=== PATIENT | female | born 1965 | race Caucasian/White ===

== ENCOUNTER 2016-10-20 11:38 | Emergency (ER) | payer BC ==
[2016-10-20] MEDS ORDERED: Ondansetron INJ* 2 MG/ML VIAL IV ONE ×2 (14:56→18:58)
[2016-10-20] MEDS ORDERED: Morphine INJ* 4 MG/ML 1 ML SYRINGE IV ONE ×2 (14:56→19:25)
[2016-10-20] MEDS ORDERED: NS 0.9% 1000 ML* 1,000 ML IV ONE ×2 (14:56→17:57)
--- NOTE | 2016-10-20 15:44 | RAD ---
HISTORY: Right shoulder abscess COMPARISONS: None TECHNIQUE: Multiple transverse and longitudinal ultrasound images were obtained of the right shoulder using grayscale and color Doppler imaging FINDINGS: There is a hypoechoic area in the region of palpable abnormality measuring 3.3 x 1 x 4.4 cm in size. There is no internal vascularity. IMPRESSION: HYPOECHOIC AREA IN THE REGION OF PALPABLE ABNORMALITY SUGGESTIVE OF PHLEGMON VERSUS EARLY ABSCESS GIVEN THE CLINICAL HISTORY
--- NOTE | 2016-10-20 16:34 | RAD ---
INDICATION: Malaise. COMPARISON: Comparison is made with a prior CT of the abdomen and pelvis from October 04, 2015 and a chest x-ray study also of the date. TECHNIQUE: A portable view of the chest was obtained. FINDINGS: The heart is within normal limits in size. There is a retrocardiac density which correlates with a moderate size hiatal hernia on the prior CT study. This is unchanged from the prior chest x-ray exam. The lungs are clear. No pleural effusion is seen. IMPRESSION: 1. NO EVIDENCE FOR ACUTE FINDING. 2. HIATAL HERNIA.
[2016-10-20 16:44] LABS: Hematocrit 41 % (35-47); Hemoglobin 13.6 g/dl (12.0-16.0); Mean Corpuscular HGB Conc 33 g/dl (31-36); Mean Corpuscular Hemoglobin 28 pg (27-31); Mean Corpuscular Volume 82 fL (80-97); Mean Platelet Volume 8 um3 (7.4-10.4); Red Blood Count 4.97 10^6/ul (4.0-5.4); Red Cell Distribution Width 15 % (10.5-15); White Blood Count 7.7 10^3/ul (3.5-10.8)
[2016-10-20 16:45] LABS: Troponin I 0.01 ng/mL (<0.04)
[2016-10-20 17:00] LABS: Albumin 3.6 g/dL (3.2-5.2); BUN/Creatinine Ratio 26.5 (8-20); C Reactive Protein 15.74 mg/L (< 5.00); Calcium 8.9 mg/dL (8.6-10.3); EGFR African American 92.5 (>60); EGFR Non-African American 71.9 (>60); Globulin 3.9 g/dL (2-4); Potassium 3.5 mmol/L (3.5-5.0); Total Bilirubin 0.2 mg/dL (0.2-1.0); Total Protein 7.5 g/dL (6.4-8.9)
[2016-10-20] MEDS ORDERED: Potassium Chlor TAB* 20 MEQ TAB.ER PO ONE (17:57)
[2016-10-20] MEDS ORDERED: Sulfamethox/Trimethoprim DS 800/160* TAB PO ONE (17:58)
[2016-10-20 18:21] LABS: Magnesium 1.6 mg/dL (1.9-2.7)
[2016-10-20] MEDS ORDERED: Magnesium Sulfate 2 GM IV* 2 GM/50 ML BAG IVPB ONE (18:30)
[2016-10-20] MEDS ORDERED: Ondansetron INJ* 2 MG/ML VIAL ONE (18:59)
[2016-10-20 20:40] LABS: Urine Bacteria 1+ (Absent); Urine Bilirubin Negative (Negative); Urine Glucose 1+(50 mg/dL) (Negative); Urine Nitrite Negative (Negative)
--- NOTE | 2016-10-20 20:56 | ED ---
I, DoctorLeidy, scribed for Shalonda Desir MD on 10/20/16 at 1501 . Complex/Multi-Sys Presentation - HPI Summary HPI Summary: 51 year [place] [facility] [place] the past few days. She reports decreased appetite and poor fluid intake, and generally "not feeling well." She also reports feeling lightheaded. She denies any dysuria. Pt also indicates that she has an acute cyst on the right shoulder. She has a PMHx of DM , HTN, CAD, and HLD; FHx of DM. She is an occasional smoker and infrequent drinker; lives with her . - History Of Current Complaint Chief Complaint: EDGeneral Hx Obtained From: Patient Onset/Duration: Gradual Onset Timing: Constant Severity Currently: Moderate Severity Initially: Moderate Associated Signs And Symptoms: Positive: Nausea, Vomiting, Diarrhea, Decreased Oral Intake - decreased appetite and poor fluid intake, Other - Lightheadedness , decreased appetite. Negative: Dysuria - Allergies/Home Medications Allergies/Adverse Reactions: Allergies Allergy/AdvReac Type Severity Reaction Status Date / Time No Known Allergies Allergy Verified 08/30/15 08:30 PMH/Surg Hx/FS Hx/Imm Hx Endocrine/Hematology History: Reports: Hx Diabetes Denies: Hx Systemic Lupus Erythematosus Cardiovascular History: Reports: Hx Coronary Artery Disease, Hx Myocardial Infarction, Other Cardiovascular Problems/Disorders - Cardiac Stents x 2 Denies: Hx Congestive Heart Failure, Hx Hypertension, Hx Pacemaker/ICD Respiratory History: Reports: Hx Asthma Denies: Other Respiratory Problems/Disorders GI History: Reports: Hx Gastroesophageal Reflux Disease Comment Only: Other GI Disorders - GERD History: Denies: Hx Dialysis, Hx Renal Disease Musculoskeletal History: Denies: Hx Rheumatoid Arthritis Sensory History: Reports: Hx Contacts or Glasses Denies: Hx Hearing Aid, Other Sensory Impairments Opthamlomology History: Reports: Hx Contacts or Glasses Denies: Other Sensory Impairments Neurological History: Reports: Hx Headaches, Hx Migraine Denies: Hx Transient Ischemic Attacks (TIA) Psychiatric History: Denies: Hx Panic Disorder, Hx Substance Abuse - Cancer History Cancer Type, Location and Year: CERVICAL CA 12/2012 Hx Chemotherapy: Yes Hx Radiation Therapy: Yes Hx Palliative Cancer Treatment: No - Surgical History Surgery Procedure, Year, and Place: 2 HEART STENTS 2006 AT [facility] /2009 AT [facility] [place]/, ESOPHOGUS SURGERY, 02/04/13 [facility] LYMPH NODE SURGERY - PER NO METAL USED IN THIS PROCEDURE (SW) Hx Anesthesia Reactions: No Infectious Disease History: No Infectious Disease History: Denies: Traveled Outside the [place] in Last 30 Days - Family History Known Family History: Positive: Diabetes Family History: R & n/C - Social History Alcohol Use: Rare Hx Substance Use: No Substance Use Type: Reports: None Hx Tobacco Use: Yes Smoking Status (MU): Current Some Day Smoker Type: Cigarettes Amount Used/How Often: just occassionally Have You Smoked in the Last Year: Yes Review of Systems Negative: Fever Positive: Vomiting, Diarrhea, Nausea, Other - decreased po intake Negative: dysuria Neurological: Other - Lightheadedness All Other Systems Reviewed And Are Negative: Yes Physical Exam Triage Information Reviewed: Yes Vital Signs On Initial Exam: Initial Vitals Temp Pulse Resp BP Pulse Ox 97.1 F 105 16 127/68 100 10/20/16 11:48 10/20/16 11:48 10/20/16 11:48 10/20/16 11:48 10/20/16 11:48 Vital Signs Reviewed: Yes Appearance: Positive: Well-Appearing, No Pain Distress Skin: Positive: Other - Abscess - 3 cm in circumference at superior edge of right scapula, some erythema on abscess with mild fluctuance and induration, but no surrounding erythema. Eyes: Positive: EOMI, DIPESH ENT: Positive: Pharynx normal, TMs normal Neck: Positive: Supple, Nontender Respiratory/Lung Sounds: Positive: Clear to Auscultation, Breath Sounds Present. Negative: Rales, Rhonchi, Wheezes Cardiovascular: Positive: RRR. Negative: Murmur, Rub Abdomen Description: Positive: Nontender, Soft Bowel Sounds: Positive: Present Musculoskeletal: Positive: Strength/ROM Intact. Negative: Edema Left, Edema Right Neurological: Positive: Sensory/Motor Intact, Alert, Oriented to Person Place, Time, CN Intact II-III Psychiatric: Positive: Affect/Mood Appropriate - Alicia Coma Scale Coma Scale Total: 15 Diagnostics - Vital Signs Vital Signs Temp Pulse Resp BP Pulse Ox 10/20/16 14:28 97.7 F 108 16 139/79 97 10/20/16 12:51 97.7 F 108 16 139/79 99 10/20/16 11:48 97.1 F 105 16 127/68 100 - Laboratory Lab Results: Lab Results 10/20/16 10/20/16 10/20/16 Range/Units 14:07 14:07 14:07 WBC 7.7 (3.5-10.8) 10^3/ul RBC 4.97 (4.0-5.4) 10^6/ul Hgb 13.6 (12.0-16.0) g/dl Hct 41 (35-47) % MCV 82 (80-97) fL MCH 28 (27-31) pg MCHC 33 (31-36) g/dl RDW 15 (10.5-15) % Plt Count 307 (150-450) 10^3/ul MPV 8 (7.4-10.4) um3 Neut % (Auto) 71.4 (38-83) % Lymph % (Auto) 20.4 L (25-47) % Ness % (Auto) 6.5 (1-9) % Eos % (Auto) 1.0 (0-6) % Baso % (Auto) 0.7 (0-2) % Absolute Neuts (auto) 5.5 (1.5-7.7) 10^3/ul Absolute Lymphs (auto) 1.6 (1.0-4.8) 10^3/ul Absolute Monos (auto) 0.5 (0-0.8) 10^3/ul Absolute Eos (auto) 0.1 (0-0.6) 10^3/ul Absolute Basos (auto) 0.1 (0-0.2) 10^3/ul Absolute Nucleated RBC 0.01 10^3/ul Nucleated RBC % 0.1 INR (Anticoag Therapy) 1.22 H (0.89-1.11) Sodium 130 L (133-145) mmol/L Potassium 3.5 (3.5-5.0) mmol/L Chloride 94 L (101-111) mmol/L Carbon Dioxide 26 (22-32) mmol/L Anion Gap 10 (2-11) mmol/L BUN 22 (6-24) mg/dL Creatinine 0.83 (0.51-0.95) mg/dL Est GFR ( Amer) 92.5 (>60) Est GFR (Non-Af Amer) 71.9 (>60) BUN/Creatinine Ratio 26.5 H (8-20) Glucose 232 H (70-100) mg/dL Lactic Acid (0.5-2.0) mmol/L Calcium 8.9 (8.6-10.3) mg/dL Magnesium 1.6 L (1.9-2.7) mg/dL Total Bilirubin 0.20 (0.2-1.0) mg/dL AST 95 H (13-39) U/L ALT 69 H (7-52) U/L Alkaline Phosphatase 55 (34-104) U/L Troponin I 0.01 (<0.04) ng/mL C-Reactive Protein 15.74 H (< 5.00) mg/L Total Protein 7.5 (6.4-8.9) g/dL Albumin 3.6 (3.2-5.2) g/dL Globulin 3.9 (2-4) g/dL Albumin/Globulin Ratio 0.9 L (1-3) Urine Color Urine Appearance Urine pH (5-9) Ur Specific [place] (1.010-1.030) Urine Protein (Negative) Urine Ketones (Negative) Urine Blood (Negative) Urine Nitrate (Negative) Urine Bilirubin (Negative) Urine Urobilinogen (Negative) Ur Leukocyte Esterase (Negative) Urine WBC (Auto) (Absent) Urine RBC (Auto) (Absent) Ur Squamous Epith Cells (Absent) Amorphous Crystals (Absent) Urine Bacteria (Absent) Hyaline Casts (Absent) Urine Glucose (Negative) Urine Ascorbic Acid (Negative) 10/20/16 10/20/16 Range/Units 14:07 20:20 WBC (3.5-10.8) 10^3/ul RBC (4.0-5.4) 10^6/ul Hgb (12.0-16.0) g/dl Hct (35-47) % MCV (80-97) fL MCH (27-31) pg MCHC (31-36) g/dl RDW (10.5-15) % Plt Count (150-450) 10^3/ul MPV (7.4-10.4) um3 Neut % (Auto) (38-83) % Lymph % (Auto) (25-47) % Ness % (Auto) (1-9) % Eos % (Auto) (0-6) % Baso % (Auto) (0-2) % Absolute Neuts (auto) (1.5-7.7) 10^3/ul Absolute Lymphs (auto) (1.0-4.8) 10^3/ul Absolute Monos (auto) (0-0.8) 10^3/ul Absolute Eos (auto) (0-0.6) 10^3/ul Absolute Basos (auto) (0-0.2) 10^3/ul Absolute Nucleated RBC 10^3/ul Nucleated RBC % INR (Anticoag Therapy) (0.89-1.11) Sodium (133-145) mmol/L Potassium (3.5-5.0) mmol/L Chloride (101-111) mmol/L Carbon Dioxide (22-32) mmol/L Anion Gap (2-11) mmol/L BUN (6-24) mg/dL Creatinine (0.51-0.95) mg/dL Est GFR ( Amer) (>60) Est GFR (Non-Af Amer) (>60) BUN/Creatinine Ratio (8-20) Glucose (70-100) mg/dL Lactic Acid 1.0 (0.5-2.0) mmol/L Calcium (8.6-10.3) mg/dL Magnesium (1.9-2.7) mg/dL Total Bilirubin (0.2-1.0) mg/dL AST (13-39) U/L ALT (7-52) U/L Alkaline Phosphatase (34-104) U/L Troponin I (<0.04) ng/mL C-Reactive Protein (< 5.00) mg/L Total Protein (6.4-8.9) g/dL Albumin (3.2-5.2) g/dL Globulin (2-4) g/dL Albumin/Globulin Ratio (1-3) Urine Color Yellow Urine Appearance Cloudy Urine pH 5.0 (5-9) Ur Specific [place] 1.024 (1.010-1.030) Urine Protein 1+(30 mg/dl) H (Negative) Urine Ketones Trace H (Negative) Urine Blood Negative (Negative) Urine Nitrate Negative (Negative) Urine Bilirubin Negative (Negative) Urine Urobilinogen Negative (Negative) Ur Leukocyte Esterase Trace H (Negative) Urine WBC (Auto) 1+(6-10/hpf) H (Absent) Urine RBC (Auto) Trace(0-2/hpf) (Absent) Ur Squamous Epith Cells Present H (Absent) Amorphous Crystals Present H (Absent) Urine Bacteria 1+ H (Absent) Hyaline Casts Present H (Absent) Urine Glucose 1+(50 mg/dl) H (Negative) Urine Ascorbic Acid * H (Negative) Result Diagrams: 10/20/16 14:07 10/20/16 14:07 Lab Statement: Any lab studies that have been ordered have been reviewed, and results considered in the medical decision making process. - Radiology CXR Radiology Interpretation Completed By: Radiologist - IMPRESSION: 1. NO EVIDENCE FOR ACUTE FINDING. 2. HIATAL HERNIA. - Ultrasound No standard instances Ultrasound Interpretation Completed By: Radiologist - Soft Tissue US IMPRESSION : HYPOECHOIC AREA IN THE REGION OF PALPABLE ABNORMALITY SUGGESTIVE OF PHLEGMON VERSUS EARLY ABSCESS GIVEN THE CLINICAL HISTORY - EKG 11:55 Cardiac Rate: Tachycardia - 103 bpm EKG Rhythm: Sinus Rhythm - normal Ectopy: None EKG Interpretation: NSR, Non-specific t-wave changes EKG Comparison: No Significant Change - from EKG taken on 10/04/2015 Re-Evaluation - Re-Evaluation First Eval Re-Evaluation Time: 17:49 Change: Unchanged - Discussed treatment plan and lab results with pt Second Eval Re-Evaluation Time: 18:00 Change: Unchanged Complex Multi-Symp Course/Dx Course Of Treatment: 51 yo female with nausea and a developing abscess over her right upper back. She is being treated with bactrim, her urine is equivacol and we will wait for culture. She did come in tachycardic but without a wbc and with a normal lactic acid. Her tachycardia resolved with 2 liters of fluid, she will followup at [place] for i and D of the abscess in 2 days, [facility] but wanted to go to [place] - Diagnoses Provider Diagnoses: Abscess Discharge - Discharge Plan Condition: Stable Disposition: HOME Prescriptions: Ondansetron TAB* [Zofran 4 MG Tab*] 4 mg PO Q6H PRN #20 tab PRN Reason: Nausea Sulfamethox/Trimethoprim DS* [Bactrim DS 800/160 TAB*] 1 tab PO BID #14 tab The documentation as recorded by the Doctor granados Tahera accurately reflects the service I personally performed and the decisions made by , Shalonda Desir MD.
[2016-10-20] MEDS ORDERED: Ondansetron ODT TAB* 4 MG ONE (21:16)
[2016-10-20 21:26] VITALS: BP 151/72
== END 2016-10-20 21:23 | disposition home or self-care (01) ==
LOC: ED 11:38
DX: L02.413 Cutaneous abscess of right upper limb (principal); R11.2 Nausea with vomiting, unspecified; R19.7 Diarrhea, unspecified; Z72.0 Tobacco use; R42 Dizziness and giddiness
CPT/HCPCS: 36415; 71010; 76536; 80053; 81003; 81015; 83605; 83735; 84484; 85025; 85610; 86140; 87086; 93005; 96374; 96375; 99282; A9270-GY; J2270; J2405

== ENCOUNTER 2019-07-22 11:00 | Inpatient (IN) | payer BC ==
--- OUTSIDE RECORDS SUMMARY | 2019-07-22 13:28 | XMS REPORT | Continuity of Care Document ---
:1965 External Reference #:[id number] Author Name Marissa Jimenez NP (transmitted by agent of provider Halle Harper) Address [address] [place] [address] Care Team Providers Name Role Phone Prudence Whatley NP - Nurse Care Team Information Musculoskeletal Physiotherapist [phone] Practitioner Problems Active Problems Provider Date Coronary arteriosclerosis Evan Holland M.D. Onset: 02/01/2016 Essential hypertension Evan Holland M.D. Onset: 02/01/2016 Social History Type Date Description Comments Sex Unknown ETOH Use Occasionally consumes alcohol Tobacco Use Start: Unknown End: Patient is a former Quit 2006 Unknown smoker Recreational Drug Use Denies Drug Use Tobacco Use Start: Unknown Light tobacco smoker only on sundays (10 or fewer cigarettes/day) Smoking Status Reviewed: 07/19/19 Light tobacco smoker only on sundays (10 or fewer cigarettes/day) Exercise Type/Frequency Does not exercise limited d/tnerve damage Allergies, Adverse Reactions, Alerts Active Allergies Reaction Severity Comments Date Bee Sting 01/18/2014 Medications Active Medications SIG Qnty Indications Ordering Provider Date Blood Pressure use daily to 1units Marissa Jimenez NP 07/19/2019 Monitor Auto monitor bp daily Inflate as needed.( [facility] [place] cuff) Lasix take 1 tablet by 30tabs I87.2 Marissa Jimenez NP 07/19/2019 40mg Tablets mouth daily Humalog Kwikpen silding scale Evan Holland, 01/08/2018 Huber 100Unit/ML Solution Pen-Inject Rosuvastatin Calcium one a day 90tabs I25.10 Evan Holland 01/08/2018 M.D. 5mg Tablets Tricor 1 by mouth every 90tabs Evan Holland, 08/05/2013 145mg Tablets day M.D. Plavix 1 by mouth every 90tabs Evan Holland, 08/03/2013 75mg Tablets day M.D. Metoprolol Succinate 1 tablet by 90tabs Evan Holland, 12/23/2012 ER mouth every day M.D. 50mg Tablets ER 24HR Losartan Potassium 1 by mouth every 90tabs Evan Holland, 25mg day M.D. Tablets Fluoxetine HCL 1 by mouth every Unknown 20mg day Capsules Gabapentin 1 by mouth three Unknown 300mg times a day Capsules Albuterol Sulfate prn Unknown Fluticasone 2 sprays each Unknown Propionate nostril daily as 50mcg/Act needed Suspension Levemir take 50 units sq 5units Unknown 100Unit/ML daily Solution Magnesium 1 tablet po Unknown 400mg daily Claritin prn Unknown Nexium 1 by mouth every 90caps Unknown 40mg Capsules DR day Glyburide 1 tablet in am 180tabs Unknown 4mg Tablets and 1 tablet qhs Aspirin Ec 1 by mouth every Unknown 81mg Tablets day DR History Medications Furosemide 1 by mouth 90tabs I25.10 Evan Holland, 03/02/2019 - 20mg every day M.D. 07/19/2019 Tablets Immunizations Description No Information Available Vital Signs Date Vital Result Comment 07/19/2019 12:43pm Height 64 inches 5'4" Weight 198.00 lb with shoes Heart Rate 76 /min BP Systolic Sitting 150 mmHg LA BP Diastolic Sitting 76 mmHg LA BP Systolic Standing 164 mmHg LA BP Diastolic Standing 80 mmHg LA BMI (Body Mass Index) 34.0 kg/m2 Ejection Fraction 50-55% Echo 03/09/19 03/02/2019 3:26pm Height 64 inches 5'4" Weight 170.00 lb with out shoes Heart Rate 80 /min BP Systolic Sitting 170 mmHg Rue lg cuff BP Diastolic Sitting 80 mmHg Rue lg cuff BP Systolic Standing 166 mmHg Rue lg cuff BP Diastolic Standing 80 mmHg Rue lg cuff Respiratory Rate 16 /min BMI (Body Mass Index) 29.2 kg/m2 Ejection Fraction 60% date 09/27/06 ECHO Results Test Acquired Date Facility Test Result H/L Range Note Basic Metabolic 03/16/2019 [facility] Sodium 139 mmol/L Normal 135-[address] [place] [address] [phone] Potassium 4.0 mmol/L Normal 3.5-5.0 Chloride 103 mmol/L Normal 101-111 Co2 Carbon Dioxide 29 mmol/L Normal 22-32 Anion Gap 7 mmol/L Normal 2-11 Glucose 96 mg/dL Normal 70-100 Blood Urea Nitrogen 21 mg/dL Normal 6-24 Creatinine 0.84 mg/dL Normal 0.51-0.95 BUN/Creatinine Ratio 25.0 High 8-20 Calcium 9.1 mg/dL Normal 8.6-10.3 Egfr Non- 70.1 >60 Egfr 84.9 >60 1 1 Because ethnic data is not always readily available, this report includes an eGFR for both -Americans and non- Americans. The National Kidney Disease Education Program (NKDEP) does not endorse the use of the MDRD equation for patients that are not between the ages of 18 and 70, are , have extremes of body size, muscle mass, or nutritional status, or are non- or non-. According to the National Kidney Foundation, irrespective of diagnosis, the stage of the disease is based on the level of kidney function: Stage Description GFR(mL/min/1.73 m(2)) 1 Kidney damage with normal or decreased GFR 90 2 Kidney damage with mild decrease in GFR 60-89 3 Moderate decrease in GFR 30-59 4 Severe decrease in GFR 15-29 5 Kidney failure <15 (or dialysis) Procedures Date Code Description Status 07/19/2019 31107 EKG Tracing & Interpretation Completed 03/09/2019 60026 ECHO Transthoracic, Real-Time 2D With Doppler And Color Completed Flow 03/09/2019 94998 ECHO Transthoracic, Real-Time 2D With Doppler And Color Completed Flow 03/02/2019 70910 EKG Tracing & Interpretation Completed Medical Devices Description No Information Available Encounters Type Date Location Provider Dx Diagnosis Office Visit 03/02/2019 [facility] Evan D. I25.10 Athscl heart 3:30p Of Rian Holland M.D. disease of [place] coronary artery w/o ang pctrs I10 Essential (primary) hypertension R60.0 Localized edema R94.31 Abnormal electrocardiogram [ECG] [EKG] Z98.61 Coronary angioplasty status Assessments Date Code Description Provider 07/19/2019 I10 Essential (primary) hypertension Marissa Jimenez NP 07/19/2019 I25.10 Atherosclerotic heart disease of [place] Marissa Jimenez NP coronary artery without angina pectoris 07/19/2019 I87.2 Venous insufficiency (chronic) (peripheral) Marissa Jimenez NP 07/19/2019 E78.5 Hyperlipidemia, unspecified Marissa Jimenez NP 03/09/2019 I25.10 Atherosclerotic heart disease of [place] Evan Holland M.D. coronary artery without angina pectoris 03/09/2019 I25.10 Atherosclerotic heart disease of [place] Traveling ECHO 1 coronary artery without angina pectoris 03/02/2019 I25.10 Atherosclerotic heart disease of [place] Evan Holland M.D. coronary artery without angina pectoris 03/02/2019 I10 Essential (primary) hypertension Evan Holland M.D. 03/02/2019 R60.0 Edema Evan Holland M.D. 03/02/2019 R94.31 Electrocardiogram abnormal Evan Holland M.D. 03/02/2019 Z98.61 Coronary angioplasty status Evan Holland M.D. Plan of Treatment Future Appointment(s):07/22/2019 8:45 am - [facility] ECHO Schedule at [facility]08/02/2019 1:20 pm - Marissa Jimenez NP at [facility]08/03/2019 1:00 pm - Loc Crowe MD at [facility]07/19/2019 - Marissa Jimenez [id number] Essential (primary) hypertensionRecommendations:please start taking your blood pressure daily. If it is consistently greater than 150/90 please contact myself or your PCP Please fruit picker ambulatory BP [id number] Atherosclerotic heart disease of [place] coronary artery without angina [id number] Venous insufficiency ( chronic) (peripheral)New Medication:Lasix 40 mg - take 1 tablet by mouth dailyNew Orders:Echocardiogram, Scheduled: 07/22/19Referral:Saqib Melgar MD, Surgery,GeneralFollow up:follow up with Marissa Jimenez NP 2 weeks.Recommendations:purchase roni wraps and apply them to both legs during day time hours and take them off at night. Please make sure to no constrict your circulation. Start to elevate your legs above level of your heart increase Lasix to 40mg/day Get non fasting labs in 7 days increase your potassium intake.E78.5 Hyperlipidemia, unspecified Functional Status Description No Information Available Mental Status Description No Information Available Referrals Refer to Dr Reason for Referral Status Appt Date Saqib Melgar MD Sent [address] [place] [address] [place] [address] [phone]
--- OUTSIDE RECORDS SUMMARY | 2019-07-22 13:28 | XMS REPORT | Summary of Care ---
:1965 Author Organization [facility] Address [address] [facility] [address] MICHAEL Coyne [address] Care Team Providers Name Role Phone Shaq Fulton Carlton Primary Care Provider Reason for Referral Diagnostic Testing (Emergency) Status Reason Specialty Diagnoses / Referred By Referred To Procedures Contact Contact Authorized Diagnoses Asthma with COPD (HCC) Prudence Whatley, Procedures PFT ROUTINE STUDIES [facility] [address] [place] [address] Reason for Visit Reason Comments Breathing Problem wheezing expecialy at night,winded easily per patient X2 months, dosnt feel 100 percent since seen in [facility] Encounter Details Date Type Department Care Team Description 06/07/2019 Office Visit [facility] Prudence Whatley, Asthma with COPD ( HCC) (Primary Dx); Practice ASSOCIATE FACULTY Onychomycosis; [address] [facility] [place] [address] [phone] Allergies Active Allergy Reactions Severity Noted Date Comments Bee Sting Hives 11/19/2017 documented as of this encounter (statuses as of 06/07/2019) Medications Medication Sig Dispensed Refills Start Date End Date Status Aspirin 81 MG Oral Take 81 mg by 0 Active Tab mouth DAILY. clopidogrel (PLAVIX) Take 1 Tab by 30 Tab 5 03/24/2012 Active 75 MG Oral Tab mouth DAILY. LOSARTAN POTASSIUM Take 25 mg by 0 Active PO mouth DAILY. Magnesium 400 MG Take 400 mg by 0 Active Oral Cap mouth TWICE DAILY. Lancets Does not by Does not apply route. 1. Brand: per meter 400 Each 3 Active apply 2. Dx:250.02 MiscIndications: 3. non-Insulin dependent Diabetes mellitus 4. Test Blood Glucose 2 time(s) A DAY without complication (HCC) fenofibrate (TRICOR) TAKE ONE TABLET 30 Tab 0 07/31/2017 Active 145 MG Oral Tab BY MOUTH ONCE DAILY Insulin Pen Needle 1 Each by Does 100 Each 3 09/28/2017 Active (RELION SHORT PEN not apply route NEEDLES) 31G X 8 MM DAILY. Does not apply Misc Insulin Lispro Inject 5-15 15 mL 5 09/30/2017 Active (HUMALOG KWIKPEN) Units beneath 100 UNIT/ML the skin THREE Subcutaneous TIMES DAILY Solution BEFORE MEALS. Pen-injector DX E 11.9 5 unit plus sliding scale MDD 45 units Rosuvastatin Calcium Take by mouth 0 Active (CRESTOR) 5 MG Oral EVERY BEDTIME. Tab Insulin Disposable 1 Each by Does 1 Kit 6 10/07/2018 Active Pump (V-GO 30) Does not apply route not apply Kit DAILY. LISPRO insulin, Inject 66 Units 20 mL 3 10/14/2018 Active RAPID - Acting, beneath the (HUMALOG) 100 skin UNIT/ML Subcutaneous Continuous. For Solution use with VGO30 MDD 66 units metoprolol succinate Take 50 mg by 0 Active (TOPROL XL) 50 MG mouth DAILY. Oral TABLET SR 24 HR fluticasone Callery 1 Callery 1 Bottle 2 03/31/2019 Active (FLONASE) 50 MCG/ACT in nose TWICE Nasal Suspension DAILY. fluoxetine (PROZAC) Take 1 Cap by 90 Cap 3 03/31/2019 Active 20 MG Oral Cap mouth DAILY. esomeprazole Take 40 mg by 30 Cap 5 03/31/2019 Active magnesium (NEXIUM) mouth DAILY. 40 MG Oral CAPSULE DELAYED RELEASE Beclomethasone Take 2 Puffs by 1 Inhaler 03/31/2019 Active Dipropionate inhalation INHALATION MDI 80 TWICE DAILY. mcg/act, QVAR, 80 MCG/ACT Inhalation Aero SolnIndications: Exacerbation of intermittent asthma, unspecified asthma severity PROAIR RESPICLICK Take 2 Puffs by 1 Each 5 03/31/2019 Active 108 (90 Base) inhalation MCG/ACT Inhalation EVERY FOUR AEROSOL POWDER, HOURS NEEDED BREATH ACTIVATED (wheezing). Benzonatate Take 1 Cap by 30 Cap 1 04/07/2019 Active (TESSALON) 200 MG mouth THREE Oral Cap TIMES DAILY NEEDED (cough). fluconazole Take 1 Tab by 2 Tab 0 04/07/2019 Active (DIFLUCAN) 150 MG mouth ONE TIME. Oral Tab May repeat in a week if needed. Insulin Detemir Inject 50 Units 45 Each 3 04/21/2019 Active (LEVEMIR FLEXTOUCH) beneath the 100 UNIT/ML skin DAILY. Subcutaneous E11.65 Solution Pen-injectorIndicati ons: Diabetes mellitus without complication (HCC) glimepiride (AMARYL) Take 1 Tab by 180 Tab 3 04/21/2019 Active 4 MG Oral mouth TWICE TabIndications: DAILY. Diabetes mellitus without complication (HCC) gabapentin Take 1 Cap by 380 Cap 3 04/21/2019 Active (NEURONTIN) 300 MG mouth FOUR Oral CapIndications: TIMES DAILY. Diabetes mellitus without complication (HCC) budesonide-formotero Take 2 INHL by 1 Inhaler 5 06/07/2019 Active l fumarate inhalation (SYMBICORT) 160-4.5 TWICE DAILY. MCG/ACT Inhalation AerosolIndications: Asthma with COPD (HCC) terbinafine Take 250 mg by 30 Tab 2 06/07/2019 Active (LAMISIL) 250 MG mouth DAILY. Oral TabIndications: Onychomycosis predniSONE Take 1 Tab by 14 Tab 0 03/31/2019 Discontinued (DELTASONE) 20 MG mouth 9 Oral TabIndications: DIRECTED. 2 Exacerbation of tabs a day for intermittent asthma, 4 days, 1 tab unspecified asthma for 4 days, 1/2 severity tab for 4 days. doxycycline Take 100 mg by 20 Tab 0 03/31/2019 Discontinued (VIBRAMYCIN) 100 MG mouth TWICE 9 Oral TabIndications: DAILY. Exacerbation of intermittent asthma, unspecified asthma severity documented as of this encounter (statuses as of 06/07/2019) Active Problems Problem Noted Date Current smoker 06/07/2019 Hiatal hernia 12/17/2017 Irritable bowel syndrome with diarrhea 12/17/2017 Gastroesophageal reflux disease without esophagitis 12/17/2017 Anxiety 11/14/2015 Cervical cancer 01/14/2013 Overview: Stage 1b 02/2013 Hypertriglyceridemia 01/09/2010 HTN (hypertension) 01/09/2010 Type 2 diabetes mellitus without complication 02/10/2008 Coronary Artery Disease 10/07/2007 Overview: S/p inferior wall [place], s/p PTCA/stent RCA-drug eluting stent Classification Counselor Dr Holland [facility] Dr Holland did cardiac exercise nuclear stress test. No evidence of ischemia. No evidence of infarction. Normal left ventricular function. Compared to study of 02/16 , there is little change . Stricture and stenosis of esophagus 10/07/2007 Obesity, unspecified 10/07/2007 Overview: BMI 34.03 12/21 Asthma 10/07/2007 documented as of this encounter (statuses as of 06/07/2019) Resolved Problems Problem Noted Date Resolved Date PID (acute pelvic inflammatory disease) 12/29/2012 12/29/2012 PID (pelvic inflammatory disease) 12/29/2012 09/29/2014 Myalgia 02/10/2008 02/23/2014 Overview: Due to lipitor Iron Deficiency Anemia 10/07/2007 09/29/2014 Personal history of tobacco use, presenting hazards to health 10/07/2007 documented as of this encounter (statuses as of 06/07/2019) Immunizations Name Administration Dates Next Due Adacel TdaP 06/14/2017 DTP/HIB Combined Vaccine 05/20/2018 Influenza (IM) Preservative Free 03/20/2017, 04/05/2015 Influenza (IM) W/Pres 02/16/2015 Influenza Vaccine Whole 05/20/2007 Pneumococcal Conjugate(13 Valent) 05/20/2018, 05/17/2015 Rocephin (250 mg) 12/29/2012 documented as of this encounter Social History Tobacco Use Types Packs/Day Years Used Date Current Some Day Smoker Cigarettes Quit: 09/16/2014 Smokeless Tobacco: Never Used Comments: Smoking on and off Alcohol Use Drinks/Week oz/Week Comments Yes 0 Standard drinks or equivalent 0.0 6x/year Sex Assigned at Date Recorded Not on file Job Start Date Occupation Industry Not on file Not on file Not on file Travel History Travel Start Travel End No recent travel history available. documented as of this encounter Last Filed Vital Signs Vital Sign Reading Time Taken Comments Blood Pressure 170/78 06/07/2019 8:08 AM EST Pulse 88 06/07/2019 7:55 AM EST Temperature 37.2 06/07/2019 7:55 AM EST C (98.9 F) Respiratory Rate - - Oxygen Saturation 96% 06/07/2019 7:55 AM EST Inhaled Oxygen Concentration - - Weight 83.1 kg (183 lb 1.6 oz) 06/07/2019 7:55 AM EST Height 163.8 cm (5' 4.5") 06/07/2019 7:55 AM EST Body Mass Index 30.94 06/07/2019 7:55 AM EST documented in this encounter Patient Instructions Patient InstructionsPrudence Whatley FNP - 06/07/2019 8:00 AM ESTTry symbicort, 2 puffs twice a day Schedule pulmonary function testing. Office visit 1-2 weeks after. Letter done. May need to see Coal Inspector, Dr. Shabazz Start lamisil daily. Take for 3 months. documented in this encounter Progress Notes Prudence Whatley FNP - 06/07/2019 8:00 AM EST PATIENT: Blanche Godinez : 1965 DATE OF SERVICE: 06/07/2019 Chief Complaint Patient presents with Breathing Problem wheezing expecialy at night,winded easily per patient X2 months, dosnt feel 100 percent since seenin jose SUBJECTIVE: Blanche Godinez is a 54-y.o. female who is here with ongoing wheezing and she gets easily shortness of breath with exertion. She is taking qvar bid and albuterol prn. She had ECHO at her [facility] and was told all was okay. Chest x-ray done here showing no acute cardiopulmonary disease. She denies sinus congestion, sore throat , fever. No chest pain . She is smoking but has cut down. Patient Active Problem List Diagnosis Date Noted Current smoker 06/07/2019 Hiatal hernia 12/17/2017 Irritable bowel syndrome with diarrhea 12/17/2017 Gastroesophageal reflux disease without esophagitis 12/17/2017 Anxiety 11/14/2015 Cervical cancer (HCC) 01/14/2013 Stage 1b 02/2013 Hypertriglyceridemia 01/09/2010 HTN (hypertension) 01/09/2010 Type 2 diabetes mellitus without complication (HCC) 02/10/2008 Coronary Artery Disease 10/07/2007 S/p inferior wall [place], s/p PTCA/stent RCA-drug eluting stent Classification Counselor Dr Holland [facility] Dr Holland did cardiac exercise nuclear stress test. No evidence of ischemia. No evidence of infarction. Normal left ventricular function. Compared to study of 02/16 , there is little change . Stricture and stenosis of esophagus 10/07/2007 Obesity, unspecified 10/07/2007 BMI 34.03 12/21 Asthma 10/07/2007 Current Outpatient Medications Medication Sig Aspirin 81 MG Oral Tab Take 81 mg by mouth DAILY. Beclomethasone Dipropionate INHALATION MDI 80 mcg/act, QVAR, 80 MCG/ACT Inhalation Aero Soln Take 2 Puffs by inhalation TWICE DAILY. Benzonatate (TESSALON) 200 MG Oral Cap Take 1 Cap by mouth THREE TIMES DAILY NEEDED (cough). budesonide-formoterol fumarate (SYMBICORT) 160-4.5 MCG/ACT Inhalation Aerosol Take 2 INHL by inhalation TWICE DAILY. clopidogrel (PLAVIX) 75 MG Oral Tab Take 1 Tab by mouth DAILY. esomeprazole magnesium (NEXIUM) 40 MG Oral CAPSULE DELAYED RELEASE Take 40 mg by mouth DAILY. fenofibrate (TRICOR) 145 MG Oral Tab TAKE ONE TABLET BY MOUTH ONCE DAILY fluconazole (DIFLUCAN) 150 MG Oral Tab Take 1 Tab by mouth ONE TIME. May repeat in a week if needed. fluoxetine (PROZAC) 20 MG Oral Cap Take 1 Cap by mouth DAILY. fluticasone (FLONASE) 50 MCG/ACT Nasal Suspension Callery 1 Callery in nose TWICE DAILY. gabapentin (NEURONTIN) 300 MG Oral Cap Take 1 Cap by mouth FOUR TIMES DAILY. glimepiride (AMARYL) 4 MG Oral Tab Take 1 Tab by mouth TWICE DAILY. Insulin Detemir (LEVEMIR FLEXTOUCH) 100 UNIT/ML Subcutaneous Solution Pen -injector Inject 50 Units beneath the skin DAILY. E11.65 Insulin Disposable Pump (V-GO 30) Does not apply Kit 1 Each by Does not apply route DAILY. Insulin Lispro (HUMALOG KWIKPEN) 100 UNIT/ML Subcutaneous Solution Pen- injector Inject 5-15 Units beneath the skin THREE TIMES DAILY BEFORE MEALS. DX E 11.9 5 unit plus sliding scale MDD 45 units Insulin Pen Needle (RELION SHORT PEN NEEDLES) 31G X 8 MM Does not apply Misc 1 Each by Does not apply route DAILY. Lancets Does not apply Misc by Does not apply route. 1. Brand: per meter 2. Dx:250.02 3. non-Insulin dependent 4. Test Blood Glucose 2 time(s) A DAY LISPRO insulin, RAPID - Acting, (HUMALOG) 100 UNIT/ML Subcutaneous Solution Inject 66 Units beneath the skin Continuous. For use with VGO30 MDD 66 units LOSARTAN POTASSIUM PO Take 25 mg by mouth DAILY. Magnesium 400 MG Oral Cap Take 400 mg by mouth TWICE DAILY. metoprolol succinate (TOPROL XL) 50 MG Oral TABLET SR 24 HR Take 50 mg by mouth DAILY. PROAIR RESPICLICK 108 (90 Base) MCG/ACT Inhalation AEROSOL POWDER, BREATH ACTIVATED Take 2 Puffs by inhalation EVERY FOUR HOURS NEEDED ( wheezing). Rosuvastatin Calcium (CRESTOR) 5 MG Oral Tab Take by mouth EVERY BEDTIME. terbinafine (LAMISIL) 250 MG Oral Tab Take 250 mg by mouth DAILY. No current facility-administered medications for this visit. OBJECTIVE: BP 170/78 (BP Location: Left arm, Patient Position: Sitting) | Pulse 88 | Temp 98.9 F (37.2 C) (Tympanic) | Ht 5' 4.5" (1.638 m) | Wt 183 lb 1.6 oz (83.1 kg) | LMP 01/09/2013 |SpO2 96% | BMI 30.94 kg/m She is alert and in no distress. Ears normal. Throat and pharynx normal. Neck supple. No adenopathy or masses in the neck or supraclavicular regions. Sinuses non tender.Lungs with few diffuse wheezes. Some reduced breath sounds bases. No rales. ASSESSMENT: ICD-9-CM ICD-10-CM 1. Asthma with COPD ([facility]) 493.20 J44.9 budesonide-formoterol fumarate (SYMBICORT ) 160-4.5 MCG/ACT Inhalation Aerosol PFT ROUTINE STUDIES 2. Onychomycosis 110.1 B35.1 terbinafine (LAMISIL) 250 MG Oral Tab 3. Current smoker 305.1 F17.200 Patient Instructions Try symbicort, 2 puffs twice a day Schedule pulmonary function testing. Office visit 1-2 weeks after. Letter done. May need to see Coal Inspector, Dr. Shabazz Start lamisil daily. Take for 3 months. Author: MICHEL Jay 06/07/2019 09:53 documented in this encounter Plan of Treatment Date Type Specialty Care Team Description 07/08/2019 Nurse/Clinical Support Internal Medicine 07/26/2019 Office Visit Family Practice Prudence Whatley FNP [address] [place] [address] [phone] Name Type Priority Associated Diagnoses Order Schedule PFT ROUTINE STUDIES Pulmonary STAT Asthma with COPD (HCC) Expected: 2018, Expires: 12/04/2019 Health Maintenance Due Date Last Done Comments Diabetic Eye Exam 1965 ZOSTER IMMUNIZATION SERIES 2013 (1 of 2) PNEUMOCOCCAL 0-64 YRS (1 of 07/15/2018 05/20/2018, 05/17/2015 1 - PPSV23) PAP SMEAR 08/28/2018 08/28/2015, 12/29/2012, 06/01/1998 MAMMOGRAM (SCREENING) 02/09/2019 02/09/2018, 02/06/2017, 02/04/2016, Additional history exists INFLUENZA VACCINE (#1) 2019 03/20/2017, 04/05/2015, 02/16/2015, Additional history exists HEMOGLOBIN A1C 07/22/2019 04/21/2019, 09/23/2018, 01/21/2018, Additional history exists DEPRESSION SCREENING 03/31/2020 03/31/2019 FOOT EXAM 04/21/2020 04/21/2019, 04/21/2019, 04/21/2019, Additional history exists LIPID DISORDER SCREENING 04/21/2020 04/21/2019, 09/23/2018, 10/19/2017, Additional history exists Colonoscopy 12/10/2027 12/09/2017, 01/09/2014 (Postponed) HPV IMMUNIZATION SERIES Aged Out No longer eligible based on patient's age to complete this topic MENINGOCOCCAL VACCINE IMM Aged Out No longer eligible based on patient's age to complete this topic documented as of this encounter Goals Goal Patient Goal Associated Recent Patient-Stated? Author Type Problems Progress Blood Pressure Blood Pressure 170/78 No Phylicia, < 140/90 (06/07/2019 MICHEL Foss 8:08 AM EST) Note: This is an individualized treatment (blood pressure) goal for Blanche Godinez: Displayed above (on the left) is your goal for blood pressure control. Your most recent blood pressure is also shown above, on the right. You should try to achieve blood pressures that are lower than your goal listed above (on the left). Glycohemoglobin A1c < 7.0 Diabetes 9.3 (04/21/2019 9:48 No Prudence Whatley FNP AM EDT) Note: This is an individualized treatment (diabetes control, HgbA1C) goal for Blanche Godinez: Displayed above is your progress towards your HgbA1C goal. Your goal is shown above (on the left); your most recent HgbA1C is shown on the right. Note that lower numbers are better. Keep immunizations current Lifestyle Prudence Staples FNP Note: This is an individualized lifestyle goal for Blanche Godinez: Please be sure to keep up-to-date on recommended immunizations. For example, this would include a yearly influenza vaccine. Immunization status can be seen by looking at the Health Maintenance sections of your [facility], Plan of Care, and any After Visit Summaries. Weight loss vs. 18 mo Lifestyle 0 (06/07/2019 7:55 AM No Prudence Whatley FNP max (lbs) >= 10 EST) Note: This is an individualized lifestyle goal for Blanche Godinez: Your body mass index (BMI) is more than 30. You should lose weight. A reasonable starting goal is to lose 10 pounds. Displayed above is how many pounds you have lost thus far towards your 10 pound weight loss goal. Take all prescribed medications as Self-management No Prudence Whatley FNP directed Note: This is an individualized self-management goal for Blanche Godinez: Please take all prescribed medications as directed. 1. Do not skip doses. If you cannot afford your medications, talk with your doctor. 2. Use a pill reminder system such as a pill box if needed. Your pharmacist can help you with this. 3. Contact your Pharmacy 5 days before your medication runs out. If you cannot take your medications for any reasons, talk with your doctor. 4. Please bring all of your medication bottles and inhalers (or a list of all your medications/inhalers) with you to every visit. Potential barriers to meeting all of your care plan goals will continue to be addressed on an ongoing basis. documented as of this encounter Results Not on filedocumented in this encounter Visit Diagnoses Diagnosis Asthma with COPD (HCC) - Primary Chronic obstructive asthma, unspecified Onychomycosis Dermatophytosis of nail Current smoker Tobacco use disorder documented in this encounter Insurance Payer Benefit Plan / Subscriber ID Effective Dates Phone Address Type Group [facility] xxxxxxxxxxxx 2016-Present [place] [employer] [facility] Guarantor Name Account Type Relation to Date of Phone Billing Address Patient Blanche Godinez Personal/Family 1965 [id number] (Home) [address] [phone] [place] (Work) [id number] documented as of this encounter
--- OUTSIDE RECORDS SUMMARY | 2019-07-22 13:28 | XMS REPORT | Summary of Care ---
:1965 Author Organization [facility] Address [address] [place] [address] Care Team Providers Name Role Phone ShannonShaq Carlton Primary Care Provider Reason for Referral MRI/CAT/PET Scan (Routine) Status Reason Specialty Diagnoses / Referred By Referred To Procedures Contact Contact Pending Review Diagnoses Localized swelling of both lower legs Duke Whatley VL LOWER EXTREMITY DUPLEX VEINS BILATERAL MICHEL Foss [address] [place] [address] Refer to Department Only (Routine) Status Reason Specialty Diagnoses / Referred By Referred To Procedures Contact Contact Pending Review PULMONARY Diagnoses Asthma with COPD (HCC) Prudence Whatley FNP [address] [place] [address] Reason for Visit Reason Comments Foot Swelling Pt states both feet, ankles and legs have been swelling for 2 months. " by the end of the day they feel like they will burst," pt says. Encounter Details Date Type Department Care Team Description 07/12/2019 Office Visit Lizbeth Whatley Localized swelling of both lower legs (Primary Dx); Practice MICHEL Foss Essential hypertension; [address] [facility] Asthma with COPD (HCC); [place], [place] [id number] [place] [address] Current smoker; [phone] Atherosclerosis of lumbee coronary artery of lumbee heart without angina pectoris; [phone] Ulcer of lower extremity, limited to breakdown of skin, unspecified laterality ([facility]) (Fax) Allergies Active Allergy Reactions Severity Noted Date Comments Bee Sting Hives 11/19/2017 documented as of this encounter (statuses as of 07/12/2019) Medications Medication Sig Dispensed Refills Start Date End Date Status Aspirin 81 MG Oral Tab Take 81 mg by 0 Active mouth DAILY. clopidogrel (PLAVIX) Take 1 Tab by 30 Tab 5 03/24/2012 Active 75 MG Oral Tab mouth DAILY. LOSARTAN POTASSIUM PO Take 25 mg by 0 Active mouth DAILY. Magnesium 400 MG Oral Take 400 mg by 0 Active Cap mouth TWICE DAILY. Lancets Does not apply by Does not apply route. 1. Brand: per meter 400 Each 3 11/12/2016 Active MiscIndications: 2. Dx:250.02 Diabetes mellitus 3. non-Insulin dependent without complication 4. Test Blood Glucose 2 time(s) A DAY ([facility]) fenofibrate (TRICOR) TAKE ONE TABLET BY 30 Tab 0 07/31/2017 Active 145 MG Oral Tab MOUTH ONCE DAILY Insulin Pen Needle 1 Each by Does not 100 Each 3 09/28/2017 Active (RELION SHORT PEN apply route DAILY. NEEDLES) 31G X 8 MM Does not apply Misc Insulin Lispro Inject 5-15 Units 15 mL 5 09/30/2017 Active (HUMALOG KWIKPEN) 100 beneath the skin UNIT/ML Subcutaneous THREE TIMES DAILY Solution Pen-injector BEFORE MEALS. DX E 11.9 5 unit plus sliding scale MDD 45 units Rosuvastatin Calcium Take by mouth 0 Active (CRESTOR) 5 MG Oral EVERY BEDTIME. Tab Insulin Disposable 1 Each by Does not 1 Kit 6 10/07/2018 Active Pump (V-GO 30) Does apply route DAILY. not apply Kit LISPRO insulin, RAPID Inject 66 Units 20 mL 3 10/14/2018 Active - Acting, (HUMALOG) beneath the skin 100 UNIT/ML Continuous. For Subcutaneous Solution use with VGO30 MDD 66 units metoprolol succinate Take 50 mg by 0 Active (TOPROL XL) 50 MG Oral mouth DAILY. TABLET SR 24 HR fluticasone (FLONASE) [place] 1 [place] in 1 Bottle 2 03/31/2019 Active 50 MCG/ACT Nasal nose TWICE DAILY. Suspension fluoxetine (PROZAC) 20 Take 1 Cap by 90 Cap 3 03/31/2019 Active MG Oral Cap mouth DAILY. esomeprazole magnesium Take 40 mg by 30 Cap 5 03/31/2019 Active (NEXIUM) 40 MG Oral mouth DAILY. CAPSULE DELAYED RELEASE Beclomethasone Take 2 Puffs by 1 Inhaler 5 03/31/2019 Active Dipropionate inhalation TWICE INHALATION MDI 80 DAILY. mcg/act, QVAR, 80 MCG/ACT Inhalation Aero SolnIndications: Exacerbation of intermittent asthma, unspecified asthma severity PROAIR RESPICLICK 108 Take 2 Puffs by 1 Each 5 03/31/2019 Active (90 Base) MCG/ACT inhalation EVERY Inhalation AEROSOL FOUR HOURS POWDER, BREATH NEEDED (wheezing). ACTIVATED Benzonatate (TESSALON) Take 1 Cap by 30 Cap 1 04/07/2019 Active 200 MG Oral Cap mouth THREE TIMES DAILY NEEDED (cough). fluconazole (DIFLUCAN) Take 1 Tab by 2 Tab 0 04/07/2019 Active 150 MG Oral Tab mouth ONE TIME. May repeat in a week if needed. Insulin Detemir Inject 50 Units 45 Each 3 04/21/2019 Active (LEVEMIR FLEXTOUCH) beneath the skin 100 UNIT/ML DAILY. E11.65 Subcutaneous Solution Pen-injectorIndication s: Diabetes mellitus without complication (HCC) glimepiride (AMARYL) 4 Take 1 Tab by 180 Tab 3 04/21/2019 Active MG Oral mouth TWICE DAILY. TabIndications: Diabetes mellitus without complication (HCC) gabapentin (NEURONTIN) Take 1 Cap by 380 Cap 3 04/21/2019 Active 300 MG Oral mouth FOUR TIMES CapIndications: DAILY. Diabetes mellitus without complication (HCC) budesonide-formoterol Take 2 INHL by 1 Inhaler 5 06/07/2019 Active fumarate (SYMBICORT) inhalation TWICE 160-4.5 MCG/ACT DAILY. Inhalation AerosolIndications: Asthma with COPD (HCC) terbinafine (LAMISIL) Take 250 mg by 30 Tab 2 06/07/2019 Active 250 MG Oral mouth DAILY. TabIndications: Onychomycosis cephalexin (KEFLEX) Take 1 Cap by 28 Cap 0 07/12/2019 Active 500 MG Oral mouth FOUR TIMES CapIndications: Ulcer DAILY. of lower extremity, limited to breakdown of skin, unspecified laterality (HCC) furosemide (LASIX) 20 Take 1 Tab by 30 Tab 0 07/12/2019 Active MG Oral mouth DIRECTED. TabIndications: Take 1 twice a day Localized swelling of for 3 days, then both lower legs, one daily. Essential hypertension documented as of this encounter (statuses as of 07/12/2019) Active Problems Problem Noted Date Current smoker 06/07/2019 Hiatal hernia 12/17/2017 Irritable bowel syndrome with diarrhea 12/17/2017 Gastroesophageal reflux disease without esophagitis 12/17/2017 Anxiety 11/14/2015 Cervical cancer 01/14/2013 Overview: Stage 1b 02/2013 Hypertriglyceridemia 01/09/2010 HTN (hypertension) 01/09/2010 Type 2 diabetes mellitus without complication 02/10/2008 Coronary atherosclerosis 10/07/2007 Overview: S/p inferior wall MO, s/p PTCA/stent RCA-drug eluting stent Health Safety Coordinator Dr Holland [facility] Dr Holland did cardiac exercise nuclear stress test. No evidence of ischemia. No evidence of infarction. Normal left ventricular function. Compared to study of 02/16 , there is little change . Stricture and stenosis of esophagus 10/07/2007 Obesity, unspecified 10/07/2007 Overview: BMI 34.03 12/21 Asthma 10/07/2007 documented as of this encounter (statuses as of 07/12/2019) Resolved Problems Problem Noted Date Resolved Date PID (acute pelvic inflammatory disease) 12/29/2012 12/29/2012 PID (pelvic inflammatory disease) 12/29/2012 09/29/2014 Myalgia 02/10/2008 02/23/2014 Overview: Due to lipitor Iron Deficiency Anemia 10/07/2007 09/29/2014 Personal history of tobacco use, presenting hazards to health 10/07/2007 documented as of this encounter (statuses as of 07/12/2019) Immunizations Name Administration Dates Next Due Adacel TdaP 06/14/2017 DTP/HIB Combined Vaccine 05/20/2018 Influenza (IM) Preservative Free 03/20/2017, 04/05/2015 Influenza (IM) W/Pres 02/16/2015 Influenza Vaccine Whole 05/20/2007 Pneumococcal Conjugate(13 Valent) 05/20/2018, 05/17/2015 documented as of this encounter Social History [...] Sign Reading Time Taken Comments Blood Pressure 180/86 07/12/2019 9:48 AM EST Pulse 84 07/12/2019 9:48 AM EST Temperature 37.8 07/12/2019 9:48 AM EST C (100 F) Respiratory Rate - - Oxygen Saturation 98% 07/12/2019 9:48 AM EST Inhaled Oxygen Concentration - - Weight 88 kg (194 lb) 07/12/2019 9:48 AM EST Height 163.8 cm (5' 4.5") 07/12/2019 9:48 AM EST Body Mass Index 32.79 07/12/2019 9:48 AM EST documented in this encounter Patient Instructions Patient InstructionsPrudence Whatley FNP - 07/12/2019 9:40 AM ESTReferral to Mele Begin fluid pill. Take 2 a day for 3 days, then one a day. Eat banana daily. Schedule blood test for next week. Call logistics officer with update Keep follow up in July Schedule venous US on legs Take antibiotic for possible cellulitis leg. documented in this encounter Progress Notes Prudence Whatley FNP - 07/12/2019 9:40 AM EST PATIENT: Blanche Godinez : 1965 DATE OF SERVICE: 07/12/2019 Chief Complaint Patient presents with Foot Swelling Pt states both feet, ankles and legs have been swelling for 2 months. " by the end of the day theyfeel like they will burst," pt says. SUBJECTIVE: Blanche Godinez is a 54-y.o. female who is here with bilateral lower extremity swelling and weight gain. Weight up 11# since a month ago. No fever or chills. She has a red skin lesion right lower leg where tight sock rubbed off skin. She is a smoker and had increased shortness of breath over the last few months. She is using symbicort and albuterol which helps some. She had ECHO in februarywith her logistics officer and was stable. She has CAD with stents. She states fingersticks much better with the new glucose monitoring Rusty. She is taking insulin as prescribed. Patient Active Problem List Diagnosis Date Noted Current smoker 06/07/2019 Hiatal hernia 12/17/2017 Irritable bowel syndrome with diarrhea 12/17/2017 Gastroesophageal reflux disease without esophagitis 12/17/2017 Anxiety 11/14/2015 Cervical cancer (HCC) 01/14/2013 Stage 1b 02/2013 Hypertriglyceridemia 01/09/2010 HTN (hypertension) 01/09/2010 Type 2 diabetes mellitus without complication (HCC) 02/10/2008 Coronary atherosclerosis 10/07/2007 S/p inferior wall MO, s/p PTCA/stent RCA-drug eluting stent Health Safety Coordinator Dr Holland [facility] Dr Holland did cardiac exercise nuclear stress [...] Take 2 INHL by inhalation TWICE DAILY. cephalexin (KEFLEX) 500 MG Oral Cap Take 1 Cap by mouth FOUR TIMES DAILY. clopidogrel (PLAVIX) 75 MG Oral Tab [...] DAILY. fluticasone (FLONASE) 50 MCG/ACT Nasal Suspension [place] 1 [place] in nose TWICE DAILY. furosemide (LASIX) 20 MG Oral Tab Take 1 Tab by mouth DIRECTED. Take 1 twice a day for 3 days, then one daily. gabapentin (NEURONTIN) 300 MG Oral Cap Take [...] facility-administered medications for this visit. OBJECTIVE: BP (!) 180/86 (BP Location: Right arm, Patient Position: Sitting) | Pulse 84 | Temp 100F (37.8 C) | Ht 5' 4.5" (1.638 m) | Wt 194 lb (88 kg) | LMP 01/09/2013 | SpO2 98% | BMI32.79 kg/m She is alert and in no distress. Chest is clear, no wheezing or rales. Normal symmetric air entry throughout both lung darling. Heart RRR. No murmur. Legs with large edema lower legs and feet. Right lateral lower leg with quarter sized ulcer type lesion. No drainage. Unable to feel pulses due to edema. Some erythema about lower legs but no increased warmth. BP Readings from Last 3 Encounters: 07/12/19 (!) 180/86 06/07/19 170/78 04/21/19 120/76 Wt Readings from Last 3 Encounters: 07/12/19 194 lb (88 kg) 06/07/19 183 lb 1.6 oz (83.1 kg) 04/21/19 175 lb (79.4 kg) Recent PFT's showing severe restrictive disease and mild obstructive disease. ASSESSMENT: ICD-9-CM ICD-10-CM 1. Localized swelling of both lower legs 729.81 R22.43 VL LOWER EXTREMITY DUPLEX VEINS BILATERAL furosemide (LASIX) 20 MG Oral Tab COMPREHENSIVE METABOLIC PANEL 2. Essential hypertension 401.9 I10 furosemide (LASIX) 20 MG Oral Tab 3. Asthma with COPD ([facility]) 493.20 J44.9 REFER TO PULMONARY 4. Current smoker 305.1 F17.200 5. Atherosclerosis of lumbee coronary artery of lumbee heart without angina pectoris 414.01 I25.10 6. Ulcer of lower extremity, limited to breakdown of skin, unspecified laterality ([facility]) 707.10 L97.901 cephalexin (KEFLEX) 500 MG Oral Cap Patient Instructions Referral to Mele Begin fluid pill. Take 2 a day for 3 days, then one a day. Eat banana daily. Schedule blood test for next week. Call logistics officer with update Keep follow up in July Schedule venous US on legs Take antibiotic for possible cellulitis leg. Author: MICHEL Jay 07/12/2019 12:53 documented in this encounter Plan of Treatment Date Type Specialty Care Team Description 07/18/2019 Lab Internal Medicine 07/26/2019 Office Visit Family Practice Prudence Whatley FNP [address] [place] [address] [phone] Name Type Priority Associated Diagnoses Date/Time VL LOWER EXTREMITY Imaging Routine Localized swelling of 07/12/2019 12:11 PM DUPLEX VEINS BILATERAL both lower legs EST Name Type Priority Associated Diagnoses Order Schedule COMPREHENSIVE METABOLIC Lab Routine Localized swelling of Expected: 2018 PANEL both lower legs (Approximate), Expires: 01/08/2020 Name Type Priority Associated Diagnoses Order Schedule REFER TO PULMONARY Referral Routine Asthma with COPD (HCC) Expected: 2018, Expires: 07/12/2020 Health Maintenance Due Date Last Done Comments Diabetic Eye Exam 1965 DTaP/Tdap/Td Vaccines (1 - 1974 Tdap) ZOSTER IMMUNIZATION SERIES 2013 (1 of 2) [...] history exists Colonoscopy 12/10/2027 12/09/2017, 01/09/2014 (Postponed) HEPATITIS A IMMUNIZATION Aged Out No longer eligible SERIES based on patient's age to complete this topic HPV IMMUNIZATION SERIES Aged Out No longer eligible based on patient's age to complete this topic MENINGOCOCCAL VACCINE IMM Aged Out No longer eligible based on patient's age to complete this topic documented as of this encounter Goals Goal Patient Goal Associated Recent Patient-Stated? Author Type Problems Progress Blood Pressure Blood Pressure 180/86 No Phylicia, < 140/90 (07/12/2019 MICHEL Foss 9:48 AM EST) Note: This is an individualized [...] A1c < 7.0 Diabetes 9.3 (04/21/2019 9:48 Prudence Staples FNP AM EDT) Note: This is an individualized treatment (diabetes control, HgbA1C) goal for Blanche Godinez: Displayed above is your progress towards your HgbA1C goal. Your goal is shown above (on the left); your most recent HgbA1C is shown on the right. Note that lower numbers are better. Keep immunizations current Lifestyle No Prudence Whatley FNP Note: This is an individualized lifestyle goal for Blanche Godinez: Please be sure to keep up-to-date on recommended immunizations. For example, this would include a yearly influenza vaccine. Immunization status can be seen by looking at the Health Maintenance sections of your e[facility], Plan of Care, and any After Visit Summaries. Weight loss vs. 18 mo Lifestyle 0 (07/12/2019 9:48 AM No Prudence Whatley FNP max (lbs) [...] filedocumented in this encounter Visit Diagnoses Diagnosis Localized swelling of both lower legs Essential hypertension Unspecified essential hypertension Asthma with COPD (HCC) Chronic obstructive asthma, unspecified Current smoker Tobacco use disorder Atherosclerosis of lumbee coronary artery of lumbee heart without angina pectoris Ulcer of lower extremity, limited to breakdown of skin, unspecified laterality (HCC) documented in this encounter Insurance Payer Benefit Plan / Subscriber ID Effective Dates Phone Address Type Group [facility] xxxxxxxxxxxx 2016-Present Blue Cross/Blue Shield Guarantor Name Account Type Relation to Date of Phone Billing Address Patient Blanche Godinez Personal/Family 1965 [address] (Home) [address] [phone] [place], [place] (Work) [id number] documented as of this encounter
--- OUTSIDE RECORDS SUMMARY | 2019-07-22 13:28 | XMS REPORT | Continuity of Care Document ---
:1965 External Reference #:[id number] Author Name MelgarBill voraSaqib (transmitted by agent of provider Abril Toledo) Address [address], [place] [address] Care Team Providers Name Role Phone Prudence Whatley Care Team Information Pals Nurse [phone] Marissa Jimenez NP - Family Care Team Information Pals Nurse [phone] Problems Active Problems Provider Date Coronary arteriosclerosis Onset: 02/01/2016 Essential hypertension Onset: 02/01/2016 Social History Type Date Description Comments Sex Unknown Tobacco Use Start: Unknown End: Unknown Patient is a former smoker Allergies, Adverse Reactions, Alerts Active Allergies Reaction Severity Comments Date NKDA 07/20/2019 Bee Sting Hives 07/20/2019 Medications Active Medications SIG Qnty Indications Ordering Provider Date Lasix take 1 tablet by 30tabs I87.2 Marissa Jimenez, 07/19/2019 40mg Tablets mouth daily 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 100Unit/ML Solution Pen-Inject Rosuvastatin Calcium one a day 90tabs I25.10 [employer], 01/08/2018 5mg M.D. Tablets Tricor 1 by mouth every 90tabs [employer], 08/05/2013 145mg Tablets day M.D. Plavix 1 by mouth every 90tabs Brand[employer], 08/03/2013 75mg Tablets day M.D. Metoprolol Succinate 1 tablet by 90tabs Skyler [employer], 12/23/2012 ER mouth every day M.D. 50mg Tablets ER 24HR Losartan Potassium 1 by mouth every 90tabs SkylerAmberAds, 25mg day M.D. Tablets Fluoxetine HCL 1 by mouth every Unknown 20mg day Capsules Gabapentin 1 by mouth three Unknown 300mg Capsules times a day Fluticasone Propionate 2 sprays each Unknown nostril daily as 50mcg/Act Suspension needed Levemir take 50 units sq 5units Unknown 100Unit/ML daily Solution Nexium 1 by mouth every 90caps Unknown 40mg Capsules DR day Aspirin Ec 1 by mouth every Unknown 81mg Tablets day DR Glimepiride Take 1 Tablet By Unknown 4mg Tablets Mouth Twice Daily Symbicort Prudence Whatley 160-4.5mcg/Act EYELET OPERATOR Aerosol Terbinafine HCL Take 1 Tablet By Unknown 250mg Mouth Once Daily Tablets Immunizations CPT Code Status Date Vaccine Lot # [id number] Given 03/13/2019 Pneumococcal Vaccine 26413 Given 03/13/2019 Influenza Vaccine [id number] Vital Signs Date Vital Result Comment 07/20/2019 2:34pm Height 64 inches 5'4" 98 Weight 198.00 lb BP Systolic 179 mmHg BP Diastolic 92 mmHg BMI (Body Mass Index) 34.0 kg/m2 Heart Rate 77 /min Respiratory Rate 18 /min Pain Level 7 out of 10 07/20/2019 2:15pm Height 64 inches 98 Weight 198.00 lb BMI (Body Mass Index) 34.0 kg/m2 Results Description No Information Available Procedures Description No Information Available Medical Devices Description No Information Available Encounters Description No Information Available Assessments Date Code Description Provider 07/20/2019 Z68.34 Body mass index (BMI) 34.0-34.9, adult Saqib Melgar Plan of Treatment No Information Available Functional Status Description No Information Available Mental Status Description No Information Available Referrals Refer to Reason for Referral Status Appt Date Saqib Melgar M.D. Created [address] [place] [address] [address] [facility] [place] [address] [phone]
[2019-07-22] MEDS ORDERED: Furosemide IV* 10 MG/ML 10 ML VIAL (100 MG) IV ONE (13:39)
[2019-07-22 14:49] LABS: ABS Eosinophils 0.2 10^3/ul (0-0.6); ABS Lymphocytes 1.4 10^3/ul (1.0-4.8); ABS Monocytes 0.5 10^3/ul (0-0.8); ABS Neutrophils 7.5 10^3/ul (1.5-7.7); Eosinophil % 1.8 %; Hematocrit 32 % (35-47); Hemoglobin 10.2 g/dL (12.0-16.0); Lymphocyte % 14.8 %; Mean Corpuscular HGB Conc 32 g/dL (31-36); Mean Corpuscular Hemoglobin 25 pg (27-31); Mean Corpuscular Volume 78 fL (80-97); Mean Platelet Volume 8.9 fL (7.4-10.4); Platelet Count 302 10^3/uL (150-450); Red Blood Count 4.12 10^6 /uL (3.70-4.87); Red Cell Distribution Width 17 % (10-15); White Blood Count 9.6 10^3/uL (3.5-10.8)
[2019-07-22 14:58] LABS: Activated Partial Thrombo Time 36.1 seconds (26.0-38.0); INR 1.16 (0.82-1.09)
[2019-07-22] MEDS ORDERED: Dextrose 50% VIAL 50 ml IV PUSH PRN (15:25)
[2019-07-22 15:30] LABS: BUN/Creatinine Ratio 24.4 (8-20); Calcium 8.3 mg/dL (8.6-10.3); EGFR African American 87.3 (>60); EGFR Non-African American 72.1 (>60); Potassium 3.7 mmol/L (3.5-5.0)
[2019-07-22 15:42] LABS: Magnesium 1.7 mg/dL (1.9-2.7)
[2019-07-22 15:44] LABS: Troponin I 0.01 ng/mL (<0.03)
--- NOTE | 2019-07-22 16:15 | CONSULT ---
Subjective Date of Service: 07/22/19 Interval History: Date of admission and consult: 07/22/2019 PCP: Prudence Whatley NP Grinder Chipper: Dr. Holland CC: Shortness of breath, edema, abnormal echocardiogram Reason for consult: New onset systolic HF HPI: Blanche Godinez is a 54 year old woman with history as below. She has been progressively dyspneic and edematous since a pneumonia several months along with weight gain. She had an echocardiogram today showing severely reduced LVEF and Dr. Holland recommended admission. She has received 60 mg IV lasix with good unquantified UOP so far. She has no chest pain, palpitations, bleeding, melena or syncope. She tells me she had an upper and lower endoscopy last year and only had 1 polyp. 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 Working. intermittent tobacco use no drugs no excessive alcohol use FH: mother brast cancer father HI Medications Active Medications: Albuterol (Ventolin Hfa Inhaler*) 2 puff INH Q4H PRN PRN Reason: SOB/WHEEZING Aspirin (Aspirin Ec Tab*) 81 mg PO DAILY [facility] Atorvastatin Calcium (Lipitor*) 5 mg PO 1700 [facility]; Protocol Clopidogrel Bisulfate (Plavix Tab*) 75 mg PO DAILY [facility] Dextrose (Dextrose 50% Vial 50 Ml*) 25 ml IV PUSH .FOR FS < 60 - SS PRN PRN Reason: FS < 60 Fenofibrate (Tricor 160 Mg) 160 mg PO DAILY [facility]; Protocol Furosemide (Lasix Tab*) 40 mg PO DAILY [facility] Gabapentin (Neurontin Cap(*)) 300 mg PO TID [facility] Glimepiride (Glimepiride (Nf)) 4 mg PO BID WITH MEALS [facility]; Protocol Heparin Sodium (Porcine) (Heparin Vial(*)) 5,000 units SUBCUT Q12HR [facility] Insulin Glargine (Lantus(*)) 40 units SUBCUT DAILY [facility] Insulin Human Lispro (Humalog*) 0 units SUBCUT ACHS [facility]; Protocol Losartan Potassium (Cozaar Tab*) 25 mg PO DAILY [facility] Magnesium Oxide (Magox 400 Tab*) 400 mg PO DAILY [facility] Metoprolol Succinate (Toprol Xl Tab*) 50 mg PO DAILY [facility] Pantoprazole Sodium (Protonix Tab*) 40 mg PO DAILY [facility]; Protocol Home Medications: Losartan TAB* [Cozaar TAB*] 25 mg PO DAILY 02/09/13 [History Confirmed 07/22/19] Metoprolol Succinate XL TAB* [Toprol XL TAB*] 50 mg PO DAILY 02/09/13 [History Confirmed 07/22/19] Clopidogrel TAB* [Plavix TAB*] 75 mg PO DAILY 03/18/13 [History Confirmed ] Albuterol HFA INHALER* [Ventolin HFA Inhaler*] 2 puff INH Q4H PRN 10/04/15 [ History Confirmed 07/22/19] Aspirin EC TAB* [Ecotrin EC Low Dose 81 MG*] 81 mg PO DAILY 10/04/15 [History Confirmed 07/22/19] Esomeprazole(NF) [Nexium(NF)] 40 mg PO DAILY 10/04/15 [History Confirmed ] Fenofibrate(NF) [Tricor(NF)] 145 mg PO DAILY 10/04/15 [History Confirmed ] Fluticasone NASAL SPRAY 50MCG* [Flonase NASAL SPRAY 50MCG*] 1 spray BOTH NARES BID 10/04/15 [History Confirmed 07/22/19] Gabapentin CAP(*) [Neurontin 300 CAP(*)] 300 mg PO TID 10/04/15 [History Confirmed 07/22/19] Glimepiride (NF) 4 mg PO BID 10/04/15 [History Confirmed 07/22/19] Insulin Detemir [Levemir Flextouch] 50 unit SUBCUT DAILY 10/04/15 [History Confirmed 07/22/19] Magnesium Oxide 400 mg PO DAILY 10/04/15 [History Confirmed 07/22/19] Furosemide [Lasix] 40 mg PO DAILY 07/22/19 [History Confirmed 07/22/19] Rosuvastatin (NF) [Crestor (NF)] 5 mg PO 1700 07/22/19 [History Confirmed ] Review of Systems - Measurements Intake and Output: Intake and Output Last 24 Hours 07/20/19 07/21/19 07/22/19 07/23/19 06:59 06:59 06:59 06:59 Weight 190 lb 6.4 oz - Review of Systems Constitutional Symptoms: Positive: Weight Gain Negative: Weight Loss, Fever, Night Sweats, Unexplained Falls Dermatology: Negative: Rash, Skin Lesions HEENT: Negative: Change in Hearing, Vertigo Eyes: Negative: Change in Vision, Double Vision Thyroid: Positive: Weight Gain Negative: Palpitations, Change in Menstration Pulmonary: Positive: Shortness of Breath, Exercise Intolerance Negative: Sputum, Hemoptysis, Respiratory Distress, COPD, Asthma, Home Oxygen Cardiology: Positive: Shortness of Breath, Swelling of Ankles, Edema Negative: Chest Pain, Palpitations, Peripheral Vascular Dis, Syncope, Claudication, Paroxysmal Nocturnal Dyspnea Gastroenterology: Negative: Blood in Stools, Haematemesis, Melena Genital - Urinary: Negative: Dysuria, Hematuria, Nocturia Musculoskeletal: Negative: Joint Pain, Joint Stiffness Endocrinology: Positive: Obesity, Diabetes Negative: Polydipsia, Polyuria Hematologic/Lymphatic: Negative: Use of Anticoagulant, Use of Antiplatelet Drugs Neurology: Negative: Change in Speech, Change in Sphincter Function, Hx of Stroke\TIA, Hx Seizures Psychiatry: Negative: Unusual Anxiety, Suicidal Ideation Allergic/Immunologic: Negative: Hx HIV, Immunocompromise Review of Systems Statement: All other review of systems negative, unless stated above. Objective Vital Signs: Temp Pulse Resp BP Pulse Ox 97 F 76 20 160/84 97 07/22/19 15:15 07/22/19 15:15 07/22/19 15:15 07/22/19 16:02 07/22/19 15:15 Oxygen Devices in Use Now: None Appearance: very pleasant, nad Ears/Nose/Mouth/Throat: Clear Oropharnyx, Mucous Membranes Moist Neck: Trachea Midline Respiratory: Symmetrical Chest Expansion and Respiratory Effort, - - no obvous wheeze or rales Cardiovascular: RRR, - - uncertain jvp, soft sytolic murmur, legs wrapped and edematous Abdominal: NL Sounds; No Tenderness; No Distention Extremities: No Clubbing, Cyanosis Skin: No Rash or Ulcers Neurological: Alert and Oriented x 3 Laboratory Results: 07/22/19 14:35 07/22/19 14:47 INR (Anticoag Therapy) 1.16 (0.82-1.09) H 07/22/19 14:35 APTT 36.1 seconds (26.0-38.0) 07/22/19 14:35 07/22/19 14:47 Troponin I 0.01 Diagnostic Imaging: CHEST AP/PORT Accession Number: [id number] CPT: 31567 HISTORY: CHF IMPRESSION: INTERVAL DEVELOPMENT OF CARDIOMEGALY. PULMONARY INTERSTITIAL EDEMA. Cardiac Testing: Echocardiogram - (07/22/2019) Severe global hypokinesis EF 25% Mild MR Mild TR Moderate pulm HTN trivial pericardial effusion Echocardiogram - (03/09/2019) [facility] Left ventricle cavity is normal in size. Mild concentric hypertrophy of the left ventricle. Low normal decrease in global wall motion. Visual EF is 50-55%. Indeterminate diastolic filling pattern, normal LAP. Left ventricle regional wall motion findings: No wall motion abnormalities. Left atrial cavity is mildly dilated. [place] trileaflet aortic valve with no regurgitation noted. No evidence of aortic valve stenosis. [place] mitral valve with mild (Grade I) regurgitation. [place] tricuspid valve with mild regurgitation. No evidence of pulmonary hypertension. Cardiac Catheterization - (06/20/2010) LV: normal LV size. Inferior HK EF 50% LM: Normal LAD:normal LCx: normal RCA: Prox 95% stent at mid RCA patent STENT: to prox RCA 3 X 32 mm Taxus stent Cardiac Catheterization - (09/29/2006) LV: normal EF 55% LM/LAD/LCx: normal RCA: Mid 60% with thrombus at [facility] STENT: RCA 3.0 X 16 Taxus stent 07/12/2019: Edema No DVT posterior tibial veins not well seen EKG Data: ekg 07/22/2019: NSR, repolarization abnormalities precordial leads and 1/aVL Assessment/Plan New onset acute systolic HF - LVEF 25% CAD s/p HI RCA PCI DM HTN Ongoing tobacco use - counseled on cessation to reduce risk of cv events and Obesity Cervical cancer in remission Microcytic anemia - BNP tomorrow (ordered) - Daily BMP, Mg, weights, i/o as above - Give 40 meq K+ x 1 now (ordered) - 3 grams IV magneisum x 1 now (ordered) - change home lasix 40 mg po daily to 60 mg IV daily (ordered) - Start spironolactone 25 mg po daily (ordered) - Increase home losartan 25 mg to 100 mg po daily (ordered). Since developed CHF while already on this can consider changing to entresto as an outpatient - Continue toprol 50 mg po daily, can uptitrate as tolerated once further diuresed. - DM management per primary service, consider an sglt2 inhibitor as an outpatient - Discussed with Dr. 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 Otherwise anemia (suspect iron deficient) evaluation and treatment as per Primary service Thank you for allowing me to participate in the cardiovascular care of this patient. Please do not hesitate to contact me with questions or concerns.
[2019-07-22] MEDS ORDERED: Potassium Chlor TAB* 20 MEQ TAB.ER PO ONE (16:29)
[2019-07-22] MEDS: Spironolactone TAB* 25 MG PO SCH (17:05)
[2019-07-22] MEDS: Insulin LISPRO* 1 UNITS UNIT SUBCUT SCH ×2 (17:05→22:33)
[2019-07-22] MEDS: Atorvastatin* 10 MG TAB PO SCH (17:05)
[2019-07-22] MEDS ORDERED: Magnesium Sulfate IV* 3 GM in NS 0.9% 100 ML* 100 ML IVPB ONE (17:06)
[2019-07-22] MEDS: CMCS:Glimepiride (NF) 2 MG TAB PO SCH (17:06)
[2019-07-22] MEDS: Gabapentin CAP(*) 300 MG PO SCH (20:58)
--- NOTE | 2019-07-22 20:59 | HP ---
CC: Dr. Fulton; Dr. Holland ADMISSION HISTORY AND PHYSICAL: DATE OF ADMISSION: 07/22/19. CHIEF COMPLAINT: Shortness of breath with exertion. HISTORY OF PRESENT ILLNESS: Ms. Godinez is a 54-year-old woman with a history of heart disease and hyp ertension, who reports progressive dyspnea with exertion, weight gain, lower extremity edema for 2 mo nths. She denies any orthopnea or PND. The edema has been troublesome to the point where she has dev eloped venostasis ulceration in her right negron and seeing Dr. Melgar for this. She states that she h ad pneumonia back in March and has had dyspnea on exertion since then. This has been particularl y worse in the last few days. Her leg edema feels better since Dr. Melgar put Unna boot on her left leg to relive some of the pressure. This patient had an echocardiogram in February that showed a low n ormal ejection fraction. Today, she had an echocardiogram repeated at Cardiology that was ordered 2 d ays ago, which shows an ejection fraction of around 20%. Because of her progressive symptoms and her new finding of reduced ejection fraction, she was advised to come to the hospital for admission. Sushant garcia does deny chest pain despite her history of coronary artery disease. She had a stent to her RCA in 2009. PAST MEDICAL HISTORY: Includes type 2 diabetes, coronary artery disease, hypertension, GERD. PAST SURGICAL HISTORY: She had stage IIB cervical cancer, treated with chemotherapy and radiation, a nd had lymph node dissection for staging at that point. She denies history of hysterectomy, or parti al or full hysterectomy. MEDICATIONS: On admission: 1. Albuterol 2 puffs q.4 hours as needed for wheezing. 2. Aspirin 81 mg p.o. daily. 3. Plavix 75 mg p.o. daily. 4. Nexium 40 mg p.o. daily. 5. Fenofibrate 145 mg p.o. daily. 6. Fluticasone 1 spray both nostrils daily. 7. Furosemide 40 mg p.o. daily. 8. Gabapentin 300 mg p.o. t.i.d. 9. Glimepiride 4 mg p.o. b.i.d. 10. Insulin, detemir 50 units subcu q.a.m. 11. Losartan 25 mg p.o. daily. 12. Metoprolol XL 50 mg p.o. daily. 13. Magnesium oxide 40 mg p.o. daily. 14. Crestor 5 mg p.o. q.p.m. ALLERGIES: None. FAMILY HISTORY: Father with [facility] at age 66. Mother is alive, but had breast cancer. Brother and sister are doing well. She has one daughter, who is addictive to heroin. SOCIAL HISTORY: She works at [employer]. She smokes cigarettes occasionally, but not daily. Denies an y alcohol or drug use. She is . She has 3 children, 2 of whom are biological, one is adopted . REVIEW OF SYSTEMS: The patient denies any fevers, weight loss or anorexia. She does report weight g ain. The patient denies any recent sore throat, cough or hemoptysis. The patient denies any abdomin al pain, nausea, vomiting or diarrhea. Remainder of 14-point review of systems was negative as mentio waldemar in the HPI. PHYSICAL EXAMINATION GENERAL: She is alert, in no acute distress. VITAL SIGNS: Temperature is 36.1, pulse 75, respirations 18, blood pressure is 164/72, O2 sat 97% on room air. HEENT: Head is normocephalic atraumatic. Sclerae anicteric. Pupils are equal, round and reactive t o light and accommodation. Oropharynx is moist. No lesions. NECK: No JVD. No thyromegaly. No cervical adenopathy. LUNGS: Diminished at the bases bilaterally. No wheezes or rales. HEART: Regular rate and rhythm without murmur or gallop. ABDOMEN: Soft, obese, nontender. Positive bowel sounds. No hepatosplenomegaly. EXTREMITIES: 3+ pitting edema bilaterally. Henry wraps in place bilaterally. Dorsalis pedal pulse is 1+ bilaterally. NEUROLOGIC: Cranial nerves II through XII are intact. Motor strength is 5/5 throughout. Deep tendo n reflexes are absent bilaterally. DIAGNOSTIC STUDIES/LAB DATA: Sodium 140, potassium 3.7, chloride 106, bicarb 29, BUN 20, creatinine 0.82, glucose 293, troponin was 0.01. White count is 9.6, hemoglobin 10.2, hematocrit 32%, platelet s of 302. INR 1.16, PTT of 36.3, magnesium 1.7. EKG showed normal sinus rhythm. LVH, no ischemic S T or T wave changes. Chest x-ray shows cardiomegaly and some pulmonary edema. ASSESSMENT AND PLAN: A 54-year-old woman with a new onset of heart failure with reduced ejection fra ction. Differential would include an ischemic cardiomyopathy versus viral cardiomyopathy. She may h ave had amyloid or other more unusual causes of cardiomyopathy. The patient had a cardiology consult and I discussed the case with Dr. Gautam. She may need catheterization as she may have ischemic car diomyopathy, which may respond to intervention. For now, we will keep her over the weekend, give her intravenous Lasix and take an output to have a goal output of greater than 1 L per day for 3 days. We will follow electrolytes of course. For hypertension, we will continue her Cozaar and Toprol XL and increase the HENRY inhibitor if possibl e and if necessary. For DVT prophylaxis, she will have subcu heparin. She is at moderate risk. For her diabetes, we will follow her fingersticks and give her additional Humalog if needed and give her Lantus instead of Levemir at the same dose. [id number]/[facility] #: [id number]
[2019-07-22] MEDS ORDERED: Heparin VIAL(*) 5000 UNITS/ML VIAL (FIVE THOUSAND) SUBCUT SCH (21:00)
[2019-07-23] MEDS: Albuterol HFA INHALER* 8 gm MDI INH PRN ×3 (03:36→23:02)
[2019-07-23 05:56] LABS: Anion Gap 4 mmol/L (2-11); BUN/Creatinine Ratio 27.2 (8-20); Blood Urea Nitrogen 22 mg/dL (6-24); CO2 Carbon Dioxide 28 mmol/L (22-32); Calcium 8.3 mg/dL (8.6-10.3); Chloride 107 mmol/L (101-111); Cholesterol 96 mg/dL; EGFR African American 88.5 (>60); EGFR Non-African American 73.1 (>60); Glucose 119 mg/dL (70-100); HDL Cholesterol 32.1 mg/dL; LDL Cholesterol 48 mg/dL; Magnesium 2.2 mg/dL (1.9-2.7); Potassium 3.9 mmol/L (3.5-5.0); Sodium 139 mmol/L (135-145); Triglycerides 82 mg/dL
--- NOTE | 2019-07-23 08:45 | PN ---
Subjective Date of Service: 07/23/19 Interval History: Admitted yesterday for new HFrEF requiring IV diuretics. No acute events overnight. FOBT negative. Patient reports sleeping at slight incline, denies PND. Having some LUCIANO but better than before admission. Pt is mostly focused on her med timing and specific requests to change orders. Objective Active Medications: Albuterol (Ventolin Hfa Inhaler*) 2 puff INH Q4H PRN PRN Reason: SOB/WHEEZING Last Admin: 07/23/19 03:36 Dose: 2 puff Aspirin (Aspirin Ec Tab*) 81 mg PO DAILY [facility] Atorvastatin Calcium (Lipitor*) 5 mg PO 1700 [facility]; Protocol Last Admin: 07/22/19 17:05 Dose: 5 mg Clopidogrel Bisulfate (Plavix Tab*) 75 mg PO DAILY [facility] Dextrose (Dextrose 50% Vial 50 Ml*) 25 ml IV PUSH .FOR FS < 60 - SS PRN PRN Reason: FS < 60 Fenofibrate (Tricor 160 Mg) 160 mg PO DAILY [facility]; Protocol Furosemide (Lasix Iv*) 60 mg IV DAILY [facility] Gabapentin (Neurontin Cap(*)) 300 mg PO TID [facility] Last Admin: 07/22/19 20:58 Dose: 300 mg Glimepiride (Glimepiride (Nf)) 4 mg PO BID WITH MEALS [facility]; Protocol Last Admin: 07/22/19 17:06 Dose: 4 mg Heparin Sodium (Porcine) (Heparin Vial(*)) 5,000 units SUBCUT Q12HR [facility] Last Admin: 07/22/19 20:59 Dose: 5,000 units Insulin Glargine (Lantus(*)) 40 units SUBCUT DAILY [facility] Insulin Human Lispro (Humalog*) 0 units SUBCUT ACHS [facility]; Protocol Last Admin: 07/22/19 22:33 Dose: 4 units Losartan Potassium (Cozaar Tab*) 100 mg PO DAILY [facility] Magnesium Oxide (Magox 400 Tab*) 400 mg PO DAILY [facility] Metoprolol Succinate (Toprol Xl Tab*) 50 mg PO DAILY [facility] Pantoprazole Sodium (Protonix Tab*) 40 mg PO DAILY [facility]; Protocol Spironolactone (Aldactone Tab*) 25 mg PO DAILY [facility] Last Admin: 07/22/19 17:05 Dose: 25 mg Vital Signs - 8 hr 07/23/19 07/23/19 03:32 08:00 Temperature 97.6 F Pulse Rate 73 Respiratory 16 18 Rate Blood Pressure 173/72 (mmHg) O2 Sat by Pulse 100 Oximetry Oxygen Devices in Use Now: None Appearance: well appearing, NAD, speaking in full sentences Eyes: No Scleral Icterus Ears/Nose/Mouth/Throat: Clear Oropharnyx, Mucous Membranes Moist Neck: NL Appearance and Movements; NL JVP, Trachea Midline Respiratory: Symmetrical Chest Expansion and Respiratory Effort, Clear to Auscultation Cardiovascular: - - rrr, soft systolic murmur Abdominal: NL Sounds; No Tenderness; No Distention, No Hepatosplenomegaly Extremities: - - 2+ edema to knees, wrapped in ION bandages Neurological: Alert and Oriented x 3 Result Diagrams: 07/22/19 14:35 07/23/19 05:05 Microbiology and Other Data: Microbiology 07/23/19 03:25 Stool Occult Blood (SEEMA) - Final Stool Assess/Plan/Problems-Billing Assessment: 54W with CAD, HTN, DM2, cervical cancer in remission, presents as referral from physiotherapist's assistant for new HFrEF 25% with dyspnea and LE edema. - Patient Problems (1) Heart failure with reduced ejection fraction Comment: with global hypokinesis on TTE. Possibly ischemic vs viral, or related to h/o chemo. - cont furosemide 60mg IV daily - cont metoprolol, losartan, and spironolactone - follow BMP for renal function, replete k > 4 and Mg > 2 - Is & Os and daily weights - appreciate cards recs, plan for cardiac cath prior to discharge (2) Iron deficiency anemia Comment: FOBT negative. - initiate iron sucrose while admitted - age-appropriate cancer screening as outpatient (3) CAD (coronary artery disease) Comment: - continue statin, fenofibrate, ASA, clopidogrel (4) Diabetes Comment: - cont home detemir and glimepiride - cont ISS while admitted with fingersticks (5) HTN (hypertension) Comment: - continue losartan, metoprolol - started on spironolactone this admission for HF (6) DVT prophylaxis Comment: lovenox
[2019-07-23] MEDS ORDERED: Potassium Chlor TAB* 20 MEQ TAB.ER PO ONE (08:48)
[2019-07-23] MEDS: Pantoprazole TAB * 40 MG TAB PO SCH (08:57)
[2019-07-23] MEDS: Gabapentin CAP(*) 300 MG PO SCH ×3 (08:58→20:14)
[2019-07-23] MEDS: Spironolactone TAB* 25 MG PO SCH (08:59)
[2019-07-23] MEDS: Clopidogrel TAB* 75 MG PO SCH (08:59)
[2019-07-23] MEDS ORDERED: Losartan TAB* 25 MG PO SCH ×2 (09:00)
[2019-07-23] MEDS ORDERED: Magnesium Oxide TAB* 400 MG PO SCH (09:00)
[2019-07-23] MEDS ORDERED: Metoprolol Succinate XL TAB* 50 MG PO SCH (09:00)
[2019-07-23] MEDS ORDERED: Furosemide IV* 10 MG/ML 10 ML VIAL (100 MG) IV SCH (09:00)
[2019-07-23] MEDS ORDERED: Aspirin EC TAB* 81 MG TAB.EC PO SCH (09:00)
[2019-07-23] MEDS ORDERED: Furosemide TAB* 40 MG PO SCH (09:00)
[2019-07-23] MEDS: Insulin GLARGINE(*) 1 UNITS UNIT SUBCUT SCH (09:01)
[2019-07-23] MEDS: CMCS:Glimepiride (NF) 2 MG TAB PO SCH ×2 (09:01→17:16)
[2019-07-23] MEDS: Insulin LISPRO* 1 UNITS UNIT SUBCUT SCH ×4 (09:04→21:42)
[2019-07-23 09:06] LABS: % Iron Saturation 5 % (15-55); Iron 23 ug/dL (50-212); Total Iron Binding Capacity 466 mcg/dL (250-450); Transferrin 333 mg/dL (203-362)
[2019-07-23 09:27] LABS: Ferritin 15.1 ng/mL (11-307)
[2019-07-23] MEDS: Acetaminophen TAB* 325 MG PO PRN (10:09)
[2019-07-23] MEDS: Lactobacillus Acidophilus* 1 TAB PO SCH (11:17)
[2019-07-23] MEDS: Iron Sucrose* 200 MG in NS 0.9% 100 ML* 100 ML IVPB SCH (11:18)
[2019-07-23] MEDS: Atorvastatin* 10 MG TAB PO SCH (17:15)
[2019-07-23] MEDS: CMCS - Rosuvastatin (NF) 5 MG TAB PO SCH (17:59)
[2019-07-23] MEDS: Enoxaparin(*) 40 MG/0.4 ML SYR SUBCUT SCH (20:14)
[2019-07-23] MEDS: Magnesium Oxide TAB* 400 MG PO SCH (20:16)
[2019-07-23] MEDS: Losartan TAB* 25 MG PO SCH (20:18)
[2019-07-23] MEDS ORDERED: Calcium Carbonate CHEW TAB* 500 MG (TUMS) PO ONE (22:54)
[2019-07-24 05:22] LABS: BUN/Creatinine Ratio 24.2 (8-20); Calcium 8.4 mg/dL (8.6-10.3); EGFR African American 70.2 (>60); Magnesium 1.9 mg/dL (1.9-2.7); Potassium 4.1 mmol/L (3.5-5.0)
[2019-07-24] MEDS ORDERED: Famotidine TAB* 20 MG PO PRN (07:42)
--- NOTE | 2019-07-24 07:43 | PN ---
Subjective Date of Service: 07/24/19 Interval History: No acute events overnight. Creatinine now just above normal range after extra diuretics yesterday. Will decrease diuretics, but still give IV dose after Mg/ iron infusions in preparation for cath tomorrow. Pt reports that her respiratory status is at her baseline but her legs still feel swollen beyond baseline. She's been elevating them at night. Denies chest pain, fevers, or cough. Objective Active Medications: Acetaminophen (Tylenol Tab*) 975 mg PO Q8H PRN PRN Reason: Pain - Mod to Severe Last Admin: 07/23/19 10:09 Dose: 975 mg Albuterol (Ventolin Hfa Inhaler*) 2 puff INH Q4H PRN PRN Reason: SOB/WHEEZING Last Admin: 07/23/19 23:02 Dose: 2 puff Aspirin (Aspirin Ec Tab*) 81 mg PO BEDTIME [facility] Clopidogrel Bisulfate (Plavix Tab*) 75 mg PO DAILY [facility] Last Admin: 07/23/19 08:59 Dose: 75 mg Dextrose (Dextrose 50% Vial 50 Ml*) 25 ml IV PUSH .FOR FS < 60 - SS PRN PRN Reason: FS < 60 Enoxaparin Sodium (Lovenox(*)) 40 mg SUBCUT BEDTIME [facility] Last Admin: 07/23/19 20:14 Dose: 40 mg Fenofibrate (Tricor 160 Mg) 160 mg PO BEDTIME [facility]; Protocol Last Admin: 07/23/19 21:42 Dose: 160 mg Furosemide (Lasix Iv*) 60 mg IV DAILY [facility] Last Admin: 07/23/19 09:05 Dose: 60 mg Gabapentin (Neurontin Cap(*)) 300 mg PO TID [facility] Last Admin: 07/23/19 20:14 Dose: 300 mg Glimepiride (Glimepiride (Nf)) 4 mg PO BID WITH MEALS [facility]; Protocol Last Admin: 07/23/19 17:16 Dose: 4 mg Iron Sucrose 200 mg/ Sodium (Chloride) 110 mls @ 110 mls/hr IVPB DAILY [facility] Stop: 07/27/19 09:59 Last Admin: 07/23/19 11:18 Dose: 110 mls/hr Insulin Glargine (Lantus(*)) 40 units SUBCUT DAILY [facility] Last Admin: 07/23/19 09:01 Dose: 40 units Insulin Human Lispro (Humalog*) 0 units SUBCUT [facility]; Protocol Last Admin: 07/23/19 21:42 Dose: 2 units Lactobacillus Rhamnosus (Lactobacillus Acidophilus*) 1 tab PO DAILY [facility] Last Admin: 07/23/19 11:17 Dose: 1 tab Losartan Potassium (Cozaar Tab*) 100 mg PO BEDTIME [facility] Last Admin: 07/23/19 20:18 Dose: Not Given Magnesium Oxide (Magox 400 Tab*) 400 mg PO BEDTIME [facility] Last Admin: 07/23/19 20:16 Dose: Not Given Metoprolol Succinate (Toprol Xl Tab*) 100 mg PO DAILY [facility] Pantoprazole Sodium (Protonix Tab*) 40 mg PO DAILY [facility]; Protocol Last Admin: 07/23/19 08:57 Dose: 40 mg Rosuvastatin Calcium (Crestor (Nf)) 5 mg PO 1700 [facility]; Protocol Last Admin: 07/23/19 17:59 Dose: 5 mg Spironolactone (Aldactone Tab*) 25 mg PO DAILY [facility] Last Admin: 07/23/19 08:59 Dose: 25 mg Vital Signs - 8 hr 07/24/19 07/24/19 04:00 07:30 Temperature 97.7 F Pulse Rate 67 Respiratory 14 20 Rate Blood Pressure 165/67 (mmHg) O2 Sat by Pulse 94 Oximetry Oxygen Devices in Use Now: None Appearance: well appearing woman in NAD, sitting at bedside eating Neck: NL Appearance and Movements; NL JVP Respiratory: Symmetrical Chest Expansion and Respiratory Effort, Clear to Auscultation Cardiovascular: RRR Abdominal: NL Sounds; No Tenderness; No Distention, No Hepatosplenomegaly Extremities: - - 1-2+ edema to knees, wrapped Neurological: Alert and Oriented x 3 Result Diagrams: 07/22/19 14:35 07/24/19 04:26 Microbiology and Other Data: Microbiology 07/23/19 03:25 Stool Occult Blood (SEEMA) - Final Stool Assess/Plan/Problems-Billing Assessment: 54W with CAD, HTN, DM2, cervical cancer in remission, presents as referral from construction specialist for new HFrEF 25% with dyspnea and LE edema. - Patient Problems (1) Heart failure with reduced ejection fraction Comment: with global hypokinesis on TTE. Possibly ischemic vs viral, or related to h/o chemo. - cont furosemide, give another 40 IV dose today, switch to PO tomorrow - cont metoprolol, losartan, and spironolactone - follow BMP for renal function, replete k > 4 and Mg > 2 - Is & Os and daily weights - appreciate cards recs, plan for cardiac cath prior to discharge (2) Iron deficiency anemia Comment: FOBT negative. - initiate iron sucrose while admitted - age-appropriate cancer screening as outpatient (3) CAD (coronary artery disease) Comment: - continue statin, fenofibrate, ASA, clopidogrel (4) Diabetes Comment: - cont home detemir and glimepiride - cont ISS while admitted with fingersticks (5) HTN (hypertension) Comment: - continue losartan, metoprolol - started on spironolactone this admission for HF (6) DVT prophylaxis Comment: lovenox
[2019-07-24] MEDS ORDERED: Magnesium Sulfate 1 GM IV* 1 GM/100 ML BAG IV ONE (08:00)
[2019-07-24] MEDS: Albuterol HFA INHALER* 8 gm MDI INH PRN ×2 (08:00→21:37)
[2019-07-24] MEDS: Insulin LISPRO* 1 UNITS UNIT SUBCUT SCH ×4 (08:12→21:32)
[2019-07-24] MEDS: Clopidogrel TAB* 75 MG PO SCH (09:24)
[2019-07-24] MEDS: CMCS:Glimepiride (NF) 2 MG TAB PO SCH ×2 (09:25→17:26)
[2019-07-24] MEDS: Metoprolol Succinate XL TAB* 50 MG PO SCH (09:25)
[2019-07-24] MEDS: Lactobacillus Acidophilus* 1 TAB PO SCH (09:26)
[2019-07-24] MEDS: Pantoprazole TAB * 40 MG TAB PO SCH (09:26)
[2019-07-24] MEDS: Gabapentin CAP(*) 300 MG PO SCH ×3 (09:26→21:34)
[2019-07-24] MEDS: Spironolactone TAB* 25 MG PO SCH (09:27)
[2019-07-24] MEDS: Insulin GLARGINE(*) 1 UNITS UNIT SUBCUT SCH (09:28)
[2019-07-24] MEDS: Furosemide TAB* 20 MG PO SCH (09:28)
[2019-07-24] MEDS: Iron Sucrose* 200 MG in NS 0.9% 100 ML* 100 ML IVPB SCH (10:17)
[2019-07-24] MEDS ORDERED: Furosemide IV* 10 MG/ML VIAL (40 MG) IV ONE (13:00)
[2019-07-24] MEDS: CMCS - Rosuvastatin (NF) 5 MG TAB PO SCH (17:23)
[2019-07-24] MEDS: Magnesium Oxide TAB* 400 MG PO SCH (21:32)
[2019-07-24] MEDS: Enoxaparin(*) 40 MG/0.4 ML SYR SUBCUT SCH (21:32)
[2019-07-24] MEDS: Losartan TAB* 25 MG PO SCH (21:33)
[2019-07-24] MEDS: Aspirin EC TAB* 81 MG TAB.EC PO SCH (21:34)
[2019-07-24] MEDS: Calcium Carbonate CHEW TAB* 500 MG (TUMS) PO PRN (23:28)
[2019-07-25] MEDS ORDERED: LORazepam TAB(*) 0.5 MG PO ONE ×2 (04:15→22:16)
[2019-07-25] MEDS: Acetaminophen TAB* 325 MG PO PRN ×2 (04:50→13:43)
[2019-07-25] MEDS: Calcium Carbonate CHEW TAB* 500 MG (TUMS) PO PRN (04:51)
[2019-07-25 06:06] LABS: Hematocrit 33 % (35-47); Hemoglobin 10.5 g/dL (12.0-16.0); Mean Corpuscular HGB Conc 32 g/dL (31-36); Mean Corpuscular Hemoglobin 25 pg (27-31); Mean Corpuscular Volume 78 fL (80-97); Mean Platelet Volume 8.9 fL (7.4-10.4); Platelet Count 319 10^3/uL (150-450); Red Blood Count 4.28 10^6 /uL (3.70-4.87); Red Cell Distribution Width 17 % (10-15); White Blood Count 10.4 10^3/uL (3.5-10.8)
[2019-07-25 06:17] LABS: Calcium 8.8 mg/dL (8.6-10.3); Magnesium 1.8 mg/dL (1.9-2.7); Potassium 3.9 mmol/L (3.5-5.0)
[2019-07-25 06:23] LABS: BUN/Creatinine Ratio 26.7 (8-20); EGFR African American 68.6 (>60); EGFR Non-African American 56.7 (>60)
[2019-07-25] MEDS: Insulin LISPRO* 1 UNITS UNIT SUBCUT SCH ×4 (06:56→21:14)
[2019-07-25] MEDS ORDERED: Magnesium Sulfate 1 GM IV* 1 GM/100 ML BAG IV ONE (08:52)
--- NOTE | 2019-07-25 08:53 | PN ---
Subjective Date of Service: 07/25/19 Interval History: No acute events overnight. Pt was very anxious about cath and was given Ativan to sleep, noted to be hypertensive in the AM. Still nervous about cath this AM but without other bothersome symptoms. Unsure why she is nervous - states she's had caths before that went well. Objective Active Medications: Acetaminophen (Tylenol Tab*) 975 mg PO Q8H PRN PRN Reason: Pain - Mod to Severe Last Admin: 07/25/19 04:50 Dose: 975 mg Albuterol (Ventolin Hfa Inhaler*) 2 puff INH Q4H PRN PRN Reason: SOB/WHEEZING Last Admin: 07/24/19 21:37 Dose: 2 puff Aspirin (Aspirin Ec Tab*) 81 mg PO BEDTIME [facility]IG[facility] Last Admin: 07/24/19 21:34 Dose: 81 mg Calcium Carbonate (Tums*) 500 mg PO Q4H PRN PRN Reason: HEARTBURN Last Admin: 07/25/19 04:51 Dose: 500 mg Clopidogrel Bisulfate (Plavix Tab*) 75 mg PO DAILY [facility] Last Admin: 07/24/19 09:24 Dose: Not Given Dextrose (Dextrose 50% Vial 50 Ml*) 25 ml IV PUSH .FOR FS < 60 - SS PRN PRN Reason: FS < 60 Enoxaparin Sodium (Lovenox(*)) 40 mg SUBCUT BEDTIME [facility]IG[facility]ALIA Last Admin: 07/24/19 21:32 Dose: 40 mg Famotidine (Pepcid Tab*) 20 mg PO BID PRN PRN Reason: reflux Last Admin: 07/24/19 09:27 Dose: 20 mg Fenofibrate (Tricor 160 Mg) 160 mg PO BEDTIME [facility]IG[facility]ALIA; Protocol Last Admin: 07/24/19 21:33 Dose: 160 mg Furosemide (Lasix Tab*) 60 mg PO DAILY [facility] Last Admin: 07/24/19 09:28 Dose: 60 mg Gabapentin (Neurontin Cap(*)) 300 mg PO TID [facility] Last Admin: 07/24/19 21:34 Dose: 300 mg Glimepiride (Glimepiride (Nf)) 4 mg PO BID WITH MEALS [facility]AL[facility]; Protocol Last Admin: 07/24/19 17:26 Dose: 4 mg Iron Sucrose 200 mg/ Sodium (Chloride) 110 mls @ 110 mls/hr IVPB DAILY [facility] Stop: 07/27/19 09:59 Last Admin: 07/24/19 10:17 Dose: 110 mls/hr Insulin Glargine (Lantus(*)) 40 units SUBCUT DAILY [facility] Last Admin: 07/24/19 09:28 Dose: 40 units Insulin Human Lispro (Humalog*) 0 units SUBCUT ACHS [facility]; Protocol Last Admin: 07/25/19 06:56 Dose: Not Given Lactobacillus Rhamnosus (Lactobacillus Acidophilus*) 1 tab PO DAILY [facility] Last Admin: 07/24/19 09:26 Dose: 1 tab Losartan Potassium (Cozaar Tab*) 100 mg PO BEDTIME [facility] Last Admin: 07/24/19 21:33 Dose: 100 mg Magnesium Oxide (Magox 400 Tab*) 400 mg PO BEDTIME [facility] Last Admin: 07/24/19 21:32 Dose: 400 mg Metoprolol Succinate (Toprol Xl Tab*) 100 mg PO DAILY [facility] Last Admin: 07/24/19 09:25 Dose: 100 mg Pantoprazole Sodium (Protonix Tab*) 40 mg PO DAILY [facility]; Protocol Last Admin: 07/24/19 09:26 Dose: 40 mg Rosuvastatin Calcium (Crestor (Nf)) 5 mg PO 1700 [facility]; Protocol Last Admin: 07/24/19 17:23 Dose: 5 mg Spironolactone (Aldactone Tab*) 25 mg PO DAILY [facility] Last Admin: 07/24/19 09:27 Dose: 25 mg Vital Signs - 8 hr 07/25/19 07/25/19 07/25/19 04:06 04:51 06:50 Temperature 97.6 F Pulse Rate 73 Respiratory 18 20 20 Rate Blood Pressure 175/79 (mmHg) O2 Sat by Pulse 99 Oximetry 07/25/19 07/25/19 06:55 07:15 Temperature 97.6 F Pulse Rate 71 Respiratory 16 18 Rate Blood Pressure 184/78 (mmHg) O2 Sat by Pulse 98 Oximetry Oxygen Devices in Use Now: None Appearance: well appearing, sitting on side of bed talking with family Eyes: No Scleral Icterus Ears/Nose/Mouth/Throat: Clear Oropharnyx, Mucous Membranes Moist Neck: NL Appearance and Movements; NL JVP, Trachea Midline Respiratory: Symmetrical Chest Expansion and Respiratory Effort, Clear to Auscultation Cardiovascular: NL Sounds; No Murmurs; No JVD, RRR Abdominal: NL Sounds; No Tenderness; No Distention, No Hepatosplenomegaly Extremities: - - 1+ edema [facility] up shins, +wrinkling Skin: No Rash or Ulcers Neurological: Alert and Oriented x 3 Result Diagrams: 07/25/19 05:19 07/25/19 05:19 Microbiology and Other Data: Microbiology 07/23/19 03:25 Stool Occult Blood (SEEMA) - Final Stool Assess/Plan/Problems-Billing Assessment: 54W with CAD, HTN, DM2, cervical cancer in remission, 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 - Patient Problems (1) Heart failure with reduced ejection fraction Comment: with global hypokinesis on TTE. Possibly ischemic vs viral, or related to h/o chemo. - now on furosemide 40mg PO daily - cont metoprolol, losartan, and spironolactone - follow BMP for renal function, replete k > 4 and Mg > 2 - Is & Os and daily weights - pending cath (2) Iron deficiency anemia Comment: FOBT negative. - initiate iron sucrose while admitted - age-appropriate cancer screening as outpatient (3) CAD (coronary artery disease) Comment: - continue statin, fenofibrate, ASA, clopidogrel (4) Diabetes Comment: - cont home detemir and glimepiride - cont ISS while admitted with fingersticks (5) HTN (hypertension) Comment: - continue losartan, metoprolol - started on spironolactone this admission for HF (6) DVT prophylaxis Comment: lovenox
[2019-07-25] MEDS ORDERED: hydrALAZINE IV* 20 MG/ML VIAL IV SLOW PU PRN (09:25)
[2019-07-25] MEDS: Lactobacillus Acidophilus* 1 TAB PO SCH (10:02)
[2019-07-25] MEDS: Clopidogrel TAB* 75 MG PO SCH ×2 (10:02→13:44)
[2019-07-25] MEDS: Spironolactone TAB* 25 MG PO SCH (10:03)
[2019-07-25] MEDS: Pantoprazole TAB * 40 MG TAB PO SCH (10:04)
[2019-07-25] MEDS: Gabapentin CAP(*) 300 MG PO SCH ×3 (10:04→21:13)
[2019-07-25] MEDS: CMCS:Glimepiride (NF) 2 MG TAB PO SCH ×2 (10:05→17:34)
[2019-07-25] MEDS: Insulin GLARGINE(*) 1 UNITS UNIT SUBCUT SCH (10:06)
[2019-07-25] MEDS: Metoprolol Succinate XL TAB* 50 MG PO SCH (10:49)
[2019-07-25] MEDS ORDERED: Diazepam TAB(*) 5 MG ONE (11:46)
[2019-07-25] MEDS ORDERED: fentaNYL* 50 MCG/ML 2 ML VIAL (100 MCG VIAL) ONE (11:57)
[2019-07-25] MEDS ORDERED: Heparin(*) 1000 UNIT/ML 10 ML VIAL CATH LAB IV ONE (11:57)
[2019-07-25] MEDS ORDERED: Midazolam* 1 MG/ML 5 ML VIAL (5 MG) ONE (11:57)
[2019-07-25] MEDS ORDERED: Iohexol 350 (CONTRAST) 200 ML MDV IV ONE ×2 (11:58→11:59)
[2019-07-25] MEDS ORDERED: VERAPAMIL 2.5 MG/ML 2 ML VIAL ** 5 mg/2 ml ONE (11:58)
[2019-07-25] MEDS ORDERED: nitroGLYCERIN DRIP* 25,000 MCG/250 ML BTL ONE (11:58)
[2019-07-25] MEDS ORDERED: Lidocaine 1% INJ* 10 MG/ML 30 ML SDV ONE (11:58)
[2019-07-25] MEDS ORDERED: Heparin 2 UNITS/ML IVPREMIX* 2,000 ML IV ONE (11:58)
[2019-07-25] MEDS ORDERED: Iodixanol 320 (CONTRAST) 100 ML SDV ONE (12:01)
[2019-07-25] MEDS ORDERED: NS 0.9% 1000 ML** 1,000 ML IV SCH (13:00)
[2019-07-25] MEDS: Iron Sucrose* 200 MG in NS 0.9% 100 ML* 100 ML IVPB SCH (13:29)
[2019-07-25] MEDS ORDERED: Acetaminophen TAB* 325 MG ONE ×2 (13:33→13:39)
[2019-07-25] MEDS ORDERED: Clopidogrel TAB* 75 MG ONE (13:34)
[2019-07-25] MEDS: CMCS - Rosuvastatin (NF) 5 MG TAB PO SCH (15:37)
[2019-07-25] MEDS: Furosemide TAB* 20 MG PO SCH (15:38)
--- NOTE | 2019-07-25 18:22 | CATH ---
"*[facility]* [place] [address] Main: [phone] 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 - Right coronary angiography. - Left heart catheterization. Summary: 1. Diffuse samll diabetic arteries. 2. Stent to right coronary artery patent Recommendations: Patient management should include medical therapy. History: PMH: Peripheral arterial disease. Risk factors: Current tobacco use. Hypertension. Diabetes mellitus; on therapy with insulin. Dyslipidemia. Labs, prior tests, procedures, and surgery: Catheterization with coronary intervention (07/13/2009). Blood tests: Troponin I (pre-procedure) of 0.01 ng/ml. International normalized ratio (INR) of 1.16. Serum potassium (K) of 3.9 mEq/l. Serum sodium (Na) of 138 mEq/l. Serum creatinine (current admission) of 1.01 mg/dl. Blood urea nitrogen of 27 mg/dl. Glucose of 132 mg/dl. Platelet count of 319 th/ul. White blood cell count (WBC) of 0.01 th/ul. Red blood cell count (RBC) of 4280 th/ul. Hematocrit of 33 %. Hemoglobin (pre-procedure) of 10.5 g/dl. Study data: Study status: Cardiac cath: urgent. Location: Catheterization laboratory. Consent: The risks, benefits, and alternatives to the procedure were explained to the patient and/or their healthcare procurement representative and written informed consent was obtained. All available pre-procedure labs were reviewed. Height: 162.6 cm. 64 in. Weight: 87.3 kg. 192.1 lb. Body surface area: 2.02 m^2. Body mass index: 33 kg/m^2. Procedure: 1. Initial setup. The patient was brought to the laboratory. Surface ECG leads, blood pressure measurements, and pulse oximetric signals were monitored. A baseline seven lead ECG was recorded. A time out was observed per protocol. 2. Skin preparation. The planned puncture sites were prepped and draped in the usual sterile manner. 3. Local anesthesia. 1% lidocaine was administered. 4. Local anesthesia. 1% lidocaine (1 ml) was administered. 5. Right radial artery access. A 6F Gl[place]ath Slender sheath was advanced into the vessel. 6. Selective left coronary angiography. A 5F Radial Tig 4.0 catheter was advanced into the left coronary vessel ostium under fluoroscopic guidance. Contrast was injected. Images were obtained in multiple projections. 7. Selective right coronary angiography. A 6F AR 1 MOD catheter was advanced into the right coronary vessel ostium under fluoroscopic guidance. Contrast was injected. Images were obtained in multiple projections. 8. Right radial artery hemostasis. Vessel closure was achieved with a Regular Vasc Band device. 9. Left heart catheterization. A catheter was advanced across the aortic valve to the left ventricle under fluoroscopic guidance. Study completion: Minimal estimated blood loss. All catheters inserted during the procedure were removed. There were no apparent complications. Administered medications: VERSED (Midazolam), 2mg, IV. Fentanyl, 25mcg, IV. (Radial) Nitroglycerin, 300mcg, intra-arterially. (Radial) Verapamil, 3mg, intra-arterially. (Radial) Heparin, 3,000units, intra-arterially. NaCl 0.9% , infusion , at a rate of 75 ml/hr. Contrast: Isovue 50 ml (total dose). Isovue 50 ml (wasted). Radiation: Fluoroscopy dose: 118.3 cGy. Discharge: The patient tolerated the procedure well and was discharged from the lab in stable condition. Findings Coronary arteries: The coronary circulation is right dominant. Left main: Normal, 0% stenosis. LAD: Mild diffuse disease. Left circumflex: Lesion: There is a diffuse mild stenosis. Right coronary: Prior intervention: stent in the proximal RCA. The stented segment is patent. Small mild diffuse disease in the distal right coronary artery and RPDA. Hemodynamics: + + + |Stage description |Condition 1 - | + + + |LV pressure s/d, ed |132/26, 28, dP/uj=372 mm Hg/s| + + + |Arterial pressure s/d (m)|127/74 (97) | + + + Prepared and electronically signed by Evan Holland MD 07/25/2019 18:21"
[2019-07-25] MEDS: Enoxaparin(*) 40 MG/0.4 ML SYR SUBCUT SCH (21:13)
[2019-07-25] MEDS: Losartan TAB* 25 MG PO SCH (21:13)
[2019-07-25] MEDS: Aspirin EC TAB* 81 MG TAB.EC PO SCH (21:13)
[2019-07-25] MEDS: Magnesium Oxide TAB* 400 MG PO SCH (21:13)
[2019-07-26 06:16] LABS: Magnesium 1.7 mg/dL (1.9-2.7)
[2019-07-26 06:43] LABS: Calcium 8.6 mg/dL (8.6-10.3); EGFR African American 66.3 (>60); EGFR Non-African American 54.8 (>60); Potassium 4.1 mmol/L (3.5-5.0)
[2019-07-26 07:27] VITALS: BP 167/78
--- NOTE | 2019-07-26 07:53 | PN ---
Subjective Date of Service: 07/26/19 Interval History: Had cardiac cath yesterday. No acute events overnight. Pt is good spirits and looking forward to going home. Denies CP and SOB. LE edema better. Objective Active Medications: Acetaminophen (Tylenol Tab*) 975 mg PO Q8H PRN PRN Reason: Pain - Mod to Severe Last Admin: 07/25/19 13:43 Dose: 975 mg Albuterol (Ventolin Hfa Inhaler*) 2 puff INH Q4H PRN PRN Reason: SOB/WHEEZING Last Admin: 07/24/19 21:37 Dose: 2 puff Aspirin (Aspirin Ec Tab*) 81 mg PO BEDTIME [facility]IG[facility]AL[facility] Last Admin: 07/25/19 21:13 Dose: 81 mg Calcium Carbonate (Tums*) 500 mg PO Q4H PRN PRN Reason: HEARTBURN Last Admin: 07/25/19 04:51 Dose: 500 mg Clopidogrel Bisulfate (Plavix Tab*) 75 mg PO DAILY [facility] Last Admin: 07/25/19 13:44 Dose: 75 mg Dextrose (Dextrose 50% Vial 50 Ml*) 25 ml IV PUSH .FOR FS < 60 - SS PRN PRN Reason: FS < 60 Enoxaparin Sodium (Lovenox(*)) 40 mg SUBCUT BEDTIME [facility] Last Admin: 07/25/19 21:13 Dose: 40 mg Famotidine (Pepcid Tab*) 20 mg PO BID PRN PRN Reason: reflux Last Admin: 07/24/19 09:27 Dose: 20 mg Fenofibrate (Tricor 160 Mg) 160 mg PO BEDTIME [facility]; Protocol Last Admin: 07/25/19 21:13 Dose: 160 mg Furosemide (Lasix Tab*) 60 mg PO DAILY [facility] Last Admin: 07/25/19 15:38 Dose: 60 mg Gabapentin (Neurontin Cap(*)) 300 mg PO TID [facility] Last Admin: 07/25/19 21:13 Dose: 300 mg Glimepiride (Glimepiride (Nf)) 4 mg PO BID WITH MEALS [facility]; Protocol Last Admin: 07/25/19 17:34 Dose: 4 mg Hydralazine HCl (Apresoline Iv*) 10 mg IV SLOW PU Q6H PRN PRN Reason: SBP > 180 Last Admin: 07/25/19 09:49 Dose: 10 mg Iron Sucrose 200 mg/ Sodium (Chloride) 110 mls @ 110 mls/hr IVPB DAILY [facility] Stop: 07/27/19 09:59 Last Admin: 07/25/19 13:29 Dose: 110 mls/hr Insulin Glargine (Lantus(*)) 40 units SUBCUT DAILY [facility] Last Admin: 07/25/19 10:06 Dose: Not Given Insulin Human Lispro (Humalog*) 0 units SUBCUT ACHS [facility]; Protocol Last Admin: 07/25/19 21:14 Dose: 6 units Lactobacillus Rhamnosus (Lactobacillus Acidophilus*) 1 tab PO DAILY [facility] Last Admin: 07/25/19 10:02 Dose: 1 tab Losartan Potassium (Cozaar Tab*) 100 mg PO BEDTIME [facility] Last Admin: 07/25/19 21:13 Dose: 100 mg Magnesium Oxide (Magox 400 Tab*) 400 mg PO BEDTIME [facility] Last Admin: 07/25/19 21:13 Dose: 400 mg Metoprolol Succinate (Toprol Xl Tab*) 100 mg PO DAILY [facility] Last Admin: 07/25/19 10:49 Dose: 100 mg Pantoprazole Sodium (Protonix Tab*) 40 mg PO DAILY [facility]; Protocol Last Admin: 07/25/19 10:04 Dose: 40 mg Rosuvastatin Calcium (Crestor (Nf)) 5 mg PO 1700 [facility]; Protocol Last Admin: 07/25/19 15:37 Dose: 5 mg Spironolactone (Aldactone Tab*) 25 mg PO DAILY [facility] Last Admin: 07/25/19 10:03 Dose: Not Given Vital Signs - 8 hr 07/25/19 07/26/19 07/26/19 23:45 03:58 04:22 Temperature 97.3 F Pulse Rate 62 Respiratory 18 16 16 Rate Blood Pressure 157/76 (mmHg) O2 Sat by Pulse 97 Oximetry 07/26/19 07:26 Temperature 97.4 F Pulse Rate 66 Respiratory 16 Rate Blood Pressure 167/78 (mmHg) O2 Sat by Pulse 98 Oximetry Oxygen Devices in Use Now: None Appearance: well appearing, son at bedside, smell of cig smoke Eyes: No Scleral Icterus Ears/Nose/Mouth/Throat: Clear Oropharnyx, Mucous Membranes Moist Neck: NL Appearance and Movements; NL JVP, Trachea Midline Respiratory: Symmetrical Chest Expansion and Respiratory Effort, Clear to Auscultation Cardiovascular: NL Sounds; No Murmurs; No JVD, RRR Abdominal: NL Sounds; No Tenderness; No Distention, No Hepatosplenomegaly Extremities: - - 1+ edema over ankles, wrapped Neurological: Alert and Oriented x 3 Result Diagrams: 07/25/19 05:19 07/26/19 05:20 Microbiology and Other Data: Microbiology 07/23/19 03:25 Stool Occult Blood (SEEMA) - Final Stool Assess/Plan/Problems-Billing Assessment: 54W with CAD, HTN, DM2, cervical cancer in remission, 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 - Patient Problems (1) Heart failure with reduced ejection fraction Comment: with global hypokinesis on TTE. Possibly ischemic vs viral, or related to h/o chemo. - now on furosemide 60mg PO daily - cont metoprolol, losartan, and spironolactone - follow BMP for renal function, replete k > 4 and Mg > 2 (2) Iron deficiency anemia Comment: FOBT negative. - initiate iron sucrose while admitted - age-appropriate cancer screening as outpatient (3) CAD (coronary artery disease) Comment: - continue statin, fenofibrate, ASA, clopidogrel (4) Diabetes Comment: - cont home detemir and glimepiride - cont ISS while admitted with fingersticks (5) HTN (hypertension) Comment: - continue losartan, metoprolol - started on spironolactone this admission for HF (6) DVT prophylaxis Comment: lovenox
[2019-07-26] MEDS ORDERED: Magnesium Sulfate 1 GM IV* 1 GM/100 ML BAG IV ONE (08:00)
[2019-07-26 08:42] LABS: Uric Acid 4.4 mg/dL (2.3-6.6)
[2019-07-26] MEDS: CMCS:Glimepiride (NF) 2 MG TAB PO SCH (08:54)
[2019-07-26] MEDS: Spironolactone TAB* 25 MG PO SCH (08:54)
[2019-07-26] MEDS: Furosemide TAB* 20 MG PO SCH (08:54)
[2019-07-26] MEDS: Lactobacillus Acidophilus* 1 TAB PO SCH (08:54)
[2019-07-26] MEDS: Metoprolol Succinate XL TAB* 50 MG PO SCH (08:54)
[2019-07-26] MEDS: Clopidogrel TAB* 75 MG PO SCH (08:54)
[2019-07-26] MEDS: Insulin LISPRO* 1 UNITS UNIT SUBCUT SCH (08:55)
[2019-07-26] MEDS: Gabapentin CAP(*) 300 MG PO SCH (08:55)
[2019-07-26] MEDS: Insulin GLARGINE(*) 1 UNITS UNIT SUBCUT SCH (08:55)
[2019-07-26] MEDS: Pantoprazole TAB * 40 MG TAB PO SCH (08:55)
--- NOTE | 2019-07-27 02:49 | DS ---
CC: Prudence Whatley NP; Dr. Sadiq Gautam, Dr. Evan Holland, Cardiology * DISCHARGE SUMMARY: DATE OF ADMISSION: 07/22/19 DATE OF DISCHARGE: 07/26/19 PRIMARY CARE PROVIDER: Prudence Whatley NP. LINING PARTS SEWER: Dr. Evan Holland. PRIMARY DIAGNOSES: 1. Heart failure with reduced ejection fraction, ejection fraction 25% 2. Coronary artery disease. 3. Iron-deficiency anemia. SECONDARY DIAGNOSES: 1. Hypertension. 2. Diabetes 3. Cervical cancer, in remission. CONSULTS: Dr. Sadiq Gautam and Dr. Evan Holland, Cardiology. PROCEDURES: Cardiac catheterization on 07/25/19. DISCHARGE MEDICATIONS: 1. Rosuvastatin 5 mg daily. 2. Fenofibrate 145 mg daily. 3. Clopidogrel 75 mg daily. 4. Aspirin 81 mg daily. 5. Metoprolol succinate 100 mg daily. 6. Losartan 100 mg at bedtime. 7. Furosemide 60 mg daily. 8. Spironolactone 25 mg daily. 9. Esomeprazole 40 mg daily to titrate off. 10. Famotidine 20 mg twice a day as needed for reflux. 11. Ferrous sulfate 325 mg every other day. 12. Insulin detemir 50 units subcutaneously daily. 13. Glimepiride 4 mg twice a day. 14. Magnesium oxide 400 mg daily. 15. Fluticasone one spray to both nares twice a day. HISTORY OF PRESENT ILLNESS: Ms. 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 She reports a few months' history of progressive dyspnea with exertion, weight gain, lower extremity edema. She denies orthopnea or PND. The patient states that she had pneumonia back in March and since then has had dyspnea on exertion, which has gotten particularly worse in the last few days. An echocardiogram 1 month prior to pneumonia showed a normal ejection fraction. On day of presentation, her echocardiogram repeated with her [employer] ticket checker, Dr. Holland, showed an EF around 20%. Because of progressive symptoms and new reduced ejection fraction, she was advised to come to the hospital for admission for catheterization and IV diuretics. The patient denies chest pain. HOSPITAL COURSE: The patient was admitted to the medical service and seen by Dr. Gautam of Cardiology. She was initiated on a complete heart failure regimen with the addition of spironolactone and had her metoprolol and losartan doses increased which she tolerated well. She was put on a schedule for a cardiac catheterization when her volume status was optimized. The patient was also noted to have iron deficiency with anemia, so she was initiated on IV iron daily while admitted. She was counseled to quit using tobacco given her significant coronary artery disease with heart attacks, stents and new heart failure. On day before discharge, she underwent a cardiac catheterization through her right wrist which showed diffuse small arteries with a stent to the RCA still patent, so continued medical management was recommended by Dr. Holland. By the next day, she was discharged with new heart failure regimen. She was encouraged to follow up with her primary care physician for age-appropriate cancer screening. While admitted, she also required significant magnesium repletion and she was encouraged to try to titrate off her PPI and was given H2 yeyo in the interim with the hopes of improving her observation status. PERTINENT STUDIES AND LABS: CBC notable for hemoglobin 10.5 with MCV 78. BMP notable for creatinine of 1.04 which is slightly above the patient's baseline. TSH 1.9. LDL 48. BNP over 1300 on admission. Troponin negative x1. Iron 23, TIBC 466, percent saturation 5 and ferritin 15. Hemoglobin A1c 8.7%. Chest x-ray with interval development of cardiomegaly and pulmonary interstitial edema. DISCHARGE PLAN: The patient will be discharged to follow up with her primary care physician and Dr. Holland of Cardiology. Her medications are to be continued as above. For heart failure with newly reduced ejection fraction, her metoprolol and beta yeyo were increased and she was initiated on spironolactone. She was also put on a slightly higher dose of her recently started home furosemide. She should continue to follow up with Dr. Holland for ongoing management. For her iron deficiency anemia, she is status post 3 doses of iron sucrose in the hospital and she was continued on oral iron supplement to take every other day. She should follow up with her primary care physician for age-appropriate cancer screening and further management with consideration for GI referral. The patient's diabetes was uncontrolled while in the hospital and she was encouraged to ensure tighter blood glucose control and to eat a lower carb diet. She wears a continuous glucose monitor. For her hypomagnesemia, while admitted, she was encouraged to try and titrate off her PPI and switch to an as needed H2 yeyo. For her history of coronary artery disease, she was encouraged to refrain from ever smoking cigarettes again. She was encouraged to follow up with her primary care physician for further help. The patient and her family were educated on return precautions which include but are not limited to chest pain, lightheadedness, palpitations, or worsening lower extremity edema and shortness of breath. She should eat a healthy diet, low in processed foods, low in carbohydrates. ACTIVITY: As tolerated. DISPOSITION: Home. CONDITION: Good. TIME SPENT: Approximately 60 minutes was spent on discharging this patient, more than half of which was spent on care coordination at bedside for interview and exam. [id number]/[facility] #: [id number] STEPHIE
== END 2019-07-26 10:58 | disposition home or self-care (01) | DRG 192 ==
LOC: MEDTELE 11:00 → INTOOBSV 13:24 → OBSVTOIN 07-24 11:00
PROVIDERS: ADMIT Internal Medicine; ATTEND Internal Medicine
PROC: B211YZZ Fluoroscopy of Multiple Coronary Arteries using Other Contrast (ICD-10-PCS; 2019-07-25)
PROC: 4A023N7 Measurement of Cardiac Sampling and Pressure, Left Heart, Percutaneous Approach (ICD-10-PCS; principal; 2019-07-25 12:00)
DX: I11.0 Hypertensive heart disease with heart failure (principal); I50.21 Acute systolic (congestive) heart failure; E11.65 Type 2 diabetes mellitus with hyperglycemia; E83.42 Hypomagnesemia; I42.9 Cardiomyopathy, unspecified; G62.9 Polyneuropathy, unspecified; I25.10 Atherosclerotic heart disease of native coronary artery without angina pectoris; D50.9 Iron deficiency anemia, unspecified; F17.210 Nicotine dependence, cigarettes, uncomplicated; K21.9 Gastro-esophageal reflux disease without esophagitis; E66.9 Obesity, unspecified; Z95.5 Presence of coronary angioplasty implant and graft; Z85.41 Personal history of malignant neoplasm of cervix uteri; Z92.21 Personal history of antineoplastic chemotherapy; Z92.3 Personal history of irradiation; Z79.02 Long term (current) use of antithrombotics/antiplatelets; Z79.82 Long term (current) use of aspirin; Z79.4 Long term (current) use of insulin; Z79.51 Long term (current) use of inhaled steroids; Z79.899 Other long term (current) drug therapy; Z82.49 Family history of ischemic heart disease and other diseases of the circulatory system; Z80.3 Family history of malignant neoplasm of breast; Z91.030 Bee allergy status; Z68.33 Body mass index [BMI] 33.0-33.9, adult
CPT/HCPCS: 36415; 71045; 80048; 80061; 82270; 82728; 83036; 83540; 83550; 83735; 83880; 84443; 84484; 84550; 85025; 85027; 85610; 85730; 93005; 93458; 94640; 99156; A9270-GY; C1887; G0378; J0360; J1644; J1650; J1756; J1940; J2250; J3010; J3475

== ENCOUNTER 2023-02-17 15:35 | Inpatient (IN) ==
[2023-02-17 16:10] LABS: ABS Basophils 0.2 10^3/uL (0.0-0.1); ABS Eosinophils 0.1 10^3/uL (0.0-0.5); ABS Lymphocytes 1.4 10^3/uL (1.0-4.8); ABS Monocytes 0.7 10^3/uL (0.0-0.9); ABS Neutrophils 8.8 10^3/uL (1.5-7.6); ABS Nucleated RBC 0.01 10^3/ul; Eosinophil % 0.9 %; Hematocrit 21.8 % (35-45); Hemoglobin 7.1 g/dL (11.5-14.3); Lymphocyte % 12.1 %; Mean Corpuscular Hemoglobin 25.6 pg (27-33); Mean Corpuscular Hgb Conc 32.5 g/dL (31-36); Mean Corpuscular Volume 78.7 fL (80-97); Mean Platelet Volume 8.5 fL (7.5-11.2); Nucleated Red Blood Cells % 0.1 /100 WBC (0.0-0.4); Platelet Count 476 10^3/uL (150-450); Red Blood Count 2.77 10^6/uL (3.63-4.92); Red Cell Distribution Width 19.2 % (12-17); White Blood Count 11.2 10^3/uL (3.8-11.8)
[2023-02-17 16:21] LABS: Activated Partial Thrombo Time 35.9 seconds (26.0-38.0); INR 2.56 (0.88-1.18)
[2023-02-17 16:33] LABS: Albumin 2.6 g/dL (3.2-5.2); Albumin/Globulin Ratio 0.6 (1-3); Creatinine, Serum 2.04 mg/dL (0.51-0.95); Globulin 4.1 g/dL (2-4); Potassium 4.1 mmol/L (3.5-5.0); Total Bilirubin 0.2 mg/dL (0.2-1.0); Total Protein 6.7 g/dL (6.4-8.9); eGFR CKD-EPI 27.4 (>60)
[2023-02-17 16:40] LABS: Calcium 6.4 mg/dL (8.6-10.3); Magnesium 0.7 mg/dL (1.9-2.7)
[2023-02-17] MEDS ORDERED: Magnesium Sulf 4 GM/100 ML IV 4,000 MG/100 ML BAG IVPB ONE ×2 (17:27→23:00)
[2023-02-17] MEDS ORDERED: CALCIUM GLUCONATE 1GM/50ML NS 1 GM/50 ML BAG IV ONE ×2 (17:29→20:55)
[2023-02-17 17:49] LABS: High Sensitivity Troponin 1 Hr 264 pg/mL (<15)
[2023-02-17] MEDS ORDERED: Furosemide 40 mg/4 ml IV VIAL IV ONE (20:47)
[2023-02-17] MEDS: Mometasone/Formoter 200/5 MDI INH SCH (22:02)
[2023-02-17] MEDS: CMCS: Glimepiride 2 mg TAB (NF) PO SCH (23:15)
[2023-02-17 23:58] LABS: Urine Appearance Turbid; Urine Bilirubin Negative (Negative); Urine Blood Negative (Negative); Urine Color Amber; Urine Glucose Negative (Negative); Urine Ketones Negative (Negative); Urine Nitrite Negative (Negative); Urine Protein 2+(100 mg/dL) (Negative); Urine Specific Gravity 1.016 (1.002-1.030); Urine Urobilinogen Negative (Negative)
[2023-02-18 00:02] LABS: Urine Bacteria 1+ (Absent); Urine Red Blood Cell Trace(0-2/hpf) (Absent); Urine Squamous Epithelial Cell Present (Absent); Urine White Blood Cell 3+(>20/hpf) (Absent); Urine Yeast Present (Absent)
[2023-02-18 00:14] LABS: Urine Creatinine Concentration 120.42 mg/dL (20.00-320.00)
[2023-02-18 06:46] LABS: ABS Basophils 0.1 10^3/uL (0.0-0.1); ABS Eosinophils 0.1 10^3/uL (0.0-0.5); ABS Lymphocytes 1.3 10^3/uL (1.0-4.8); ABS Monocytes 0.8 10^3/uL (0.0-0.9); ABS Neutrophils 9.2 10^3/uL (1.5-7.6); ABS Nucleated RBC 0.01 10^3/ul; Eosinophil % 1.1 %; Hematocrit 23.3 % (35-45); Hemoglobin 7.5 g/dL (11.5-14.3); Lymphocyte % 11.7 %; Mean Corpuscular Hemoglobin 25.3 pg (27-33); Mean Corpuscular Hgb Conc 32.1 g/dL (31-36); Mean Corpuscular Volume 78.9 fL (80-97); Mean Platelet Volume 8.7 fL (7.5-11.2); Nucleated Red Blood Cells % 0.1 /100 WBC (0.0-0.4); Platelet Count 417 10^3/uL (150-450); Red Blood Count 2.96 10^6/uL (3.63-4.92); Red Cell Distribution Width 18.5 % (12-17); White Blood Count 11.5 10^3/uL (3.8-11.8)
[2023-02-18 07:01] LABS: Albumin 2.4 g/dL (3.2-5.2); Albumin/Globulin Ratio 0.6 (1-3); Calcium 6.6 mg/dL (8.6-10.3); Creatinine, Serum 2.11 mg/dL (0.51-0.95); Globulin 3.8 g/dL (2-4); Magnesium 2.1 mg/dL (1.9-2.7); Potassium 3.8 mmol/L (3.5-5.0); Total Bilirubin 0.2 mg/dL (0.2-1.0); Total Protein 6.2 g/dL (6.4-8.9); eGFR CKD-EPI 26.3 (>60)
[2023-02-18 07:29] LABS: Ferritin 29.9 ng/mL (11-307)
[2023-02-18] MEDS: Mometasone/Formoter 200/5 MDI INH SCH ×2 (08:01→19:17)
[2023-02-18] MEDS: PTO: Pancrelipase 36,000 units (NF) PO SCH ×3 (08:03→19:16)
[2023-02-18] MEDS: FENOFIBRATE 145 MG PO SCH (08:04)
[2023-02-18] MEDS: Aspirin EC 81 mg TAB.EC (enteric coated) PO SCH (08:04)
[2023-02-18] MEDS: BECLOMETHASONE DIPROPIONATE INTRANASAL SCH (13:46)
[2023-02-18] MEDS: CMCS: Glimepiride 2 mg TAB (NF) PO SCH ×2 (13:52→21:00)
[2023-02-18] MEDS: Albuterol HFA INHALER 8 gm MDI INH PRN ×3 (14:39→21:49)
[2023-02-18 15:45] LABS: ABS Basophils 0.1 10^3/uL (0.0-0.1); ABS Eosinophils 0.2 10^3/uL (0.0-0.5); ABS Lymphocytes 1.2 10^3/uL (1.0-4.8); ABS Monocytes 0.8 10^3/uL (0.0-0.9); ABS Neutrophils 9.6 10^3/uL (1.5-7.6); ABS Nucleated RBC 0.01 10^3/ul; Eosinophil % 1.6 %; Hematocrit 24.6 % (35-45); Hemoglobin 7.7 g/dL (11.5-14.3); Lymphocyte % 9.7 %; Mean Corpuscular Hemoglobin 24.8 pg (27-33); Mean Corpuscular Hgb Conc 31.5 g/dL (31-36); Mean Corpuscular Volume 78.9 fL (80-97); Mean Platelet Volume 8.8 fL (7.5-11.2); Nucleated Red Blood Cells % 0.1 /100 WBC (0.0-0.4); Platelet Count 432 10^3/uL (150-450); Red Blood Count 3.12 10^6/uL (3.63-4.92); Red Cell Distribution Width 18.6 % (12-17); White Blood Count 11.9 10^3/uL (3.8-11.8)
[2023-02-18 15:58] LABS: Calcium 6.7 mg/dL (8.6-10.3); Creatinine, Serum 2.25 mg/dL (0.51-0.95); Potassium 4.1 mmol/L (3.5-5.0); eGFR CKD-EPI 24.4 (>60)
[2023-02-18] MEDS ORDERED: Furosemide 40 mg/4 ml IV VIAL IV SLOW PU ONE (16:13)
[2023-02-18 22:20] LABS: Hematocrit 27.7 % (35-45)
[2023-02-18] MEDS ORDERED: Ondansetron 4 mg VIAL 2 MG/ML 2 ml VIAL IV ONE (22:30)
[2023-02-19] MEDS: Albuterol HFA INHALER 8 gm MDI INH PRN ×5 (06:17→23:37)
[2023-02-19 06:48] LABS: ABS Eosinophils 0.2 10^3/uL (0.0-0.5); ABS Lymphocytes 1.3 10^3/uL (1.0-4.8); ABS Monocytes 0.8 10^3/uL (0.0-0.9); ABS Neutrophils 10.9 10^3/uL (1.5-7.6); ABS Nucleated RBC 0.01 10^3/ul; Eosinophil % 1.2 %; Hematocrit 26.1 % (35-45); Hemoglobin 8.5 g/dL (11.5-14.3); Lymphocyte % 10.1 %; Mean Corpuscular Hemoglobin 25.7 pg (27-33); Mean Corpuscular Hgb Conc 32.5 g/dL (31-36); Mean Corpuscular Volume 79.3 fL (80-97); Mean Platelet Volume 8.8 fL (7.5-11.2); Nucleated Red Blood Cells % 0.1 /100 WBC (0.0-0.4); Platelet Count 405 10^3/uL (150-450); Red Blood Count 3.29 10^6/uL (3.63-4.92); Red Cell Distribution Width 17.9 % (12-17); White Blood Count 13.2 10^3/uL (3.8-11.8)
[2023-02-19] MEDS: Mometasone/Formoter 200/5 MDI INH SCH ×2 (06:54→19:08)
[2023-02-19 06:58] LABS: Calcium 6.8 mg/dL (8.6-10.3); Magnesium 1.8 mg/dL (1.9-2.7); Potassium 4.1 mmol/L (3.5-5.0)
[2023-02-19 07:03] LABS: Creatinine, Serum 2.21 mg/dL (0.51-0.95); eGFR CKD-EPI 24.9 (>60)
[2023-02-19] MEDS ORDERED: Magnesium Sulfate 2 gm BAG 2 GM/50 ML BAG IVPB ONE (07:07)
[2023-02-19] MEDS ORDERED: Furosemide 40 mg/4 ml IV VIAL IV SLOW PU ONE (07:13)
[2023-02-19] MEDS: Aspirin EC 81 mg TAB.EC (enteric coated) PO SCH (08:18)
[2023-02-19] MEDS: CMCS: Glimepiride 2 mg TAB (NF) PO SCH (08:18)
[2023-02-19] MEDS: FENOFIBRATE 145 MG PO SCH (08:19)
[2023-02-19] MEDS: PTO: Pancrelipase 36,000 units (NF) PO SCH ×3 (08:21→15:46)
[2023-02-19] MEDS: BECLOMETHASONE DIPROPIONATE INTRANASAL SCH (08:22)
[2023-02-19] MEDS ORDERED: Ferric Gluconate IV 250 MG in NS 0.9% 250 ml 200 ML IVPB ONE (09:30)
[2023-02-19 10:19] LABS: INR 1.81 (0.88-1.18)
[2023-02-19 10:35] LABS: High Sens Troponin Baseline 189 pg/mL (<15)
[2023-02-19 10:48] LABS: Calcium (PTH Intact) 6.8 mg/dL (8.6-10.3)
[2023-02-19 11:12] LABS: Folate 8.77 ng/mL (5.90-24.80)
[2023-02-19 11:13] LABS: Vitamin B12 479 pg/mL (180-914)
[2023-02-19 11:16] LABS: Vitamin D Total 25(OH) < 7.0 ng/mL (20-50)
[2023-02-19 13:05] LABS: C Reactive Protein 31.93 mg/L (<8.01)
[2023-02-20] MEDS: Albuterol HFA INHALER 8 gm MDI INH PRN ×4 (02:34→19:47)
[2023-02-20 06:01] LABS: ABS Basophils 0.1 10^3/uL (0.0-0.1); ABS Eosinophils 0.1 10^3/uL (0.0-0.5); ABS Lymphocytes 0.9 10^3/uL (1.0-4.8); ABS Neutrophils 12.1 10^3/uL (1.5-7.6); ABS Nucleated RBC 0.01 10^3/ul; Eosinophil % 0.9 %; Hematocrit 27.4 % (35-45); Hemoglobin 8.8 g/dL (11.5-14.3); Lymphocyte % 6.5 %; Mean Corpuscular Hemoglobin 25.6 pg (27-33); Mean Corpuscular Volume 80.2 fL (80-97); Mean Platelet Volume 9.4 fL (7.5-11.2); Nucleated Red Blood Cells % 0.1 /100 WBC (0.0-0.4); Platelet Count 416 10^3/uL (150-450); Red Blood Count 3.42 10^6/uL (3.63-4.92); Red Cell Distribution Width 18.9 % (12-17); White Blood Count 14.2 10^3/uL (3.8-11.8)
[2023-02-20 06:26] LABS: Calcium 7.2 mg/dL (8.6-10.3); Creatinine, Serum 1.79 mg/dL (0.51-0.95); Magnesium 1.9 mg/dL (1.9-2.7); Potassium 4.3 mmol/L (3.5-5.0); eGFR CKD-EPI 32.1 (>60)
[2023-02-20] MEDS ORDERED: Furosemide 40 mg/4 ml IV VIAL IV SLOW PU ONE (07:09)
[2023-02-20] MEDS: Mometasone/Formoter 200/5 MDI INH SCH ×2 (07:23→19:49)
[2023-02-20] MEDS: FENOFIBRATE 145 MG PO SCH (08:37)
[2023-02-20] MEDS: Aspirin EC 81 mg TAB.EC (enteric coated) PO SCH ×2 (08:38→08:41)
[2023-02-20] MEDS: PTO: Pancrelipase 36,000 units (NF) PO SCH ×3 (08:39→15:23)
[2023-02-20] MEDS: BECLOMETHASONE DIPROPIONATE INTRANASAL SCH (08:43)
[2023-02-20] MEDS ORDERED: Dextrose 50% Syringe 50 ml 25 GM/50 ML SYRINGE IV PUSH PRN (08:51)
[2023-02-20] MEDS ORDERED: Silver Nitrate/Potassium Nitr 1 PAK (1 PAK PER PATIENT) ONE (17:18)
[2023-02-20] MEDS: Ferric Gluconate IV 250 MG in NS 0.9% 250 ml 200 ML IVPB SCH (17:57)
[2023-02-21] MEDS: BECLOMETHASONE DIPROPIONATE INTRANASAL SCH (07:25)
[2023-02-21] MEDS: PTO: Pancrelipase 36,000 units (NF) PO SCH ×3 (07:25→16:31)
[2023-02-21] MEDS: Mometasone/Formoter 200/5 MDI INH SCH ×2 (07:40→20:03)
[2023-02-21] MEDS: Albuterol HFA INHALER 8 gm MDI INH PRN ×4 (07:41→23:18)
[2023-02-21 08:08] LABS: ABS Basophils 0.1 10^3/uL (0.0-0.1); ABS Eosinophils 0.2 10^3/uL (0.0-0.5); ABS Lymphocytes 0.9 10^3/uL (1.0-4.8); ABS Monocytes 0.9 10^3/uL (0.0-0.9); ABS Neutrophils 10.5 10^3/uL (1.5-7.6); ABS Nucleated RBC 0.01 10^3/ul; Eosinophil % 1.6 %; Hematocrit 27.3 % (35-45); Hemoglobin 8.7 g/dL (11.5-14.3); Lymphocyte % 7.4 %; Mean Corpuscular Hemoglobin 25.5 pg (27-33); Mean Corpuscular Hgb Conc 31.9 g/dL (31-36); Mean Corpuscular Volume 79.9 fL (80-97); Mean Platelet Volume 8.8 fL (7.5-11.2); Platelet Count 429 10^3/uL (150-450); Red Blood Count 3.42 10^6/uL (3.63-4.92); Red Cell Distribution Width 18.8 % (12-17); White Blood Count 12.7 10^3/uL (3.8-11.8)
[2023-02-21 08:23] LABS: Calcium 7.8 mg/dL (8.6-10.3); Creatinine, Serum 1.48 mg/dL (0.51-0.95); Magnesium 1.8 mg/dL (1.9-2.7); Potassium 4.3 mmol/L (3.5-5.0); eGFR CKD-EPI 40.3 (>60)
[2023-02-21] MEDS ORDERED: Furosemide 40 mg/4 ml IV VIAL IV SLOW PU ONE ×2 (08:32→17:07)
[2023-02-21] MEDS ORDERED: Magnesium Sulfate 2 gm BAG 2 GM/50 ML BAG IVPB ONE (08:33)
[2023-02-21] MEDS: FENOFIBRATE 145 MG PO SCH (09:12)
[2023-02-21] MEDS ORDERED: Insulin GLARGINE 100 un/ml 10 ml VIAL SUBCUT SCH (09:15)
[2023-02-21] MEDS: Ferric Gluconate IV 250 MG in NS 0.9% 250 ml 200 ML IVPB SCH (12:52)
[2023-02-21] MEDS: Insulin GLARGINE 100 un/ml 10 ml VIAL SUBCUT SCH (21:40)
[2023-02-22 06:10] LABS: ABS Basophils 0.1 10^3/uL (0.0-0.1); ABS Eosinophils 0.2 10^3/uL (0.0-0.5); ABS Monocytes 0.7 10^3/uL (0.0-0.9); ABS Neutrophils 9.6 10^3/uL (1.5-7.6); ABS Nucleated RBC 0.01 10^3/ul; Eosinophil % 1.9 %; Hematocrit 25.1 % (35-45); Hemoglobin 8.3 g/dL (11.5-14.3); Lymphocyte % 8.8 %; Mean Corpuscular Hemoglobin 26.2 pg (27-33); Mean Corpuscular Hgb Conc 32.8 g/dL (31-36); Mean Corpuscular Volume 79.7 fL (80-97); Mean Platelet Volume 9.2 fL (7.5-11.2); Platelet Count 399 10^3/uL (150-450); Red Blood Count 3.15 10^6/uL (3.63-4.92); Red Cell Distribution Width 19.1 % (12-17); White Blood Count 11.6 10^3/uL (3.8-11.8)
[2023-02-22 06:29] LABS: Albumin 2.6 g/dL (3.2-5.2); Albumin/Globulin Ratio 0.7 (1-3); Calcium 8.5 mg/dL (8.6-10.3); Creatinine, Serum 1.08 mg/dL (0.51-0.95); Globulin 3.9 g/dL (2-4); Magnesium 1.8 mg/dL (1.9-2.7); Total Bilirubin 0.3 mg/dL (0.2-1.0); Total Protein 6.5 g/dL (6.4-8.9); eGFR CKD-EPI 58.8 (>60)
[2023-02-22] MEDS: Albuterol HFA INHALER 8 gm MDI INH PRN ×3 (08:17→19:40)
[2023-02-22] MEDS: Mometasone/Formoter 200/5 MDI INH SCH ×2 (08:18→19:06)
[2023-02-22] MEDS: PTO: Pancrelipase 36,000 units (NF) PO SCH ×3 (08:28→17:38)
[2023-02-22] MEDS: BECLOMETHASONE DIPROPIONATE INTRANASAL SCH (08:28)
[2023-02-22] MEDS: FENOFIBRATE 145 MG PO SCH (09:38)
[2023-02-22] MEDS: Ferric Gluconate IV 250 MG in NS 0.9% 250 ml 200 ML IVPB SCH (10:26)
[2023-02-22] MEDS: Furosemide 40 mg/4 ml IV VIAL IV SLOW PU SCH ×2 (12:21→17:24)
[2023-02-22] MEDS ORDERED: Magnesium Sulfate 2 gm BAG 2 GM/50 ML BAG IVPB ONE (13:00)
[2023-02-22] MEDS: Insulin GLARGINE 100 un/ml 10 ml VIAL SUBCUT SCH (20:57)
[2023-02-23] MEDS: Albuterol HFA INHALER 8 gm MDI INH PRN ×6 (01:54→22:47)
[2023-02-23] MEDS: Ferric Gluconate IV 250 MG in NS 0.9% 250 ml 200 ML IVPB SCH (07:55)
[2023-02-23] MEDS: FENOFIBRATE 145 MG PO SCH (08:02)
[2023-02-23] MEDS: Furosemide 40 mg/4 ml IV VIAL IV SLOW PU SCH (08:02)
[2023-02-23] MEDS: PTO: Pancrelipase 36,000 units (NF) PO SCH ×3 (08:03→18:53)
[2023-02-23] MEDS: Mometasone/Formoter 200/5 MDI INH SCH ×2 (08:03→19:02)
[2023-02-23] MEDS: BECLOMETHASONE DIPROPIONATE INTRANASAL SCH (11:57)
[2023-02-23] MEDS ORDERED: Furosemide 20 mg/2 ml IV VIAL IV ONE (12:12)
[2023-02-23 12:29] LABS: ABS Basophils 0.1 10^3/uL (0.0-0.1); ABS Eosinophils 0.2 10^3/uL (0.0-0.5); ABS Monocytes 0.7 10^3/uL (0.0-0.9); ABS Neutrophils 12.3 10^3/uL (1.5-7.6); Eosinophil % 1.2 %; Hematocrit 26.9 % (35-45); Hemoglobin 8.7 g/dL (11.5-14.3); Lymphocyte % 6.8 %; Mean Corpuscular Hemoglobin 26.2 pg (27-33); Mean Corpuscular Hgb Conc 32.5 g/dL (31-36); Mean Corpuscular Volume 80.5 fL (80-97); Platelet Count 422 10^3/uL (150-450); Red Blood Count 3.34 10^6/uL (3.63-4.92); White Blood Count 14.3 10^3/uL (3.8-11.8)
[2023-02-23 16:05] LABS: Calcium 8.2 mg/dL (8.6-10.3); Potassium 4.5 mmol/L (3.5-5.0)
[2023-02-23 16:10] LABS: Creatinine, Serum 1.06 mg/dL (0.51-0.95); eGFR CKD-EPI 60.1 (>60)
[2023-02-23] MEDS ORDERED: Furosemide 40 mg/4 ml IV VIAL IV ONE (18:44)
[2023-02-23] MEDS: Insulin GLARGINE 100 un/ml 10 ml VIAL SUBCUT SCH (20:44)
[2023-02-24] MEDS: Albuterol HFA INHALER 8 gm MDI INH PRN ×4 (02:47→17:19)
[2023-02-24 05:58] LABS: ABS Basophils 0.2 10^3/uL (0.0-0.1); ABS Eosinophils 0.1 10^3/uL (0.0-0.5); ABS Monocytes 0.8 10^3/uL (0.0-0.9); ABS Neutrophils 11.6 10^3/uL (1.5-7.6); Hematocrit 24.9 % (35-45); Hemoglobin 8.1 g/dL (11.5-14.3); Lymphocyte % 7.6 %; Mean Corpuscular Hemoglobin 26.1 pg (27-33); Mean Corpuscular Hgb Conc 32.6 g/dL (31-36); Mean Corpuscular Volume 80.2 fL (80-97); Mean Platelet Volume 9.1 fL (7.5-11.2); Platelet Count 372 10^3/uL (150-450); Red Blood Count 3.11 10^6/uL (3.63-4.92); Red Cell Distribution Width 20.1 % (12-17); White Blood Count 13.7 10^3/uL (3.8-11.8)
[2023-02-24 06:24] LABS: Calcium 8.5 mg/dL (8.6-10.3); Creatinine, Serum 1.13 mg/dL (0.51-0.95); Magnesium 1.3 mg/dL (1.9-2.7); eGFR CKD-EPI 55.7 (>60)
[2023-02-24] MEDS ORDERED: Magnesium Sulf 4 GM/100 ML IV 4,000 MG/100 ML BAG IVPB ONE (06:38)
[2023-02-24] MEDS: Mometasone/Formoter 200/5 MDI INH SCH ×2 (07:59→19:17)
[2023-02-24] MEDS: PTO: Pancrelipase 36,000 units (NF) PO SCH ×3 (08:39→17:13)
[2023-02-24] MEDS: FENOFIBRATE 145 MG PO SCH (08:40)
[2023-02-24] MEDS: BECLOMETHASONE DIPROPIONATE INTRANASAL SCH (08:43)
[2023-02-24] MEDS ORDERED: Furosemide 20 mg/2 ml IV VIAL IV ONE (10:27)
[2023-02-24 15:15] LABS: Calcium 8.6 mg/dL (8.6-10.3); Creatinine, Serum 1.16 mg/dL (0.51-0.95)
[2023-02-24] MEDS ORDERED: Furosemide 40 mg/4 ml IV VIAL IV ONE (17:54)
[2023-02-24] MEDS: Insulin GLARGINE 100 un/ml 10 ml VIAL SUBCUT SCH (21:47)
[2023-02-25 05:43] LABS: ABS Basophils 0.1 10^3/uL (0.0-0.1); ABS Eosinophils 0.2 10^3/uL (0.0-0.5); ABS Lymphocytes 1.1 10^3/uL (1.0-4.8); ABS Monocytes 0.8 10^3/uL (0.0-0.9); ABS Neutrophils 9.4 10^3/uL (1.5-7.6); Eosinophil % 1.9 %; Hematocrit 24.7 % (35-45); Hemoglobin 7.9 g/dL (11.5-14.3); Lymphocyte % 9.5 %; Mean Corpuscular Hemoglobin 26.1 pg (27-33); Mean Corpuscular Hgb Conc 32.1 g/dL (31-36); Mean Corpuscular Volume 81.3 fL (80-97); Mean Platelet Volume 8.9 fL (7.5-11.2); Platelet Count 374 10^3/uL (150-450); Red Blood Count 3.03 10^6/uL (3.63-4.92); Red Cell Distribution Width 21.9 % (12-17); White Blood Count 11.7 10^3/uL (3.8-11.8)
[2023-02-25 06:06] LABS: Calcium 8.6 mg/dL (8.6-10.3); Creatinine, Serum 1.13 mg/dL (0.51-0.95); Magnesium 1.6 mg/dL (1.9-2.7); Potassium 3.6 mmol/L (3.5-5.0); eGFR CKD-EPI 55.7 (>60)
[2023-02-25] MEDS: Mometasone/Formoter 200/5 MDI INH SCH ×2 (08:20→19:03)
[2023-02-25] MEDS: Albuterol HFA INHALER 8 gm MDI INH PRN ×3 (08:23→20:29)
[2023-02-25] MEDS ORDERED: Furosemide 40 mg/4 ml IV VIAL IV ONE ×2 (09:00→18:43)
[2023-02-25] MEDS ORDERED: Potassium Chlor 20 meq TAB.ER PO ONE (09:00)
[2023-02-25] MEDS ORDERED: Magnesium Sulfate 2 gm BAG 2 GM/50 ML BAG IVPB ONE (09:00)
[2023-02-25] MEDS: PTO: Pancrelipase 36,000 units (NF) PO SCH ×3 (09:45→17:21)
[2023-02-25] MEDS: FENOFIBRATE 145 MG PO SCH (10:18)
[2023-02-25] MEDS: BECLOMETHASONE DIPROPIONATE INTRANASAL SCH (10:23)
[2023-02-25 14:04] LABS: Calcium 8.6 mg/dL (8.6-10.3); Creatinine, Serum 0.95 mg/dL (0.51-0.95); eGFR CKD-EPI 68.6 (>60)
[2023-02-25] MEDS: Enoxaparin 40 MG/0.4 ML SYR SUBCUT SCH (19:33)
[2023-02-25] MEDS: Insulin GLARGINE 100 un/ml 10 ml VIAL SUBCUT SCH (20:32)
[2023-02-26] MEDS: Albuterol HFA INHALER 8 gm MDI INH PRN ×2 (01:29→20:03)
[2023-02-26 06:41] LABS: ABS Basophils 0.1 10^3/uL (0.0-0.1); ABS Eosinophils 0.2 10^3/uL (0.0-0.5); ABS Lymphocytes 1.2 10^3/uL (1.0-4.8); ABS Monocytes 0.8 10^3/uL (0.0-0.9); ABS Nucleated RBC 0.01 10^3/ul; Eosinophil % 1.6 %; Hematocrit 25.4 % (35-45); Hemoglobin 8.3 g/dL (11.5-14.3); Mean Corpuscular Hemoglobin 26.9 pg (27-33); Mean Corpuscular Hgb Conc 32.7 g/dL (31-36); Mean Corpuscular Volume 82.2 fL (80-97); Mean Platelet Volume 8.9 fL (7.5-11.2); Platelet Count 374 10^3/uL (150-450); Red Blood Count 3.09 10^6/uL (3.63-4.92); Red Cell Distribution Width 21.9 % (12-17); White Blood Count 12.4 10^3/uL (3.8-11.8)
[2023-02-26 07:02] LABS: Anion Gap 8 mmol/L (2-16); Blood Urea Nitrogen 36 mg/dL (6-24); CO2 Carbon Dioxide 31 mmol/L (22-32); Calcium 8.7 mg/dL (8.6-10.3); Chloride 98 mmol/L (101-111); Creatinine, Serum 1.12 mg/dL (0.51-0.95); Glucose 191 mg/dL (70-100); Magnesium 1.6 mg/dL (1.9-2.7); Potassium 4.4 mmol/L (3.5-5.0); Sodium 137 mmol/L (135-145); eGFR CKD-EPI 56.3 (>60)
[2023-02-26 07:33] LABS: % Iron Saturation 8 % (15-55); .Transferrin 189 mg/dL (203-362); Iron < 20 ug/dL (50-212); Total Iron Binding Capacity 265 mcg/dL (250-450); Unsaturated Iron Binding 245 ug/dL
[2023-02-26] MEDS ORDERED: Magnesium Sulfate 2 gm BAG 2 GM/50 ML BAG IVPB ONE (07:33)
[2023-02-26] MEDS: Mometasone/Formoter 200/5 MDI INH SCH ×2 (07:47→20:03)
[2023-02-26] MEDS: PTO: Pancrelipase 36,000 units (NF) PO SCH ×3 (08:29→17:27)
[2023-02-26] MEDS: BECLOMETHASONE DIPROPIONATE INTRANASAL SCH (08:30)
[2023-02-26] MEDS ORDERED: Furosemide 40 mg/4 ml IV VIAL IV ONE ×2 (11:10→17:41)
[2023-02-26] MEDS: FENOFIBRATE 145 MG PO SCH (11:41)
[2023-02-26] MEDS ORDERED: Iron Sucrose 200 MG in NS 0.9% 100 ml BAG 100 ML IVPB ONE (12:00)
[2023-02-26] MEDS: Collagenase 250 units/gm OINT 1 tube TOPICAL SCH (15:12)
[2023-02-26 15:36] LABS: Calcium 8.8 mg/dL (8.6-10.3); Creatinine, Serum 1.07 mg/dL (0.51-0.95); Potassium 4.3 mmol/L (3.5-5.0); eGFR CKD-EPI 59.5 (>60)
[2023-02-26] MEDS: Enoxaparin 40 MG/0.4 ML SYR SUBCUT SCH (21:39)
[2023-02-26] MEDS: Insulin GLARGINE 100 un/ml 10 ml VIAL SUBCUT SCH (21:40)
[2023-02-27 06:10] LABS: ABS Basophils 0.1 10^3/uL (0.0-0.1); ABS Eosinophils 0.3 10^3/uL (0.0-0.5); ABS Lymphocytes 1.3 10^3/uL (1.0-4.8); ABS Monocytes 0.7 10^3/uL (0.0-0.9); ABS Neutrophils 8.5 10^3/uL (1.5-7.6); Eosinophil % 2.8 %; Hemoglobin 7.9 g/dL (11.5-14.3); Lymphocyte % 12.3 %; Mean Corpuscular Hemoglobin 26.7 pg (27-33); Mean Corpuscular Hgb Conc 32.7 g/dL (31-36); Mean Corpuscular Volume 81.6 fL (80-97); Platelet Count 367 10^3/uL (150-450); Red Blood Count 2.94 10^6/uL (3.63-4.92); Red Cell Distribution Width 21.2 % (12-17)
[2023-02-27 06:33] LABS: Calcium 8.7 mg/dL (8.6-10.3); Creatinine, Serum 1.05 mg/dL (0.51-0.95); Magnesium 1.6 mg/dL (1.9-2.7); Potassium 3.8 mmol/L (3.5-5.0); eGFR CKD-EPI 60.8 (>60)
[2023-02-27] MEDS ORDERED: Magnesium Sulfate IV 3 GM in NS 0.9% 100 ml BAG 100 ML IVPB ONE (06:52)
[2023-02-27] MEDS ORDERED: Potassium EFFERVES 25 meq TAB PO ONE (06:53)
[2023-02-27] MEDS: Mometasone/Formoter 200/5 MDI INH SCH ×2 (07:17→19:22)
[2023-02-27] MEDS: Albuterol HFA INHALER 8 gm MDI INH PRN ×3 (07:19→19:17)
[2023-02-27] MEDS: PTO: Pancrelipase 36,000 units (NF) PO SCH ×5 (08:30→19:17)
[2023-02-27] MEDS: FENOFIBRATE 145 MG PO SCH (08:30)
[2023-02-27] MEDS: Fluticasone NASAL SPRAY 50MCG 16 gm SPRAY BTL INTRANASAL SCH ×2 (08:31→08:32)
[2023-02-27] MEDS ORDERED: Potassium Chlor 20 meq TAB.ER PO ONE (09:32)
[2023-02-27] MEDS: Collagenase 250 units/gm OINT 1 tube TOPICAL SCH ×2 (10:36→20:45)
[2023-02-27] MEDS ORDERED: Iodixanol (CONTRAST) 320 MG/ML 100 ML SDV IV ONE (12:07)
[2023-02-27] MEDS ORDERED: Furosemide 40 mg/4 ml IV VIAL IV ONE (12:18)
[2023-02-27] MEDS ORDERED: Lidocaine 1% w EPI 1:200,000 SDV 30 ML VIAL INJ ONE (15:36)
[2023-02-27] MEDS ORDERED: Vancomycin per Pharmacy 1 EA NOTE FOLLOW UP PRN (17:44)
[2023-02-27] MEDS ORDERED: Vancomycin 1,500 MG in NS 0.9% 250 ml 250 ML IVPB ONE (18:00)
[2023-02-27] MEDS: cefTRIAXone 2 gm/50 mL D5W 2 GM/50 ML BAG IV SCH (18:18)
[2023-02-27] MEDS ORDERED: Insulin GLARGINE 100 un/ml 10 ml VIAL SUBCUT SCH (21:00)
[2023-02-27] MEDS: Enoxaparin 40 MG/0.4 ML SYR SUBCUT SCH (22:08)
[2023-02-28 05:29] LABS: ABS Basophils 0.1 10^3/uL (0.0-0.1); ABS Eosinophils 0.3 10^3/uL (0.0-0.5); ABS Lymphocytes 1.1 10^3/uL (1.0-4.8); ABS Monocytes 0.8 10^3/uL (0.0-0.9); Eosinophil % 2.2 %; Hemoglobin 7.7 g/dL (11.5-14.3); Lymphocyte % 9.2 %; Mean Corpuscular Hemoglobin 26.1 pg (27-33); Mean Corpuscular Volume 81.8 fL (80-97); Mean Platelet Volume 8.9 fL (7.5-11.2); Platelet Count 358 10^3/uL (150-450); Red Blood Count 2.93 10^6/uL (3.63-4.92); White Blood Count 12.2 10^3/uL (3.8-11.8)
[2023-02-28] MEDS: Vancomycin 1000 MG in NS 0.9% 250 ML IVPB SCH ×2 (05:36→19:31)
[2023-02-28 05:51] LABS: C Reactive Protein 10.94 mg/L (<8.01); Calcium 8.7 mg/dL (8.6-10.3); Creatinine, Serum 1.03 mg/dL (0.51-0.95); Magnesium 1.6 mg/dL (1.9-2.7); Potassium 4.2 mmol/L (3.5-5.0); eGFR CKD-EPI 62.2 (>60)
[2023-02-28] MEDS ORDERED: Magnesium Sulfate 2 gm BAG 2 GM/50 ML BAG IVPB ONE (07:33)
[2023-02-28] MEDS: FENOFIBRATE 145 MG PO SCH (08:50)
[2023-02-28] MEDS: PTO: Pancrelipase 36,000 units (NF) PO SCH ×3 (08:50→18:15)
[2023-02-28] MEDS: Mometasone/Formoter 200/5 MDI INH SCH ×3 (08:53→20:07)
[2023-02-28] MEDS: Fluticasone NASAL SPRAY 50MCG 16 gm SPRAY BTL INTRANASAL SCH (08:53)
[2023-02-28] MEDS: Albuterol HFA INHALER 8 gm MDI INH PRN ×2 (11:22→20:08)
[2023-02-28] MEDS ORDERED: Furosemide 40 mg/4 ml IV VIAL IV SLOW PU ONE (11:30)
[2023-02-28] MEDS: Collagenase 250 units/gm OINT 1 tube TOPICAL SCH (11:38)
[2023-02-28] MEDS: cefTRIAXone 2 gm/50 mL D5W 2 GM/50 ML BAG IV SCH (18:14)
[2023-02-28] MEDS: Insulin GLARGINE 100 un/ml 10 ml VIAL SUBCUT SCH (20:52)
[2023-02-28] MEDS: Enoxaparin 40 MG/0.4 ML SYR SUBCUT SCH (20:53)
[2023-03-01] MEDS: Albuterol HFA INHALER 8 gm MDI INH PRN ×4 (01:12→19:36)
[2023-03-01] MEDS ORDERED: Vancomycin Trough Check NOTE FOLLOW UP ONE (05:30)
[2023-03-01 07:02] LABS: ABS Basophils 0.2 10^3/uL (0.0-0.1); ABS Eosinophils 0.2 10^3/uL (0.0-0.5); ABS Lymphocytes 1.1 10^3/uL (1.0-4.8); ABS Monocytes 0.4 10^3/uL (0.0-0.9); ABS Neutrophils 7.6 10^3/uL (1.5-7.6); Eosinophil % 1.8 %; Hematocrit 24.4 % (35-45); Hemoglobin 7.9 g/dL (11.5-14.3); Mean Corpuscular Hemoglobin 26.5 pg (27-33); Mean Corpuscular Hgb Conc 32.4 g/dL (31-36); Mean Corpuscular Volume 81.7 fL (80-97); Mean Platelet Volume 9.1 fL (7.5-11.2); Platelet Count 347 10^3/uL (150-450); Red Blood Count 2.99 10^6/uL (3.63-4.92); Red Cell Distribution Width 21.8 % (12-17); White Blood Count 9.5 10^3/uL (3.8-11.8)
[2023-03-01 07:12] LABS: Calcium 8.8 mg/dL (8.6-10.3); Creatinine, Serum 0.99 mg/dL (0.51-0.95); Magnesium 1.7 mg/dL (1.9-2.7); eGFR CKD-EPI 65.3 (>60)
[2023-03-01] MEDS: Vancomycin 1000 MG in NS 0.9% 250 ML IVPB SCH (07:31)
[2023-03-01] MEDS: Mometasone/Formoter 200/5 MDI INH SCH ×2 (07:56→19:36)
[2023-03-01] MEDS ORDERED: Magnesium Sulfate IV 3 GM in NS 0.9% 100 ml BAG 100 ML IVPB ONE (08:30)
[2023-03-01] MEDS: FENOFIBRATE 145 MG PO SCH (08:32)
[2023-03-01] MEDS: PTO: Pancrelipase 36,000 units (NF) PO SCH ×3 (08:33→18:02)
[2023-03-01] MEDS: Fluticasone NASAL SPRAY 50MCG 16 gm SPRAY BTL INTRANASAL SCH (08:36)
[2023-03-01] MEDS ORDERED: Furosemide 40 mg/4 ml IV VIAL IV ONE (13:59)
[2023-03-01] MEDS: cefTRIAXone 2 gm/50 mL D5W 2 GM/50 ML BAG IV SCH (18:22)
[2023-03-01] MEDS: Enoxaparin 40 MG/0.4 ML SYR SUBCUT SCH (21:24)
[2023-03-01] MEDS: Insulin GLARGINE 100 un/ml 10 ml VIAL SUBCUT SCH (21:24)
[2023-03-02] MEDS ORDERED: Vancomycin Random Level NOTE FOLLOW UP ONE (05:30)
[2023-03-02 07:13] LABS: Calcium 8.7 mg/dL (8.6-10.3); Magnesium 1.8 mg/dL (1.9-2.7); Potassium 4.1 mmol/L (3.5-5.0); eGFR CKD-EPI 64.5 (>60)
[2023-03-02 07:16] LABS: ABS Basophils 0.1 10^3/uL (0.0-0.1); ABS Eosinophils 0.3 10^3/uL (0.0-0.5); ABS Lymphocytes 1.2 10^3/uL (1.0-4.8); ABS Monocytes 0.6 10^3/uL (0.0-0.9); ABS Neutrophils 8.5 10^3/uL (1.5-7.6); ABS Nucleated RBC 0.01 10^3/ul; Creatinine, Serum 0.99 mg/dL (0.51-0.95); Eosinophil % 2.3 %; Hematocrit 25.2 % (35-45); Hemoglobin 8.2 g/dL (11.5-14.3); Lymphocyte % 11.5 %; Mean Corpuscular Hemoglobin 26.8 pg (27-33); Mean Corpuscular Hgb Conc 32.6 g/dL (31-36); Mean Corpuscular Volume 82.1 fL (80-97); Mean Platelet Volume 9.2 fL (7.5-11.2); Platelet Count 386 10^3/uL (150-450); Red Blood Count 3.07 10^6/uL (3.63-4.92); Red Cell Distribution Width 21.9 % (12-17); White Blood Count 10.7 10^3/uL (3.8-11.8); eGFR CKD-EPI 65.3 (>60)
[2023-03-02] MEDS ORDERED: Magnesium Sulfate IV 3 GM in NS 0.9% 100 ml BAG 100 ML IVPB ONE (07:28)
[2023-03-02] MEDS: Albuterol HFA INHALER 8 gm MDI INH PRN ×3 (08:03→22:04)
[2023-03-02] MEDS: Mometasone/Formoter 200/5 MDI INH SCH ×2 (08:04→19:25)
[2023-03-02] MEDS: PTO: Pancrelipase 36,000 units (NF) PO SCH ×3 (08:38→17:25)
[2023-03-02] MEDS: FENOFIBRATE 145 MG PO SCH (08:38)
[2023-03-02] MEDS: Fluticasone NASAL SPRAY 50MCG 16 gm SPRAY BTL INTRANASAL SCH ×2 (08:39→08:42)
[2023-03-02] MEDS ORDERED: KCL 10 MEQ/50 ML IVPREMIX 10 MEQ/50 ML BAG IV ONE (11:20)
[2023-03-02] MEDS: Vancomycin 1,750 MG in NS 0.9% 500 ml BAG 500 ML IVPB SCH (11:30)
[2023-03-02] MEDS ORDERED: Dextrose 50% Syringe 50 ml 25 GM/50 ML SYRINGE IV PUSH PRN (11:37)
[2023-03-02] MEDS ORDERED: KCL 20 MEQ/100 ML IVPREMIX 20 MEQ/100 ML BAG IV ONE (11:43)
[2023-03-02] MEDS: cefTRIAXone 2 gm/50 mL D5W 2 GM/50 ML BAG IV SCH (17:25)
[2023-03-02] MEDS ORDERED: Insulin GLARGINE 100 un/ml 10 ml VIAL SUBCUT SCH (21:00)
[2023-03-02] MEDS: Enoxaparin 40 MG/0.4 ML SYR SUBCUT SCH (21:38)
[2023-03-03] MEDS: Albuterol HFA INHALER 8 gm MDI INH PRN ×4 (04:02→21:03)
[2023-03-03 05:53] LABS: ABS Basophils 0.1 10^3/uL (0.0-0.1); ABS Eosinophils 0.3 10^3/uL (0.0-0.5); ABS Lymphocytes 1.2 10^3/uL (1.0-4.8); ABS Monocytes 0.5 10^3/uL (0.0-0.9); ABS Neutrophils 7.6 10^3/uL (1.5-7.6); Eosinophil % 2.7 %; Hemoglobin 7.9 g/dL (11.5-14.3); Lymphocyte % 12.2 %; Mean Corpuscular Hemoglobin 26.9 pg (27-33); Mean Corpuscular Hgb Conc 32.9 g/dL (31-36); Mean Corpuscular Volume 81.8 fL (80-97); Platelet Count 349 10^3/uL (150-450); Red Blood Count 2.94 10^6/uL (3.63-4.92); Red Cell Distribution Width 22.1 % (12-17); White Blood Count 9.7 10^3/uL (3.8-11.8)
[2023-03-03 06:04] LABS: Calcium 8.5 mg/dL (8.6-10.3); Magnesium 1.9 mg/dL (1.9-2.7); eGFR CKD-EPI 64.5 (>60)
[2023-03-03] MEDS ORDERED: Dextrose 50% Syringe 50 ml 25 GM/50 ML SYRINGE IV PUSH PRN (06:40)
[2023-03-03] MEDS: Mometasone/Formoter 200/5 MDI INH SCH ×2 (08:02→21:01)
[2023-03-03] MEDS: Vancomycin 1,750 MG in NS 0.9% 500 ml BAG 500 ML IVPB SCH (08:52)
[2023-03-03] MEDS: Fluticasone NASAL SPRAY 50MCG 16 gm SPRAY BTL INTRANASAL SCH (08:52)
[2023-03-03] MEDS: PTO: Pancrelipase 36,000 units (NF) PO SCH ×3 (08:56→17:46)
[2023-03-03] MEDS: FENOFIBRATE 145 MG PO SCH (08:57)
[2023-03-03] MEDS ORDERED: Potassium Chlor 20 meq TAB.ER PO ONE (10:14)
[2023-03-03] MEDS ORDERED: Furosemide 40 mg/4 ml IV VIAL IV ONE (10:24)
[2023-03-03] MEDS: cefTRIAXone 2 gm/50 mL D5W 2 GM/50 ML BAG IV SCH (17:46)
[2023-03-03] MEDS: Insulin GLARGINE 100 un/ml 10 ml VIAL SUBCUT SCH (21:18)
[2023-03-03] MEDS: Enoxaparin 40 MG/0.4 ML SYR SUBCUT SCH (21:19)
[2023-03-04] MEDS: PTO: Pancrelipase 36,000 units (NF) PO SCH ×3 (07:55→17:17)
[2023-03-04] MEDS: Mometasone/Formoter 200/5 MDI INH SCH ×2 (08:00→18:44)
[2023-03-04] MEDS: Albuterol HFA INHALER 8 gm MDI INH PRN ×2 (08:00→18:45)
[2023-03-04] MEDS ORDERED: Vancomycin Trough Check NOTE FOLLOW UP ONE (08:30)
[2023-03-04 09:13] LABS: Calcium 8.9 mg/dL (8.6-10.3); Creatinine, Serum 1.02 mg/dL (0.51-0.95); Potassium 4.6 mmol/L (3.5-5.0)
[2023-03-04 09:14] LABS: Creatinine, Serum 1.03 mg/dL (0.51-0.95); eGFR CKD-EPI 62.2 (>60)
[2023-03-04] MEDS: Fluticasone NASAL SPRAY 50MCG 16 gm SPRAY BTL INTRANASAL SCH (09:53)
[2023-03-04] MEDS: FENOFIBRATE 145 MG PO SCH (09:53)
[2023-03-04] MEDS: Furosemide 40 mg/4 ml IV VIAL IV ONE ×2 (09:53→15:02)
[2023-03-04 09:58] LABS: Vancomycin Trough 24.2 mcg/mL
[2023-03-04] MEDS: Vancomycin 1,750 MG in NS 0.9% 500 ml BAG 500 ML IVPB SCH (10:19)
[2023-03-04] MEDS ORDERED: acetaZOLAMIDE IV 500 MG in NS 0.9% 50 ML 50 ML IVPB ONE (18:30)
[2023-03-04] MEDS: Enoxaparin 40 MG/0.4 ML SYR SUBCUT SCH (20:49)
[2023-03-04] MEDS: Insulin GLARGINE 100 un/ml 10 ml VIAL SUBCUT SCH (21:00)
[2023-03-04] MEDS ORDERED: Sacubitril/Valsartan 97/103(NF) PO SCH (21:00)
[2023-03-05 06:14] LABS: Calcium 8.9 mg/dL (8.6-10.3); Creatinine, Serum 1.02 mg/dL (0.51-0.95); Magnesium 1.3 mg/dL (1.9-2.7); Potassium 4.4 mmol/L (3.5-5.0)
[2023-03-05] MEDS ORDERED: Magnesium Sulfate IV 3 GM in NS 0.9% 100 ml BAG 100 ML IVPB ONE (07:02)
[2023-03-05] MEDS: Mometasone/Formoter 200/5 MDI INH SCH ×2 (07:46→20:17)
[2023-03-05] MEDS: Albuterol HFA INHALER 8 gm MDI INH PRN (07:49)
[2023-03-05] MEDS: FENOFIBRATE 145 MG PO SCH (08:23)
[2023-03-05] MEDS: Fluticasone NASAL SPRAY 50MCG 16 gm SPRAY BTL INTRANASAL SCH (08:26)
[2023-03-05] MEDS: PTO: Pancrelipase 36,000 units (NF) PO SCH ×3 (08:27→17:30)
[2023-03-05] MEDS ORDERED: Vancomycin Random Level NOTE FOLLOW UP ONE (08:30)
[2023-03-05] MEDS ORDERED: Amoxicillin/Clavul 500/125 TAB (Augmentin 500 mg tab) PO SCH (09:00)
[2023-03-05] MEDS ORDERED: Vancomycin 1000 MG in NS 0.9% 250 ML IVPB SCH (14:00)
[2023-03-05] MEDS ORDERED: Furosemide 40 mg/4 ml IV VIAL IV ONE (14:45)
[2023-03-05] MEDS: Insulin GLARGINE 100 un/ml 10 ml VIAL SUBCUT SCH (20:52)
[2023-03-05] MEDS: Enoxaparin 40 MG/0.4 ML SYR SUBCUT SCH (20:52)
[2023-03-06] MEDS: Albuterol HFA INHALER 8 gm MDI INH PRN ×2 (02:36→06:48)
[2023-03-06] MEDS: Mometasone/Formoter 200/5 MDI INH SCH (06:47)
[2023-03-06 08:58] LABS: Calcium 8.4 mg/dL (8.6-10.3); Creatinine, Serum 0.98 mg/dL (0.51-0.95); Magnesium 1.5 mg/dL (1.9-2.7); Potassium 4.2 mmol/L (3.5-5.0); eGFR CKD-EPI 66.1 (>60)
[2023-03-06] MEDS: PTO: Pancrelipase 36,000 units (NF) PO SCH ×2 (09:38→12:17)
[2023-03-06] MEDS: FENOFIBRATE 145 MG PO SCH (09:45)
[2023-03-06 10:16] VITALS: BP 126/59
[2023-03-06 10:42] LABS: Rapid COVID-19 Molecular Undetected (Undetected)
[2023-03-06] MEDS ORDERED: Magnesium Sulfate IV 3 GM in NS 0.9% 100 ml BAG 100 ML IVPB ONE (11:00)
[2023-03-06] MEDS: Fluticasone NASAL SPRAY 50MCG 16 gm SPRAY BTL INTRANASAL SCH (12:13)
[2023-03-08] MEDS ORDERED: Vancomycin Trough Check NOTE FOLLOW UP ONE (13:30)
== END 2023-03-06 14:20 | DRG 952 ==
LOC: ED 15:35 → INTOOBSV 19:30 → SUATTDRO 19:30 → EDHOLD 19:30 → MED 21:43 → SUATTDRO 02-19 10:59
PROVIDERS: ADMIT Internal Medicine; ATTEND Internal Medicine

== ENCOUNTER 2023-03-24 21:36 | Inpatient (IN) ==
[2023-03-24] MEDS ORDERED: Prochlorperazine 5 mg/ml 2 ml VIAL (10 mg) IV ONE (22:43)
[2023-03-24 22:51] LABS: ABS Basophils 0.1 10^3/uL (0.0-0.1); ABS Eosinophils 0.1 10^3/uL (0.0-0.5); ABS Lymphocytes 0.8 10^3/uL (1.0-4.8); ABS Monocytes 0.5 10^3/uL (0.0-0.9); ABS Neutrophils 7.1 10^3/uL (1.5-7.6); Eosinophil % 0.9 %; Hematocrit 29.2 % (35-45); Hemoglobin 9.7 g/dL (11.5-14.3); Lymphocyte % 9.6 %; Mean Corpuscular Hemoglobin 27.7 pg (27-33); Mean Corpuscular Hgb Conc 33.2 g/dL (31-36); Mean Corpuscular Volume 83.5 fL (80-97); Mean Platelet Volume 9.1 fL (7.5-11.2); Platelet Count 224 10^3/uL (150-450); Red Cell Distribution Width 21.6 % (12-17); White Blood Count 8.5 10^3/uL (3.8-11.8)
[2023-03-24 22:55] LABS: ABS Nucleated RBC 0.01 10^3/ul; Nucleated Red Blood Cells % 0.1 /100 WBC (0.0-0.4)
[2023-03-24] MEDS: NS 0.9% 1000 ml BAG 1,000 ML IV SCH (22:57)
[2023-03-24 23:00] LABS: Albumin 2.9 g/dL (3.2-5.2); Anion Gap 12 mmol/L (2-16); CO2 Carbon Dioxide 31 mmol/L (22-32); Calcium 6.6 mg/dL (8.6-10.3); Chloride 100 mmol/L (101-111); Sodium 143 mmol/L (135-145)
[2023-03-24 23:06] LABS: ALT 6 U/L (7-52); AST 13 U/L (13-39); Albumin/Globulin Ratio 0.7 (1-3); Alkaline Phosphatase 32 U/L (35-149); Blood Urea Nitrogen 33 mg/dL (6-24); Creatinine, Serum 1.15 mg/dL (0.51-0.95); Globulin 4.2 g/dL (2-4); Glucose 140 mg/dL (70-100); Lipase < 10 U/L (11.0-82.0); Total Protein 7.1 g/dL (6.4-8.9); eGFR CKD-EPI 54.5 (>60)
[2023-03-24 23:35] LABS: Magnesium < 0.5 mg/dL (1.9-2.7)
[2023-03-24] MEDS ORDERED: Magnesium Sulf 4 GM/100 ML IV 4,000 MG/100 ML BAG IVPB ONE (23:36)
[2023-03-24] MEDS ORDERED: Calcium Gluconate 2 GM in NS 0.9% 100 ml BAG 100 ML IVPB ONE (23:41)
[2023-03-24] MEDS ORDERED: Enoxaparin 40 MG/0.4 ML SYR SUBCUT SCH (23:45)
[2023-03-25 00:12] LABS: High Sens Troponin Baseline 18 pg/mL (<15)
[2023-03-25] MEDS: CALCIUM GLUCONATE 1GM/50ML NS BAG IV SCH ×2 (00:54→01:14)
[2023-03-25 01:16] LABS: High Sensitivity Troponin 1 Hr 19 pg/mL (<15)
[2023-03-25] MEDS: KCL 20 MEQ/100 ML IVPREMIX 20 MEQ/100 ML BAG IV SCH ×4 (02:29→14:08)
[2023-03-25 02:43] LABS: Urine Appearance Cloudy; Urine Bilirubin Negative (Negative); Urine Blood 1+ (Negative); Urine Color Yellow; Urine Glucose Negative (Negative); Urine Ketones Negative (Negative); Urine Nitrite Negative (Negative); Urine Protein 3+(>=500 mg/dL) (Negative); Urine Specific Gravity 1.012 (1.002-1.030); Urine Urobilinogen Negative (Negative)
[2023-03-25] MEDS ORDERED: Dextrose 50% Syringe 50 ml 25 GM/50 ML SYRINGE IV PUSH PRN (03:01)
[2023-03-25 03:47] LABS: Urine Bacteria 1+ (Absent); Urine Red Blood Cell Trace(0-2/hpf) (Absent); Urine Squamous Epithelial Cell Present (Absent); Urine White Blood Cell Trace(0-5/hpf) (Absent)
[2023-03-25] MEDS ORDERED: Psyllium PAK PO PRN (04:39)
[2023-03-25] MEDS ORDERED: Magnesium Sulf 4 GM/100 ML IV 4,000 MG/100 ML BAG IVPB ONE (05:18)
[2023-03-25 05:29] LABS: ABS Basophils 0.1 10^3/uL (0.0-0.1); ABS Eosinophils 0.1 10^3/uL (0.0-0.5); ABS Lymphocytes 1.2 10^3/uL (1.0-4.8); ABS Monocytes 0.6 10^3/uL (0.0-0.9); ABS Neutrophils 6.5 10^3/uL (1.5-7.6); ABS Nucleated RBC 0.01 10^3/ul; Eosinophil % 1.4 %; Hematocrit 26.4 % (35-45); Hemoglobin 8.8 g/dL (11.5-14.3); Lymphocyte % 14.1 %; Mean Corpuscular Hemoglobin 27.9 pg (27-33); Mean Corpuscular Hgb Conc 33.5 g/dL (31-36); Mean Corpuscular Volume 83.2 fL (80-97); Mean Platelet Volume 9.4 fL (7.5-11.2); Nucleated Red Blood Cells % 0.1 /100 WBC (0.0-0.4); Platelet Count 224 10^3/uL (150-450); Red Blood Count 3.17 10^6/uL (3.63-4.92); Red Cell Distribution Width 21.8 % (12-17); White Blood Count 8.4 10^3/uL (3.8-11.8)
[2023-03-25 05:39] LABS: Magnesium 1.1 mg/dL (1.9-2.7); Potassium 2.9 mmol/L (3.5-5.0)
[2023-03-25 05:44] LABS: Creatinine, Serum 1.09 mg/dL (0.51-0.95); Phosphorus 4.1 mg/dL (2.5-5.0); eGFR CKD-EPI 58.2 (>60)
[2023-03-25] MEDS: Ondansetron 4 mg VIAL 2 MG/ML 2 ml VIAL IV PRN (06:10)
[2023-03-25] MEDS: CMCS: Fenofibrate 145 mg TAB (NF) PO SCH (08:36)
[2023-03-25] MEDS: Diclofenac Sod EC 25 mg TAB PO SCH ×2 (08:37→20:27)
[2023-03-25] MEDS: Mometasone/Formoter 200/5 MDI INH SCH ×2 (08:37→19:57)
[2023-03-25] MEDS: BECLOMETHASONE DIPROPIONATE INTRANASAL SCH (08:39)
[2023-03-25] MEDS: NF: Pancrelipase 36,000 units (NF) PO SCH ×3 (08:39→17:51)
[2023-03-25] MEDS ORDERED: Sacubitril/Valsartan 97/103(NF) PO SCH ×2 (09:00)
[2023-03-25] MEDS ORDERED: CMCS: Glimepiride 2 mg TAB (NF) PO SCH (09:00)
[2023-03-25] MEDS ORDERED: Aspirin EC 81 mg TAB.EC (enteric coated) PO SCH (09:00)
[2023-03-25] MEDS ORDERED: Insulin GLARGINE 100 un/ml 10 ml VIAL SUBCUT SCH (09:00)
[2023-03-25] MEDS: Fluticasone NASAL SPRAY 50MCG 16 gm SPRAY BTL BOTH NARES SCH ×2 (09:54→21:21)
[2023-03-25] MEDS: NS 0.9% 1000 ml BAG 1,000 ML IV SCH (09:55)
[2023-03-25] MEDS ORDERED: KCL 20 MEQ/100 ML IVPREMIX 20 MEQ/100 ML BAG ONE (14:06)
[2023-03-25 16:10] LABS: Calcium 7.1 mg/dL (8.6-10.3); Magnesium 1.9 mg/dL (1.9-2.7); Potassium 3.7 mmol/L (3.5-5.0)
[2023-03-25 16:16] LABS: Creatinine, Serum 1.36 mg/dL (0.51-0.95); Phosphorus 2.9 mg/dL (2.5-5.0); eGFR CKD-EPI 44.6 (>60)
[2023-03-25 17:52] LABS: Ferritin 341.8 ng/mL (11-307)
[2023-03-25] MEDS: Albuterol HFA INHALER 8 gm MDI INH PRN (19:55)
[2023-03-26] MEDS ORDERED: Insulin GLARGINE 100 un/ml 10 ml VIAL SUBCUT ONE (00:34)
[2023-03-26] MEDS ORDERED: Lactated Ringers 1000 ml BAG 250 ML IV ONE (05:31)
[2023-03-26 06:56] LABS: ABS Basophils 0.1 10^3/uL (0.0-0.1); ABS Eosinophils 0.2 10^3/uL (0.0-0.5); ABS Monocytes 0.6 10^3/uL (0.0-0.9); ABS Neutrophils 4.8 10^3/uL (1.5-7.6); ABS Nucleated RBC 0.01 10^3/ul; Eosinophil % 3.6 %; Hemoglobin 7.2 g/dL (11.5-14.3); Lymphocyte % 15.1 %; Mean Corpuscular Hemoglobin 27.6 pg (27-33); Mean Corpuscular Hgb Conc 32.7 g/dL (31-36); Mean Corpuscular Volume 84.4 fL (80-97); Mean Platelet Volume 9.9 fL (7.5-11.2); Nucleated Red Blood Cells % 0.1 /100 WBC (0.0-0.4); Platelet Count 168 10^3/uL (150-450); Red Blood Count 2.61 10^6/uL (3.63-4.92); Red Cell Distribution Width 21.9 % (12-17); White Blood Count 6.9 10^3/uL (3.8-11.8)
[2023-03-26 07:13] LABS: Creatinine, Serum 1.7 mg/dL (0.51-0.95); Magnesium 1.6 mg/dL (1.9-2.7); Potassium 3.5 mmol/L (3.5-5.0); eGFR CKD-EPI 34.1 (>60)
[2023-03-26] MEDS: Mometasone/Formoter 200/5 MDI INH SCH ×2 (07:24→19:38)
[2023-03-26 07:37] LABS: Calcium 6.2 mg/dL (8.6-10.3)
[2023-03-26] MEDS: PTO: Pancrelipase 36,000 units (NF) PO SCH ×3 (07:59→17:46)
[2023-03-26] MEDS: CMCS: Fenofibrate 145 mg TAB (NF) PO SCH (07:59)
[2023-03-26] MEDS: Fluticasone NASAL SPRAY 50MCG 16 gm SPRAY BTL BOTH NARES SCH ×2 (08:01→21:47)
[2023-03-26] MEDS: BECLOMETHASONE DIPROPIONATE INTRANASAL SCH (08:59)
[2023-03-26] MEDS ORDERED: Magnesium Sulfate IV 3 GM in NS 0.9% 100 ml BAG 100 ML IVPB ONE (09:00)
[2023-03-26] MEDS ORDERED: Calcium Gluconate 2 GM in NS 0.9% 100 ml BAG 100 ML IV ONE (10:00)
[2023-03-26] MEDS: KCL 20 MEQ/100 ML IVPREMIX 20 MEQ/100 ML BAG IV SCH ×2 (12:19→15:46)
[2023-03-26 12:33] LABS: ABS Eosinophils 0.3 10^3/uL (0.0-0.5); ABS Monocytes 0.6 10^3/uL (0.0-0.9); ABS Neutrophils 6.1 10^3/uL (1.5-7.6); Eosinophil % 3.2 %; Hemoglobin 8.6 g/dL (11.5-14.3); Mean Corpuscular Hemoglobin 27.8 pg (27-33); Mean Corpuscular Volume 84.2 fL (80-97); Mean Platelet Volume 9.6 fL (7.5-11.2); Platelet Count 212 10^3/uL (150-450); Red Blood Count 3.09 10^6/uL (3.63-4.92); Red Cell Distribution Width 21.8 % (12-17)
[2023-03-26] MEDS: Albuterol HFA INHALER 8 gm MDI INH PRN (19:37)
[2023-03-27 05:51] LABS: ABS Basophils 0.1 10^3/uL (0.0-0.1); ABS Eosinophils 0.3 10^3/uL (0.0-0.5); ABS Monocytes 0.6 10^3/uL (0.0-0.9); ABS Neutrophils 5.8 10^3/uL (1.5-7.6); Eosinophil % 3.9 %; Hematocrit 22.4 % (35-45); Hemoglobin 7.4 g/dL (11.5-14.3); Lymphocyte % 13.1 %; Mean Corpuscular Hemoglobin 27.9 pg (27-33); Mean Corpuscular Hgb Conc 33.3 g/dL (31-36); Mean Platelet Volume 9.8 fL (7.5-11.2); Platelet Count 180 10^3/uL (150-450); Red Blood Count 2.67 10^6/uL (3.63-4.92); Red Cell Distribution Width 21.5 % (12-17); White Blood Count 7.8 10^3/uL (3.8-11.8)
[2023-03-27 06:27] LABS: Calcium 6.9 mg/dL (8.6-10.3); Creatinine, Serum 1.35 mg/dL (0.51-0.95); Magnesium 1.9 mg/dL (1.9-2.7); Phosphorus 2.5 mg/dL (2.5-5.0); Potassium 4.2 mmol/L (3.5-5.0)
[2023-03-27] MEDS: Mometasone/Formoter 200/5 MDI INH SCH ×2 (07:03→19:36)
[2023-03-27] MEDS: CMCS: Fenofibrate 145 mg TAB (NF) PO SCH (08:15)
[2023-03-27] MEDS: PTO: Pancrelipase 36,000 units (NF) PO SCH ×3 (08:15→17:00)
[2023-03-27] MEDS: Fluticasone NASAL SPRAY 50MCG 16 gm SPRAY BTL BOTH NARES SCH ×2 (08:19→21:13)
[2023-03-27] MEDS ORDERED: Insulin GLARGINE 100 un/ml 10 ml VIAL SUBCUT SCH (09:00)
[2023-03-27 12:49] LABS: C Reactive Protein 7.09 mg/L (<8.01)
[2023-03-27] MEDS: Calcium/Vitamin D TAB 250/125 TAB PO SCH ×2 (14:11→21:12)
[2023-03-27] MEDS: Albuterol HFA INHALER 8 gm MDI INH PRN (19:33)
[2023-03-27] MEDS: Insulin GLARGINE 100 un/ml 10 ml VIAL SUBCUT SCH (21:11)
[2023-03-27] MEDS: Ondansetron 4 mg VIAL 2 MG/ML 2 ml VIAL IV PRN (22:39)
[2023-03-28] MEDS: Albuterol HFA INHALER 8 gm MDI INH PRN (04:31)
[2023-03-28] MEDS: Mometasone/Formoter 200/5 MDI INH SCH ×2 (07:31→19:31)
[2023-03-28 08:13] LABS: ABS Basophils 0.1 10^3/uL (0.0-0.1); ABS Eosinophils 0.3 10^3/uL (0.0-0.5); ABS Lymphocytes 1.3 10^3/uL (1.0-4.8); ABS Monocytes 0.4 10^3/uL (0.0-0.9); ABS Neutrophils 9.8 10^3/uL (1.5-7.6); ABS Nucleated RBC 0.02 10^3/ul; Eosinophil % 2.8 %; Hematocrit 25.6 % (35-45); Hemoglobin 8.2 g/dL (11.5-14.3); Lymphocyte % 10.8 %; Mean Corpuscular Hemoglobin 27.5 pg (27-33); Mean Corpuscular Hgb Conc 32.1 g/dL (31-36); Mean Corpuscular Volume 85.7 fL (80-97); Mean Platelet Volume 9.8 fL (7.5-11.2); Nucleated Red Blood Cells % 0.1 /100 WBC (0.0-0.4); Platelet Count 215 10^3/uL (150-450); Red Blood Count 2.98 10^6/uL (3.63-4.92); Red Cell Distribution Width 22.1 % (12-17)
[2023-03-28 08:21] LABS: Calcium 7.7 mg/dL (8.6-10.3); Creatinine, Serum 1.19 mg/dL (0.51-0.95); Magnesium 1.6 mg/dL (1.9-2.7); Phosphorus 2.5 mg/dL (2.5-5.0); Potassium 5.1 mmol/L (3.5-5.0); eGFR CKD-EPI 52.3 (>60)
[2023-03-28] MEDS: Fluticasone NASAL SPRAY 50MCG 16 gm SPRAY BTL BOTH NARES SCH ×2 (08:34→20:32)
[2023-03-28] MEDS: CMCS: Glimepiride 2 mg TAB (NF) PO SCH (08:35)
[2023-03-28] MEDS: CMCS: Fenofibrate 145 mg TAB (NF) PO SCH (08:35)
[2023-03-28] MEDS: Cholecalciferol (VIT D3) 1,000 unit TAB PO SCH (08:35)
[2023-03-28] MEDS: Calcium/Vitamin D TAB 250/125 TAB PO SCH ×3 (08:36→20:24)
[2023-03-28] MEDS: PTO: Pancrelipase 36,000 units (NF) PO SCH ×3 (08:36→18:00)
[2023-03-28] MEDS ORDERED: Magnesium Sulfate 2 gm BAG 2 GM/50 ML BAG IVPB ONE ×2 (08:40→15:00)
[2023-03-28] MEDS ORDERED: Glimepiride 4 mg TAB (NF) PO SCH (09:00)
[2023-03-28] MEDS: Insulin GLARGINE 100 un/ml 10 ml VIAL SUBCUT SCH ×2 (09:34→20:25)
[2023-03-28 11:58] LABS: ABS Eosinophils 0.2 10^3/uL (0.0-0.5); ABS Monocytes 0.5 10^3/uL (0.0-0.9); ABS Neutrophils 7.4 10^3/uL (1.5-7.6); Eosinophil % 2.6 %; Hematocrit 23.6 % (35-45); Hemoglobin 7.8 g/dL (11.5-14.3); Lymphocyte % 11.2 %; Mean Corpuscular Hemoglobin 28.1 pg (27-33); Mean Corpuscular Hgb Conc 33.2 g/dL (31-36); Mean Corpuscular Volume 84.8 fL (80-97); Mean Platelet Volume 9.6 fL (7.5-11.2); Platelet Count 178 10^3/uL (150-450); Red Blood Count 2.79 10^6/uL (3.63-4.92); Red Cell Distribution Width 21.6 % (12-17); White Blood Count 9.2 10^3/uL (3.8-11.8)
[2023-03-28 12:22] LABS: Calcium 7.8 mg/dL (8.6-10.3); Magnesium 1.6 mg/dL (1.9-2.7); Potassium 5.3 mmol/L (3.5-5.0)
[2023-03-28 12:28] LABS: Creatinine, Serum 1.26 mg/dL (0.51-0.95); eGFR CKD-EPI 48.9 (>60)
[2023-03-28] MEDS ORDERED: Furosemide 20 mg/2 ml IV VIAL IV ONE (14:37)
[2023-03-28 19:30] LABS: Calcium 7.8 mg/dL (8.6-10.3); Magnesium 2.5 mg/dL (1.9-2.7); Potassium 4.8 mmol/L (3.5-5.0)
[2023-03-28 19:36] LABS: Creatinine, Serum 1.39 mg/dL (0.51-0.95); Phosphorus 2.2 mg/dL (2.5-5.0); eGFR CKD-EPI 43.4 (>60)
[2023-03-28] MEDS: Potassium & Sodium Phos 250 mg = 1 PACKET PO SCH (20:24)
[2023-03-28] MEDS ORDERED: Insulin GLARGINE 100 un/ml 10 ml VIAL SUBCUT SCH (21:00)
[2023-03-29] MEDS: Albuterol HFA INHALER 8 gm MDI INH PRN ×3 (02:33→19:05)
[2023-03-29 06:39] LABS: ABS Basophils 0.1 10^3/uL (0.0-0.1); ABS Eosinophils 0.3 10^3/uL (0.0-0.5); ABS Monocytes 0.5 10^3/uL (0.0-0.9); ABS Neutrophils 12.2 10^3/uL (1.5-7.6); ABS Nucleated RBC 0.02 10^3/ul; Hematocrit 23.4 % (35-45); Hemoglobin 7.7 g/dL (11.5-14.3); Lymphocyte % 6.9 %; Mean Corpuscular Hemoglobin 28.1 pg (27-33); Mean Corpuscular Hgb Conc 32.9 g/dL (31-36); Mean Corpuscular Volume 85.2 fL (80-97); Mean Platelet Volume 10.1 fL (7.5-11.2); Nucleated Red Blood Cells % 0.1 /100 WBC (0.0-0.4); Platelet Count 208 10^3/uL (150-450); Red Blood Count 2.74 10^6/uL (3.63-4.92); Red Cell Distribution Width 21.6 % (12-17); White Blood Count 14.2 10^3/uL (3.8-11.8)
[2023-03-29 06:59] LABS: Calcium 8.2 mg/dL (8.6-10.3); Creatinine, Serum 1.26 mg/dL (0.51-0.95); Magnesium 2.2 mg/dL (1.9-2.7); Phosphorus 2.4 mg/dL (2.5-5.0); Potassium 5.1 mmol/L (3.5-5.0); eGFR CKD-EPI 48.9 (>60)
[2023-03-29] MEDS: Mometasone/Formoter 200/5 MDI INH SCH ×2 (07:01→19:05)
[2023-03-29] MEDS: PTO: Pancrelipase 36,000 units (NF) PO SCH ×3 (08:50→16:54)
[2023-03-29] MEDS: CMCS: Fenofibrate 145 mg TAB (NF) PO SCH (08:51)
[2023-03-29] MEDS: CMCS: Glimepiride 2 mg TAB (NF) PO SCH (08:51)
[2023-03-29] MEDS: Potassium & Sodium Phos 250 mg = 1 PACKET PO SCH ×2 (08:51→09:00)
[2023-03-29] MEDS: Calcium/Vitamin D TAB 250/125 TAB PO SCH ×2 (08:51→11:37)
[2023-03-29] MEDS: Cholecalciferol (VIT D3) 1,000 unit TAB PO SCH (08:52)
[2023-03-29] MEDS: Fluticasone NASAL SPRAY 50MCG 16 gm SPRAY BTL BOTH NARES SCH ×2 (08:53→20:27)
[2023-03-29] MEDS ORDERED: Furosemide 20 mg/2 ml IV VIAL IV SCH (12:00)
[2023-03-29] MEDS ORDERED: Furosemide 40 mg/4 ml IV VIAL IV ONE (16:25)
[2023-03-29] MEDS: Insulin GLARGINE 100 un/ml 10 ml VIAL SUBCUT SCH (20:24)
[2023-03-29 21:27] LABS: Calcium 8.7 mg/dL (8.6-10.3); Magnesium 1.9 mg/dL (1.9-2.7); Potassium 5.5 mmol/L (3.5-5.0)
[2023-03-29 21:33] LABS: Creatinine, Serum 1.37 mg/dL (0.51-0.95); eGFR CKD-EPI 44.2 (>60)
[2023-03-30 06:30] LABS: ABS Basophils 0.1 10^3/uL (0.0-0.1); ABS Eosinophils 0.2 10^3/uL (0.0-0.5); ABS Lymphocytes 1.2 10^3/uL (1.0-4.8); ABS Monocytes 0.6 10^3/uL (0.0-0.9); ABS Neutrophils 7.7 10^3/uL (1.5-7.6); Eosinophil % 2.4 %; Hematocrit 21.5 % (35-45); Hemoglobin 7.2 g/dL (11.5-14.3); Lymphocyte % 11.9 %; Mean Corpuscular Hemoglobin 28.3 pg (27-33); Mean Corpuscular Hgb Conc 33.6 g/dL (31-36); Mean Corpuscular Volume 84.4 fL (80-97); Mean Platelet Volume 9.7 fL (7.5-11.2); Platelet Count 212 10^3/uL (150-450); Red Blood Count 2.55 10^6/uL (3.63-4.92); Red Cell Distribution Width 22.4 % (12-17); White Blood Count 9.7 10^3/uL (3.8-11.8)
[2023-03-30 06:59] LABS: Calcium 8.8 mg/dL (8.6-10.3); Creatinine, Serum 1.21 mg/dL (0.51-0.95); Magnesium 1.8 mg/dL (1.9-2.7); Phosphorus 2.8 mg/dL (2.5-5.0); Potassium 4.9 mmol/L (3.5-5.0); eGFR CKD-EPI 51.3 (>60)
[2023-03-30] MEDS: Albuterol HFA INHALER 8 gm MDI INH PRN ×2 (07:23→19:02)
[2023-03-30] MEDS: Mometasone/Formoter 200/5 MDI INH SCH ×2 (07:23→19:03)
[2023-03-30] MEDS ORDERED: Magnesium Sulfate 2 gm BAG 2 GM/50 ML BAG IVPB ONE (08:12)
[2023-03-30] MEDS: PTO: Pancrelipase 36,000 units (NF) PO SCH ×3 (08:34→17:24)
[2023-03-30] MEDS: CMCS: Glimepiride 2 mg TAB (NF) PO SCH (08:41)
[2023-03-30] MEDS: Calcium/Vitamin D TAB 250/125 TAB PO SCH (08:41)
[2023-03-30] MEDS: Cholecalciferol (VIT D3) 1,000 unit TAB PO SCH (08:41)
[2023-03-30] MEDS: CMCS: Fenofibrate 145 mg TAB (NF) PO SCH (08:41)
[2023-03-30] MEDS: Fluticasone NASAL SPRAY 50MCG 16 gm SPRAY BTL BOTH NARES SCH ×2 (08:42→21:13)
[2023-03-30] MEDS ORDERED: Furosemide 40 mg/4 ml IV VIAL IV ONE ×2 (08:50→18:11)
[2023-03-30 09:20] LABS: Corrected Retic Count 0.8 % (0.5-1.5); Hematocrit for Retic CNT 21.6 % (35-45); Immature Retic Fraction 0.32; RBC Retic Count 2.55 10^6/ul (3.63-4.92)
[2023-03-30 10:11] LABS: Direct Bilirubin 0.1 mg/dL (0.03-0.18); Indirect Bilirubin 0.3 mg/dL (0.3-1.0); Total Bilirubin 0.4 mg/dL (0.2-1.0)
[2023-03-30 18:52] LABS: Hematocrit 26.4 % (35-45); Hemoglobin 8.8 g/dL (11.5-14.3); Mean Corpuscular Hemoglobin 28.5 pg (27-33); Mean Corpuscular Hgb Conc 33.4 g/dL (31-36); Mean Corpuscular Volume 85.3 fL (80-97); Platelet Count 219 10^3/uL (150-450); Red Blood Count 3.09 10^6/uL (3.63-4.92); Red Cell Distribution Width 21.1 % (12-17); White Blood Count 12.7 10^3/uL (3.8-11.8)
[2023-03-30 19:04] LABS: Calcium 8.8 mg/dL (8.6-10.3); Magnesium 1.9 mg/dL (1.9-2.7); Potassium 5.2 mmol/L (3.5-5.0)
[2023-03-30 19:10] LABS: Creatinine, Serum 1.29 mg/dL (0.51-0.95); Phosphorus 3.2 mg/dL (2.5-5.0); eGFR CKD-EPI 47.5 (>60)
[2023-03-30] MEDS: Cyanocobalamin INJ 1,000 MCG/ML VIAL 1 ML VIAL IM SCH (21:05)
[2023-03-30] MEDS: Insulin GLARGINE 100 un/ml 10 ml VIAL SUBCUT SCH (21:11)
[2023-03-31 05:54] LABS: ABS Basophils 0.1 10^3/uL (0.0-0.1); ABS Eosinophils 0.3 10^3/uL (0.0-0.5); ABS Lymphocytes 1.1 10^3/uL (1.0-4.8); ABS Monocytes 0.5 10^3/uL (0.0-0.9); ABS Neutrophils 8.1 10^3/uL (1.5-7.6); Eosinophil % 3.3 %; Hematocrit 27.9 % (35-45); Hemoglobin 9.4 g/dL (11.5-14.3); Lymphocyte % 10.6 %; Mean Corpuscular Hemoglobin 28.6 pg (27-33); Mean Corpuscular Hgb Conc 33.7 g/dL (31-36); Mean Corpuscular Volume 85.1 fL (80-97); Mean Platelet Volume 9.2 fL (7.5-11.2); Platelet Count 243 10^3/uL (150-450); Red Blood Count 3.29 10^6/uL (3.63-4.92); Red Cell Distribution Width 20.8 % (12-17); White Blood Count 10.1 10^3/uL (3.8-11.8)
[2023-03-31 06:01] LABS: Potassium 4.2 mmol/L (3.5-5.0)
[2023-03-31 06:02] LABS: Calcium 9.2 mg/dL (8.6-10.3); Magnesium 1.8 mg/dL (1.9-2.7)
[2023-03-31 06:07] LABS: Creatinine, Serum 1.17 mg/dL (0.51-0.95); eGFR CKD-EPI 53.4 (>60)
[2023-03-31] MEDS: Albuterol HFA INHALER 8 gm MDI INH PRN ×2 (07:49→19:05)
[2023-03-31] MEDS: Mometasone/Formoter 200/5 MDI INH SCH ×2 (07:50→19:06)
[2023-03-31] MEDS: Cholecalciferol (VIT D3) 1,000 unit TAB PO SCH (09:20)
[2023-03-31] MEDS: CMCS: Glimepiride 2 mg TAB (NF) PO SCH (09:21)
[2023-03-31] MEDS: Calcium/Vitamin D TAB 250/125 TAB PO SCH (09:21)
[2023-03-31] MEDS: Cyanocobalamin INJ 1,000 MCG/ML VIAL 1 ML VIAL IM SCH (09:21)
[2023-03-31] MEDS: CMCS: Fenofibrate 145 mg TAB (NF) PO SCH (09:21)
[2023-03-31] MEDS: PTO: Pancrelipase 36,000 units (NF) PO SCH ×3 (09:22→17:41)
[2023-03-31] MEDS: Fluticasone NASAL SPRAY 50MCG 16 gm SPRAY BTL BOTH NARES SCH ×2 (10:02→21:10)
[2023-03-31] MEDS ORDERED: Furosemide 40 mg/4 ml IV VIAL IV ONE (11:55)
[2023-03-31] MEDS: Insulin GLARGINE 100 un/ml 10 ml VIAL SUBCUT SCH (21:23)
[2023-04-01 05:50] LABS: Calcium 8.9 mg/dL (8.6-10.3); Creatinine, Serum 1.08 mg/dL (0.51-0.95); Magnesium 1.6 mg/dL (1.9-2.7); Potassium 4.1 mmol/L (3.5-5.0); eGFR CKD-EPI 58.8 (>60)
[2023-04-01] MEDS ORDERED: Magnesium Sulfate 2 gm BAG 2 GM/50 ML BAG IVPB ONE (06:40)
[2023-04-01] MEDS: Mometasone/Formoter 200/5 MDI INH SCH ×2 (07:24→19:36)
[2023-04-01] MEDS: Albuterol HFA INHALER 8 gm MDI INH PRN ×2 (07:26→19:37)
[2023-04-01] MEDS: PTO: Pancrelipase 36,000 units (NF) PO SCH ×3 (08:16→17:01)
[2023-04-01] MEDS: Cholecalciferol (VIT D3) 1,000 unit TAB PO SCH (10:26)
[2023-04-01] MEDS: CMCS: Fenofibrate 145 mg TAB (NF) PO SCH (10:29)
[2023-04-01] MEDS: CMCS: Glimepiride 2 mg TAB (NF) PO SCH (10:30)
[2023-04-01] MEDS: Calcium/Vitamin D TAB 250/125 TAB PO SCH (10:30)
[2023-04-01] MEDS: Fluticasone NASAL SPRAY 50MCG 16 gm SPRAY BTL BOTH NARES SCH ×2 (10:32→20:03)
[2023-04-01] MEDS: Insulin GLARGINE 100 un/ml 10 ml VIAL SUBCUT SCH (20:03)
[2023-04-02] MEDS ORDERED: Magnesium Sulfate IV 3 GM in NS 0.9% 100 ml BAG 100 ML IVPB ONE (07:39)
[2023-04-02] MEDS: Calcium/Vitamin D TAB 250/125 TAB PO SCH (08:30)
[2023-04-02] MEDS: CMCS: Glimepiride 2 mg TAB (NF) PO SCH (08:58)
[2023-04-02] MEDS: CMCS: Fenofibrate 145 mg TAB (NF) PO SCH (08:58)
[2023-04-02] MEDS: Cholecalciferol (VIT D3) 1,000 unit TAB PO SCH (08:58)
[2023-04-02] MEDS: Mometasone/Formoter 200/5 MDI INH SCH ×2 (09:02→19:08)
[2023-04-02] MEDS: Albuterol HFA INHALER 8 gm MDI INH PRN ×2 (09:02→19:08)
[2023-04-02] MEDS: PTO: Pancrelipase 36,000 units (NF) PO SCH ×3 (09:03→17:15)
[2023-04-02] MEDS: Fluticasone NASAL SPRAY 50MCG 16 gm SPRAY BTL BOTH NARES SCH ×2 (11:06→20:15)
[2023-04-02 14:09] LABS: Creatinine, Serum 1.16 mg/dL (0.51-0.95); Magnesium 1.7 mg/dL (1.9-2.7); Potassium 3.9 mmol/L (3.5-5.0)
[2023-04-02] MEDS ORDERED: Magnesium Sulfate 2 gm BAG 2 GM/50 ML BAG IVPB ONE (17:38)
[2023-04-02] MEDS: Insulin GLARGINE 100 un/ml 10 ml VIAL SUBCUT SCH (20:15)
[2023-04-03] MEDS: Albuterol HFA INHALER 8 gm MDI INH PRN (07:21)
[2023-04-03] MEDS: Mometasone/Formoter 200/5 MDI INH SCH (07:21)
[2023-04-03] MEDS ORDERED: Sacubitril/Valsartan 97/103(NF) PO SCH (09:00)
[2023-04-03] MEDS: CMCS: Glimepiride 2 mg TAB (NF) PO SCH (09:25)
[2023-04-03] MEDS: Cholecalciferol (VIT D3) 1,000 unit TAB PO SCH (09:26)
[2023-04-03] MEDS: Calcium/Vitamin D TAB 250/125 TAB PO SCH (09:26)
[2023-04-03] MEDS: CMCS: Fenofibrate 145 mg TAB (NF) PO SCH (09:29)
[2023-04-03] MEDS: PTO: Pancrelipase 36,000 units (NF) PO SCH (09:30)
[2023-04-03] MEDS: Fluticasone NASAL SPRAY 50MCG 16 gm SPRAY BTL BOTH NARES SCH (09:54)
[2023-04-03 10:40] VITALS: BP 152/86
== END 2023-04-03 10:48 | DRG 425 ==
LOC: ED 21:36 → EDHOLD 21:36 → SUATTDRO 23:58 → MED 03-25 12:44 → SUATTDRO 03-25 15:07 → MED 03-25 15:07
PROVIDERS: ADMIT Internal Medicine; ATTEND Internal Medicine

== ENCOUNTER 2023-05-17 20:46 | Inpatient (IN) ==
[2023-05-17 21:45] LABS: ABS Basophils 0.2 10^3/uL (0.0-0.1); ABS Lymphocytes 0.4 10^3/uL (1.0-4.8); ABS Monocytes 1.1 10^3/uL (0.0-0.9); ABS Neutrophils 14.4 10^3/uL (1.5-7.6); ABS Nucleated RBC 0.01 10^3/ul; Hemoglobin 8.6 g/dL (11.5-14.3); Lymphocyte % 2.3 %; Mean Corpuscular Hemoglobin 28.5 pg (27-33); Mean Corpuscular Volume 86.4 fL (80-97); Mean Platelet Volume 7.8 fL (7.5-11.2); Nucleated Red Blood Cells % 0.1 %/100WBC (0.0-0.8); Platelet Count 423 10^3/uL (150-450); Red Blood Count 3.01 10^6/uL (3.63-4.92); Red Cell Distribution Width 16.1 % (12-17); White Blood Count 16.1 10^3/uL (3.8-11.8)
[2023-05-17 22:02] LABS: Albumin 2.8 g/dL (3.2-5.2); Calcium 8.7 mg/dL (8.6-10.3); Potassium 4.7 mmol/L (3.5-5.0); Total Bilirubin 0.2 mg/dL (0.2-1.0)
[2023-05-17 22:08] LABS: Albumin/Globulin Ratio 0.7 (1-3); Creatinine, Serum 1.46 mg/dL (0.51-0.95); Globulin 4.2 g/dL (2-4)
[2023-05-17] MEDS ORDERED: Furosemide 40 mg/4 ml IV VIAL IV ONE (22:45)
[2023-05-17 22:47] LABS: High Sensitivity Troponin 1 Hr 16 pg/mL (<15)
[2023-05-17] MEDS ORDERED: Ondansetron 4 mg VIAL 2 MG/ML 2 ml VIAL IV ONE (23:11)
[2023-05-17] MEDS ORDERED: cefTRIAXone 1 gm/50 mL D5W 1 GM/50 ML BAG IV ONE (23:21)
[2023-05-17] MEDS ORDERED: Vancomycin 1,500 MG in NS 0.9% 250 ml 250 ML IVPB ONE (23:22)
[2023-05-18] MEDS ORDERED: Vancomycin per Pharmacy 1 EA NOTE FOLLOW UP SCH (04:00)
[2023-05-18] MEDS ORDERED: Dextrose 50% Syringe 50 ml 25 GM/50 ML SYRINGE IV PUSH PRN ×2 (04:04→05:12)
[2023-05-18] MEDS ORDERED: Albuterol HFA INHALER 8 gm MDI INH PRN (04:16)
[2023-05-18] MEDS: metroNIDAZOLE IV 500 MG/100ML 500 MG/100 ML BAG IVPB SCH ×4 (04:51→23:40)
[2023-05-18 05:51] LABS: ABS Basophils 0.1 10^3/uL (0.0-0.1); ABS Lymphocytes 0.4 10^3/uL (1.0-4.8); ABS Monocytes 1.2 10^3/uL (0.0-0.9); ABS Neutrophils 12.3 10^3/uL (1.5-7.6); Eosinophil % 0.1 %; Hematocrit 23.9 % (35-45); Hemoglobin 7.9 g/dL (11.5-14.3); Lymphocyte % 2.9 %; Mean Corpuscular Hemoglobin 28.3 pg (27-33); Mean Corpuscular Volume 85.9 fL (80-97); Mean Platelet Volume 7.8 fL (7.5-11.2); Platelet Count 357 10^3/uL (150-450); Red Blood Count 2.78 10^6/uL (3.63-4.92); Red Cell Distribution Width 16.2 % (12-17)
[2023-05-18 06:12] LABS: Calcium 8.3 mg/dL (8.6-10.3); Magnesium 1.9 mg/dL (1.9-2.7); Potassium 4.2 mmol/L (3.5-5.0)
[2023-05-18 06:17] LABS: Creatinine, Serum 1.34 mg/dL (0.51-0.95); eGFR CKD-EPI 45.4 (>60)
[2023-05-18] MEDS ORDERED: Insulin GLARGINE 100 un/ml 10 ml VIAL SUBCUT SCH (09:00)
[2023-05-18 10:50] LABS: Urine Appearance Cloudy; Urine Bilirubin Negative (Negative); Urine Blood 1+ (Negative); Urine Color Yellow; Urine Glucose Negative (Negative); Urine Ketones Negative (Negative); Urine Nitrite Negative (Negative); Urine Protein 3+(>=500 mg/dL) (Negative); Urine Specific Gravity 1.016 (1.002-1.030); Urine Urobilinogen Negative (Negative)
[2023-05-18 11:30] LABS: Urine Bacteria Absent (Absent); Urine Red Blood Cell 3+(>10/hpf) (Absent); Urine Squamous Epithelial Cell Present (Absent); Urine White Blood Cell Trace(0-5/hpf) (Absent)
[2023-05-18 13:50] LABS: C Reactive Protein 415.5 mg/L (<8.01)
[2023-05-18 19:23] LABS: Hematocrit 23.6 % (35-45); Hemoglobin 7.7 g/dL (11.5-14.3); Mean Corpuscular Hemoglobin 28.3 pg (27-33); Mean Corpuscular Hgb Conc 32.5 g/dL (31-36); Mean Platelet Volume 7.8 fL (7.5-11.2); Platelet Count 332 10^3/uL (150-450); Red Blood Count 2.72 10^6/uL (3.63-4.92); Red Cell Distribution Width 15.7 % (12-17)
[2023-05-18 19:35] LABS: Albumin 2.5 g/dL (3.2-5.2); Calcium 8.4 mg/dL (8.6-10.3); Potassium 4.4 mmol/L (3.5-5.0); Total Bilirubin 0.2 mg/dL (0.2-1.0)
[2023-05-18 19:41] LABS: Albumin/Globulin Ratio 0.7 (1-3); Creatinine, Serum 1.36 mg/dL (0.51-0.95); Globulin 3.8 g/dL (2-4); Total Protein 6.3 g/dL (6.4-8.9); eGFR CKD-EPI 44.6 (>60)
[2023-05-18] MEDS: Insulin GLARGINE 100 un/ml 10 ml VIAL SUBCUT SCH (22:05)
[2023-05-18] MEDS: cefTRIAXone 1 gm/50 mL D5W 1 GM/50 ML BAG IV SCH (23:45)
[2023-05-19] MEDS: metroNIDAZOLE IV 500 MG/100ML 500 MG/100 ML BAG IVPB SCH ×3 (05:05→21:39)
[2023-05-19 05:32] LABS: ABS Basophils 0.1 10^3/uL (0.0-0.1); ABS Eosinophils 0.1 10^3/uL (0.0-0.5); ABS Lymphocytes 0.5 10^3/uL (1.0-4.8); ABS Monocytes 0.8 10^3/uL (0.0-0.9); ABS Neutrophils 8.5 10^3/uL (1.5-7.6); Eosinophil % 0.8 %; Hematocrit 20.9 % (35-45); Hemoglobin 6.9 g/dL (11.5-14.3); Lymphocyte % 5.3 %; Mean Corpuscular Hemoglobin 28.6 pg (27-33); Mean Corpuscular Hgb Conc 33.3 g/dL (31-36); Mean Corpuscular Volume 85.8 fL (80-97); Mean Platelet Volume 7.8 fL (7.5-11.2); Platelet Count 288 10^3/uL (150-450); Red Blood Count 2.43 10^6/uL (3.63-4.92); White Blood Count 9.9 10^3/uL (3.8-11.8)
[2023-05-19 06:10] LABS: Albumin 2.2 g/dL (3.2-5.2); Albumin/Globulin Ratio 0.7 (1-3); Creatinine, Serum 1.31 mg/dL (0.51-0.95); Globulin 3.3 g/dL (2-4); Magnesium 1.9 mg/dL (1.9-2.7); Phosphorus 3.9 mg/dL (2.5-5.0); Potassium 4.2 mmol/L (3.5-5.0); Total Bilirubin 0.2 mg/dL (0.2-1.0); Total Protein 5.5 g/dL (6.4-8.9); eGFR CKD-EPI 46.6 (>60)
[2023-05-19] MEDS ORDERED: Vancomycin 1,250 MG in NS 0.9% 250 ml 250 ML IVPB SCH (06:30)
[2023-05-19] MEDS: Vancomycin 1,250 MG in NS 0.9% 250 ml 250 ML IVPB SCH (07:51)
[2023-05-19 11:47] LABS: Hematocrit 21.6 % (35-45); Hemoglobin 7.2 g/dL (11.5-14.3); Mean Corpuscular Hemoglobin 28.8 pg (27-33); Mean Corpuscular Hgb Conc 33.4 g/dL (31-36); Mean Corpuscular Volume 86.2 fL (80-97); Mean Platelet Volume 8.1 fL (7.5-11.2); Platelet Count 296 10^3/uL (150-450); Red Cell Distribution Width 15.9 % (12-17); White Blood Count 9.5 10^3/uL (3.8-11.8)
[2023-05-19] MEDS ORDERED: Buffered Lidocaine 1% SYRIN 1 ml ONE (13:49)
[2023-05-19] MEDS ORDERED: Dextrose 50% Syringe 50 ml 25 GM/50 ML SYRINGE IV PUSH PRN (14:23)
[2023-05-19] MEDS ORDERED: Dextrose 50% Syringe 50 ml 25 GM/50 ML SYRINGE ONE (14:50)
[2023-05-19] MEDS ORDERED: Midazolam 2 mg/2 ml VIAL 1 mg/ml 2 ml VIAL (2 mg) ONE ×2 (15:46→15:47)
[2023-05-19] MEDS ORDERED: Ondansetron 4 mg VIAL 2 MG/ML 2 ml VIAL ONE (15:47)
[2023-05-19] MEDS ORDERED: Rocuronium 50 mg VIAL 10 mg/ml 5 ml VIAL (50 mg) ONE (15:47)
[2023-05-19] MEDS ORDERED: Dexamethasone IV 4 MG/ML VIAL 1 ml VIAL ONE (15:47)
[2023-05-19] MEDS ORDERED: Propofol 10 MG/ML 20 ML BTL ONE (15:47)
[2023-05-19] MEDS ORDERED: fentaNYL 100 mcg/2 ml 50 MCG/ML VIAL ONE (15:47)
[2023-05-19] MEDS ORDERED: Acetaminophen IV 1 GM/100ML 1,000 MG/100 ML BAG IV ONE (16:04)
[2023-05-19] MEDS ORDERED: Phenylephrine 40 mcg/mL 10mL (400mcg) SYRINGE ONE (16:25)
[2023-05-19] MEDS ORDERED: Insulin GLARGINE 100 un/ml 10 ml VIAL SUBCUT SCH (22:00)
[2023-05-19] MEDS: Insulin GLARGINE 100 un/ml 10 ml VIAL SUBCUT SCH (23:17)
[2023-05-19] MEDS: cefTRIAXone 1 gm/50 mL D5W 1 GM/50 ML BAG IV SCH (23:39)
[2023-05-20] MEDS: Morphine 2 MG/ML SYRINGE IV PRN ×4 (04:36→20:27)
[2023-05-20 06:10] LABS: ABS Lymphocytes 0.3 10^3/uL (1.0-4.8); ABS Monocytes 0.3 10^3/uL (0.0-0.9); ABS Neutrophils 6.5 10^3/uL (1.5-7.6); Hematocrit 24.1 % (35-45); Hemoglobin 8.1 g/dL (11.5-14.3); Lymphocyte % 4.3 %; Mean Corpuscular Hemoglobin 29.1 pg (27-33); Mean Corpuscular Hgb Conc 33.6 g/dL (31-36); Mean Corpuscular Volume 86.4 fL (80-97); Mean Platelet Volume 8.3 fL (7.5-11.2); Platelet Count 286 10^3/uL (150-450); Red Blood Count 2.79 10^6/uL (3.63-4.92); Red Cell Distribution Width 15.8 % (12-17); White Blood Count 7.2 10^3/uL (3.8-11.8)
[2023-05-20 06:41] LABS: Calcium 7.9 mg/dL (8.6-10.3); Creatinine, Serum 1.42 mg/dL (0.51-0.95); Magnesium 1.8 mg/dL (1.9-2.7); Phosphorus 4.7 mg/dL (2.5-5.0); Potassium 4.3 mmol/L (3.5-5.0); eGFR CKD-EPI 42.3 (>60)
[2023-05-20] MEDS: metroNIDAZOLE IV 500 MG/100ML 500 MG/100 ML BAG IVPB SCH (07:41)
[2023-05-20] MEDS ORDERED: Dextrose 50% Syringe 50 ml 25 GM/50 ML SYRINGE IV PUSH PRN ×5 (08:25→16:58)
[2023-05-20 08:34] LABS: Glucose Confirmatory 457 mg/dL (70-100)
[2023-05-20] MEDS: ceFAZolin 2 GM in NS PREMIX 2 GM/100 ML BAG IVPB SCH ×2 (09:50→20:08)
[2023-05-20] MEDS: Vancomycin 1,250 MG in NS 0.9% 250 ml 250 ML IVPB SCH (10:52)
[2023-05-20 11:20] LABS: Glucose Confirmatory 463 mg/dL (70-100)
[2023-05-20] MEDS ORDERED: NS 0.9% 1000 ml BAG 1,000 ML IV ONE (13:54)
[2023-05-20 14:59] LABS: Creatinine, Serum 1.37 mg/dL (0.51-0.95); Potassium 4.2 mmol/L (3.5-5.0); eGFR CKD-EPI 44.2 (>60)
[2023-05-20] MEDS ORDERED: Magnesium Sulfate IV 1GM/100ML 1 GM/100 ML BAG IV ONE (15:20)
[2023-05-20] MEDS ORDERED: Lactated Ringers 1000 ml BAG 1,000 ML IV ONE (16:22)
[2023-05-20] MEDS ORDERED: PTO: Pancrelipase 36,000 units (NF) PO SCH ×2 (19:00→20:20)
[2023-05-20] MEDS: PTO: Pancrelipase 36,000 units (NF) PO SCH (20:21)
[2023-05-20] MEDS ORDERED: Insulin GLARGINE 100 un/ml 10 ml VIAL SUBCUT SCH ×2 (21:00)
[2023-05-20 22:37] LABS: Calcium 7.6 mg/dL (8.6-10.3); Creatinine, Serum 1.33 mg/dL (0.51-0.95); Potassium 3.8 mmol/L (3.5-5.0); eGFR CKD-EPI 45.8 (>60)
[2023-05-21] MEDS: Morphine 2 MG/ML SYRINGE IV PRN ×2 (03:02→09:31)
[2023-05-21] MEDS: ceFAZolin 2 GM in NS PREMIX 2 GM/100 ML BAG IVPB SCH ×3 (05:10→18:34)
[2023-05-21] MEDS ORDERED: Vancomycin Trough Check NOTE FOLLOW UP ONE (06:00)
[2023-05-21 06:22] LABS: ABS Basophils 0.1 10^3/uL (0.0-0.1); ABS Eosinophils 0.2 10^3/uL (0.0-0.5); ABS Lymphocytes 0.8 10^3/uL (1.0-4.8); ABS Monocytes 0.6 10^3/uL (0.0-0.9); ABS Neutrophils 7.3 10^3/uL (1.5-7.6); Eosinophil % 2.7 %; Hematocrit 22.9 % (35-45); Hemoglobin 7.8 g/dL (11.5-14.3); Lymphocyte % 9.3 %; Mean Corpuscular Hemoglobin 29.3 pg (27-33); Mean Corpuscular Volume 86.3 fL (80-97); Mean Platelet Volume 8.2 fL (7.5-11.2); Platelet Count 294 10^3/uL (150-450); Red Blood Count 2.66 10^6/uL (3.63-4.92); Red Cell Distribution Width 15.7 % (12-17); White Blood Count 9.1 10^3/uL (3.8-11.8)
[2023-05-21 06:38] LABS: Calcium 7.6 mg/dL (8.6-10.3); Creatinine, Serum 1.09 mg/dL (0.51-0.95); Magnesium 1.5 mg/dL (1.9-2.7); Phosphorus 2.2 mg/dL (2.5-5.0); Potassium 3.9 mmol/L (3.5-5.0); eGFR CKD-EPI 58.2 (>60)
[2023-05-21 06:51] LABS: Vancomycin Trough 7.1 mcg/mL
[2023-05-21] MEDS ORDERED: Sodium Phosphate IV 15 MMOL in NS 0.9% 250 ml 250 ML IV ONE (09:00)
[2023-05-21] MEDS ORDERED: Magnesium Sulf 4 GM/100 ML IV 4,000 MG/100 ML BAG IVPB ONE (09:00)
[2023-05-21] MEDS: PTO: Pancrelipase 36,000 units (NF) PO SCH ×3 (09:37→18:35)
[2023-05-21] MEDS ORDERED: Polyethylene Glycol 3350 17 GM PACKET PO PRN (10:22)
[2023-05-21] MEDS ORDERED: Morphine 2 MG/ML SYRINGE IV PRN (10:23)
[2023-05-22] MEDS: ceFAZolin 2 GM in NS PREMIX 2 GM/100 ML BAG IVPB SCH ×3 (01:45→18:47)
[2023-05-22 07:35] LABS: ABS Basophils 0.1 10^3/uL (0.0-0.1); ABS Eosinophils 0.4 10^3/uL (0.0-0.5); ABS Lymphocytes 1.2 10^3/uL (1.0-4.8); ABS Monocytes 0.9 10^3/uL (0.0-0.9); ABS Nucleated RBC 0.01 10^3/ul; Hematocrit 22.3 % (35-45); Hemoglobin 7.5 g/dL (11.5-14.3); Lymphocyte % 11.5 %; Mean Corpuscular Hemoglobin 28.9 pg (27-33); Mean Corpuscular Hgb Conc 33.5 g/dL (31-36); Mean Corpuscular Volume 86.4 fL (80-97); Mean Platelet Volume 8.2 fL (7.5-11.2); Nucleated Red Blood Cells % 0.1 %/100WBC (0.0-0.8); Platelet Count 305 10^3/uL (150-450); Red Blood Count 2.58 10^6/uL (3.63-4.92); White Blood Count 10.6 10^3/uL (3.8-11.8)
[2023-05-22 07:52] LABS: Calcium 7.6 mg/dL (8.6-10.3); Creatinine, Serum 1.05 mg/dL (0.51-0.95); Magnesium 2.2 mg/dL (1.9-2.7); Phosphorus 1.8 mg/dL (2.5-5.0); Potassium 4.7 mmol/L (3.5-5.0); eGFR CKD-EPI 60.8 (>60)
[2023-05-22] MEDS: PTO: Pancrelipase 36,000 units (NF) PO SCH ×3 (08:05→17:27)
[2023-05-22] MEDS ORDERED: Sodium Phosphate IV 30 MMOL in NS 0.9% 250 ml 250 ML IV ONE (13:00)
[2023-05-22] MEDS: Insulin GLARGINE 100 un/ml 10 ml VIAL SUBCUT SCH (20:48)
[2023-05-23] MEDS: ceFAZolin 2 GM in NS PREMIX 2 GM/100 ML BAG IVPB SCH ×3 (00:45→17:27)
[2023-05-23] MEDS: Albuterol HFA INHALER 8 gm MDI INH PRN ×2 (01:58→22:32)
[2023-05-23 06:18] LABS: ABS Eosinophils 0.2 10^3/uL (0.0-0.5); ABS Lymphocytes 1.1 10^3/uL (1.0-4.8); ABS Monocytes 0.7 10^3/uL (0.0-0.9); Hematocrit 20.5 % (35-45); Hemoglobin 6.8 g/dL (11.5-14.3); Mean Corpuscular Hemoglobin 28.8 pg (27-33); Mean Corpuscular Hgb Conc 33.4 g/dL (31-36); Mean Corpuscular Volume 86.4 fL (80-97); Mean Platelet Volume 8.3 fL (7.5-11.2); Platelet Count 328 10^3/uL (150-450); Red Blood Count 2.37 10^6/uL (3.63-4.92); Red Cell Distribution Width 16.1 % (12-17); White Blood Count 12.1 10^3/uL (3.8-11.8)
[2023-05-23 06:39] LABS: Calcium 7.7 mg/dL (8.6-10.3); Creatinine, Serum 0.84 mg/dL (0.51-0.95); Magnesium 1.7 mg/dL (1.9-2.7); Phosphorus 2.3 mg/dL (2.5-5.0); Potassium 4.5 mmol/L (3.5-5.0); eGFR CKD-EPI 79.5 (>60)
[2023-05-23] MEDS ORDERED: Sodium Phosphate IV 15 MMOL in NS 0.9% 250 ml 250 ML IV ONE (08:10)
[2023-05-23] MEDS ORDERED: Magnesium Sulfate 2 gm BAG 2 GM/50 ML BAG IVPB ONE (08:11)
[2023-05-23] MEDS: PTO: Pancrelipase 36,000 units (NF) PO SCH ×3 (09:30→17:26)
[2023-05-23] MEDS ORDERED: Magnesium Sulfate IV 1GM/100ML 1 GM/100 ML BAG IV ONE (10:11)
[2023-05-23] MEDS ORDERED: Furosemide 20 mg/2 ml IV VIAL IV ONE (13:00)
[2023-05-23 16:58] LABS: Hematocrit 25.8 % (35-45); Hemoglobin 8.5 g/dL (11.5-14.3); Mean Corpuscular Hemoglobin 28.6 pg (27-33); Mean Corpuscular Hgb Conc 32.7 g/dL (31-36); Mean Corpuscular Volume 87.5 fL (80-97); Mean Platelet Volume 7.8 fL (7.5-11.2); Platelet Count 380 10^3/uL (150-450); Red Blood Count 2.95 10^6/uL (3.63-4.92); Red Cell Distribution Width 15.5 % (12-17); White Blood Count 14.5 10^3/uL (3.8-11.8)
[2023-05-23] MEDS: Insulin GLARGINE 100 un/ml 10 ml VIAL SUBCUT SCH (21:04)
[2023-05-24] MEDS: ceFAZolin 2 GM in NS PREMIX 2 GM/100 ML BAG IVPB SCH ×3 (01:55→17:23)
[2023-05-24 07:07] LABS: ABS Basophils 0.1 10^3/uL (0.0-0.1); ABS Eosinophils 0.3 10^3/uL (0.0-0.5); ABS Monocytes 0.6 10^3/uL (0.0-0.9); ABS Neutrophils 11.5 10^3/uL (1.5-7.6); Hematocrit 24.6 % (35-45); Hemoglobin 8.1 g/dL (11.5-14.3); Lymphocyte % 7.5 %; Mean Corpuscular Hemoglobin 28.8 pg (27-33); Mean Corpuscular Volume 87.2 fL (80-97); Platelet Count 425 10^3/uL (150-450); Red Blood Count 2.82 10^6/uL (3.63-4.92); White Blood Count 13.5 10^3/uL (3.8-11.8)
[2023-05-24 07:08] LABS: Eosinophil % 2.4 %
[2023-05-24 07:28] LABS: Calcium 7.9 mg/dL (8.6-10.3); Creatinine, Serum 0.83 mg/dL (0.51-0.95); Magnesium 1.9 mg/dL (1.9-2.7); Phosphorus 2.6 mg/dL (2.5-5.0); Potassium 4.9 mmol/L (3.5-5.0); eGFR CKD-EPI 80.7 (>60)
[2023-05-24] MEDS: PTO: Pancrelipase 36,000 units (NF) PO SCH ×3 (08:54→17:23)
[2023-05-24] MEDS ORDERED: Calcium Carb (TUMS) 500 mg CHEW TAB PO PRN (13:20)
[2023-05-24] MEDS: Albuterol HFA INHALER 8 gm MDI INH PRN ×2 (17:52→23:23)
[2023-05-24] MEDS: Insulin GLARGINE 100 un/ml 10 ml VIAL SUBCUT SCH (22:32)
[2023-05-25] MEDS: ceFAZolin 2 GM in NS PREMIX 2 GM/100 ML BAG IVPB SCH ×2 (01:56→08:13)
[2023-05-25 06:07] VITALS: BP 145/60
[2023-05-25 08:11] LABS: ABS Basophils 0.1 10^3/uL (0.0-0.1); ABS Eosinophils 0.3 10^3/uL (0.0-0.5); ABS Lymphocytes 0.9 10^3/uL (1.0-4.8); ABS Monocytes 0.6 10^3/uL (0.0-0.9); ABS Neutrophils 11.5 10^3/uL (1.5-7.6); ABS Nucleated RBC 0.01 10^3/ul; Eosinophil % 2.1 %; Hematocrit 24.3 % (35-45); Lymphocyte % 6.9 %; Mean Corpuscular Hemoglobin 28.9 pg (27-33); Mean Corpuscular Volume 87.5 fL (80-97); Mean Platelet Volume 7.9 fL (7.5-11.2); Nucleated Red Blood Cells % 0.1 %/100WBC (0.0-0.8); Platelet Count 428 10^3/uL (150-450); Red Blood Count 2.78 10^6/uL (3.63-4.92); White Blood Count 13.4 10^3/uL (3.8-11.8)
[2023-05-25] MEDS: PTO: Pancrelipase 36,000 units (NF) PO SCH (08:14)
[2023-05-25 08:31] LABS: Calcium 8.3 mg/dL (8.6-10.3); Creatinine, Serum 0.92 mg/dL (0.51-0.95); Magnesium 1.6 mg/dL (1.9-2.7); Phosphorus 2.6 mg/dL (2.5-5.0); Potassium 4.7 mmol/L (3.5-5.0); eGFR CKD-EPI 71.3 (>60)
[2023-05-25] MEDS ORDERED: Magnesium Sulfate 2 gm BAG 2 GM/50 ML BAG IVPB ONE (08:45)
[2023-05-25 11:37] LABS: C Reactive Protein 48.22 mg/L (<8.01)
== END 2023-05-25 11:15 | DRG 710 ==
LOC: EDHOLD 20:46 → ED 20:46 → SUATTDRO 05-18 00:42 → SSU 05-18 03:20 → MEDTELE 05-18 11:30 → SSU 05-19 16:18
PROVIDERS: ADMIT Internal Medicine; ATTEND Internal Medicine
PROC: O.ORAMP (2023-05-19 15:30)

== ENCOUNTER 2023-05-25 07:55 | Inpatient (IN) ==
[2023-05-25] MEDS ORDERED: Senna TAB 8.6 mg TAB PO PRN (11:59)
[2023-05-25] MEDS ORDERED: Dextrose 50% Syringe 50 ml 25 GM/50 ML SYRINGE IV PUSH PRN (12:17)
[2023-05-25] MEDS: PTO:Pancrelipase 36,000 units (NF) PO SCH ×2 (13:50→17:41)
[2023-05-25] MEDS: ceFAZolin 2 GM in NS PREMIX 2 GM/100 ML BAG IVPB SCH ×2 (16:11→23:41)
[2023-05-25] MEDS ORDERED: Insulin GLARGINE 100 un/ml 10 ml VIAL SUBCUT SCH (21:00)
[2023-05-26] MEDS: PTO:Pancrelipase 36,000 units (NF) PO SCH ×3 (08:34→17:36)
[2023-05-26] MEDS: ceFAZolin 2 GM in NS PREMIX 2 GM/100 ML BAG IVPB SCH ×2 (08:40→17:34)
[2023-05-26] MEDS: Insulin GLARGINE 100 un/ml 10 ml VIAL SUBCUT SCH (21:01)
[2023-05-27] MEDS: ceFAZolin 2 GM in NS PREMIX 2 GM/100 ML BAG IVPB SCH (00:25)
[2023-05-27] MEDS: PTO:Pancrelipase 36,000 units (NF) PO SCH ×3 (08:47→16:56)
[2023-05-27 08:55] LABS: ABS Basophils 0.1 10^3/uL (0.0-0.1); ABS Eosinophils 0.3 10^3/uL (0.0-0.5); ABS Lymphocytes 0.7 10^3/uL (1.0-4.8); ABS Monocytes 0.4 10^3/uL (0.0-0.9); ABS Neutrophils 10.3 10^3/uL (1.5-7.6); Eosinophil % 2.7 %; Hematocrit 23.6 % (35-45); Hemoglobin 7.8 g/dL (11.5-14.3); Lymphocyte % 6.2 %; Mean Corpuscular Hemoglobin 29.1 pg (27-33); Mean Platelet Volume 7.9 fL (7.5-11.2); Platelet Count 469 10^3/uL (150-450); Red Blood Count 2.68 10^6/uL (3.63-4.92); Red Cell Distribution Width 16.1 % (12-17); White Blood Count 11.8 10^3/uL (3.8-11.8)
[2023-05-27] MEDS: ceFAZolin 2 GM PREMIX 2 GM/50 ML BAG IV SCH ×2 (09:14→16:42)
[2023-05-27] MEDS: Mometasone/Formoter 200/5 MDI INH SCH ×2 (09:27→20:53)
[2023-05-27 09:50] LABS: Anion Gap 4 mmol/L (2-16); Blood Urea Nitrogen 31 mg/dL (6-24); CO2 Carbon Dioxide 30 mmol/L (22-32); Calcium 8.6 mg/dL (8.6-10.3); Chloride 101 mmol/L (101-111); Creatinine, Serum 1.04 mg/dL (0.51-0.95); Glucose 163 mg/dL (70-100); Potassium 4.6 mmol/L (3.5-5.0); Sodium 135 mmol/L (135-145); eGFR CKD-EPI 61.5 (>60)
[2023-05-27 10:00] LABS: ALT < 3 U/L (7-52); AST 8 U/L (13-39); Albumin 2.5 g/dL (3.2-5.2); Albumin/Globulin Ratio 0.6 (1-3); Alkaline Phosphatase 45 U/L (35-149); Globulin 4.3 g/dL (2-4); Magnesium 1.4 mg/dL (1.9-2.7); Total Bilirubin 0.2 mg/dL (0.2-1.0); Total Protein 6.8 g/dL (6.4-8.9)
[2023-05-27] MEDS ORDERED: Magnesium Sulf 4 GM/100 ML IV 4,000 MG/100 ML BAG IVPB ONE (10:45)
[2023-05-27] MEDS: Nystatin TOP POWDER 15 GM BTL TOPICAL SCH ×2 (16:54→20:53)
[2023-05-27] MEDS: Insulin GLARGINE 100 un/ml 10 ml VIAL SUBCUT SCH (20:52)
[2023-05-28] MEDS: ceFAZolin 2 GM PREMIX 2 GM/50 ML BAG IV SCH ×3 (00:43→16:07)
[2023-05-28] MEDS: Mometasone/Formoter 200/5 MDI INH SCH ×2 (08:12→17:18)
[2023-05-28] MEDS: PTO:Pancrelipase 36,000 units (NF) PO SCH ×3 (08:15→17:02)
[2023-05-28] MEDS: Nystatin TOP POWDER 15 GM BTL TOPICAL SCH ×3 (08:23→21:13)
[2023-05-28] MEDS ORDERED: Albuterol HFA INHALER 8 gm MDI INH PRN (19:20)
[2023-05-28] MEDS: Insulin GLARGINE 100 un/ml 10 ml VIAL SUBCUT SCH (21:10)
[2023-05-28] MEDS: Albuterol HFA INHALER 8 gm MDI INH PRN (23:15)
[2023-05-29] MEDS: ceFAZolin 2 GM PREMIX 2 GM/50 ML BAG IV SCH ×4 (00:33→16:00)
[2023-05-29] MEDS: Albuterol HFA INHALER 8 gm MDI INH PRN ×2 (06:08→16:33)
[2023-05-29 06:36] LABS: ABS Basophils 0.1 10^3/uL (0.0-0.1); ABS Eosinophils 0.2 10^3/uL (0.0-0.5); ABS Lymphocytes 0.9 10^3/uL (1.0-4.8); ABS Monocytes 0.5 10^3/uL (0.0-0.9); ABS Neutrophils 9.8 10^3/uL (1.5-7.6); ABS Nucleated RBC 0.01 10^3/ul; Eosinophil % 2.1 %; Hematocrit 21.6 % (35-45); Hemoglobin 7.1 g/dL (11.5-14.3); Lymphocyte % 7.6 %; Mean Corpuscular Hemoglobin 28.6 pg (27-33); Mean Corpuscular Hgb Conc 32.8 g/dL (31-36); Mean Corpuscular Volume 87.3 fL (80-97); Mean Platelet Volume 8.1 fL (7.5-11.2); Nucleated Red Blood Cells % 0.1 %/100WBC (0.0-0.8); Platelet Count 394 10^3/uL (150-450); Red Blood Count 2.48 10^6/uL (3.63-4.92); White Blood Count 11.5 10^3/uL (3.8-11.8)
[2023-05-29 06:54] LABS: Calcium 8.7 mg/dL (8.6-10.3); Creatinine, Serum 1.18 mg/dL (0.51-0.95); Magnesium 1.8 mg/dL (1.9-2.7); eGFR CKD-EPI 52.9 (>60)
[2023-05-29] MEDS: PTO:Pancrelipase 36,000 units (NF) PO SCH ×3 (07:21→20:14)
[2023-05-29] MEDS: Mometasone/Formoter 200/5 MDI INH SCH ×2 (08:55→22:13)
[2023-05-29] MEDS: Nystatin TOP POWDER 15 GM BTL TOPICAL SCH ×3 (09:00→22:15)
[2023-05-29] MEDS ORDERED: Magnesium Sulfate IV 1GM/100ML 1 GM/100 ML BAG IV ONE (09:11)
[2023-05-29] MEDS ORDERED: Ondansetron ODT 4 mg TAB 4 MG TAB SL PRN (09:22)
[2023-05-29] MEDS: Fluticasone NASAL SPRAY 50MCG 16 gm SPRAY BTL BOTH NARES SCH (10:08)
[2023-05-29] MEDS ORDERED: Furosemide 20 mg/2 ml IV VIAL IV ONE (10:29)
[2023-05-29 12:08] LABS: Ferritin 543.9 ng/mL (11-307)
[2023-05-29 12:12] LABS: Folate 4.71 ng/mL (5.90-24.80)
[2023-05-29] MEDS ORDERED: Calcium Carb (TUMS) 500 mg CHEW TAB PO PRN (17:34)
[2023-05-29] MEDS ORDERED: Furosemide 20 mg/2 ml IV VIAL IV SLOW PU ONE (22:00)
[2023-05-29] MEDS: Insulin GLARGINE 100 un/ml 10 ml VIAL SUBCUT SCH (22:14)
[2023-05-30] MEDS: ceFAZolin 2 GM PREMIX 2 GM/50 ML BAG IV SCH ×3 (00:02→16:01)
[2023-05-30] MEDS: Nystatin TOP POWDER 15 GM BTL TOPICAL SCH ×4 (06:33→21:56)
[2023-05-30] MEDS: PTO:Pancrelipase 36,000 units (NF) PO SCH ×3 (08:25→17:14)
[2023-05-30] MEDS: Fluticasone NASAL SPRAY 50MCG 16 gm SPRAY BTL BOTH NARES SCH (08:35)
[2023-05-30] MEDS: Mometasone/Formoter 200/5 MDI INH SCH ×2 (08:35→21:53)
[2023-05-30 08:36] LABS: ABS Basophils 0.1 10^3/uL (0.0-0.1); ABS Eosinophils 0.3 10^3/uL (0.0-0.5); ABS Lymphocytes 0.8 10^3/uL (1.0-4.8); ABS Monocytes 0.4 10^3/uL (0.0-0.9); ABS Neutrophils 9.5 10^3/uL (1.5-7.6); Eosinophil % 2.4 %; Hematocrit 28.5 % (35-45); Hemoglobin 9.6 g/dL (11.5-14.3); Lymphocyte % 7.3 %; Mean Corpuscular Hemoglobin 29.1 pg (27-33); Mean Corpuscular Hgb Conc 33.7 g/dL (31-36); Mean Corpuscular Volume 86.5 fL (80-97); Mean Platelet Volume 7.9 fL (7.5-11.2); Platelet Count 391 10^3/uL (150-450); Red Cell Distribution Width 16.2 % (12-17); White Blood Count 11.1 10^3/uL (3.8-11.8)
[2023-05-30 08:52] LABS: Calcium 8.9 mg/dL (8.6-10.3); Creatinine, Serum 1.15 mg/dL (0.51-0.95); Magnesium 1.7 mg/dL (1.9-2.7); Potassium 4.8 mmol/L (3.5-5.0); eGFR CKD-EPI 54.5 (>60)
[2023-05-30] MEDS ORDERED: Magnesium Sulfate 2 gm BAG 2 GM/50 ML BAG IVPB ONE (09:15)
[2023-05-30] MEDS ORDERED: Magnesium Sulfate IV 1GM/100ML 1 GM/100 ML BAG IV ONE (11:15)
[2023-05-30] MEDS: Albuterol HFA INHALER 8 gm MDI INH PRN (14:59)
[2023-05-30] MEDS: Insulin GLARGINE 100 un/ml 10 ml VIAL SUBCUT SCH (21:57)
[2023-05-31] MEDS: Albuterol HFA INHALER 8 gm MDI INH PRN ×2 (09:13→17:10)
[2023-05-31] MEDS: Mometasone/Formoter 200/5 MDI INH SCH ×2 (09:14→19:09)
[2023-05-31] MEDS: PTO:Pancrelipase 36,000 units (NF) PO SCH ×3 (09:16→16:47)
[2023-05-31] MEDS: Fluticasone NASAL SPRAY 50MCG 16 gm SPRAY BTL BOTH NARES SCH (09:19)
[2023-05-31] MEDS: ceFAZolin 2 GM PREMIX 2 GM/50 ML BAG IV SCH ×3 (09:26→16:45)
[2023-05-31] MEDS: Nystatin TOP POWDER 15 GM BTL TOPICAL SCH ×3 (11:58→21:11)
[2023-05-31] MEDS: Insulin GLARGINE 100 un/ml 10 ml VIAL SUBCUT SCH (21:11)
[2023-06-01] MEDS: ceFAZolin 2 GM PREMIX 2 GM/50 ML BAG IV SCH ×4 (00:02→23:56)
[2023-06-01] MEDS: PTO:Pancrelipase 36,000 units (NF) PO SCH ×3 (08:16→16:52)
[2023-06-01] MEDS: Nystatin TOP POWDER 15 GM BTL TOPICAL SCH ×3 (08:18→21:10)
[2023-06-01] MEDS: Mometasone/Formoter 200/5 MDI INH SCH ×2 (08:25→19:30)
[2023-06-01 09:11] LABS: ABS Basophils 0.1 10^3/uL (0.0-0.1); ABS Eosinophils 0.2 10^3/uL (0.0-0.5); ABS Lymphocytes 0.8 10^3/uL (1.0-4.8); ABS Monocytes 0.5 10^3/uL (0.0-0.9); ABS Neutrophils 8.5 10^3/uL (1.5-7.6); Eosinophil % 2.5 %; Hematocrit 28.9 % (35-45); Hemoglobin 9.7 g/dL (11.5-14.3); Lymphocyte % 7.9 %; Mean Corpuscular Hemoglobin 29.2 pg (27-33); Mean Corpuscular Hgb Conc 33.6 g/dL (31-36); Mean Platelet Volume 8.2 fL (7.5-11.2); Platelet Count 365 10^3/uL (150-450); Red Blood Count 3.33 10^6/uL (3.63-4.92); Red Cell Distribution Width 15.9 % (12-17); White Blood Count 10.1 10^3/uL (3.8-11.8)
[2023-06-01 09:19] LABS: Calcium 8.7 mg/dL (8.6-10.3); Creatinine, Serum 1.42 mg/dL (0.51-0.95); Magnesium 1.8 mg/dL (1.9-2.7); Potassium 4.9 mmol/L (3.5-5.0); eGFR CKD-EPI 42.3 (>60)
[2023-06-01 09:33] LABS: Folate 8.47 ng/mL (5.90-24.80)
[2023-06-01] MEDS: Fluticasone NASAL SPRAY 50MCG 16 gm SPRAY BTL BOTH NARES SCH (09:53)
[2023-06-01] MEDS: Albuterol HFA INHALER 8 gm MDI INH PRN (17:40)
[2023-06-01] MEDS: Insulin GLARGINE 100 un/ml 10 ml VIAL SUBCUT SCH (21:10)
[2023-06-02] MEDS: PTO:Pancrelipase 36,000 units (NF) PO SCH ×3 (08:13→17:03)
[2023-06-02] MEDS: Mometasone/Formoter 200/5 MDI INH SCH ×2 (08:24→21:04)
[2023-06-02] MEDS: Fluticasone NASAL SPRAY 50MCG 16 gm SPRAY BTL BOTH NARES SCH (08:26)
[2023-06-02] MEDS: Nystatin TOP POWDER 15 GM BTL TOPICAL SCH ×3 (08:43→21:08)
[2023-06-02] MEDS: ceFAZolin 2 GM PREMIX 2 GM/50 ML BAG IV SCH ×3 (09:01→23:57)
[2023-06-02] MEDS: Albuterol HFA INHALER 8 gm MDI INH PRN ×2 (17:04→23:14)
[2023-06-02] MEDS: Insulin GLARGINE 100 un/ml 10 ml VIAL SUBCUT SCH (21:07)
[2023-06-03] MEDS: Albuterol HFA INHALER 8 gm MDI INH PRN ×2 (08:21→20:25)
[2023-06-03] MEDS: Mometasone/Formoter 200/5 MDI INH SCH ×2 (08:22→19:56)
[2023-06-03] MEDS: PTO:Pancrelipase 36,000 units (NF) PO SCH ×3 (08:29→17:00)
[2023-06-03] MEDS: Fluticasone NASAL SPRAY 50MCG 16 gm SPRAY BTL BOTH NARES SCH (08:32)
[2023-06-03] MEDS: Nystatin TOP POWDER 15 GM BTL TOPICAL SCH ×4 (08:33→20:14)
[2023-06-03 09:09] LABS: ABS Basophils 0.1 10^3/uL (0.0-0.1); ABS Eosinophils 0.2 10^3/uL (0.0-0.5); ABS Lymphocytes 0.6 10^3/uL (1.0-4.8); ABS Monocytes 0.4 10^3/uL (0.0-0.9); ABS Neutrophils 7.2 10^3/uL (1.5-7.6); ABS Nucleated RBC 0.01 10^3/ul; Eosinophil % 2.5 %; Hematocrit 27.8 % (35-45); Hemoglobin 9.3 g/dL (11.5-14.3); Lymphocyte % 7.4 %; Mean Corpuscular Hemoglobin 29.1 pg (27-33); Mean Corpuscular Hgb Conc 33.3 g/dL (31-36); Mean Corpuscular Volume 87.4 fL (80-97); Mean Platelet Volume 8.2 fL (7.5-11.2); Nucleated Red Blood Cells % 0.1 %/100WBC (0.0-0.8); Platelet Count 266 10^3/uL (150-450); Red Blood Count 3.18 10^6/uL (3.63-4.92); Red Cell Distribution Width 16.1 % (12-17); White Blood Count 8.6 10^3/uL (3.8-11.8)
[2023-06-03 09:33] LABS: Anion Gap 7 mmol/L (2-16); Blood Urea Nitrogen 62 mg/dL (6-24); CO2 Carbon Dioxide 24 mmol/L (22-32); Calcium 8.4 mg/dL (8.6-10.3); Chloride 103 mmol/L (101-111); Glucose 186 mg/dL (70-100); Potassium 4.9 mmol/L (3.5-5.0); Sodium 134 mmol/L (135-145); eGFR CKD-EPI 31.9 (>60)
[2023-06-03 09:40] LABS: ALT < 3 U/L (7-52); AST 10 U/L (13-39); Albumin 2.7 g/dL (3.2-5.2); Albumin/Globulin Ratio 0.7 (1-3); Alkaline Phosphatase 58 U/L (35-149); Globulin 3.9 g/dL (2-4); Magnesium 1.4 mg/dL (1.9-2.7); Total Bilirubin 0.2 mg/dL (0.2-1.0); Total Protein 6.6 g/dL (6.4-8.9)
[2023-06-03] MEDS: ceFAZolin 2 GM PREMIX 2 GM/50 ML BAG IV SCH ×2 (10:21→16:21)
[2023-06-03] MEDS ORDERED: Magnesium Sulfate 2 gm BAG 2 GM/50 ML BAG IVPB ONE (11:43)
[2023-06-03] MEDS: NS 0.9% 1000 ml BAG 1,000 ML IV SCH (17:02)
[2023-06-03] MEDS ORDERED: Insulin GLARGINE 100 un/ml 10 ml VIAL SUBCUT ONE (21:11)
[2023-06-03] MEDS: Insulin GLARGINE 100 un/ml 10 ml VIAL SUBCUT SCH (21:24)
[2023-06-03 21:51] LABS: C Reactive Protein 6.21 mg/L (<8.01)
[2023-06-04] MEDS: NS 0.9% 1000 ml BAG 1,000 ML IV SCH (06:03)
[2023-06-04] MEDS: PTO:Pancrelipase 36,000 units (NF) PO SCH ×3 (08:59→19:24)
[2023-06-04] MEDS: Albuterol HFA INHALER 8 gm MDI INH PRN ×3 (09:54→22:21)
[2023-06-04] MEDS: Fluticasone NASAL SPRAY 50MCG 16 gm SPRAY BTL BOTH NARES SCH (09:56)
[2023-06-04] MEDS: Mometasone/Formoter 200/5 MDI INH SCH ×2 (09:56→19:06)
[2023-06-04] MEDS: Nystatin TOP POWDER 15 GM BTL TOPICAL SCH (09:57)
[2023-06-04] MEDS: Insulin GLARGINE 100 un/ml 10 ml VIAL SUBCUT SCH (21:36)
[2023-06-05] MEDS: Albuterol HFA INHALER 8 gm MDI INH PRN ×4 (04:16→17:25)
[2023-06-05 08:43] LABS: Anion Gap 9 mmol/L (2-16); Blood Urea Nitrogen 61 mg/dL (6-24); CO2 Carbon Dioxide 24 mmol/L (22-32); Calcium 8.7 mg/dL (8.6-10.3); Chloride 104 mmol/L (101-111); Creatinine, Serum 1.84 mg/dL (0.51-0.95); Glucose 168 mg/dL (70-100); Sodium 137 mmol/L (135-145)
[2023-06-05 08:44] LABS: ALT < 3 U/L (7-52); AST 8 U/L (13-39); Albumin 2.9 g/dL (3.2-5.2); Albumin/Globulin Ratio 0.7 (1-3); Alkaline Phosphatase 50 U/L (35-149); Globulin 4.2 g/dL (2-4); Magnesium 1.5 mg/dL (1.9-2.7); Total Bilirubin 0.2 mg/dL (0.2-1.0); Total Protein 7.1 g/dL (6.4-8.9)
[2023-06-05] MEDS: Mometasone/Formoter 200/5 MDI INH SCH ×2 (08:53→19:05)
[2023-06-05] MEDS: Fluticasone NASAL SPRAY 50MCG 16 gm SPRAY BTL BOTH NARES SCH (08:56)
[2023-06-05] MEDS: PTO:Pancrelipase 36,000 units (NF) PO SCH ×3 (08:57→17:20)
[2023-06-05] MEDS ORDERED: Magnesium Sulfate 2 gm BAG 2 GM/50 ML BAG IVPB ONE (21:30)
[2023-06-05] MEDS: Insulin GLARGINE 100 un/ml 10 ml VIAL SUBCUT SCH (22:29)
[2023-06-06] MEDS: Albuterol HFA INHALER 8 gm MDI INH PRN ×5 (00:04→23:36)
[2023-06-06] MEDS: Mometasone/Formoter 200/5 MDI INH SCH ×2 (08:48→19:28)
[2023-06-06] MEDS: PTO:Pancrelipase 36,000 units (NF) PO SCH ×3 (08:48→18:01)
[2023-06-06] MEDS: Fluticasone NASAL SPRAY 50MCG 16 gm SPRAY BTL BOTH NARES SCH (08:49)
[2023-06-06] MEDS: Insulin GLARGINE 100 un/ml 10 ml VIAL SUBCUT SCH (20:10)
[2023-06-07] MEDS: Albuterol HFA INHALER 8 gm MDI INH PRN ×4 (07:18→21:29)
[2023-06-07] MEDS: Mometasone/Formoter 200/5 MDI INH SCH ×2 (07:19→19:02)
[2023-06-07 07:51] LABS: Calcium 8.9 mg/dL (8.6-10.3); Creatinine, Serum 1.54 mg/dL (0.51-0.95); Magnesium 1.6 mg/dL (1.9-2.7); Potassium 5.6 mmol/L (3.5-5.0); eGFR CKD-EPI 38.4 (>60)
[2023-06-07] MEDS: PTO:Pancrelipase 36,000 units (NF) PO SCH ×3 (08:59→17:08)
[2023-06-07] MEDS: Fluticasone NASAL SPRAY 50MCG 16 gm SPRAY BTL BOTH NARES SCH (09:00)
[2023-06-07] MEDS ORDERED: SODIUM ZIRCONIUM CYCLOSILICATE 5 GM PACKET PO ONE (12:26)
[2023-06-07] MEDS ORDERED: Magnesium Sulfate 2 gm BAG 2 GM/50 ML BAG IVPB ONE (12:55)
[2023-06-07] MEDS: Insulin GLARGINE 100 un/ml 10 ml VIAL SUBCUT SCH (21:40)
[2023-06-08] MEDS: Albuterol HFA INHALER 8 gm MDI INH PRN ×4 (01:04→19:57)
[2023-06-08] MEDS: Mometasone/Formoter 200/5 MDI INH SCH ×2 (08:44→19:58)
[2023-06-08] MEDS: PTO:Pancrelipase 36,000 units (NF) PO SCH ×4 (08:47→21:33)
[2023-06-08] MEDS: Fluticasone NASAL SPRAY 50MCG 16 gm SPRAY BTL BOTH NARES SCH (08:51)
[2023-06-08 09:18] LABS: Calcium 9.3 mg/dL (8.6-10.3); Creatinine, Serum 1.46 mg/dL (0.51-0.95); Magnesium 1.9 mg/dL (1.9-2.7); Potassium 5.5 mmol/L (3.5-5.0)
[2023-06-08] MEDS ORDERED: Furosemide 40 mg/4 ml IV VIAL IV SLOW PU ONE (12:38)
[2023-06-08] MEDS ORDERED: Albuterol HFA INHALER 8 gm MDI INH ONE (16:24)
[2023-06-08] MEDS: Insulin GLARGINE 100 un/ml 10 ml VIAL SUBCUT SCH (21:33)
[2023-06-09] MEDS: Albuterol HFA INHALER 8 gm MDI INH PRN ×4 (05:16→16:41)
[2023-06-09 06:22] VITALS: BP 171/89
[2023-06-09 07:13] LABS: Calcium 9.1 mg/dL (8.6-10.3); Creatinine, Serum 1.43 mg/dL (0.51-0.95); Potassium 5.3 mmol/L (3.5-5.0)
[2023-06-09] MEDS: PTO:Pancrelipase 36,000 units (NF) PO SCH ×2 (08:52→12:19)
[2023-06-09] MEDS ORDERED: Furosemide 40 mg/4 ml IV VIAL IV SLOW PU SCH (09:00)
[2023-06-09] MEDS: Mometasone/Formoter 200/5 MDI INH SCH (09:21)
[2023-06-09] MEDS: Fluticasone NASAL SPRAY 50MCG 16 gm SPRAY BTL BOTH NARES SCH (09:22)
[2023-06-09] MEDS ORDERED: Furosemide 40 mg/4 ml IV VIAL IV SLOW PU ONE (14:38)
== END 2023-06-09 16:40 | disposition short-term general hospital (02) | DRG 344 ==
LOC: PMRU 11:21
PROVIDERS: ADMIT Physical Medicine & Rehabilitation; ATTEND Physical Medicine & Rehabilitation

== ENCOUNTER 2023-06-09 15:00 | Inpatient (IN) ==
[~2023-06-09 15:00] MED LIST: Calcium Carb (TUMS) 500 mg CHEW TAB PO PRN; Dextrose 50% Syringe 50 ml 25 GM/50 ML SYRINGE IV PUSH PRN
[2023-06-09] MEDS ORDERED: Ondansetron ODT 4 mg TAB 4 MG TAB PO PRN (17:03)
[2023-06-09] MEDS: Albuterol HFA INHALER 8 gm MDI INH PRN (19:54)
[2023-06-09] MEDS: Mometasone/Formoter 200/5 MDI INH SCH (19:55)
[2023-06-09] MEDS: PTO: Pancrelipase 36,000 units (NF) PO SCH (20:14)
[2023-06-09] MEDS: Insulin GLARGINE 100 un/ml 10 ml VIAL SUBCUT SCH (22:12)
[2023-06-10 06:22] LABS: ABS Basophils 0.1 10^3/uL (0.0-0.1); ABS Eosinophils 0.3 10^3/uL (0.0-0.5); ABS Lymphocytes 0.8 10^3/uL (1.0-4.8); ABS Monocytes 0.5 10^3/uL (0.0-0.9); ABS Neutrophils 5.2 10^3/uL (1.5-7.6); Eosinophil % 3.9 %; Hematocrit 24.5 % (35-45); Hemoglobin 8.3 g/dL (11.5-14.3); Lymphocyte % 11.6 %; Mean Corpuscular Hemoglobin 29.8 pg (27-33); Mean Corpuscular Hgb Conc 33.8 g/dL (31-36); Mean Corpuscular Volume 88.3 fL (80-97); Mean Platelet Volume 8.7 fL (7.5-11.2); Nucleated Red Blood Cells % 0.1 %/100WBC (0.0-0.8); Platelet Count 226 10^3/uL (150-450); Red Blood Count 2.78 10^6/uL (3.63-4.92); Red Cell Distribution Width 16.9 % (12-17); White Blood Count 6.8 10^3/uL (3.8-11.8)
[2023-06-10 06:45] LABS: Calcium 9.1 mg/dL (8.6-10.3); Creatinine, Serum 1.44 mg/dL (0.51-0.95); Magnesium 1.6 mg/dL (1.9-2.7); Potassium 5.8 mmol/L (3.5-5.0); eGFR CKD-EPI 41.6 (>60)
[2023-06-10] MEDS: Albuterol HFA INHALER 8 gm MDI INH PRN ×3 (08:12→18:01)
[2023-06-10] MEDS: Mometasone/Formoter 200/5 MDI INH SCH ×2 (08:14→20:40)
[2023-06-10] MEDS ORDERED: Magnesium Sulfate 2 gm BAG 2 GM/50 ML BAG IVPB ONE (08:34)
[2023-06-10] MEDS: PTO: Pancrelipase 36,000 units (NF) PO SCH ×3 (09:56→17:41)
[2023-06-10] MEDS: Furosemide 40 mg/4 ml IV VIAL IV SLOW PU SCH ×4 (09:59→16:10)
[2023-06-10] MEDS: Sodium Polystyrene ORAL.SUSP 15 GM/60 ML BTL PO SCH ×3 (10:03→20:59)
[2023-06-10] MEDS: Fluticasone NASAL SPRAY 50MCG 16 gm SPRAY BTL BOTH NARES SCH (11:45)
[2023-06-10 15:16] LABS: Blood Urea Nitrogen 55 mg/dL (6-24); CO2 Carbon Dioxide 22 mmol/L (22-32); Calcium 8.7 mg/dL (8.6-10.3); Chloride 105 mmol/L (101-111); Creatinine, Serum 1.48 mg/dL (0.51-0.95); Glucose 252 mg/dL (70-100); Sodium 135 mmol/L (135-145); eGFR CKD-EPI 40.3 (>60)
[2023-06-10 15:17] LABS: Anion Gap 8 mmol/L (2-16)
[2023-06-10] MEDS: Insulin GLARGINE 100 un/ml 10 ml VIAL SUBCUT SCH (20:55)
[2023-06-11] MEDS: Albuterol HFA INHALER 8 gm MDI INH PRN ×4 (00:48→20:18)
[2023-06-11] MEDS: Sodium Polystyrene ORAL.SUSP 15 GM/60 ML BTL PO SCH (03:12)
[2023-06-11] MEDS: Mometasone/Formoter 200/5 MDI INH SCH ×2 (07:43→20:18)
[2023-06-11] MEDS: Fluticasone NASAL SPRAY 50MCG 16 gm SPRAY BTL BOTH NARES SCH (08:14)
[2023-06-11] MEDS: PTO: Pancrelipase 36,000 units (NF) PO SCH ×3 (08:23→16:36)
[2023-06-11] MEDS: Furosemide 40 mg/4 ml IV VIAL IV SLOW PU SCH ×2 (08:24→16:50)
[2023-06-11 09:06] LABS: C Reactive Protein 4.1 mg/L (<8.01); Calcium 9.2 mg/dL (8.6-10.3); Creatinine, Serum 1.48 mg/dL (0.51-0.95); Potassium 4.7 mmol/L (3.5-5.0); eGFR CKD-EPI 40.3 (>60)
[2023-06-11] MEDS: Insulin GLARGINE 100 un/ml 10 ml VIAL SUBCUT SCH (21:47)
[2023-06-12 07:04] LABS: Creatinine, Serum 1.47 mg/dL (0.51-0.95); Magnesium 1.6 mg/dL (1.9-2.7); Potassium 4.8 mmol/L (3.5-5.0); eGFR CKD-EPI 40.6 (>60)
[2023-06-12] MEDS: Mometasone/Formoter 200/5 MDI INH SCH ×2 (07:33→19:54)
[2023-06-12] MEDS: Albuterol HFA INHALER 8 gm MDI INH PRN ×3 (07:33→21:11)
[2023-06-12] MEDS: Fluticasone NASAL SPRAY 50MCG 16 gm SPRAY BTL BOTH NARES SCH (08:44)
[2023-06-12] MEDS: PTO: Pancrelipase 36,000 units (NF) PO SCH ×3 (08:44→17:31)
[2023-06-12] MEDS: Furosemide 40 mg/4 ml IV VIAL IV SLOW PU SCH ×2 (08:57→17:38)
[2023-06-12] MEDS: Insulin GLARGINE 100 un/ml 10 ml VIAL SUBCUT SCH (21:04)
[2023-06-13 07:07] LABS: ABS Basophils 0.1 10^3/uL (0.0-0.1); ABS Eosinophils 0.3 10^3/uL (0.0-0.5); ABS Lymphocytes 0.7 10^3/uL (1.0-4.8); ABS Monocytes 0.6 10^3/uL (0.0-0.9); ABS Neutrophils 6.4 10^3/uL (1.5-7.6); Eosinophil % 3.4 %; Hematocrit 23.2 % (35-45); Hemoglobin 7.8 g/dL (11.5-14.3); Mean Corpuscular Hemoglobin 29.6 pg (27-33); Mean Corpuscular Hgb Conc 33.6 g/dL (31-36); Mean Corpuscular Volume 88.2 fL (80-97); Mean Platelet Volume 8.8 fL (7.5-11.2); Platelet Count 213 10^3/uL (150-450); Red Blood Count 2.63 10^6/uL (3.63-4.92); Red Cell Distribution Width 16.9 % (12-17)
[2023-06-13] MEDS: Mometasone/Formoter 200/5 MDI INH SCH ×2 (07:09→19:47)
[2023-06-13 07:24] LABS: Calcium 8.8 mg/dL (8.6-10.3); Creatinine, Serum 1.54 mg/dL (0.51-0.95); Magnesium 1.4 mg/dL (1.9-2.7); Potassium 4.7 mmol/L (3.5-5.0); eGFR CKD-EPI 38.4 (>60)
[2023-06-13] MEDS: PTO: Pancrelipase 36,000 units (NF) PO SCH ×3 (08:10→16:42)
[2023-06-13] MEDS: Fluticasone NASAL SPRAY 50MCG 16 gm SPRAY BTL BOTH NARES SCH (08:13)
[2023-06-13] MEDS: Furosemide 40 mg/4 ml IV VIAL IV SLOW PU SCH ×2 (08:18→15:39)
[2023-06-13] MEDS ORDERED: Magnesium Sulf 4 GM/100 ML IV 4,000 MG/100 ML BAG IVPB ONE (08:18)
[2023-06-13] MEDS: Albuterol HFA INHALER 8 gm MDI INH PRN ×3 (08:19→20:11)
[2023-06-13] MEDS: Insulin GLARGINE 100 un/ml 10 ml VIAL SUBCUT SCH (20:09)
[2023-06-14 06:24] LABS: ABS Basophils 0.1 10^3/uL (0.0-0.1); ABS Eosinophils 0.3 10^3/uL (0.0-0.5); ABS Lymphocytes 0.8 10^3/uL (1.0-4.8); ABS Monocytes 0.5 10^3/uL (0.0-0.9); ABS Neutrophils 5.4 10^3/uL (1.5-7.6); Eosinophil % 4.9 %; Hematocrit 22.8 % (35-45); Hemoglobin 7.7 g/dL (11.5-14.3); Lymphocyte % 11.4 %; Mean Corpuscular Hemoglobin 29.6 pg (27-33); Mean Corpuscular Hgb Conc 33.6 g/dL (31-36); Mean Platelet Volume 8.8 fL (7.5-11.2); Nucleated Red Blood Cells % 0.1 %/100WBC (0.0-0.8); Platelet Count 211 10^3/uL (150-450); Red Blood Count 2.59 10^6/uL (3.63-4.92); Red Cell Distribution Width 17.1 % (12-17); White Blood Count 7.1 10^3/uL (3.8-11.8)
[2023-06-14 06:41] LABS: Calcium 8.9 mg/dL (8.6-10.3); Creatinine, Serum 1.51 mg/dL (0.51-0.95); Magnesium 2.1 mg/dL (1.9-2.7); Potassium 4.4 mmol/L (3.5-5.0); eGFR CKD-EPI 39.3 (>60)
[2023-06-14] MEDS: Mometasone/Formoter 200/5 MDI INH SCH ×2 (07:51→19:44)
[2023-06-14] MEDS: PTO: Pancrelipase 36,000 units (NF) PO SCH ×3 (09:15→17:17)
[2023-06-14] MEDS: Fluticasone NASAL SPRAY 50MCG 16 gm SPRAY BTL BOTH NARES SCH (09:23)
[2023-06-14] MEDS: Furosemide 40 mg/4 ml IV VIAL IV SLOW PU SCH (09:42)
[2023-06-14] MEDS ORDERED: Furosemide 40 mg/4 ml IV VIAL IV SLOW PU SCH (15:00)
[2023-06-14] MEDS ORDERED: Furosemide 40 mg/4 ml IV VIAL IV ONE (17:25)
[2023-06-14] MEDS: Albuterol HFA INHALER 8 gm MDI INH PRN (19:43)
[2023-06-14] MEDS ORDERED: Insulin GLARGINE 100 un/ml 10 ml VIAL ONE (22:17)
[2023-06-14] MEDS: Insulin GLARGINE 100 un/ml 10 ml VIAL SUBCUT SCH (22:18)
[2023-06-15 06:32] LABS: Hemoglobin 7.8 g/dL (11.5-14.3); Mean Corpuscular Hemoglobin 29.9 pg (27-33); Mean Corpuscular Hgb Conc 33.9 g/dL (31-36); Mean Corpuscular Volume 88.1 fL (80-97); Mean Platelet Volume 8.8 fL (7.5-11.2); Platelet Count 205 10^3/uL (150-450); Red Blood Count 2.61 10^6/uL (3.63-4.92); White Blood Count 7.3 10^3/uL (3.8-11.8)
[2023-06-15 06:47] LABS: Calcium 8.6 mg/dL (8.6-10.3); Creatinine, Serum 1.52 mg/dL (0.51-0.95); Magnesium 1.8 mg/dL (1.9-2.7); Potassium 4.2 mmol/L (3.5-5.0)
[2023-06-15 06:50] LABS: ABS Basophils 0.1 10^3/uL (0.0-0.1); ABS Eosinophils 0.4 10^3/uL (0.0-0.5); ABS Lymphocytes 0.8 10^3/uL (1.0-4.8); ABS Monocytes 0.5 10^3/uL (0.0-0.9); ABS Neutrophils 5.7 10^3/uL (1.5-7.6); Eosinophil % 4.8 %; Lymphocyte % 10.2 %
[2023-06-15] MEDS: Mometasone/Formoter 200/5 MDI INH SCH ×2 (07:42→19:30)
[2023-06-15] MEDS: Albuterol HFA INHALER 8 gm MDI INH PRN ×2 (07:42→17:15)
[2023-06-15] MEDS: PTO: Pancrelipase 36,000 units (NF) PO SCH ×4 (07:45→22:40)
[2023-06-15] MEDS: Fluticasone NASAL SPRAY 50MCG 16 gm SPRAY BTL BOTH NARES SCH (07:46)
[2023-06-15] MEDS: Furosemide 40 mg/4 ml IV VIAL IV SLOW PU SCH ×2 (07:46→19:53)
[2023-06-15] MEDS ORDERED: Magnesium Sulf 4 GM/100 ML IV 4,000 MG/100 ML BAG IVPB ONE (08:28)
[2023-06-15] MEDS ORDERED: Senna TAB 8.6 mg TAB PO PRN (17:32)
[2023-06-15] MEDS ORDERED: Polyethylene Glycol 3350 17 GM PACKET PO PRN (17:32)
[2023-06-15] MEDS ORDERED: Magnesium Hydroxide LIQ 30 ML UDC PO PRN (17:32)
[2023-06-15] MEDS: Insulin GLARGINE 100 un/ml 10 ml VIAL SUBCUT SCH (22:11)
[2023-06-16] MEDS: Mometasone/Formoter 200/5 MDI INH SCH ×2 (07:34→19:28)
[2023-06-16] MEDS ORDERED: Furosemide 40 mg/4 ml IV VIAL IV SLOW PU SCH ×2 (09:00)
[2023-06-16] MEDS: PTO: Pancrelipase 36,000 units (NF) PO SCH ×3 (09:05→16:55)
[2023-06-16] MEDS: Fluticasone NASAL SPRAY 50MCG 16 gm SPRAY BTL BOTH NARES SCH (09:06)
[2023-06-16] MEDS: Ferric Gluconate IV 125 MG in NS 0.9% 100 ml BAG 100 ML IVPB SCH (09:33)
[2023-06-16 11:37] LABS: Calcium 8.8 mg/dL (8.6-10.3); Creatinine, Serum 1.57 mg/dL (0.51-0.95); Potassium 3.9 mmol/L (3.5-5.0); eGFR CKD-EPI 37.5 (>60)
[2023-06-16 12:14] LABS: Magnesium 2.4 mg/dL (1.9-2.7)
[2023-06-16 14:12] LABS: Urine Color Amber
[2023-06-16 14:14] LABS: Urine Appearance Cloudy; Urine Bacteria 1+ (Absent); Urine Bilirubin Negative (Negative); Urine Blood 3+ (Negative); Urine Glucose Negative (Negative); Urine Ketones Negative (Negative); Urine Nitrite Negative (Negative); Urine Protein 3+(>=500 mg/dL) (Negative); Urine Red Blood Cell 3+(>10/hpf) (Absent); Urine Specific Gravity 1.013 (1.002-1.030); Urine Squamous Epithelial Cell Present (Absent); Urine Urobilinogen Negative (Negative); Urine White Blood Cell 3+(>20/hpf) (Absent)
[2023-06-16 16:57] LABS: ABS Basophils 0.1 10^3/uL (0.0-0.1); ABS Eosinophils 0.4 10^3/uL (0.0-0.5); ABS Lymphocytes 0.8 10^3/uL (1.0-4.8); ABS Monocytes 0.7 10^3/uL (0.0-0.9); ABS Neutrophils 7.8 10^3/uL (1.5-7.6); ABS Nucleated RBC 0.01 10^3/ul; Eosinophil % 4.2 %; Hematocrit 25.1 % (35-45); Hemoglobin 8.2 g/dL (11.5-14.3); Mean Corpuscular Hemoglobin 29.3 pg (27-33); Mean Corpuscular Hgb Conc 32.6 g/dL (31-36); Mean Corpuscular Volume 89.9 fL (80-97); Mean Platelet Volume 9.1 fL (7.5-11.2); Nucleated Red Blood Cells % 0.1 %/100WBC (0.0-0.8); Platelet Count 235 10^3/uL (150-450); Red Blood Count 2.79 10^6/uL (3.63-4.92); Red Cell Distribution Width 17.1 % (12-17); White Blood Count 9.8 10^3/uL (3.8-11.8)
[2023-06-16] MEDS: Albuterol HFA INHALER 8 gm MDI INH PRN (17:17)
[2023-06-16] MEDS: Insulin GLARGINE 100 un/ml 10 ml VIAL SUBCUT SCH (21:57)
[2023-06-17 06:26] LABS: ABS Basophils 0.1 10^3/uL (0.0-0.1); ABS Eosinophils 0.4 10^3/uL (0.0-0.5); ABS Lymphocytes 0.8 10^3/uL (1.0-4.8); ABS Monocytes 0.6 10^3/uL (0.0-0.9); Eosinophil % 4.5 %; Hematocrit 22.5 % (35-45); Hemoglobin 7.7 g/dL (11.5-14.3); Lymphocyte % 8.6 %; Mean Corpuscular Hemoglobin 30.1 pg (27-33); Mean Corpuscular Hgb Conc 34.2 g/dL (31-36); Mean Platelet Volume 8.4 fL (7.5-11.2); Platelet Count 226 10^3/uL (150-450); Red Blood Count 2.56 10^6/uL (3.63-4.92); Red Cell Distribution Width 16.5 % (12-17); White Blood Count 8.8 10^3/uL (3.8-11.8)
[2023-06-17 06:46] LABS: Calcium 8.7 mg/dL (8.6-10.3); Creatinine, Serum 1.51 mg/dL (0.51-0.95); Magnesium 2.1 mg/dL (1.9-2.7); eGFR CKD-EPI 39.3 (>60)
[2023-06-17] MEDS: Mometasone/Formoter 200/5 MDI INH SCH ×2 (07:33→19:16)
[2023-06-17] MEDS: Albuterol HFA INHALER 8 gm MDI INH PRN ×2 (07:36→17:46)
[2023-06-17] MEDS: PTO: Pancrelipase 36,000 units (NF) PO SCH ×3 (07:50→17:45)
[2023-06-17] MEDS: Fluticasone NASAL SPRAY 50MCG 16 gm SPRAY BTL BOTH NARES SCH (10:15)
[2023-06-17] MEDS: Ferric Gluconate IV 125 MG in NS 0.9% 100 ml BAG 100 ML IVPB SCH (10:16)
[2023-06-17 15:32] LABS: Hematocrit 22.8 % (35-45); Hemoglobin 7.7 g/dL (11.5-14.3)
[2023-06-17] MEDS: Insulin GLARGINE 100 un/ml 10 ml VIAL SUBCUT SCH (21:40)
[2023-06-17] MEDS: Saline NASAL SPRAY 0.65% BTL BOTH NARES PRN (23:48)
[2023-06-18 06:46] LABS: Calcium 8.7 mg/dL (8.6-10.3); Creatinine, Serum 1.63 mg/dL (0.51-0.95); Potassium 4.1 mmol/L (3.5-5.0); eGFR CKD-EPI 35.9 (>60)
[2023-06-18] MEDS: Mometasone/Formoter 200/5 MDI INH SCH ×2 (07:51→19:44)
[2023-06-18] MEDS: Albuterol HFA INHALER 8 gm MDI INH PRN ×2 (07:52→17:34)
[2023-06-18] MEDS: PTO: Pancrelipase 36,000 units (NF) PO SCH ×3 (08:14→17:33)
[2023-06-18] MEDS: Ferric Gluconate IV 125 MG in NS 0.9% 100 ml BAG 100 ML IVPB SCH (10:31)
[2023-06-18] MEDS: Fluticasone NASAL SPRAY 50MCG 16 gm SPRAY BTL BOTH NARES SCH (10:32)
[2023-06-18] MEDS: Saline NASAL SPRAY 0.65% BTL BOTH NARES PRN ×2 (10:32→17:34)
[2023-06-18 15:25] LABS: Urine Appearance Turbid; Urine Bacteria 3+ (Absent); Urine Bilirubin Negative (Negative); Urine Blood 3+ (Negative); Urine Glucose 2+(150 mg/dL) (Negative); Urine Ketones Negative (Negative); Urine Nitrite Negative (Negative); Urine Protein 3+(>=500 mg/dL) (Negative); Urine Red Blood Cell 3+(>10/hpf) (Absent); Urine Specific Gravity 1.015 (1.002-1.030); Urine Squamous Epithelial Cell Present (Absent); Urine Urobilinogen Negative (Negative); Urine White Blood Cell 3+(>20/hpf) (Absent)
[2023-06-18] MEDS: Insulin GLARGINE 100 un/ml 10 ml VIAL SUBCUT SCH (21:25)
[2023-06-19] MEDS: Mometasone/Formoter 200/5 MDI INH SCH (07:13)
[2023-06-19] MEDS: PTO: Pancrelipase 36,000 units (NF) PO SCH ×2 (08:35→12:26)
[2023-06-19] MEDS: Fluticasone NASAL SPRAY 50MCG 16 gm SPRAY BTL BOTH NARES SCH (08:37)
[2023-06-19] MEDS: Saline NASAL SPRAY 0.65% BTL BOTH NARES PRN (08:37)
[2023-06-19] MEDS: Albuterol HFA INHALER 8 gm MDI INH PRN (09:46)
[2023-06-19 13:12] VITALS: BP 156/51
== END 2023-06-19 13:10 | DRG 194 ==
LOC: MEDTELE → SUATTDRO 16:57 → MEDTELE 06-10 02:40 → SUATTDRO 06-11 16:00 → MEDTELE 06-18 10:14
PROVIDERS: ADMIT Internal Medicine; ATTEND Hospitalist

== ENCOUNTER 2023-06-16 08:20 | Inpatient (IN) ==
[2023-06-19] MEDS ORDERED: Senna TAB 8.6 mg TAB PO PRN (15:31)
[2023-06-19] MEDS ORDERED: Magnesium Hydroxide LIQ 30 ML UDC PO PRN (15:31)
[2023-06-19] MEDS ORDERED: Dextrose 50% Syringe 50 ml 25 GM/50 ML SYRINGE IV PUSH PRN (15:40)
[2023-06-19] MEDS: PTO: Pancrelipase 36,000 units (NF) PO SCH (17:06)
[2023-06-19] MEDS: Mometasone/Formoter 200/5 MDI INH SCH (20:56)
[2023-06-19] MEDS: Insulin GLARGINE 100 un/ml 10 ml VIAL SUBCUT SCH (20:58)
[2023-06-19] MEDS ORDERED: Sacubitril/Valsartan 97/103(NF) PO SCH (21:00)
[2023-06-19] MEDS: Albuterol HFA INHALER 8 gm MDI INH PRN (22:54)
[2023-06-20] MEDS: PTO: Pancrelipase 36,000 units (NF) PO SCH ×3 (08:26→17:36)
[2023-06-20] MEDS: Mometasone/Formoter 200/5 MDI INH SCH ×2 (08:27→20:55)
[2023-06-20] MEDS: Saline NASAL SPRAY 0.65% BTL BOTH NARES PRN (08:27)
[2023-06-20] MEDS: Albuterol HFA INHALER 8 gm MDI INH PRN ×2 (08:39→21:01)
[2023-06-20] MEDS: Fluticasone NASAL SPRAY 50MCG 16 gm SPRAY BTL BOTH NARES SCH (08:39)
[2023-06-20] MEDS: Insulin GLARGINE 100 un/ml 10 ml VIAL SUBCUT SCH (20:57)
[2023-06-21] MEDS: Mometasone/Formoter 200/5 MDI INH SCH ×2 (08:20→18:55)
[2023-06-21] MEDS: PTO: Pancrelipase 36,000 units (NF) PO SCH ×3 (08:21→17:52)
[2023-06-21] MEDS: Fluticasone NASAL SPRAY 50MCG 16 gm SPRAY BTL BOTH NARES SCH (08:22)
[2023-06-21] MEDS: Albuterol HFA INHALER 8 gm MDI INH PRN ×3 (08:35→21:33)
[2023-06-21] MEDS: Saline NASAL SPRAY 0.65% BTL BOTH NARES PRN (08:37)
[2023-06-21 17:05] LABS: Glucose Confirmatory 401 mg/dL (70-100)
[2023-06-21] MEDS ORDERED: Dextrose 50% Syringe 50 ml 25 GM/50 ML SYRINGE IV PUSH PRN (17:28)
[2023-06-21] MEDS: Insulin GLARGINE 100 un/ml 10 ml VIAL SUBCUT SCH (21:32)
[2023-06-22 06:15] LABS: Anion Gap 6 mmol/L (2-16); Blood Urea Nitrogen 57 mg/dL (6-24); CO2 Carbon Dioxide 26 mmol/L (22-32); Calcium 8.4 mg/dL (8.6-10.3); Chloride 105 mmol/L (101-111); Creatinine, Serum 1.73 mg/dL (0.51-0.95); Glucose 154 mg/dL (70-100); Potassium 4.5 mmol/L (3.5-5.0); Sodium 137 mmol/L (135-145); eGFR CKD-EPI 33.4 (>60)
[2023-06-22 06:19] LABS: ALT < 3 U/L (7-52); AST 9 U/L (13-39); Albumin 2.9 g/dL (3.2-5.2); Albumin/Globulin Ratio 0.8 (1-3); Alkaline Phosphatase 38 U/L (35-149); Globulin 3.6 g/dL (2-4); Total Bilirubin 0.2 mg/dL (0.2-1.0); Total Protein 6.5 g/dL (6.4-8.9)
[2023-06-22 07:09] LABS: ABS Basophils 0.1 10^3/uL (0.0-0.1); ABS Eosinophils 0.3 10^3/uL (0.0-0.5); ABS Lymphocytes 0.8 10^3/uL (1.0-4.8); ABS Monocytes 0.8 10^3/uL (0.0-0.9); ABS Nucleated RBC 0.01 10^3/ul; Eosinophil % 2.7 %; Hematocrit 22.7 % (35-45); Hemoglobin 7.4 g/dL (11.5-14.3); Lymphocyte % 8.4 %; Mean Corpuscular Hemoglobin 29.7 pg (27-33); Mean Corpuscular Hgb Conc 32.6 g/dL (31-36); Mean Corpuscular Volume 90.9 fL (80-97); Mean Platelet Volume 8.6 fL (7.5-11.2); Nucleated Red Blood Cells % 0.1 %/100WBC (0.0-0.8); Platelet Count 244 10^3/uL (150-450); Red Cell Distribution Width 16.9 % (12-17)
[2023-06-22] MEDS: PTO: Pancrelipase 36,000 units (NF) PO SCH ×3 (09:15→17:13)
[2023-06-22] MEDS: Mometasone/Formoter 200/5 MDI INH SCH ×2 (09:16→21:56)
[2023-06-22] MEDS: Fluticasone NASAL SPRAY 50MCG 16 gm SPRAY BTL BOTH NARES SCH (09:20)
[2023-06-22] MEDS: Albuterol HFA INHALER 8 gm MDI INH PRN ×2 (09:30→17:34)
[2023-06-22] MEDS: Saline NASAL SPRAY 0.65% BTL BOTH NARES PRN (09:31)
[2023-06-22 16:23] LABS: Magnesium 1.7 mg/dL (1.9-2.7)
[2023-06-22] MEDS: Insulin GLARGINE 100 un/ml 10 ml VIAL SUBCUT SCH (22:09)
[2023-06-23] MEDS: PTO: Pancrelipase 36,000 units (NF) PO SCH ×3 (08:05→17:14)
[2023-06-23] MEDS: Mometasone/Formoter 200/5 MDI INH SCH ×2 (08:06→18:27)
[2023-06-23] MEDS: Fluticasone NASAL SPRAY 50MCG 16 gm SPRAY BTL BOTH NARES SCH (08:10)
[2023-06-23] MEDS: Saline NASAL SPRAY 0.65% BTL BOTH NARES PRN (08:11)
[2023-06-23] MEDS: Albuterol HFA INHALER 8 gm MDI INH PRN ×2 (08:11→18:27)
[2023-06-23] MEDS: Insulin GLARGINE 100 un/ml 10 ml VIAL SUBCUT SCH (19:56)
[2023-06-24 07:27] LABS: ABS Basophils 0.1 10^3/uL (0.0-0.1); ABS Eosinophils 0.3 10^3/uL (0.0-0.5); ABS Lymphocytes 0.9 10^3/uL (1.0-4.8); ABS Monocytes 0.7 10^3/uL (0.0-0.9); ABS Neutrophils 6.5 10^3/uL (1.5-7.6); Eosinophil % 3.9 %; Hematocrit 23.9 % (35-45); Lymphocyte % 10.4 %; Mean Corpuscular Hgb Conc 33.6 g/dL (31-36); Mean Corpuscular Volume 89.4 fL (80-97); Mean Platelet Volume 8.5 fL (7.5-11.2); Platelet Count 225 10^3/uL (150-450); Red Blood Count 2.67 10^6/uL (3.63-4.92); Red Cell Distribution Width 16.5 % (12-17); White Blood Count 8.5 10^3/uL (3.8-11.8)
[2023-06-24 07:40] LABS: Calcium 8.5 mg/dL (8.6-10.3); Creatinine, Serum 1.88 mg/dL (0.51-0.95); Magnesium 1.5 mg/dL (1.9-2.7); Potassium 4.6 mmol/L (3.5-5.0); eGFR CKD-EPI 30.2 (>60)
[2023-06-24] MEDS: Mometasone/Formoter 200/5 MDI INH SCH ×2 (08:45→18:47)
[2023-06-24] MEDS: PTO: Pancrelipase 36,000 units (NF) PO SCH ×3 (08:46→17:26)
[2023-06-24] MEDS: Fluticasone NASAL SPRAY 50MCG 16 gm SPRAY BTL BOTH NARES SCH (08:58)
[2023-06-24] MEDS: Albuterol HFA INHALER 8 gm MDI INH PRN (17:26)
[2023-06-24] MEDS: Insulin GLARGINE 100 un/ml 10 ml VIAL SUBCUT SCH (20:57)
[2023-06-24] MEDS ORDERED: Magnesium Sulfate 2 gm BAG 2 GM/50 ML BAG IVPB ONE (21:20)
[2023-06-25] MEDS: PTO: Pancrelipase 36,000 units (NF) PO SCH ×3 (08:54→17:38)
[2023-06-25] MEDS: Fluticasone NASAL SPRAY 50MCG 16 gm SPRAY BTL BOTH NARES SCH (09:55)
[2023-06-25] MEDS: Saline NASAL SPRAY 0.65% BTL BOTH NARES PRN (09:55)
[2023-06-25] MEDS: Albuterol HFA INHALER 8 gm MDI INH PRN ×2 (09:56→17:36)
[2023-06-25] MEDS: Mometasone/Formoter 200/5 MDI INH SCH ×2 (09:58→21:11)
[2023-06-25] MEDS: Insulin GLARGINE 100 un/ml 10 ml VIAL SUBCUT SCH (21:12)
[2023-06-26] MEDS: Albuterol HFA INHALER 8 gm MDI INH PRN ×4 (02:10→19:57)
[2023-06-26 06:58] LABS: Calcium 8.7 mg/dL (8.6-10.3); Magnesium 1.8 mg/dL (1.9-2.7); Potassium 5.3 mmol/L (3.5-5.0); eGFR CKD-EPI 28.1 (>60)
[2023-06-26] MEDS: Mometasone/Formoter 200/5 MDI INH SCH ×2 (08:17→20:01)
[2023-06-26] MEDS: PTO: Pancrelipase 36,000 units (NF) PO SCH ×3 (08:17→17:03)
[2023-06-26] MEDS: Fluticasone NASAL SPRAY 50MCG 16 gm SPRAY BTL BOTH NARES SCH (08:18)
[2023-06-26] MEDS: Insulin GLARGINE 100 un/ml 10 ml VIAL SUBCUT SCH (19:58)
[2023-06-27] MEDS: Albuterol HFA INHALER 8 gm MDI INH PRN ×4 (02:06→22:07)
[2023-06-27] MEDS: Mometasone/Formoter 200/5 MDI INH SCH ×2 (10:20→20:18)
[2023-06-27] MEDS: Fluticasone NASAL SPRAY 50MCG 16 gm SPRAY BTL BOTH NARES SCH (10:25)
[2023-06-27] MEDS: PTO: Pancrelipase 36,000 units (NF) PO SCH ×3 (10:26→17:21)
[2023-06-27] MEDS: Insulin GLARGINE 100 un/ml 10 ml VIAL SUBCUT SCH (22:06)
[2023-06-28] MEDS: Albuterol HFA INHALER 8 gm MDI INH PRN ×5 (02:32→22:39)
[2023-06-28] MEDS: Saline NASAL SPRAY 0.65% BTL BOTH NARES PRN (08:41)
[2023-06-28] MEDS: Fluticasone NASAL SPRAY 50MCG 16 gm SPRAY BTL BOTH NARES SCH (08:41)
[2023-06-28] MEDS: PTO: Pancrelipase 36,000 units (NF) PO SCH ×3 (08:42→17:17)
[2023-06-28] MEDS: Mometasone/Formoter 200/5 MDI INH SCH ×2 (08:45→18:27)
[2023-06-28] MEDS: Insulin GLARGINE 100 un/ml 10 ml VIAL SUBCUT SCH (21:11)
[2023-06-29] MEDS: Albuterol HFA INHALER 8 gm MDI INH PRN ×4 (02:25→18:45)
[2023-06-29 06:49] LABS: ABS Basophils 0.1 10^3/uL (0.0-0.1); ABS Eosinophils 0.2 10^3/uL (0.0-0.5); ABS Lymphocytes 0.7 10^3/uL (1.0-4.8); ABS Monocytes 0.5 10^3/uL (0.0-0.9); ABS Neutrophils 5.6 10^3/uL (1.5-7.6); ABS Nucleated RBC 0.01 10^3/ul; Eosinophil % 2.2 %; Hematocrit 22.4 % (35-45); Hemoglobin 7.4 g/dL (11.5-14.3); Lymphocyte % 10.6 %; Mean Corpuscular Hemoglobin 30.1 pg (27-33); Mean Corpuscular Hgb Conc 33.2 g/dL (31-36); Mean Corpuscular Volume 90.8 fL (80-97); Mean Platelet Volume 8.7 fL (7.5-11.2); Nucleated Red Blood Cells % 0.1 %/100WBC (0.0-0.8); Platelet Count 188 10^3/uL (150-450); Red Blood Count 2.47 10^6/uL (3.63-4.92); Red Cell Distribution Width 16.9 % (12-17)
[2023-06-29 08:04] LABS: Albumin 2.7 g/dL (3.2-5.2); Albumin/Globulin Ratio 0.8 (1-3); Calcium 8.1 mg/dL (8.6-10.3); Creatinine, Serum 1.96 mg/dL (0.51-0.95); Globulin 3.2 g/dL (2-4); Magnesium 1.7 mg/dL (1.9-2.7); Potassium 4.8 mmol/L (3.5-5.0); Total Bilirubin 0.2 mg/dL (0.2-1.0); Total Protein 5.9 g/dL (6.4-8.9); eGFR CKD-EPI 28.8 (>60)
[2023-06-29] MEDS: Fluticasone NASAL SPRAY 50MCG 16 gm SPRAY BTL BOTH NARES SCH (08:17)
[2023-06-29] MEDS: Mometasone/Formoter 200/5 MDI INH SCH ×2 (08:18→18:44)
[2023-06-29] MEDS: Saline NASAL SPRAY 0.65% BTL BOTH NARES PRN (08:21)
[2023-06-29] MEDS: PTO: Pancrelipase 36,000 units (NF) PO SCH ×3 (08:27→17:16)
[2023-06-29] MEDS: Insulin GLARGINE 100 un/ml 10 ml VIAL SUBCUT SCH (20:48)
[2023-06-30] MEDS: Albuterol HFA INHALER 8 gm MDI INH PRN ×3 (00:42→21:44)
[2023-06-30 07:51] LABS: ABS Basophils 0.1 10^3/uL (0.0-0.1); ABS Eosinophils 0.2 10^3/uL (0.0-0.5); ABS Lymphocytes 0.8 10^3/uL (1.0-4.8); ABS Monocytes 0.4 10^3/uL (0.0-0.9); ABS Nucleated RBC 0.01 10^3/ul; Eosinophil % 2.1 %; Hematocrit 23.5 % (35-45); Hemoglobin 7.9 g/dL (11.5-14.3); Lymphocyte % 10.4 %; Mean Corpuscular Hemoglobin 30.2 pg (27-33); Mean Corpuscular Hgb Conc 33.5 g/dL (31-36); Mean Corpuscular Volume 90.2 fL (80-97); Mean Platelet Volume 8.9 fL (7.5-11.2); Nucleated Red Blood Cells % 0.1 %/100WBC (0.0-0.8); Platelet Count 208 10^3/uL (150-450); Red Blood Count 2.61 10^6/uL (3.63-4.92); Red Cell Distribution Width 16.5 % (12-17); White Blood Count 7.4 10^3/uL (3.8-11.8)
[2023-06-30] MEDS: PTO: Pancrelipase 36,000 units (NF) PO SCH ×3 (08:06→17:47)
[2023-06-30] MEDS: Saline NASAL SPRAY 0.65% BTL BOTH NARES PRN (08:11)
[2023-06-30] MEDS: Fluticasone NASAL SPRAY 50MCG 16 gm SPRAY BTL BOTH NARES SCH (08:11)
[2023-06-30] MEDS: Mometasone/Formoter 200/5 MDI INH SCH ×2 (08:15→21:44)
[2023-06-30] MEDS: Insulin GLARGINE 100 un/ml 10 ml VIAL SUBCUT SCH (21:46)
[2023-07-01] MEDS: Albuterol HFA INHALER 8 gm MDI INH PRN ×2 (08:03→19:36)
[2023-07-01] MEDS: Mometasone/Formoter 200/5 MDI INH SCH ×2 (08:03→19:37)
[2023-07-01] MEDS: PTO: Pancrelipase 36,000 units (NF) PO SCH ×3 (08:05→17:42)
[2023-07-01] MEDS: Fluticasone NASAL SPRAY 50MCG 16 gm SPRAY BTL BOTH NARES SCH (08:06)
[2023-07-01] MEDS: Saline NASAL SPRAY 0.65% BTL BOTH NARES PRN (08:16)
[2023-07-01] MEDS: Insulin GLARGINE 100 un/ml 10 ml VIAL SUBCUT SCH (20:47)
[2023-07-02] MEDS: PTO: Pancrelipase 36,000 units (NF) PO SCH ×3 (09:48→17:08)
[2023-07-02] MEDS: Mometasone/Formoter 200/5 MDI INH SCH ×2 (09:49→18:59)
[2023-07-02] MEDS: Fluticasone NASAL SPRAY 50MCG 16 gm SPRAY BTL BOTH NARES SCH (09:49)
[2023-07-02] MEDS: Albuterol HFA INHALER 8 gm MDI INH PRN (16:46)
[2023-07-02] MEDS: Insulin GLARGINE 100 un/ml 10 ml VIAL SUBCUT SCH (21:12)
[2023-07-03 07:31] LABS: ABS Basophils 0.1 10^3/uL (0.0-0.1); ABS Eosinophils 0.2 10^3/uL (0.0-0.5); ABS Lymphocytes 0.8 10^3/uL (1.0-4.8); ABS Monocytes 0.5 10^3/uL (0.0-0.9); ABS Neutrophils 5.1 10^3/uL (1.5-7.6); Eosinophil % 3.2 %; Hematocrit 21.1 % (35-45); Hemoglobin 7.2 g/dL (11.5-14.3); Lymphocyte % 12.1 %; Mean Corpuscular Hemoglobin 30.5 pg (27-33); Mean Corpuscular Hgb Conc 33.9 g/dL (31-36); Mean Corpuscular Volume 89.8 fL (80-97); Mean Platelet Volume 8.7 fL (7.5-11.2); Platelet Count 188 10^3/uL (150-450); Red Blood Count 2.35 10^6/uL (3.63-4.92); Red Cell Distribution Width 16.6 % (12-17); White Blood Count 6.7 10^3/uL (3.8-11.8)
[2023-07-03] MEDS: Mometasone/Formoter 200/5 MDI INH SCH ×2 (08:41→18:25)
[2023-07-03] MEDS: Fluticasone NASAL SPRAY 50MCG 16 gm SPRAY BTL BOTH NARES SCH (08:41)
[2023-07-03] MEDS: Saline NASAL SPRAY 0.65% BTL BOTH NARES PRN (08:41)
[2023-07-03] MEDS: PTO: Pancrelipase 36,000 units (NF) PO SCH ×3 (08:42→18:20)
[2023-07-03] MEDS ORDERED: Furosemide 20 mg/2 ml IV VIAL IV ONE (09:13)
[2023-07-03 10:39] LABS: Albumin 2.8 g/dL (3.2-5.2); Albumin/Globulin Ratio 0.9 (1-3); Calcium 8.2 mg/dL (8.6-10.3); Creatinine, Serum 2.05 mg/dL (0.51-0.95); Globulin 3.2 g/dL (2-4); Magnesium 1.4 mg/dL (1.9-2.7); Potassium 4.5 mmol/L (3.5-5.0); Total Bilirubin 0.2 mg/dL (0.2-1.0); eGFR CKD-EPI 27.3 (>60)
[2023-07-03] MEDS ORDERED: Magnesium Sulf 4 GM/100 ML IV 4,000 MG/100 ML BAG IVPB ONE (11:14)
[2023-07-03 12:36] LABS: Albumin 3.2 g/dL (3.2-5.2); Albumin/Globulin Ratio 0.9 (1-3); Calcium 8.6 mg/dL (8.6-10.3); Creatinine, Serum 2.03 mg/dL (0.51-0.95); Globulin 3.5 g/dL (2-4); Magnesium 1.5 mg/dL (1.9-2.7); Potassium 4.4 mmol/L (3.5-5.0); Total Bilirubin 0.3 mg/dL (0.2-1.0); Total Protein 6.7 g/dL (6.4-8.9); eGFR CKD-EPI 27.6 (>60)
[2023-07-03] MEDS: Albuterol HFA INHALER 8 gm MDI INH PRN (18:25)
[2023-07-03] MEDS: Insulin GLARGINE 100 un/ml 10 ml VIAL SUBCUT SCH (21:39)
[2023-07-04] MEDS: Albuterol HFA INHALER 8 gm MDI INH PRN ×3 (01:26→18:42)
[2023-07-04 04:39] LABS: Hematocrit 24.7 % (35-45); Hemoglobin 8.2 g/dL (11.5-14.3)
[2023-07-04] MEDS: PTO: Pancrelipase 36,000 units (NF) PO SCH ×3 (08:51→17:11)
[2023-07-04] MEDS: Mometasone/Formoter 200/5 MDI INH SCH ×2 (08:56→18:40)
[2023-07-04] MEDS: Saline NASAL SPRAY 0.65% BTL BOTH NARES PRN (08:56)
[2023-07-04] MEDS: Fluticasone NASAL SPRAY 50MCG 16 gm SPRAY BTL BOTH NARES SCH (08:56)
[2023-07-04 10:32] LABS: Immature Retic Fraction 0.38
[2023-07-04 11:41] LABS: Hematocrit for Retic CNT 26.8 % (35-45); RBC Retic Count 2.92 10^6/ul (3.63-4.92)
[2023-07-04 11:58] LABS: % Iron Saturation 8 % (15-55); .Transferrin 282 mg/dL (203-362); Iron 33 ug/dL (50-212); LDH 154 U/L (140-271); Total Iron Binding Capacity 395 mcg/dL (250-450); Unsaturated Iron Binding 362 ug/dL
[2023-07-04 12:23] LABS: Vitamin B12 401 pg/mL (180-914)
[2023-07-04] MEDS: Insulin GLARGINE 100 un/ml 10 ml VIAL SUBCUT SCH (20:08)
[2023-07-05] MEDS: Albuterol HFA INHALER 8 gm MDI INH PRN ×4 (04:38→20:32)
[2023-07-05] MEDS: PTO: Pancrelipase 36,000 units (NF) PO SCH ×3 (08:16→17:29)
[2023-07-05] MEDS: Saline NASAL SPRAY 0.65% BTL BOTH NARES PRN (08:17)
[2023-07-05] MEDS: Fluticasone NASAL SPRAY 50MCG 16 gm SPRAY BTL BOTH NARES SCH (08:18)
[2023-07-05] MEDS: Mometasone/Formoter 200/5 MDI INH SCH ×2 (08:23→19:43)
[2023-07-05] MEDS ORDERED: Ferric Gluconate IV 250 MG in NS 0.9% 250 ml 200 ML IVPB SCH (09:00)
[2023-07-05] MEDS: Ferric Gluconate IV 125 MG in NS 0.9% 100 ml BAG 100 ML IVPB SCH (10:34)
[2023-07-05] MEDS: Insulin GLARGINE 100 un/ml 10 ml VIAL SUBCUT SCH (22:13)
[2023-07-06] MEDS: Albuterol HFA INHALER 8 gm MDI INH PRN ×4 (04:37→19:40)
[2023-07-06 06:20] LABS: ABS Eosinophils 0.2 10^3/uL (0.0-0.5); ABS Lymphocytes 0.6 10^3/uL (1.0-4.8); ABS Monocytes 0.5 10^3/uL (0.0-0.9); ABS Neutrophils 5.3 10^3/uL (1.5-7.6); Eosinophil % 3.2 %; Hematocrit 23.4 % (35-45); Hemoglobin 7.6 g/dL (11.5-14.3); Lymphocyte % 8.6 %; Mean Corpuscular Hemoglobin 30.5 pg (27-33); Mean Corpuscular Hgb Conc 32.5 g/dL (31-36); Mean Corpuscular Volume 93.6 fL (80-97); Mean Platelet Volume 9.1 fL (7.5-11.2); Nucleated Red Blood Cells % 0.1 %/100WBC (0.0-0.8); Platelet Count 179 10^3/uL (150-450); Red Cell Distribution Width 17.1 % (12-17); White Blood Count 6.6 10^3/uL (3.8-11.8)
[2023-07-06 06:28] LABS: Albumin 2.8 g/dL (3.2-5.2); Albumin/Globulin Ratio 0.9 (1-3); Calcium 8.1 mg/dL (8.6-10.3); Creatinine, Serum 2.05 mg/dL (0.51-0.95); Globulin 3.1 g/dL (2-4); Magnesium 1.9 mg/dL (1.9-2.7); Potassium 5.1 mmol/L (3.5-5.0); Total Bilirubin 0.3 mg/dL (0.2-1.0); Total Protein 5.9 g/dL (6.4-8.9); eGFR CKD-EPI 27.3 (>60)
[2023-07-06] MEDS: PTO: Pancrelipase 36,000 units (NF) PO SCH ×3 (09:16→17:44)
[2023-07-06] MEDS: Fluticasone NASAL SPRAY 50MCG 16 gm SPRAY BTL BOTH NARES SCH (09:17)
[2023-07-06] MEDS: Mometasone/Formoter 200/5 MDI INH SCH ×2 (09:17→19:40)
[2023-07-06] MEDS: Ferric Gluconate IV 125 MG in NS 0.9% 100 ml BAG 100 ML IVPB SCH (09:28)
[2023-07-06] MEDS: Insulin GLARGINE 100 un/ml 10 ml VIAL SUBCUT SCH (21:01)
[2023-07-07 06:02] LABS: Hematocrit 24.1 % (35-45)
[2023-07-07] MEDS: Saline NASAL SPRAY 0.65% BTL BOTH NARES PRN (09:06)
[2023-07-07] MEDS: Fluticasone NASAL SPRAY 50MCG 16 gm SPRAY BTL BOTH NARES SCH (09:06)
[2023-07-07] MEDS: Albuterol HFA INHALER 8 gm MDI INH PRN ×3 (09:07→21:12)
[2023-07-07] MEDS: Mometasone/Formoter 200/5 MDI INH SCH ×2 (09:08→21:11)
[2023-07-07] MEDS: PTO: Pancrelipase 36,000 units (NF) PO SCH ×3 (09:10→16:59)
[2023-07-07] MEDS: Ferric Gluconate IV 125 MG in NS 0.9% 100 ml BAG 100 ML IVPB SCH (14:48)
[2023-07-07 16:58] LABS: Albumin 2.5 g/dL (3.4-4.7); Flag, M-protein Isotype Negative (Negative); Total Protein 6.5 g/dL (6.3 - 7.9)
[2023-07-07] MEDS: Insulin GLARGINE 100 un/ml 10 ml VIAL SUBCUT SCH (21:26)
[2023-07-08 06:53] LABS: ABS Basophils 0.1 10^3/uL (0.0-0.1); ABS Eosinophils 0.2 10^3/uL (0.0-0.5); ABS Lymphocytes 0.6 10^3/uL (1.0-4.8); ABS Monocytes 0.5 10^3/uL (0.0-0.9); ABS Neutrophils 5.3 10^3/uL (1.5-7.6); Eosinophil % 3.7 %; Hematocrit 22.3 % (35-45); Hemoglobin 7.3 g/dL (11.5-14.3); Lymphocyte % 8.3 %; Mean Corpuscular Hemoglobin 30.3 pg (27-33); Mean Corpuscular Hgb Conc 32.8 g/dL (31-36); Mean Corpuscular Volume 92.4 fL (80-97); Mean Platelet Volume 8.9 fL (7.5-11.2); Platelet Count 176 10^3/uL (150-450); Red Blood Count 2.42 10^6/uL (3.63-4.92); White Blood Count 6.7 10^3/uL (3.8-11.8)
[2023-07-08] MEDS: PTO: Pancrelipase 36,000 units (NF) PO SCH ×3 (07:40→16:58)
[2023-07-08] MEDS: Fluticasone NASAL SPRAY 50MCG 16 gm SPRAY BTL BOTH NARES SCH (08:20)
[2023-07-08] MEDS: Saline NASAL SPRAY 0.65% BTL BOTH NARES PRN (08:20)
[2023-07-08] MEDS: Albuterol HFA INHALER 8 gm MDI INH PRN ×3 (08:21→20:48)
[2023-07-08] MEDS: Mometasone/Formoter 200/5 MDI INH SCH ×2 (08:22→20:51)
[2023-07-08 08:41] LABS: Calcium 8.2 mg/dL (8.6-10.3); Creatinine, Serum 2.38 mg/dL (0.51-0.95); Magnesium 1.8 mg/dL (1.9-2.7); Potassium 4.7 mmol/L (3.5-5.0); eGFR CKD-EPI 22.8 (>60)
[2023-07-08] MEDS: Ferric Gluconate IV 125 MG in NS 0.9% 100 ml BAG 100 ML IVPB SCH (12:14)
[2023-07-08] MEDS: Insulin GLARGINE 100 un/ml 10 ml VIAL SUBCUT SCH (20:30)
[2023-07-09 06:15] LABS: ABS Basophils 0.1 10^3/uL (0.0-0.1); ABS Eosinophils 0.2 10^3/uL (0.0-0.5); ABS Lymphocytes 0.7 10^3/uL (1.0-4.8); ABS Monocytes 0.5 10^3/uL (0.0-0.9); ABS Neutrophils 5.1 10^3/uL (1.5-7.6); Eosinophil % 3.6 %; Hematocrit 22.9 % (35-45); Hemoglobin 7.6 g/dL (11.5-14.3); Lymphocyte % 10.5 %; Mean Corpuscular Hemoglobin 30.7 pg (27-33); Mean Corpuscular Hgb Conc 33.2 g/dL (31-36); Mean Corpuscular Volume 92.5 fL (80-97); Mean Platelet Volume 8.9 fL (7.5-11.2); Nucleated Red Blood Cells % 0.1 %/100WBC (0.0-0.8); Platelet Count 203 10^3/uL (150-450); Red Blood Count 2.48 10^6/uL (3.63-4.92); Red Cell Distribution Width 16.9 % (12-17); White Blood Count 6.5 10^3/uL (3.8-11.8)
[2023-07-09 06:35] LABS: Calcium 8.3 mg/dL (8.6-10.3); Creatinine, Serum 2.3 mg/dL (0.51-0.95); Potassium 4.7 mmol/L (3.5-5.0); eGFR CKD-EPI 23.7 (>60)
[2023-07-09] MEDS: Mometasone/Formoter 200/5 MDI INH SCH ×2 (08:41→18:22)
[2023-07-09] MEDS: PTO: Pancrelipase 36,000 units (NF) PO SCH ×3 (08:42→17:13)
[2023-07-09] MEDS: Albuterol HFA INHALER 8 gm MDI INH PRN ×2 (08:44→18:22)
[2023-07-09] MEDS: Saline NASAL SPRAY 0.65% BTL BOTH NARES PRN (08:49)
[2023-07-09] MEDS: Fluticasone NASAL SPRAY 50MCG 16 gm SPRAY BTL BOTH NARES SCH (08:49)
[2023-07-09] MEDS: Ferric Gluconate IV 125 MG in NS 0.9% 100 ml BAG 100 ML IVPB SCH (12:35)
[2023-07-09] MEDS: Insulin GLARGINE 100 un/ml 10 ml VIAL SUBCUT SCH (21:21)
[2023-07-10] MEDS: Albuterol HFA INHALER 8 gm MDI INH PRN ×2 (00:58→21:02)
[2023-07-10] MEDS: Ferric Gluconate IV 125 MG in NS 0.9% 100 ml BAG 100 ML IVPB SCH (07:31)
[2023-07-10] MEDS: PTO: Pancrelipase 36,000 units (NF) PO SCH ×3 (08:20→17:06)
[2023-07-10] MEDS: Saline NASAL SPRAY 0.65% BTL BOTH NARES PRN (08:26)
[2023-07-10] MEDS: Fluticasone NASAL SPRAY 50MCG 16 gm SPRAY BTL BOTH NARES SCH (08:26)
[2023-07-10] MEDS: Mometasone/Formoter 200/5 MDI INH SCH ×2 (08:26→21:02)
[2023-07-10 14:33] LABS: ABS Basophils 0.1 10^3/uL (0.0-0.1); ABS Eosinophils 0.2 10^3/uL (0.0-0.5); ABS Lymphocytes 0.6 10^3/uL (1.0-4.8); ABS Monocytes 0.4 10^3/uL (0.0-0.9); ABS Neutrophils 6.4 10^3/uL (1.5-7.6); Hematocrit 24.1 % (35-45); Hemoglobin 7.8 g/dL (11.5-14.3); Lymphocyte % 7.2 %; Mean Corpuscular Hemoglobin 30.3 pg (27-33); Mean Corpuscular Hgb Conc 32.6 g/dL (31-36); Mean Platelet Volume 8.8 fL (7.5-11.2); Platelet Count 207 10^3/uL (150-450); Red Blood Count 2.59 10^6/uL (3.63-4.92); Red Cell Distribution Width 17.4 % (12-17); White Blood Count 7.6 10^3/uL (3.8-11.8)
[2023-07-10 14:58] LABS: C Reactive Protein 7.58 mg/L (<8.01); Calcium 8.4 mg/dL (8.6-10.3); Creatinine, Serum 2.38 mg/dL (0.51-0.95); Magnesium 1.6 mg/dL (1.9-2.7); Potassium 5.1 mmol/L (3.5-5.0); eGFR CKD-EPI 22.8 (>60)
[2023-07-10 14:59] LABS: Activated Partial Thrombo Time 37.5 seconds (26.0-38.0); INR 1.2 (0.83-1.13)
[2023-07-10 19:44] LABS: Urine Appearance Turbid; Urine Bilirubin Negative (Negative); Urine Blood 3+ (Negative); Urine Color Yellow; Urine Glucose 2+(150 mg/dL) (Negative); Urine Ketones Negative (Negative); Urine Nitrite Negative (Negative); Urine Protein 3+(>=500 mg/dL) (Negative); Urine Specific Gravity 1.014 (1.002-1.030); Urine Urobilinogen Negative (Negative)
[2023-07-10 19:58] LABS: Urine Creatinine Concentration 47.95 mg/dL (20.00-320.00)
[2023-07-10 20:12] LABS: Urine TP Creat Ratio 11.26 mg/mg
[2023-07-10 21:05] LABS: Urine Bacteria 1+ (Absent); Urine Red Blood Cell 3+(>10/hpf) (Absent); Urine Squamous Epithelial Cell Present (Absent); Urine White Blood Cell 3+(>20/hpf) (Absent)
[2023-07-10] MEDS: Insulin GLARGINE 100 un/ml 10 ml VIAL SUBCUT SCH (21:30)
[2023-07-10] MEDS: Heparin 5000 UNITS/ML 1 mL VIAL SUBCUT SCH (21:31)
[2023-07-11] MEDS: Albuterol HFA INHALER 8 gm MDI INH PRN ×4 (02:21→19:32)
[2023-07-11] MEDS: Ferric Gluconate IV 125 MG in NS 0.9% 100 ml BAG 100 ML IVPB SCH (07:55)
[2023-07-11] MEDS: PTO: Pancrelipase 36,000 units (NF) PO SCH ×3 (08:00→16:54)
[2023-07-11] MEDS: Saline NASAL SPRAY 0.65% BTL BOTH NARES PRN (08:10)
[2023-07-11] MEDS: Mometasone/Formoter 200/5 MDI INH SCH ×2 (08:12→19:31)
[2023-07-11] MEDS: Fluticasone NASAL SPRAY 50MCG 16 gm SPRAY BTL BOTH NARES SCH (08:16)
[2023-07-11] MEDS: Heparin 5000 UNITS/ML 1 mL VIAL SUBCUT SCH ×2 (08:17→19:36)
[2023-07-11] MEDS ORDERED: Albumin Human 25% 12.5 GM/50 ML BTL IV ONE (12:00)
[2023-07-11] MEDS ORDERED: Furosemide 40 mg/4 ml IV VIAL IV ONE (13:00)
[2023-07-11] MEDS: Insulin GLARGINE 100 un/ml 10 ml VIAL SUBCUT SCH (19:25)
[2023-07-12] MEDS: PTO: Pancrelipase 36,000 units (NF) PO SCH ×3 (09:24→16:54)
[2023-07-12] MEDS: Fluticasone NASAL SPRAY 50MCG 16 gm SPRAY BTL BOTH NARES SCH (09:27)
[2023-07-12] MEDS: Saline NASAL SPRAY 0.65% BTL BOTH NARES PRN (09:27)
[2023-07-12] MEDS: Mometasone/Formoter 200/5 MDI INH SCH ×2 (09:28→20:55)
[2023-07-12] MEDS: Albuterol HFA INHALER 8 gm MDI INH PRN ×3 (09:28→20:54)
[2023-07-12] MEDS: Heparin 5000 UNITS/ML 1 mL VIAL SUBCUT SCH ×2 (09:31→22:03)
[2023-07-12] MEDS: Insulin GLARGINE 100 un/ml 10 ml VIAL SUBCUT SCH (22:04)
[2023-07-13 06:30] LABS: ABS Basophils 0.1 10^3/uL (0.0-0.1); ABS Eosinophils 0.2 10^3/uL (0.0-0.5); ABS Lymphocytes 0.8 10^3/uL (1.0-4.8); ABS Monocytes 0.5 10^3/uL (0.0-0.9); Eosinophil % 3.2 %; Hematocrit 23.8 % (35-45); Hemoglobin 7.8 g/dL (11.5-14.3); Lymphocyte % 12.7 %; Mean Corpuscular Hemoglobin 30.7 pg (27-33); Mean Corpuscular Hgb Conc 32.8 g/dL (31-36); Mean Corpuscular Volume 93.5 fL (80-97); Mean Platelet Volume 9.3 fL (7.5-11.2); Platelet Count 187 10^3/uL (150-450); Red Blood Count 2.55 10^6/uL (3.63-4.92); Red Cell Distribution Width 17.6 % (12-17); White Blood Count 6.6 10^3/uL (3.8-11.8)
[2023-07-13 06:48] LABS: C Reactive Protein 6.19 mg/L (<8.01); Magnesium 1.6 mg/dL (1.9-2.7)
[2023-07-13 08:38] LABS: Albumin 3.1 g/dL (3.2-5.2); Calcium 8.5 mg/dL (8.6-10.3); Creatinine, Serum 2.36 mg/dL (0.51-0.95); Globulin 3.1 g/dL (2-4); Potassium 5.4 mmol/L (3.5-5.0); Total Bilirubin 0.2 mg/dL (0.2-1.0); Total Protein 6.2 g/dL (6.4-8.9)
[2023-07-13] MEDS: Heparin 5000 UNITS/ML 1 mL VIAL SUBCUT SCH ×2 (08:47→20:24)
[2023-07-13] MEDS: Albuterol HFA INHALER 8 gm MDI INH PRN ×4 (08:47→20:15)
[2023-07-13] MEDS: Fluticasone NASAL SPRAY 50MCG 16 gm SPRAY BTL BOTH NARES SCH (08:48)
[2023-07-13] MEDS: PTO: Pancrelipase 36,000 units (NF) PO SCH ×3 (08:49→16:47)
[2023-07-13] MEDS: Mometasone/Formoter 200/5 MDI INH SCH ×2 (08:52→20:23)
[2023-07-13] MEDS: Saline NASAL SPRAY 0.65% BTL BOTH NARES PRN (08:56)
[2023-07-13] MEDS ORDERED: Sodium Polystyrene ORAL.SUSP 15 GM/60 ML BTL PO ONE (10:13)
[2023-07-13] MEDS: Bumetanide IV 0.25 MG/ML 4 ml VIAL (1 mg) IV SLOW PU SCH (20:28)
[2023-07-13] MEDS: Insulin GLARGINE 100 un/ml 10 ml VIAL SUBCUT SCH (22:31)
[2023-07-14 06:12] LABS: C Reactive Protein 5.24 mg/L (<8.01); Rheumatoid Factor < 10 IU/mL (<15)
[2023-07-14 07:02] LABS: Hepatitis B Surface Antigen Nonreactive (Nonreactive)
[2023-07-14 07:11] LABS: HIV 4th Generation Nonreactive (Nonreactive)
[2023-07-14 07:19] LABS: Hepatitis B Surface Ab Not Immune (Immune); Hepatitis C Antibody Negative (Negative)
[2023-07-14] MEDS: Mometasone/Formoter 200/5 MDI INH SCH ×2 (09:02→20:14)
[2023-07-14] MEDS: PTO: Pancrelipase 36,000 units (NF) PO SCH ×3 (09:02→16:56)
[2023-07-14] MEDS: Fluticasone NASAL SPRAY 50MCG 16 gm SPRAY BTL BOTH NARES SCH (09:03)
[2023-07-14] MEDS: Heparin 5000 UNITS/ML 1 mL VIAL SUBCUT SCH ×2 (09:04→20:18)
[2023-07-14] MEDS: Bumetanide IV 0.25 MG/ML 4 ml VIAL (1 mg) IV SLOW PU SCH ×3 (09:13→20:19)
[2023-07-14 11:56] LABS: Hematocrit 24.2 % (35-45); Hemoglobin 8.1 g/dL (11.5-14.3); Mean Corpuscular Hemoglobin 31.1 pg (27-33); Mean Corpuscular Hgb Conc 33.3 g/dL (31-36); Mean Corpuscular Volume 93.5 fL (80-97); Mean Platelet Volume 9.1 fL (7.5-11.2); Platelet Count 238 10^3/uL (150-450); Red Blood Count 2.59 10^6/uL (3.63-4.92); Red Cell Distribution Width 17.9 % (12-17); White Blood Count 6.6 10^3/uL (3.8-11.8)
[2023-07-14 12:04] LABS: Calcium 8.7 mg/dL (8.6-10.3); Creatinine, Serum 2.49 mg/dL (0.51-0.95); Potassium 5.5 mmol/L (3.5-5.0); eGFR CKD-EPI 21.6 (>60)
[2023-07-14] MEDS: Albuterol HFA INHALER 8 gm MDI INH PRN (13:54)
[2023-07-14] MEDS: Insulin GLARGINE 100 un/ml 10 ml VIAL SUBCUT SCH (20:18)
[2023-07-15] MEDS: Bumetanide IV 0.25 MG/ML 4 ml VIAL (1 mg) IV SLOW PU SCH ×3 (05:14→13:45)
[2023-07-15] MEDS: Mometasone/Formoter 200/5 MDI INH SCH ×2 (09:27→22:28)
[2023-07-15] MEDS: Heparin 5000 UNITS/ML 1 mL VIAL SUBCUT SCH ×2 (09:30→22:30)
[2023-07-15] MEDS: PTO: Pancrelipase 36,000 units (NF) PO SCH ×3 (09:31→17:19)
[2023-07-15] MEDS: Fluticasone NASAL SPRAY 50MCG 16 gm SPRAY BTL BOTH NARES SCH (09:31)
[2023-07-15 11:49] LABS: Complement C3 148 mg/dL (75 - 175)
[2023-07-15 12:07] LABS: ABS Basophils 0.1 10^3/uL (0.0-0.1); ABS Eosinophils 0.2 10^3/uL (0.0-0.5); ABS Lymphocytes 0.6 10^3/uL (1.0-4.8); ABS Monocytes 0.4 10^3/uL (0.0-0.9); ABS Neutrophils 5.3 10^3/uL (1.5-7.6); ABS Nucleated RBC 0.01 10^3/ul; Hematocrit 24.3 % (35-45); Lymphocyte % 8.9 %; Mean Corpuscular Hemoglobin 31.1 pg (27-33); Mean Corpuscular Volume 94.1 fL (80-97); Mean Platelet Volume 8.9 fL (7.5-11.2); Nucleated Red Blood Cells % 0.1 %/100WBC (0.0-0.8); Platelet Count 211 10^3/uL (150-450); Red Blood Count 2.58 10^6/uL (3.63-4.92); Red Cell Distribution Width 17.7 % (12-17); White Blood Count 6.6 10^3/uL (3.8-11.8)
[2023-07-15 12:20] LABS: Calcium 8.7 mg/dL (8.6-10.3); Creatinine, Serum 2.42 mg/dL (0.51-0.95); Potassium 4.9 mmol/L (3.5-5.0); eGFR CKD-EPI 22.3 (>60)
[2023-07-15 13:31] LABS: Kappa Free Light Chain 16.8 mg/dL
[2023-07-15] MEDS: Albuterol HFA INHALER 8 gm MDI INH PRN ×2 (14:32→22:28)
[2023-07-15 16:03] LABS: C-ANCA Negative (Negative); P-ANCA Negative (Negative)
[2023-07-15] MEDS: Insulin GLARGINE 100 un/ml 10 ml VIAL SUBCUT SCH (22:30)
[2023-07-16] MEDS: Bumetanide IV 0.25 MG/ML 4 ml VIAL (1 mg) IV SLOW PU SCH ×2 (04:59→12:53)
[2023-07-16 05:55] LABS: Urine Appearance Cloudy; Urine Bilirubin Negative (Negative); Urine Blood 2+ (Negative); Urine Color Yellow; Urine Glucose Negative (Negative); Urine Ketones Negative (Negative); Urine Nitrite Negative (Negative); Urine Protein 3+(>=500 mg/dL) (Negative); Urine Specific Gravity 1.012 (1.002-1.030); Urine Urobilinogen Negative (Negative)
[2023-07-16 07:07] LABS: Urine Bacteria 2+ (Absent); Urine Red Blood Cell 3+(>10/hpf) (Absent); Urine White Blood Cell 3+(>20/hpf) (Absent)
[2023-07-16] MEDS: PTO: Pancrelipase 36,000 units (NF) PO SCH ×3 (09:05→17:02)
[2023-07-16] MEDS: Mometasone/Formoter 200/5 MDI INH SCH ×2 (09:09→20:14)
[2023-07-16] MEDS: Albuterol HFA INHALER 8 gm MDI INH PRN ×2 (09:10→20:13)
[2023-07-16] MEDS: Fluticasone NASAL SPRAY 50MCG 16 gm SPRAY BTL BOTH NARES SCH (09:12)
[2023-07-16] MEDS: Heparin 5000 UNITS/ML 1 mL VIAL SUBCUT SCH ×2 (09:12→20:15)
[2023-07-16 14:15] LABS: Calcium 8.5 mg/dL (8.6-10.3); Creatinine, Serum 2.44 mg/dL (0.51-0.95); Potassium 4.4 mmol/L (3.5-5.0); eGFR CKD-EPI 22.1 (>60)
[2023-07-16 15:22] LABS: PLA2R, Immunofluorescence, S Negative (Negative)
[2023-07-16 17:14] LABS: Hematocrit 24.1 % (35-45); Mean Corpuscular Hemoglobin 31.1 pg (27-33); Mean Corpuscular Hgb Conc 33.3 g/dL (31-36); Mean Corpuscular Volume 93.4 fL (80-97); Platelet Count 225 10^3/uL (150-450); Red Blood Count 2.58 10^6/uL (3.63-4.92); Red Cell Distribution Width 17.9 % (12-17); White Blood Count 8.2 10^3/uL (3.8-11.8)
[2023-07-16 20:16] LABS: Albumin 2.6 g/dL (3.4-4.7); Flag, M-protein Isotype Negative (Negative); Total Protein 6.6 g/dL (6.3 - 7.9)
[2023-07-16] MEDS: Insulin GLARGINE 100 un/ml 10 ml VIAL SUBCUT SCH (23:04)
[2023-07-16] MEDS: Chlorothiazide IV 500 mg VIAL IV SCH (23:57)
[2023-07-17] MEDS: Insulin GLARGINE 100 un/ml 10 ml VIAL SUBCUT SCH ×2 (00:12→23:57)
[2023-07-17] MEDS: Bumetanide IV 0.25 MG/ML 4 ml VIAL (1 mg) IV SLOW PU SCH ×2 (05:38→13:09)
[2023-07-17 06:40] LABS: ABS Basophils 0.1 10^3/uL (0.0-0.1); ABS Eosinophils 0.2 10^3/uL (0.0-0.5); ABS Lymphocytes 0.6 10^3/uL (1.0-4.8); ABS Monocytes 0.5 10^3/uL (0.0-0.9); ABS Neutrophils 4.9 10^3/uL (1.5-7.6); ABS Nucleated RBC 0.01 10^3/ul; Eosinophil % 2.6 %; Hematocrit 21.4 % (35-45); Hemoglobin 7.1 g/dL (11.5-14.3); Lymphocyte % 10.3 %; Mean Corpuscular Hemoglobin 30.9 pg (27-33); Mean Corpuscular Hgb Conc 33.1 g/dL (31-36); Mean Corpuscular Volume 93.4 fL (80-97); Mean Platelet Volume 8.7 fL (7.5-11.2); Nucleated Red Blood Cells % 0.1 %/100WBC (0.0-0.8); Platelet Count 172 10^3/uL (150-450); Red Blood Count 2.29 10^6/uL (3.63-4.92); Red Cell Distribution Width 18.2 % (12-17); White Blood Count 6.3 10^3/uL (3.8-11.8)
[2023-07-17 06:57] LABS: Albumin 2.9 g/dL (3.2-5.2); Albumin/Globulin Ratio 0.9 (1-3); Calcium 8.2 mg/dL (8.6-10.3); Creatinine, Serum 2.34 mg/dL (0.51-0.95); Globulin 3.2 g/dL (2-4); Magnesium 1.5 mg/dL (1.9-2.7); Potassium 4.4 mmol/L (3.5-5.0); Total Bilirubin 0.2 mg/dL (0.2-1.0); Total Protein 6.1 g/dL (6.4-8.9); eGFR CKD-EPI 23.3 (>60)
[2023-07-17] MEDS: PTO: Pancrelipase 36,000 units (NF) PO SCH ×3 (08:41→16:58)
[2023-07-17] MEDS: Mometasone/Formoter 200/5 MDI INH SCH ×2 (08:46→22:05)
[2023-07-17] MEDS: Albuterol HFA INHALER 8 gm MDI INH PRN ×2 (08:48→22:04)
[2023-07-17] MEDS: Saline NASAL SPRAY 0.65% BTL BOTH NARES PRN (08:49)
[2023-07-17] MEDS: Chlorothiazide IV 500 mg VIAL IV SCH (09:03)
[2023-07-17] MEDS: Heparin 5000 UNITS/ML 1 mL VIAL SUBCUT SCH ×2 (09:03→22:09)
[2023-07-17] MEDS: Fluticasone NASAL SPRAY 50MCG 16 gm SPRAY BTL BOTH NARES SCH (09:31)
[2023-07-17] MEDS ORDERED: Magnesium Sulfate 2 gm BAG 2 GM/50 ML BAG IVPB ONE (18:23)
[2023-07-18] MEDS: Bumetanide IV 0.25 MG/ML 4 ml VIAL (1 mg) IV SLOW PU SCH ×2 (05:07→12:32)
[2023-07-18 05:50] LABS: ABS Basophils 0.1 10^3/uL (0.0-0.1); ABS Eosinophils 0.1 10^3/uL (0.0-0.5); ABS Lymphocytes 0.7 10^3/uL (1.0-4.8); ABS Monocytes 0.5 10^3/uL (0.0-0.9); ABS Neutrophils 4.6 10^3/uL (1.5-7.6); Eosinophil % 2.5 %; Hematocrit 21.6 % (35-45); Hemoglobin 7.2 g/dL (11.5-14.3); Lymphocyte % 11.2 %; Mean Corpuscular Hemoglobin 31.3 pg (27-33); Mean Corpuscular Hgb Conc 33.4 g/dL (31-36); Mean Corpuscular Volume 93.8 fL (80-97); Mean Platelet Volume 8.9 fL (7.5-11.2); Platelet Count 151 10^3/uL (150-450); Red Cell Distribution Width 18.1 % (12-17); White Blood Count 5.9 10^3/uL (3.8-11.8)
[2023-07-18 06:08] LABS: Calcium 8.1 mg/dL (8.6-10.3); Creatinine, Serum 2.18 mg/dL (0.51-0.95); Potassium 4.5 mmol/L (3.5-5.0); eGFR CKD-EPI 25.3 (>60)
[2023-07-18] MEDS: PTO: Pancrelipase 36,000 units (NF) PO SCH ×3 (08:16→17:13)
[2023-07-18] MEDS: Saline NASAL SPRAY 0.65% BTL BOTH NARES PRN (08:54)
[2023-07-18] MEDS: Fluticasone NASAL SPRAY 50MCG 16 gm SPRAY BTL BOTH NARES SCH (08:54)
[2023-07-18] MEDS: Albuterol HFA INHALER 8 gm MDI INH PRN ×3 (08:55→18:57)
[2023-07-18] MEDS: Mometasone/Formoter 200/5 MDI INH SCH ×2 (08:55→20:09)
[2023-07-18] MEDS: Heparin 5000 UNITS/ML 1 mL VIAL SUBCUT SCH ×2 (08:55→20:09)
[2023-07-18] MEDS: Chlorothiazide IV 500 mg VIAL IV SCH (09:00)
[2023-07-18] MEDS: Insulin GLARGINE 100 un/ml 10 ml VIAL SUBCUT SCH (20:10)
[2023-07-19] MEDS: Albuterol HFA INHALER 8 gm MDI INH PRN ×3 (00:31→19:48)
[2023-07-19] MEDS: Bumetanide IV 0.25 MG/ML 4 ml VIAL (1 mg) IV SLOW PU SCH ×2 (05:03→12:38)
[2023-07-19 07:51] LABS: ABS Basophils 0.1 10^3/uL (0.0-0.1); ABS Eosinophils 0.1 10^3/uL (0.0-0.5); ABS Lymphocytes 0.7 10^3/uL (1.0-4.8); ABS Monocytes 0.6 10^3/uL (0.0-0.9); ABS Neutrophils 6.3 10^3/uL (1.5-7.6); Eosinophil % 1.7 %; Hematocrit 25.5 % (35-45); Hemoglobin 8.5 g/dL (11.5-14.3); Lymphocyte % 8.6 %; Mean Corpuscular Hemoglobin 30.9 pg (27-33); Mean Corpuscular Hgb Conc 33.5 g/dL (31-36); Mean Corpuscular Volume 92.2 fL (80-97); Mean Platelet Volume 8.8 fL (7.5-11.2); Platelet Count 171 10^3/uL (150-450); Red Blood Count 2.76 10^6/uL (3.63-4.92); Red Cell Distribution Width 17.8 % (12-17); White Blood Count 7.8 10^3/uL (3.8-11.8)
[2023-07-19 08:08] LABS: Calcium 8.6 mg/dL (8.6-10.3); Creatinine, Serum 2.39 mg/dL (0.51-0.95); Potassium 4.3 mmol/L (3.5-5.0); eGFR CKD-EPI 22.7 (>60)
[2023-07-19] MEDS: PTO: Pancrelipase 36,000 units (NF) PO SCH ×3 (08:42→17:14)
[2023-07-19] MEDS: Mometasone/Formoter 200/5 MDI INH SCH ×2 (08:43→19:49)
[2023-07-19] MEDS: Fluticasone NASAL SPRAY 50MCG 16 gm SPRAY BTL BOTH NARES SCH (08:44)
[2023-07-19] MEDS: Saline NASAL SPRAY 0.65% BTL BOTH NARES PRN (08:44)
[2023-07-19] MEDS: Heparin 5000 UNITS/ML 1 mL VIAL SUBCUT SCH ×2 (08:45→20:54)
[2023-07-19] MEDS: Chlorothiazide IV 500 mg VIAL IV SCH (08:55)
[2023-07-19] MEDS: Insulin GLARGINE 100 un/ml 10 ml VIAL SUBCUT SCH ×2 (21:10→23:27)
[2023-07-20] MEDS: Albuterol HFA INHALER 8 gm MDI INH PRN ×4 (01:26→21:19)
[2023-07-20] MEDS: Bumetanide IV 0.25 MG/ML 4 ml VIAL (1 mg) IV SLOW PU SCH ×2 (05:06→13:08)
[2023-07-20 06:51] LABS: ABS Basophils 0.1 10^3/uL (0.0-0.1); ABS Eosinophils 0.2 10^3/uL (0.0-0.5); ABS Lymphocytes 0.5 10^3/uL (1.0-4.8); ABS Monocytes 0.5 10^3/uL (0.0-0.9); ABS Neutrophils 5.5 10^3/uL (1.5-7.6); Eosinophil % 2.3 %; Hematocrit 24.7 % (35-45); Hemoglobin 8.3 g/dL (11.5-14.3); Lymphocyte % 8.1 %; Mean Corpuscular Hemoglobin 31.2 pg (27-33); Mean Corpuscular Hgb Conc 33.6 g/dL (31-36); Mean Corpuscular Volume 92.8 fL (80-97); Mean Platelet Volume 8.8 fL (7.5-11.2); Platelet Count 162 10^3/uL (150-450); Red Blood Count 2.66 10^6/uL (3.63-4.92); Red Cell Distribution Width 17.4 % (12-17); White Blood Count 6.7 10^3/uL (3.8-11.8)
[2023-07-20 07:06] LABS: Calcium 8.5 mg/dL (8.6-10.3); Creatinine, Serum 2.45 mg/dL (0.51-0.95); Magnesium 1.8 mg/dL (1.9-2.7); Potassium 4.1 mmol/L (3.5-5.0)
[2023-07-20] MEDS: PTO: Pancrelipase 36,000 units (NF) PO SCH ×3 (08:50→17:08)
[2023-07-20] MEDS: Mometasone/Formoter 200/5 MDI INH SCH ×2 (08:51→21:19)
[2023-07-20] MEDS: Fluticasone NASAL SPRAY 50MCG 16 gm SPRAY BTL BOTH NARES SCH (08:53)
[2023-07-20] MEDS: Heparin 5000 UNITS/ML 1 mL VIAL SUBCUT SCH ×2 (09:02→21:22)
[2023-07-20] MEDS: Chlorothiazide IV 500 mg VIAL IV SCH (10:15)
[2023-07-20] MEDS: Insulin GLARGINE 100 un/ml 10 ml VIAL SUBCUT SCH (23:12)
[2023-07-21] MEDS: Albuterol HFA INHALER 8 gm MDI INH PRN ×4 (01:46→20:58)
[2023-07-21] MEDS: Bumetanide IV 0.25 MG/ML 4 ml VIAL (1 mg) IV SLOW PU SCH ×3 (05:39→16:24)
[2023-07-21 06:55] LABS: ABS Basophils 0.1 10^3/uL (0.0-0.1); ABS Eosinophils 0.2 10^3/uL (0.0-0.5); ABS Lymphocytes 0.7 10^3/uL (1.0-4.8); ABS Monocytes 0.5 10^3/uL (0.0-0.9); ABS Neutrophils 5.2 10^3/uL (1.5-7.6); Eosinophil % 2.8 %; Hematocrit 25.1 % (35-45); Hemoglobin 8.4 g/dL (11.5-14.3); Lymphocyte % 10.2 %; Mean Corpuscular Hemoglobin 30.8 pg (27-33); Mean Corpuscular Hgb Conc 33.5 g/dL (31-36); Mean Corpuscular Volume 91.9 fL (80-97); Mean Platelet Volume 8.9 fL (7.5-11.2); Platelet Count 166 10^3/uL (150-450); Red Blood Count 2.73 10^6/uL (3.63-4.92); Red Cell Distribution Width 17.1 % (12-17); White Blood Count 6.7 10^3/uL (3.8-11.8)
[2023-07-21 07:11] LABS: Calcium 8.4 mg/dL (8.6-10.3); Creatinine, Serum 2.34 mg/dL (0.51-0.95); Potassium 3.9 mmol/L (3.5-5.0); eGFR CKD-EPI 23.3 (>60)
[2023-07-21] MEDS: Fluticasone NASAL SPRAY 50MCG 16 gm SPRAY BTL BOTH NARES SCH (08:34)
[2023-07-21] MEDS: Saline NASAL SPRAY 0.65% BTL BOTH NARES PRN (08:34)
[2023-07-21] MEDS: Mometasone/Formoter 200/5 MDI INH SCH ×2 (08:35→20:58)
[2023-07-21] MEDS: Heparin 5000 UNITS/ML 1 mL VIAL SUBCUT SCH ×2 (08:40→21:00)
[2023-07-21] MEDS: PTO: Pancrelipase 36,000 units (NF) PO SCH ×3 (08:43→19:23)
[2023-07-21] MEDS: Chlorothiazide IV 500 mg VIAL IV SCH (08:50)
[2023-07-21] MEDS: Insulin GLARGINE 100 un/ml 10 ml VIAL SUBCUT SCH (21:01)
[2023-07-22] MEDS: Albuterol HFA INHALER 8 gm MDI INH PRN ×3 (00:49→22:56)
[2023-07-22] MEDS: Bumetanide IV 0.25 MG/ML 4 ml VIAL (1 mg) IV SLOW PU SCH ×2 (05:26→16:12)
[2023-07-22 07:28] LABS: Calcium 8.5 mg/dL (8.6-10.3); Creatinine, Serum 2.37 mg/dL (0.51-0.95); Potassium 3.8 mmol/L (3.5-5.0); eGFR CKD-EPI 22.9 (>60)
[2023-07-22] MEDS: PTO: Pancrelipase 36,000 units (NF) PO SCH ×3 (09:30→17:34)
[2023-07-22] MEDS: Mometasone/Formoter 200/5 MDI INH SCH ×2 (09:30→22:55)
[2023-07-22] MEDS: Fluticasone NASAL SPRAY 50MCG 16 gm SPRAY BTL BOTH NARES SCH (09:33)
[2023-07-22] MEDS: Heparin 5000 UNITS/ML 1 mL VIAL SUBCUT SCH ×2 (09:34→22:57)
[2023-07-22] MEDS: Chlorothiazide IV 500 mg VIAL IV SCH (10:46)
[2023-07-22] MEDS: Insulin GLARGINE 100 un/ml 10 ml VIAL SUBCUT SCH (22:57)
[2023-07-23] MEDS: Bumetanide IV 0.25 MG/ML 4 ml VIAL (1 mg) IV SLOW PU SCH ×2 (05:59→13:57)
[2023-07-23] MEDS: PTO: Pancrelipase 36,000 units (NF) PO SCH ×3 (10:15→19:08)
[2023-07-23] MEDS: Heparin 5000 UNITS/ML 1 mL VIAL SUBCUT SCH ×2 (10:24→21:22)
[2023-07-23] MEDS: Mometasone/Formoter 200/5 MDI INH SCH ×2 (10:27→21:14)
[2023-07-23] MEDS: Fluticasone NASAL SPRAY 50MCG 16 gm SPRAY BTL BOTH NARES SCH (10:27)
[2023-07-23] MEDS: Albuterol HFA INHALER 8 gm MDI INH PRN ×2 (10:28→21:18)
[2023-07-23] MEDS: Chlorothiazide IV 500 mg VIAL IV SCH (10:30)
[2023-07-23 17:02] LABS: Hematocrit 24.6 % (35-45); Hemoglobin 8.3 g/dL (11.5-14.3); Mean Corpuscular Hemoglobin 31.2 pg (27-33); Mean Corpuscular Hgb Conc 33.7 g/dL (31-36); Mean Corpuscular Volume 92.4 fL (80-97); Mean Platelet Volume 8.7 fL (7.5-11.2); Platelet Count 164 10^3/uL (150-450); Red Blood Count 2.66 10^6/uL (3.63-4.92); Red Cell Distribution Width 16.8 % (12-17); White Blood Count 8.1 10^3/uL (3.8-11.8)
[2023-07-23 17:28] LABS: Calcium 8.5 mg/dL (8.6-10.3); Creatinine, Serum 2.34 mg/dL (0.51-0.95); Potassium 3.5 mmol/L (3.5-5.0); eGFR CKD-EPI 23.3 (>60)
[2023-07-23] MEDS ORDERED: Potassium Chlor 20 meq TAB.ER PO ONE (18:23)
[2023-07-23] MEDS: Insulin GLARGINE 100 un/ml 10 ml VIAL SUBCUT SCH (21:21)
[2023-07-24] MEDS: Bumetanide IV 0.25 MG/ML 4 ml VIAL (1 mg) IV SLOW PU SCH ×2 (05:11→12:29)
[2023-07-24 07:02] LABS: ABS Basophils 0.1 10^3/uL (0.0-0.1); ABS Eosinophils 0.2 10^3/uL (0.0-0.5); ABS Lymphocytes 0.6 10^3/uL (1.0-4.8); ABS Monocytes 0.5 10^3/uL (0.0-0.9); ABS Neutrophils 4.4 10^3/uL (1.5-7.6); Eosinophil % 3.6 %; Hematocrit 23.8 % (35-45); Lymphocyte % 10.6 %; Mean Corpuscular Hemoglobin 30.9 pg (27-33); Mean Corpuscular Hgb Conc 33.5 g/dL (31-36); Mean Corpuscular Volume 92.3 fL (80-97); Mean Platelet Volume 8.9 fL (7.5-11.2); Nucleated Red Blood Cells % 0.1 %/100WBC (0.0-0.8); Platelet Count 162 10^3/uL (150-450); Red Blood Count 2.58 10^6/uL (3.63-4.92); Red Cell Distribution Width 16.7 % (12-17); White Blood Count 5.8 10^3/uL (3.8-11.8)
[2023-07-24 08:42] LABS: Albumin 2.9 g/dL (3.2-5.2); Albumin/Globulin Ratio 0.9 (1-3); Calcium 8.4 mg/dL (8.6-10.3); Creatinine, Serum 2.27 mg/dL (0.51-0.95); Globulin 3.2 g/dL (2-4); Magnesium 1.5 mg/dL (1.9-2.7); Potassium 3.8 mmol/L (3.5-5.0); Total Bilirubin 0.2 mg/dL (0.2-1.0); Total Protein 6.1 g/dL (6.4-8.9); eGFR CKD-EPI 24.1 (>60)
[2023-07-24] MEDS: PTO: Pancrelipase 36,000 units (NF) PO SCH ×3 (08:42→17:13)
[2023-07-24] MEDS: Heparin 5000 UNITS/ML 1 mL VIAL SUBCUT SCH ×2 (08:43→21:13)
[2023-07-24] MEDS: Chlorothiazide IV 500 mg VIAL IV SCH (08:45)
[2023-07-24] MEDS: Potassium Chlor 20 meq TAB.ER PO SCH (08:45)
[2023-07-24] MEDS: Mometasone/Formoter 200/5 MDI INH SCH ×2 (09:35→21:21)
[2023-07-24] MEDS: Saline NASAL SPRAY 0.65% BTL BOTH NARES PRN (10:39)
[2023-07-24] MEDS: Fluticasone NASAL SPRAY 50MCG 16 gm SPRAY BTL BOTH NARES SCH (12:08)
[2023-07-24] MEDS ORDERED: Magnesium Sulfate 2 gm BAG 2 GM/50 ML BAG IVPB ONE (12:20)
[2023-07-24] MEDS: Albuterol HFA INHALER 8 gm MDI INH PRN (21:20)
[2023-07-24] MEDS: Insulin GLARGINE 100 un/ml 10 ml VIAL SUBCUT SCH (21:30)
[2023-07-25] MEDS: Bumetanide IV 0.25 MG/ML 4 ml VIAL (1 mg) IV SLOW PU SCH ×2 (05:01→14:02)
[2023-07-25] MEDS: Mometasone/Formoter 200/5 MDI INH SCH ×2 (08:54→21:36)
[2023-07-25] MEDS: Albuterol HFA INHALER 8 gm MDI INH PRN ×2 (08:54→21:36)
[2023-07-25] MEDS: Potassium Chlor 20 meq TAB.ER PO SCH (08:56)
[2023-07-25] MEDS: PTO: Pancrelipase 36,000 units (NF) PO SCH ×3 (08:57→18:19)
[2023-07-25] MEDS: Heparin 5000 UNITS/ML 1 mL VIAL SUBCUT SCH ×2 (09:09→21:20)
[2023-07-25] MEDS: Fluticasone NASAL SPRAY 50MCG 16 gm SPRAY BTL BOTH NARES SCH (09:11)
[2023-07-25] MEDS: Chlorothiazide IV 500 mg VIAL IV SCH (10:49)
[2023-07-25] MEDS ORDERED: Lidocaine 1% VIAL 10 MG/ML 30 ML VIAL INJ ONE (17:00)
[2023-07-25] MEDS: Insulin GLARGINE 100 un/ml 10 ml VIAL SUBCUT SCH (21:37)
[2023-07-26] MEDS: Bumetanide IV 0.25 MG/ML 4 ml VIAL (1 mg) IV SLOW PU SCH ×2 (06:01→13:00)
[2023-07-26] MEDS: Potassium Chlor 20 meq TAB.ER PO SCH (08:24)
[2023-07-26] MEDS: PTO: Pancrelipase 36,000 units (NF) PO SCH ×3 (08:27→17:14)
[2023-07-26] MEDS: Chlorothiazide IV 500 mg VIAL IV SCH (09:04)
[2023-07-26] MEDS: Mometasone/Formoter 200/5 MDI INH SCH ×2 (09:04→21:21)
[2023-07-26] MEDS: Albuterol HFA INHALER 8 gm MDI INH PRN ×2 (09:05→21:20)
[2023-07-26] MEDS: Saline NASAL SPRAY 0.65% BTL BOTH NARES PRN (09:05)
[2023-07-26] MEDS: Fluticasone NASAL SPRAY 50MCG 16 gm SPRAY BTL BOTH NARES SCH (09:05)
[2023-07-26] MEDS: Heparin 5000 UNITS/ML 1 mL VIAL SUBCUT SCH ×2 (09:06→21:21)
[2023-07-26] MEDS: Insulin GLARGINE 100 un/ml 10 ml VIAL SUBCUT SCH (21:29)
[2023-07-27] MEDS: Bumetanide IV 0.25 MG/ML 4 ml VIAL (1 mg) IV SLOW PU SCH ×2 (06:09→12:25)
[2023-07-27 08:22] LABS: ABS Eosinophils 0.2 10^3/uL (0.0-0.5); ABS Lymphocytes 0.7 10^3/uL (1.0-4.8); ABS Monocytes 0.6 10^3/uL (0.0-0.9); ABS Neutrophils 5.2 10^3/uL (1.5-7.6); ABS Nucleated RBC 0.01 10^3/ul; Eosinophil % 2.4 %; Hematocrit 23.8 % (35-45); Lymphocyte % 9.9 %; Mean Corpuscular Hemoglobin 31.2 pg (27-33); Mean Corpuscular Hgb Conc 33.6 g/dL (31-36); Mean Corpuscular Volume 92.8 fL (80-97); Mean Platelet Volume 8.8 fL (7.5-11.2); Nucleated Red Blood Cells % 0.1 %/100WBC (0.0-0.8); Platelet Count 163 10^3/uL (150-450); Red Blood Count 2.56 10^6/uL (3.63-4.92); Red Cell Distribution Width 16.3 % (12-17); White Blood Count 6.6 10^3/uL (3.8-11.8)
[2023-07-27] MEDS: Potassium Chlor 20 meq TAB.ER PO SCH (08:50)
[2023-07-27] MEDS: Saline NASAL SPRAY 0.65% BTL BOTH NARES PRN (08:53)
[2023-07-27] MEDS: Fluticasone NASAL SPRAY 50MCG 16 gm SPRAY BTL BOTH NARES SCH (08:53)
[2023-07-27] MEDS: Heparin 5000 UNITS/ML 1 mL VIAL SUBCUT SCH ×2 (08:54→21:17)
[2023-07-27] MEDS: Mometasone/Formoter 200/5 MDI INH SCH ×2 (08:55→21:21)
[2023-07-27] MEDS: PTO: Pancrelipase 36,000 units (NF) PO SCH ×3 (08:56→17:38)
[2023-07-27] MEDS: Chlorothiazide IV 500 mg VIAL IV SCH ×2 (09:16→22:30)
[2023-07-27 09:18] LABS: Albumin 2.8 g/dL (3.2-5.2); Albumin/Globulin Ratio 0.9 (1-3); Calcium 8.2 mg/dL (8.6-10.3); Creatinine, Serum 2.38 mg/dL (0.51-0.95); Globulin 3.2 g/dL (2-4); Magnesium 1.6 mg/dL (1.9-2.7); Total Bilirubin 0.3 mg/dL (0.2-1.0); eGFR CKD-EPI 22.8 (>60)
[2023-07-27] MEDS: Albuterol HFA INHALER 8 gm MDI INH PRN (21:18)
[2023-07-27] MEDS: Insulin GLARGINE 100 un/ml 10 ml VIAL SUBCUT SCH (22:30)
[2023-07-28] MEDS: Bumetanide IV 0.25 MG/ML 4 ml VIAL (1 mg) IV SLOW PU SCH ×2 (04:53→12:22)
[2023-07-28] MEDS: Heparin 5000 UNITS/ML 1 mL VIAL SUBCUT SCH ×2 (08:46→20:33)
[2023-07-28] MEDS: PTO: Pancrelipase 36,000 units (NF) PO SCH ×3 (08:46→17:37)
[2023-07-28] MEDS: Mometasone/Formoter 200/5 MDI INH SCH ×2 (08:47→20:32)
[2023-07-28] MEDS: Fluticasone NASAL SPRAY 50MCG 16 gm SPRAY BTL BOTH NARES SCH (08:51)
[2023-07-28] MEDS: Chlorothiazide IV 500 mg VIAL IV SCH (08:51)
[2023-07-28] MEDS: Albuterol HFA INHALER 8 gm MDI INH PRN (20:32)
[2023-07-28] MEDS: Insulin GLARGINE 100 un/ml 10 ml VIAL SUBCUT SCH (20:33)
[2023-07-29] MEDS: Bumetanide IV 0.25 MG/ML 4 ml VIAL (1 mg) IV SLOW PU SCH ×2 (05:01→11:46)
[2023-07-29] MEDS: Chlorothiazide IV 500 mg VIAL IV SCH ×3 (06:59→21:45)
[2023-07-29 07:45] LABS: ABS Basophils 0.1 10^3/uL (0.0-0.1); ABS Eosinophils 0.1 10^3/uL (0.0-0.5); ABS Lymphocytes 0.5 10^3/uL (1.0-4.8); ABS Monocytes 0.5 10^3/uL (0.0-0.9); ABS Neutrophils 4.9 10^3/uL (1.5-7.6); Eosinophil % 2.1 %; Hematocrit 22.5 % (35-45); Hemoglobin 7.5 g/dL (11.5-14.3); Lymphocyte % 8.8 %; Mean Corpuscular Hemoglobin 31.1 pg (27-33); Mean Corpuscular Hgb Conc 33.4 g/dL (31-36); Mean Corpuscular Volume 93.1 fL (80-97); Mean Platelet Volume 8.8 fL (7.5-11.2); Nucleated Red Blood Cells % 0.1 %/100WBC (0.0-0.8); Platelet Count 165 10^3/uL (150-450); Red Blood Count 2.42 10^6/uL (3.63-4.92); White Blood Count 6.1 10^3/uL (3.8-11.8)
[2023-07-29 08:01] LABS: Calcium 8.4 mg/dL (8.6-10.3); Creatinine, Serum 2.65 mg/dL (0.51-0.95); Magnesium 1.5 mg/dL (1.9-2.7); Potassium 3.8 mmol/L (3.5-5.0)
[2023-07-29] MEDS: PTO: Pancrelipase 36,000 units (NF) PO SCH ×3 (08:14→17:08)
[2023-07-29] MEDS: Albuterol HFA INHALER 8 gm MDI INH PRN ×2 (08:15→21:33)
[2023-07-29] MEDS: Mometasone/Formoter 200/5 MDI INH SCH ×2 (08:15→21:34)
[2023-07-29] MEDS: Fluticasone NASAL SPRAY 50MCG 16 gm SPRAY BTL BOTH NARES SCH (08:16)
[2023-07-29] MEDS: Heparin 5000 UNITS/ML 1 mL VIAL SUBCUT SCH ×2 (08:19→21:43)
[2023-07-29] MEDS ORDERED: Magnesium Sulfate 2 gm BAG 2 GM/50 ML BAG IVPB ONE (10:32)
[2023-07-29] MEDS: Insulin GLARGINE 100 un/ml 10 ml VIAL SUBCUT SCH (21:41)
[2023-07-30] MEDS: Bumetanide IV 0.25 MG/ML 4 ml VIAL (1 mg) IV SLOW PU SCH ×2 (05:24→12:03)
[2023-07-30] MEDS: PTO: Pancrelipase 36,000 units (NF) PO SCH ×3 (08:11→17:46)
[2023-07-30] MEDS: Mometasone/Formoter 200/5 MDI INH SCH ×2 (09:07→20:43)
[2023-07-30] MEDS: Albuterol HFA INHALER 8 gm MDI INH PRN ×2 (09:08→20:43)
[2023-07-30] MEDS: Heparin 5000 UNITS/ML 1 mL VIAL SUBCUT SCH ×2 (09:08→20:45)
[2023-07-30] MEDS: Chlorothiazide IV 500 mg VIAL IV SCH ×2 (09:21→21:05)
[2023-07-30] MEDS: Fluticasone NASAL SPRAY 50MCG 16 gm SPRAY BTL BOTH NARES SCH (09:22)
[2023-07-30] MEDS: Insulin GLARGINE 100 un/ml 10 ml VIAL SUBCUT SCH (21:02)
[2023-07-31] MEDS: Bumetanide IV 0.25 MG/ML 4 ml VIAL (1 mg) IV SLOW PU SCH ×2 (05:05→14:32)
[2023-07-31 07:33] LABS: Calcium 8.4 mg/dL (8.6-10.3); Creatinine, Serum 2.75 mg/dL (0.51-0.95); Magnesium 1.9 mg/dL (1.9-2.7); Potassium 4.2 mmol/L (3.5-5.0); eGFR CKD-EPI 19.2 (>60)
[2023-07-31 07:59] LABS: ABS Basophils 0.1 10^3/uL (0.0-0.1); ABS Eosinophils 0.2 10^3/uL (0.0-0.5); ABS Lymphocytes 0.7 10^3/uL (1.0-4.8); ABS Monocytes 0.6 10^3/uL (0.0-0.9); Eosinophil % 2.6 %; Hematocrit 22.2 % (35-45); Hemoglobin 7.4 g/dL (11.5-14.3); Lymphocyte % 10.3 %; Mean Corpuscular Hgb Conc 33.4 g/dL (31-36); Mean Corpuscular Volume 92.9 fL (80-97); Mean Platelet Volume 8.8 fL (7.5-11.2); Nucleated Red Blood Cells % 0.1 %/100WBC (0.0-0.8); Platelet Count 178 10^3/uL (150-450); Red Blood Count 2.39 10^6/uL (3.63-4.92); Red Cell Distribution Width 15.5 % (12-17); White Blood Count 6.5 10^3/uL (3.8-11.8)
[2023-07-31] MEDS: PTO: Pancrelipase 36,000 units (NF) PO SCH ×3 (08:06→17:00)
[2023-07-31] MEDS: Fluticasone NASAL SPRAY 50MCG 16 gm SPRAY BTL BOTH NARES SCH (08:42)
[2023-07-31] MEDS: Albuterol HFA INHALER 8 gm MDI INH PRN ×2 (08:42→21:25)
[2023-07-31] MEDS: Mometasone/Formoter 200/5 MDI INH SCH ×2 (08:47→21:25)
[2023-07-31] MEDS: Heparin 5000 UNITS/ML 1 mL VIAL SUBCUT SCH ×2 (08:48→21:28)
[2023-07-31] MEDS: Chlorothiazide IV 500 mg VIAL IV SCH ×2 (11:10→21:28)
[2023-07-31 14:20] LABS: Ferritin 684.3 ng/mL (11-307)
[2023-07-31] MEDS: Insulin GLARGINE 100 un/ml 10 ml VIAL SUBCUT SCH (21:28)
[2023-08-01] MEDS: Bumetanide IV 0.25 MG/ML 4 ml VIAL (1 mg) IV SLOW PU SCH ×2 (05:59→14:00)
[2023-08-01] MEDS: Saline NASAL SPRAY 0.65% BTL BOTH NARES PRN (09:16)
[2023-08-01] MEDS: PTO: Pancrelipase 36,000 units (NF) PO SCH ×3 (09:21→17:30)
[2023-08-01] MEDS: Heparin 5000 UNITS/ML 1 mL VIAL SUBCUT SCH ×2 (09:21→20:34)
[2023-08-01] MEDS: Fluticasone NASAL SPRAY 50MCG 16 gm SPRAY BTL BOTH NARES SCH (09:22)
[2023-08-01] MEDS: Chlorothiazide IV 500 mg VIAL IV SCH ×2 (09:50→20:35)
[2023-08-01] MEDS: Mometasone/Formoter 200/5 MDI INH SCH ×2 (09:51→20:33)
[2023-08-01] MEDS: Albuterol HFA INHALER 8 gm MDI INH PRN (20:34)
[2023-08-01] MEDS: Insulin GLARGINE 100 un/ml 10 ml VIAL SUBCUT SCH (20:36)
[2023-08-02] MEDS: Bumetanide IV 0.25 MG/ML 4 ml VIAL (1 mg) IV SLOW PU SCH ×2 (05:01→12:29)
[2023-08-02] MEDS: Saline NASAL SPRAY 0.65% BTL BOTH NARES PRN (09:36)
[2023-08-02] MEDS: PTO: Pancrelipase 36,000 units (NF) PO SCH ×3 (09:38→16:58)
[2023-08-02] MEDS: Mometasone/Formoter 200/5 MDI INH SCH ×2 (09:40→20:37)
[2023-08-02] MEDS: Chlorothiazide IV 500 mg VIAL IV SCH ×2 (09:41→20:38)
[2023-08-02] MEDS: Fluticasone NASAL SPRAY 50MCG 16 gm SPRAY BTL BOTH NARES SCH (09:41)
[2023-08-02] MEDS: Heparin 5000 UNITS/ML 1 mL VIAL SUBCUT SCH ×2 (09:45→20:37)
[2023-08-02] MEDS: Albuterol HFA INHALER 8 gm MDI INH PRN (20:37)
[2023-08-02] MEDS: Insulin GLARGINE 100 un/ml 10 ml VIAL SUBCUT SCH (20:38)
[2023-08-03] MEDS: Bumetanide IV 0.25 MG/ML 4 ml VIAL (1 mg) IV SLOW PU SCH ×2 (05:14→12:28)
[2023-08-03 07:18] LABS: Albumin 2.9 g/dL (3.2-5.2); Albumin/Globulin Ratio 0.8 (1-3); Calcium 8.8 mg/dL (8.6-10.3); Creatinine, Serum 2.8 mg/dL (0.51-0.95); Globulin 3.5 g/dL (2-4); Magnesium 1.9 mg/dL (1.9-2.7); Total Bilirubin 0.2 mg/dL (0.2-1.0); Total Protein 6.4 g/dL (6.4-8.9); eGFR CKD-EPI 18.7 (>60)
[2023-08-03 07:31] LABS: Hematocrit 22.5 % (35-45); Hemoglobin 7.7 g/dL (11.5-14.3); Mean Corpuscular Hemoglobin 31.6 pg (27-33); Mean Corpuscular Hgb Conc 34.1 g/dL (31-36); Mean Corpuscular Volume 92.8 fL (80-97); Mean Platelet Volume 8.5 fL (7.5-11.2); Platelet Count 211 10^3/uL (150-450); Red Blood Count 2.42 10^6/uL (3.63-4.92); Red Cell Distribution Width 15.9 % (12-17); White Blood Count 6.5 10^3/uL (3.8-11.8)
[2023-08-03 08:29] LABS: ABS Eosinophils 0.2 10^3/uL (0.0-0.5); ABS Lymphocytes 0.7 10^3/uL (1.0-4.8); ABS Monocytes 0.5 10^3/uL (0.0-0.9); Eosinophil % 3.3 %; Lymphocyte % 11.3 %
[2023-08-03] MEDS: Mometasone/Formoter 200/5 MDI INH SCH ×2 (08:58→20:05)
[2023-08-03] MEDS: Albuterol HFA INHALER 8 gm MDI INH PRN ×2 (08:59→20:10)
[2023-08-03] MEDS: PTO: Pancrelipase 36,000 units (NF) PO SCH ×3 (09:01→17:05)
[2023-08-03] MEDS: Fluticasone NASAL SPRAY 50MCG 16 gm SPRAY BTL BOTH NARES SCH (09:02)
[2023-08-03] MEDS: Saline NASAL SPRAY 0.65% BTL BOTH NARES PRN (09:03)
[2023-08-03] MEDS: Chlorothiazide IV 500 mg VIAL IV SCH ×2 (09:03→20:30)
[2023-08-03] MEDS: Heparin 5000 UNITS/ML 1 mL VIAL SUBCUT SCH ×2 (09:04→20:16)
[2023-08-03] MEDS: Insulin GLARGINE 100 un/ml 10 ml VIAL SUBCUT SCH (20:16)
[2023-08-04] MEDS: Bumetanide IV 0.25 MG/ML 4 ml VIAL (1 mg) IV SLOW PU SCH ×2 (04:36→13:29)
[2023-08-04] MEDS: Heparin 5000 UNITS/ML 1 mL VIAL SUBCUT SCH ×2 (08:48→21:55)
[2023-08-04] MEDS: Saline NASAL SPRAY 0.65% BTL BOTH NARES PRN (08:50)
[2023-08-04] MEDS: PTO: Pancrelipase 36,000 units (NF) PO SCH ×3 (08:50→17:03)
[2023-08-04] MEDS: Fluticasone NASAL SPRAY 50MCG 16 gm SPRAY BTL BOTH NARES SCH (08:52)
[2023-08-04] MEDS: Mometasone/Formoter 200/5 MDI INH SCH ×2 (09:07→21:51)
[2023-08-04] MEDS: Albuterol HFA INHALER 8 gm MDI INH PRN ×2 (09:08→21:51)
[2023-08-04] MEDS: Chlorothiazide IV 500 mg VIAL IV SCH ×2 (09:08→21:52)
[2023-08-04] MEDS: Insulin GLARGINE 100 un/ml 10 ml VIAL SUBCUT SCH (21:54)
[2023-08-05 05:24] LABS: ABS Basophils 0.1 10^3/uL (0.0-0.1); ABS Eosinophils 0.2 10^3/uL (0.0-0.5); ABS Lymphocytes 0.8 10^3/uL (1.0-4.8); ABS Monocytes 0.5 10^3/uL (0.0-0.9); ABS Nucleated RBC 0.01 10^3/ul; Eosinophil % 2.6 %; Hematocrit 22.7 % (35-45); Hemoglobin 7.7 g/dL (11.5-14.3); Lymphocyte % 12.1 %; Mean Corpuscular Hemoglobin 31.3 pg (27-33); Mean Corpuscular Hgb Conc 33.9 g/dL (31-36); Mean Corpuscular Volume 92.2 fL (80-97); Mean Platelet Volume 8.1 fL (7.5-11.2); Nucleated Red Blood Cells % 0.1 %/100WBC (0.0-0.8); Platelet Count 240 10^3/uL (150-450); Red Blood Count 2.46 10^6/uL (3.63-4.92); Red Cell Distribution Width 15.4 % (12-17); White Blood Count 6.6 10^3/uL (3.8-11.8)
[2023-08-05] MEDS: Bumetanide IV 0.25 MG/ML 4 ml VIAL (1 mg) IV SLOW PU SCH ×2 (05:30→16:11)
[2023-08-05 05:39] LABS: Calcium 8.7 mg/dL (8.6-10.3); Creatinine, Serum 2.83 mg/dL (0.51-0.95); Magnesium 1.7 mg/dL (1.9-2.7); Potassium 3.8 mmol/L (3.5-5.0); eGFR CKD-EPI 18.5 (>60)
[2023-08-05] MEDS: PTO: Pancrelipase 36,000 units (NF) PO SCH ×3 (09:18→18:24)
[2023-08-05] MEDS: Saline NASAL SPRAY 0.65% BTL BOTH NARES PRN (09:21)
[2023-08-05] MEDS: Fluticasone NASAL SPRAY 50MCG 16 gm SPRAY BTL BOTH NARES SCH (09:23)
[2023-08-05] MEDS: Heparin 5000 UNITS/ML 1 mL VIAL SUBCUT SCH ×2 (09:26→22:26)
[2023-08-05] MEDS: Mometasone/Formoter 200/5 MDI INH SCH ×2 (09:30→22:25)
[2023-08-05] MEDS: Chlorothiazide IV 500 mg VIAL IV SCH ×2 (12:03→22:31)
[2023-08-05] MEDS: Insulin GLARGINE 100 un/ml 10 ml VIAL SUBCUT SCH (22:30)
[2023-08-05] MEDS: Albuterol HFA INHALER 8 gm MDI INH PRN (22:45)
[2023-08-06] MEDS: Bumetanide IV 0.25 MG/ML 4 ml VIAL (1 mg) IV SLOW PU SCH ×2 (05:37→12:50)
[2023-08-06] MEDS: Heparin 5000 UNITS/ML 1 mL VIAL SUBCUT SCH ×2 (08:25→21:04)
[2023-08-06] MEDS: PTO: Pancrelipase 36,000 units (NF) PO SCH ×3 (08:26→17:00)
[2023-08-06] MEDS: Saline NASAL SPRAY 0.65% BTL BOTH NARES PRN (08:28)
[2023-08-06] MEDS: Chlorothiazide IV 500 mg VIAL IV SCH (08:29)
[2023-08-06] MEDS: Mometasone/Formoter 200/5 MDI INH SCH ×2 (08:46→21:00)
[2023-08-06] MEDS: Albuterol HFA INHALER 8 gm MDI INH PRN ×2 (08:46→20:59)
[2023-08-06] MEDS: Fluticasone NASAL SPRAY 50MCG 16 gm SPRAY BTL BOTH NARES SCH (08:47)
[2023-08-06] MEDS ORDERED: Magnesium Sulfate 2 gm BAG 2 GM/50 ML BAG IVPB ONE (17:00)
[2023-08-06] MEDS: Insulin GLARGINE 100 un/ml 10 ml VIAL SUBCUT SCH (21:48)
[2023-08-07 04:19] VITALS: BP 153/81
[2023-08-07 07:01] LABS: ABS Basophils 0.1 10^3/uL (0.0-0.1); ABS Eosinophils 0.2 10^3/uL (0.0-0.5); ABS Lymphocytes 0.7 10^3/uL (1.0-4.8); ABS Monocytes 0.7 10^3/uL (0.0-0.9); ABS Neutrophils 5.9 10^3/uL (1.5-7.6); ABS Nucleated RBC 0.01 10^3/ul; Eosinophil % 2.3 %; Hematocrit 22.8 % (35-45); Hemoglobin 7.7 g/dL (11.5-14.3); Mean Corpuscular Hemoglobin 31.2 pg (27-33); Mean Corpuscular Hgb Conc 33.6 g/dL (31-36); Mean Corpuscular Volume 92.7 fL (80-97); Mean Platelet Volume 7.9 fL (7.5-11.2); Nucleated Red Blood Cells % 0.1 %/100WBC (0.0-0.8); Platelet Count 254 10^3/uL (150-450); Red Blood Count 2.46 10^6/uL (3.63-4.92); Red Cell Distribution Width 15.6 % (12-17); White Blood Count 7.4 10^3/uL (3.8-11.8)
[2023-08-07 07:18] LABS: Albumin 2.9 g/dL (3.2-5.2); Albumin/Globulin Ratio 0.8 (1-3); Calcium 8.7 mg/dL (8.6-10.3); Creatinine, Serum 3.06 mg/dL (0.51-0.95); Globulin 3.5 g/dL (2-4); Magnesium 2.1 mg/dL (1.9-2.7); Potassium 3.8 mmol/L (3.5-5.0); Total Bilirubin 0.2 mg/dL (0.2-1.0); Total Protein 6.4 g/dL (6.4-8.9); eGFR CKD-EPI 16.9 (>60)
[2023-08-07 08:42] LABS: C Reactive Protein 6.66 mg/L (<8.01)
[2023-08-07] MEDS: Mometasone/Formoter 200/5 MDI INH SCH (10:46)
[2023-08-07] MEDS: PTO: Pancrelipase 36,000 units (NF) PO SCH (10:47)
[2023-08-07] MEDS: Heparin 5000 UNITS/ML 1 mL VIAL SUBCUT SCH (10:48)
[2023-08-07] MEDS: Fluticasone NASAL SPRAY 50MCG 16 gm SPRAY BTL BOTH NARES SCH (10:49)
[2023-08-07] MEDS: Saline NASAL SPRAY 0.65% BTL BOTH NARES PRN (10:53)
[2023-08-07 12:07] LABS: Rapid COVID-19 Molecular Undetected (Undetected)
== END 2023-08-07 16:30 | DRG 48 ==
LOC: PMRU 06-19 13:37
PROVIDERS: ADMIT Physical Medicine & Rehabilitation; ATTEND Physical Medicine & Rehabilitation

== ENCOUNTER 2023-08-22 20:16 | Inpatient (IN) ==
[2023-08-22 21:03] LABS: ABS Basophils 0.1 10^3/uL (0.0-0.1); ABS Eosinophils 0.2 10^3/uL (0.0-0.5); ABS Lymphocytes 0.7 10^3/uL (1.0-4.8); ABS Monocytes 0.6 10^3/uL (0.0-0.9); ABS Neutrophils 5.1 10^3/uL (1.5-7.6); Eosinophil % 3.2 %; Hematocrit 27.9 % (35-45); Hemoglobin 9.4 g/dL (11.5-14.3); INR 1.38 (0.83-1.13); Lymphocyte % 9.7 %; Mean Corpuscular Hemoglobin 30.7 pg (27-33); Mean Corpuscular Hgb Conc 33.7 g/dL (31-36); Mean Corpuscular Volume 91.2 fL (80-97); Mean Platelet Volume 8.2 fL (7.5-11.2); Nucleated Red Blood Cells % 0.1 %/100WBC (0.0-0.8); Platelet Count 323 10^3/uL (150-450); Red Blood Count 3.06 10^6/uL (3.63-4.92); Red Cell Distribution Width 14.8 % (12-17); White Blood Count 6.7 10^3/uL (3.8-11.8)
[2023-08-22 21:17] LABS: ALT 8 U/L (7-52); AST 14 U/L (13-39); Albumin 3.1 g/dL (3.2-5.2); Albumin/Globulin Ratio 0.7 (1-3); Alkaline Phosphatase 48 U/L (35-149); Anion Gap 14 mmol/L (2-16); Blood Urea Nitrogen 129 mg/dL (6-24); CO2 Carbon Dioxide 31 mmol/L (22-32); Calcium 8.2 mg/dL (8.6-10.3); Chloride 89 mmol/L (101-111); Creatine Kinase 35 U/L (10-223); Creatinine, Serum 3.84 mg/dL (0.51-0.95); Globulin 4.2 g/dL (2-4); Glucose 305 mg/dL (70-100); Lipase < 10 U/L (11.0-82.0); Magnesium 1.1 mg/dL (1.9-2.7); Sodium 134 mmol/L (135-145); Total Bilirubin 0.3 mg/dL (0.2-1.0); Total Protein 7.3 g/dL (6.4-8.9); eGFR CKD-EPI 12.8 (>60)
[2023-08-22 21:23] LABS: High Sens Troponin Baseline 20 pg/mL (<15)
[2023-08-22] MEDS: Magnesium Sulf 4 GM/100 ML IV 4,000 MG/100 ML BAG IVPB ONE (21:30)
[2023-08-22] MEDS: Albuterol 2.5mg/3 ml (0.083%) NEB.SOLN INH ONE (21:37)
[2023-08-23 00:11] LABS: High Sensitivity Troponin 1 Hr 20 pg/mL (<15)
[2023-08-23 00:42] LABS: Urine Appearance Turbid; Urine Bilirubin Negative (Negative); Urine Blood 3+ (Negative); Urine Color Colorless; Urine Glucose 2+ (>=150 mg/dL) (Negative); Urine Ketones Negative (Negative); Urine Nitrite Negative (Negative); Urine Protein 3+ (>=300 mg/dL) (Negative); Urine Specific Gravity 1.012 (1.002-1.030); Urine Urobilinogen Negative (Negative)
[2023-08-23] MEDS ORDERED: Senna TAB 8.6 mg TAB PO PRN (00:45)
[2023-08-23] MEDS ORDERED: Dextrose 50% Syringe 50 ml 25 GM/50 ML SYRINGE IV PUSH PRN (00:45)
[2023-08-23] MEDS ORDERED: Naloxone Nasal Spray 4 MG/0.1 ML NASAL.SPR INTRANASAL PRN (00:45)
[2023-08-23 00:46] LABS: Urine Bacteria 1+ /HPF (Absent); Urine Red Blood Cell 3+(>10/hpf) /HPF (0-Trace); Urine Squamous Epithelial Cell Present /HPF (Absent); Urine White Blood Cell 3+(>20/hpf) /HPF (0-Trace)
[2023-08-23] MEDS ORDERED: Ondansetron ODT 4 mg TAB 4 MG TAB PO PRN (01:21)
[2023-08-23] MEDS: Insulin GLARGINE 100 un/ml 10 ml VIAL SUBCUT ONE (02:25)
[2023-08-23] MEDS: Glycerin ADULT 2.4 gm SUPP PR ONE (04:34)
[2023-08-23 05:25] LABS: Hematocrit 27.8 % (35-45); Hemoglobin 9.5 g/dL (11.5-14.3); Mean Corpuscular Hgb Conc 34.1 g/dL (31-36); Mean Corpuscular Volume 90.8 fL (80-97); Platelet Count 325 10^3/uL (150-450); Red Blood Count 3.06 10^6/uL (3.63-4.92); Red Cell Distribution Width 14.4 % (12-17); White Blood Count 7.6 10^3/uL (3.8-11.8)
[2023-08-23 05:39] LABS: Calcium 8.7 mg/dL (8.6-10.3); Creatinine, Serum 3.85 mg/dL (0.51-0.95); Potassium 3.3 mmol/L (3.5-5.0); eGFR CKD-EPI 12.8 (>60)
[2023-08-23] MEDS: KCL 20 MEQ/100 ML IVPREMIX 20 MEQ/100 ML BAG IV SCH (08:02)
[2023-08-23] MEDS ORDERED: Lorazepam PYXIS KEY PRN (10:07)
[2023-08-23] MEDS ORDERED: LORazepam 2 mg VIAL 1 ml ONE (10:11)
[2023-08-23] MEDS: LORazepam 2 mg VIAL 1 ml IV PUSH ONE ×2 (10:15→14:30)
[2023-08-23] MEDS: Potassium EFFERVES 25 meq TAB PO ONE (13:38)
[2023-08-23] MEDS: Mometasone/Formoter 200/5 MDI INH SCH (13:38)
[2023-08-23] MEDS: Nystatin TOP POWDER 15 GM BTL TOPICAL SCH (14:41)
[2023-08-23] MEDS: Albuterol HFA INHALER 8 gm MDI INH PRN (22:05)
[2023-08-23] MEDS: Insulin GLARGINE 100 un/ml 10 ml VIAL SUBCUT SCH (22:07)
[2023-08-24 06:03] LABS: ABS Basophils 0.1 10^3/uL (0.0-0.1); ABS Eosinophils 0.2 10^3/uL (0.0-0.5); ABS Lymphocytes 0.6 10^3/uL (1.0-4.8); ABS Monocytes 0.5 10^3/uL (0.0-0.9); ABS Neutrophils 4.6 10^3/uL (1.5-7.6); ABS Nucleated RBC 0.01 10^3/ul; Eosinophil % 3.1 %; Hematocrit 24.6 % (35-45); Hemoglobin 8.4 g/dL (11.5-14.3); Lymphocyte % 9.7 %; Mean Corpuscular Volume 91.2 fL (80-97); Nucleated Red Blood Cells % 0.1 %/100WBC (0.0-0.8); Platelet Count 288 10^3/uL (150-450); Red Blood Count 2.69 10^6/uL (3.63-4.92); Red Cell Distribution Width 14.5 % (12-17)
[2023-08-24 06:19] LABS: Calcium 8.4 mg/dL (8.6-10.3); Potassium 4.5 mmol/L (3.5-5.0); eGFR CKD-EPI 12.2 (>60)
[2023-08-24] MEDS: Insulin GLARGINE 100 un/ml 10 ml VIAL SUBCUT SCH (22:20)
[2023-08-25 05:39] LABS: ABS Basophils 0.1 10^3/uL (0.0-0.1); ABS Eosinophils 0.2 10^3/uL (0.0-0.5); ABS Lymphocytes 0.7 10^3/uL (1.0-4.8); ABS Monocytes 0.6 10^3/uL (0.0-0.9); ABS Neutrophils 4.6 10^3/uL (1.5-7.6); ABS Nucleated RBC 0.01 10^3/ul; Eosinophil % 3.3 %; Hemoglobin 8.7 g/dL (11.5-14.3); Lymphocyte % 11.8 %; Mean Corpuscular Hemoglobin 31.5 pg (27-33); Mean Corpuscular Hgb Conc 34.6 g/dL (31-36); Mean Corpuscular Volume 90.9 fL (80-97); Nucleated Red Blood Cells % 0.2 %/100WBC (0.0-0.8); Platelet Count 298 10^3/uL (150-450); Red Blood Count 2.75 10^6/uL (3.63-4.92); Red Cell Distribution Width 14.3 % (12-17); White Blood Count 6.2 10^3/uL (3.8-11.8)
[2023-08-25 05:53] LABS: Calcium 8.7 mg/dL (8.6-10.3); Creatinine, Serum 3.64 mg/dL (0.51-0.95); Magnesium 1.7 mg/dL (1.9-2.7); Potassium 3.8 mmol/L (3.5-5.0); eGFR CKD-EPI 13.7 (>60)
[2023-08-25] MEDS: Magnesium Sulfate 2 gm BAG 2 GM/50 ML BAG IVPB ONE (08:11)
[2023-08-25] MEDS: Potassium Chlor 20 meq TAB.ER PO ONE (17:33)
[2023-08-25] MEDS: Insulin GLARGINE 100 un/ml 10 ml VIAL SUBCUT SCH (21:08)
[2023-08-26 06:34] LABS: ABS Basophils 0.1 10^3/uL (0.0-0.1); ABS Eosinophils 0.2 10^3/uL (0.0-0.5); ABS Lymphocytes 0.7 10^3/uL (1.0-4.8); ABS Monocytes 0.5 10^3/uL (0.0-0.9); ABS Neutrophils 4.5 10^3/uL (1.5-7.6); Eosinophil % 3.3 %; Hematocrit 25.3 % (35-45); Hemoglobin 8.5 g/dL (11.5-14.3); Lymphocyte % 11.6 %; Mean Corpuscular Hemoglobin 30.7 pg (27-33); Mean Corpuscular Hgb Conc 33.7 g/dL (31-36); Mean Corpuscular Volume 91.2 fL (80-97); Mean Platelet Volume 8.1 fL (7.5-11.2); Nucleated Red Blood Cells % 0.1 %/100WBC (0.0-0.8); Platelet Count 292 10^3/uL (150-450); Red Blood Count 2.78 10^6/uL (3.63-4.92); Red Cell Distribution Width 13.9 % (12-17)
[2023-08-26 06:51] LABS: Calcium 8.9 mg/dL (8.6-10.3); Creatinine, Serum 3.44 mg/dL (0.51-0.95); Phosphorus 4.1 mg/dL (2.5-5.0); Potassium 4.3 mmol/L (3.5-5.0); eGFR CKD-EPI 14.6 (>60)
[2023-08-26 16:16] LABS: Rapid COVID-19 Molecular Undetected (Undetected)
[2023-08-27] MEDS: Calcium Carb (TUMS) 500 mg CHEW TAB PO PRN (03:26)
[2023-08-27] MEDS ORDERED: Lorazepam PYXIS KEY PRN (07:51)
[2023-08-27 08:19] LABS: ABS Basophils 0.1 10^3/uL (0.0-0.1); ABS Eosinophils 0.3 10^3/uL (0.0-0.5); ABS Lymphocytes 0.8 10^3/uL (1.0-4.8); ABS Monocytes 0.6 10^3/uL (0.0-0.9); ABS Neutrophils 5.1 10^3/uL (1.5-7.6); Eosinophil % 4.2 %; Hematocrit 26.7 % (35-45); Lymphocyte % 11.1 %; Mean Corpuscular Hemoglobin 30.8 pg (27-33); Mean Corpuscular Hgb Conc 33.9 g/dL (31-36); Mean Corpuscular Volume 90.8 fL (80-97); Mean Platelet Volume 7.7 fL (7.5-11.2); Platelet Count 305 10^3/uL (150-450); Red Blood Count 2.94 10^6/uL (3.63-4.92); Red Cell Distribution Width 14.2 % (12-17); White Blood Count 6.8 10^3/uL (3.8-11.8)
[2023-08-27 08:37] LABS: Calcium 9.1 mg/dL (8.6-10.3); Creatinine, Serum 3.49 mg/dL (0.51-0.95); Magnesium 1.8 mg/dL (1.9-2.7); Potassium 4.4 mmol/L (3.5-5.0); eGFR CKD-EPI 14.4 (>60)
[2023-08-27] MEDS ORDERED: Magnesium Hydroxide LIQ 30 ML UDC PO PRN (08:40)
[2023-08-27] MEDS: Glycerin ADULT 2.4 gm SUPP PR ONE (09:33)
[2023-08-27] MEDS: Magnesium Sulfate 2 gm BAG 2 GM/50 ML BAG IVPB ONE (10:55)
[2023-08-27] MEDS: LORazepam 2 mg VIAL 1 ml IV PUSH ONE (11:37)
[2023-08-27 13:08] VITALS: BP 133/55
== END 2023-08-27 14:45 | DRG 143 ==
LOC: ED 20:16 → EDHOLD 22:14 → SUATTDRO 22:14 → MED 08-24 16:18
PROVIDERS: ADMIT Internal Medicine; ATTEND Internal Medicine

== ENCOUNTER 2023-09-27 23:31 | Observation (INO) ==
[2023-09-28 00:24] LABS: ABS Basophils 0.1 10^3/uL (0.0-0.1); ABS Eosinophils 0.2 10^3/uL (0.0-0.5); ABS Lymphocytes 0.5 10^3/uL (1.0-4.8); ABS Monocytes 0.6 10^3/uL (0.0-0.9); ABS Neutrophils 7.6 10^3/uL (1.5-7.6); Eosinophil % 2.1 %; Hematocrit 20.3 % (35-45); Lymphocyte % 5.6 %; Mean Corpuscular Hemoglobin 31.2 pg (27-33); Mean Corpuscular Hgb Conc 34.6 g/dL (31-36); Mean Corpuscular Volume 90.2 fL (80-97); Mean Platelet Volume 7.9 fL (7.5-11.2); Platelet Count 334 10^3/uL (150-450); Red Blood Count 2.25 10^6/uL (3.63-4.92); Red Cell Distribution Width 14.4 % (12-17)
[2023-09-28 00:34] LABS: INR 1.46 (0.83-1.13)
[2023-09-28 01:19] LABS: Albumin/Globulin Ratio 0.8 (1-3); C Reactive Protein 26.93 mg/L (<8.01); Calcium 8.6 mg/dL (8.6-10.3); Creatinine, Serum 3.46 mg/dL (0.51-0.95); Globulin 3.9 g/dL (2-4); Potassium 5.5 mmol/L (3.5-5.0); Total Bilirubin 0.3 mg/dL (0.2-1.0); Total Protein 6.9 g/dL (6.4-8.9); eGFR CKD-EPI 14.5 (>60)
[2023-09-28 01:57] LABS: High Sensitivity Troponin 1 Hr 206 pg/mL (<15)
[2023-09-28 03:43] LABS: Magnesium 1.1 mg/dL (1.9-2.7)
[2023-09-28] MEDS: Magnesium Sulfate 2 gm BAG 2 GM/50 ML BAG IVPB ONE (04:21)
[2023-09-28] MEDS ORDERED: Ondansetron 4 mg VIAL 2 MG/ML 2 ml VIAL IV PRN (05:18)
[2023-09-28] MEDS ORDERED: Albuterol HFA INHALER 8 gm MDI INH PRN (05:34)
[2023-09-28] MEDS: Bumetanide IV 0.25 MG/ML 4 ml VIAL (1 mg) IV SLOW PU ONE (05:50)
[2023-09-28] MEDS ORDERED: Dextrose 50% Syringe 50 ml 25 GM/50 ML SYRINGE IV PUSH PRN (06:13)
[2023-09-28 06:41] LABS: Phosphorus 4.7 mg/dL (2.5-5.0)
[2023-09-28] MEDS: NON FORMULARY MED (Metolazone 2.5 mg Tablet) PO SCH (15:50)
[2023-09-28] MEDS: Insulin GLARGINE 100 un/ml 10 ml VIAL SUBCUT SCH (21:11)
[2023-09-29] MEDS: Calcium Carb (TUMS) 500 mg CHEW TAB PO ONE (04:53)
[2023-09-29 05:29] LABS: ABS Basophils 0.1 10^3/uL (0.0-0.1); ABS Eosinophils 0.2 10^3/uL (0.0-0.5); ABS Lymphocytes 0.6 10^3/uL (1.0-4.8); ABS Monocytes 0.7 10^3/uL (0.0-0.9); ABS Neutrophils 12.1 10^3/uL (1.5-7.6); ABS Nucleated RBC 0.01 10^3/ul; Eosinophil % 1.2 %; Hematocrit 20.3 % (35-45); Hemoglobin 6.8 g/dL (11.5-14.3); Lymphocyte % 4.7 %; Mean Corpuscular Hemoglobin 30.2 pg (27-33); Mean Corpuscular Hgb Conc 33.3 g/dL (31-36); Mean Corpuscular Volume 90.5 fL (80-97); Mean Platelet Volume 8.1 fL (7.5-11.2); Nucleated Red Blood Cells % 0.1 %/100WBC (0.0-0.8); Platelet Count 293 10^3/uL (150-450); Red Blood Count 2.24 10^6/uL (3.63-4.92); Red Cell Distribution Width 14.4 % (12-17); White Blood Count 13.7 10^3/uL (3.8-11.8)
[2023-09-29 05:45] LABS: Calcium 8.7 mg/dL (8.6-10.3); Creatinine, Serum 3.75 mg/dL (0.51-0.95); Magnesium 1.5 mg/dL (1.9-2.7); Potassium 4.7 mmol/L (3.5-5.0); eGFR CKD-EPI 13.2 (>60)
[2023-09-29] MEDS ORDERED: Senna TAB 8.6 mg TAB PO PRN (08:37)
[2023-09-29] MEDS ORDERED: Albuterol/Ipratropium NEB.SOL (2.5/0.5 MG) 3 ML NEB.SOLN INH PRN (08:37)
[2023-09-29] MEDS ORDERED: Calcium (OSCAL) 500 mg TAB PO PRN (08:37)
[2023-09-29] MEDS ORDERED: Mometasone/Formoter 200/5 MDI INH SCH (09:00)
[2023-09-29] MEDS: Magnesium Sulf 4 GM/100 ML IV 4,000 MG/100 ML BAG IVPB ONE (11:20)
[2023-09-29] MEDS: Fluticasone NASAL SPRAY 50MCG 16 gm SPRAY BTL BOTH NARES SCH (11:22)
[2023-09-29] MEDS: Mometasone/Formoter 200/5 MDI INH SCH (12:12)
[2023-09-29] MEDS: Bumetanide IV 0.25 MG/ML 4 ml VIAL (1 mg) IV SLOW PU ONE (14:58)
[2023-09-29 21:22] LABS: Hematocrit 23.3 % (35-45); Hemoglobin 7.8 g/dL (11.5-14.3)
[2023-09-30] MEDS: Magnesium Hydroxide LIQ 30 ML UDC PO PRN (04:38)
[2023-09-30 06:14] LABS: Hematocrit 22.6 % (35-45); Hemoglobin 7.8 g/dL (11.5-14.3); Mean Corpuscular Hemoglobin 30.9 pg (27-33); Mean Corpuscular Hgb Conc 34.5 g/dL (31-36); Mean Corpuscular Volume 89.5 fL (80-97); Platelet Count 328 10^3/uL (150-450); Red Blood Count 2.53 10^6/uL (3.63-4.92); Red Cell Distribution Width 13.9 % (12-17); White Blood Count 10.1 10^3/uL (3.8-11.8)
[2023-09-30 06:44] LABS: Calcium 8.3 mg/dL (8.6-10.3); Creatinine, Serum 3.4 mg/dL (0.51-0.95); Potassium 4.4 mmol/L (3.5-5.0); eGFR CKD-EPI 14.9 (>60)
[2023-09-30] MEDS: Bumetanide IV 0.25 MG/ML 4 ml VIAL (1 mg) IV SLOW PU ONE (10:38)
[2023-09-30 14:05] VITALS: BP 123/58
== END 2023-09-30 14:25 ==
LOC: EDHOLD 23:31 → ED 23:31 → SUATTDRO 09-28 05:18 → MED 09-28 13:26
PROVIDERS: ADMIT Internal Medicine; ATTEND Internal Medicine

== ENCOUNTER 2024-03-22 15:00 | Inpatient (IN) ==
[2024-03-22] MEDS ORDERED: NS 0.9% 1000 ml BAG 200 ML IV PRN (16:54)
[2024-03-22] MEDS ORDERED: NS 0.9% 1000 ml BAG 100 ML IV PRN (16:54)
[2024-03-22 17:40] LABS: ABS Basophils 0.2 10^3/uL (0.0-0.1); ABS Eosinophils 0.2 10^3/uL (0.0-0.5); ABS Lymphocytes 0.9 10^3/uL (1.0-4.8); ABS Monocytes 0.8 10^3/uL (0.0-0.9); Eosinophil % 1.1 %; Hemoglobin 10.8 g/dL (11.5-14.3); Lymphocyte % 6.6 %; Mean Corpuscular Hemoglobin 29.5 pg (27-33); Mean Corpuscular Hgb Conc 31.7 g/dL (31-36); Mean Platelet Volume 9.3 fL (7.5-11.2); Platelet Count 295 10^3/uL (150-450); Red Blood Count 3.66 10^6/uL (3.63-4.92); Red Cell Distribution Width 17.5 % (12-17); White Blood Count 14.1 10^3/uL (3.8-11.8)
[2024-03-22 17:54] LABS: INR 1.6 (0.85-1.14)
[2024-03-22] MEDS: Piperacillin/Tazobac 3.375 BAG 3.375 GM/100 ML BAG IV ONE (18:02)
[2024-03-22 18:05] LABS: Albumin 2.8 g/dL (3.2-5.2); Albumin/Globulin Ratio 0.8 (1-3); Calcium 5.7 mg/dL (8.6-10.3); Creatinine, Serum 4.35 mg/dL (0.51-0.95); Globulin 3.4 g/dL (2-4); Total Bilirubin 0.3 mg/dL (0.2-1.0); Total Protein 6.2 g/dL (6.4-8.9)
[2024-03-22] MEDS: Vancomycin 1,500 MG in NS 0.9% 250 ml 250 ML IVPB ONE (18:23)
[2024-03-22 19:05] LABS: High Sensitivity Troponin 1 Hr 73 pg/mL (<15)
[2024-03-22] MEDS ORDERED: Calcium Gluconate 2 GM in NS 0.9% 100 ml BAG 100 ML IVPB ONE (19:16)
[2024-03-22 20:05] LABS: Hepatitis B Surface Antigen Nonreactive (Nonreactive)
[2024-03-22 20:22] LABS: Hepatitis B Surface Ab Not Immune (Immune)
[2024-03-22] MEDS: Furosemide 20 mg/2 ml IV VIAL IV SLOW PU ONE (20:48)
[2024-03-22] MEDS: CALCIUM GLUCONATE 1GM/50ML NS BAG IV SCH (20:53)
[2024-03-22] MEDS ORDERED: Senna TAB 8.6 mg TAB PO PRN (21:57)
[2024-03-22] MEDS ORDERED: DROXIDOPA 100 MG PO PRN (21:57)
[2024-03-22] MEDS ORDERED: Dextrose 50% Syringe 50 ml 25 GM/50 ML SYRINGE IV PUSH PRN (21:57)
[2024-03-22] MEDS ORDERED: Naloxone Nasal Spray 4 MG/0.1 ML NASAL.SPR INTRANASAL PRN (21:57)
[2024-03-22] MEDS ORDERED: Albuterol/Ipratropium NEB.SOL (2.5/0.5 MG) 3 ML NEB.SOLN INH PRN (21:57)
[2024-03-22] MEDS ORDERED: Mometasone/Formoter 200/5 MDI INH PRN (21:57)
[2024-03-22] MEDS ORDERED: Calcium (OSCAL) 500 mg TAB PO PRN (21:57)
[2024-03-22] MEDS: Ondansetron 4 mg VIAL 2 MG/ML 2 ml VIAL IV PRN (22:37)
[2024-03-22] MEDS: Heparin 5000 UNITS/ML 1 mL VIAL SUBCUT SCH (22:42)
[2024-03-22] MEDS: Insulin GLARGINE 100 un/ml 10 ml VIAL SUBCUT SCH (22:42)
[2024-03-22] MEDS: Ondansetron 4 mg VIAL 2 MG/ML 2 ml VIAL ONE (22:43)
[2024-03-22] MEDS ORDERED: Zosyn per Pharmacy NOTE FOLLOW UP SCH (23:00)
[2024-03-22] MEDS ORDERED: Vancomycin per Pharmacy 1 EA NOTE FOLLOW UP SCH (23:00)
[2024-03-22] MEDS: Heparin 1,000 UNIT/ML 10 ml (10,000 UNITS) CATHLAB/DIALYSIS DIALYSIS PRN (23:56)
[2024-03-23] MEDS: Albumin Human 25% 25 GM/100 ML BTL IV PRN (00:47)
[2024-03-23] MEDS ORDERED: Dextrose 50% Syringe 50 ml 25 GM/50 ML SYRINGE IV PUSH PRN (00:58)
[2024-03-23] MEDS ORDERED: Calcium Carb (TUMS) 500 mg CHEW TAB PO PRN (01:13)
[2024-03-23 05:09] LABS: ABS Basophils 0.1 10^3/uL (0.0-0.1); ABS Eosinophils 0.2 10^3/uL (0.0-0.5); ABS Lymphocytes 0.8 10^3/uL (1.0-4.8); ABS Monocytes 0.6 10^3/uL (0.0-0.9); ABS Neutrophils 7.1 10^3/uL (1.5-7.6); Eosinophil % 1.8 %; Hematocrit 32.6 % (35-45); Hemoglobin 10.5 g/dL (11.5-14.3); Mean Corpuscular Hemoglobin 29.6 pg (27-33); Mean Corpuscular Hgb Conc 32.3 g/dL (31-36); Mean Corpuscular Volume 91.8 fL (80-97); Mean Platelet Volume 8.8 fL (7.5-11.2); Platelet Count 263 10^3/uL (150-450); Red Blood Count 3.56 10^6/uL (3.63-4.92); Red Cell Distribution Width 17.5 % (12-17); White Blood Count 8.8 10^3/uL (3.8-11.8)
[2024-03-23] MEDS: ZOSYN 3.375 GM Q12H per EXTENDED INFUSION IV SCH ×2 (05:27→05:58)
[2024-03-23 05:43] LABS: Calcium 7.3 mg/dL (8.6-10.3); Creatinine, Serum 2.33 mg/dL (0.51-0.95); Potassium 3.8 mmol/L (3.5-5.0); Vancomycin Random 13.9 mcg/mL; eGFR CKD-EPI 23.2 (>60)
[2024-03-23] MEDS: Norepinephrine 4 MG/250mL D5W 4,000 MCG/250 ML BAG IV SCH ×2 (05:58)
[2024-03-23 06:19] LABS: Magnesium 0.8 mg/dL (1.9-2.7)
[2024-03-23] MEDS: Magnesium Sulf 4 GM/100 ML IV 4,000 MG/100 ML BAG IVPB ONE (06:36)
[2024-03-23] MEDS ORDERED: Influenza Vaccine *TRI* 2024-25* 0.5 ML SYRINGE IM ONE (09:00)
[2024-03-23] MEDS: Cholecalciferol (VIT D3) 1,000 unit TAB PO SCH (09:24)
[2024-03-23] MEDS ORDERED: HYDROmorphone 0.5 MG/0.5 ML SYRINGE IV SLOW PU PRN (10:23)
[2024-03-23] MEDS: Albuterol HFA INHALER 8 gm MDI INH PRN (11:39)
[2024-03-23] MEDS: Mometasone/Formoter 200/5 MDI INH SCH (11:40)
[2024-03-24] MEDS: Vancomycin 500 MG in NS 0.9% 250 ML IVPB ONE (01:03)
[2024-03-24 06:55] LABS: Albumin 2.6 g/dL (3.2-5.2); Creatinine, Serum 3.31 mg/dL (0.51-0.95); Globulin 2.7 g/dL (2-4); Magnesium 1.6 mg/dL (1.9-2.7); Phosphorus 3.6 mg/dL (2.5-5.0); Potassium 4.5 mmol/L (3.5-5.0); Total Bilirubin 0.3 mg/dL (0.2-1.0); Total Protein 5.3 g/dL (6.4-8.9); Vancomycin Random 10.5 mcg/mL; eGFR CKD-EPI 15.2 (>60)
[2024-03-24 12:18] LABS: ABS Basophils 0.2 10^3/uL (0.0-0.1); ABS Eosinophils 0.1 10^3/uL (0.0-0.5); ABS Lymphocytes 0.4 10^3/uL (1.0-4.8); ABS Monocytes 0.4 10^3/uL (0.0-0.9); ABS Neutrophils 9.6 10^3/uL (1.5-7.6); Eosinophil % 1.2 %; Hematocrit 34.3 % (35-45); Hemoglobin 10.8 g/dL (11.5-14.3); Lymphocyte % 3.9 %; Mean Corpuscular Hemoglobin 28.8 pg (27-33); Mean Corpuscular Hgb Conc 31.5 g/dL (31-36); Mean Corpuscular Volume 91.7 fL (80-97); Platelet Count 308 10^3/uL (150-450); Red Blood Count 3.74 10^6/uL (3.63-4.92); Red Cell Distribution Width 17.7 % (12-17); White Blood Count 10.7 10^3/uL (3.8-11.8)
[2024-03-24] MEDS: Vancomycin Random Level NOTE FOLLOW UP ONE (13:42)
[2024-03-24] MEDS: Influenza Vaccine *TRI* 2024-25* 0.5 ML SYRINGE IM ONE (13:42)
[2024-03-24 13:54] LABS: C Reactive Protein 47.58 mg/L (<8.01)
[2024-03-24] MEDS: Vancomycin 750 MG in NS 0.9% 250 ML IVPB ONE (15:09)
[2024-03-24] MEDS: Magnesium Sulfate IV 1GM/100ML 1 GM/100 ML BAG IV ONE (15:15)
[2024-03-25 07:49] LABS: Albumin 2.8 g/dL (3.2-5.2); Albumin/Globulin Ratio 0.9 (1-3); Calcium 8.1 mg/dL (8.6-10.3); Globulin 3.1 g/dL (2-4); Magnesium 1.6 mg/dL (1.9-2.7); Potassium 4.4 mmol/L (3.5-5.0); Total Bilirubin 0.3 mg/dL (0.2-1.0); Total Protein 5.9 g/dL (6.4-8.9); eGFR CKD-EPI 17.2 (>60)
[2024-03-25] MEDS: SPIRIVA Respimat (tiotropium) 2.5 mcg/inh Inhaler INH SCH (08:11)
[2024-03-25] MEDS: Vancomycin Random Level NOTE FOLLOW UP ONE (13:44)
[2024-03-25] MEDS: Vancomycin 750 MG in NS 0.9% 250 ML IVPB ONE (22:05)
[2024-03-26] MEDS: Magnesium Sulfate 2 gm BAG 2 GM/50 ML BAG IVPB ONE (00:11)
[2024-03-26] MEDS ORDERED: Vancomycin Random Level NOTE FOLLOW UP ONE (06:00)
[2024-03-26 07:16] LABS: Calcium 8.2 mg/dL (8.6-10.3); Creatinine, Serum 3.27 mg/dL (0.51-0.95); Potassium 4.7 mmol/L (3.5-5.0); Vancomycin Random 6.6 mcg/mL; eGFR CKD-EPI 15.5 (>60)
[2024-03-26 11:12] VITALS: BP 136/68
[2024-03-26] MEDS ORDERED: Vancomycin 1000 MG in NS 0.9% 250 ML IVPB ONE (16:30)
== END 2024-03-26 14:25 | disposition home or self-care (01) | DRG 425 ==
LOC: ED 15:00 → EDHOLD 20:05 → ICU 20:05 → MED 03-23 21:49
PROVIDERS: ADMIT Hospitalist; ATTEND Hospitalist

== ENCOUNTER 2024-05-02 20:15 | Inpatient (IN) ==
[2024-05-03 00:43] LABS: ABS Basophils 0.1 10^3/uL (0.0-0.1); ABS Eosinophils 0.1 10^3/uL (0.0-0.5); ABS Lymphocytes 0.5 10^3/uL (1.0-4.8); ABS Monocytes 0.8 10^3/uL (0.0-0.9); ABS Neutrophils 16.8 10^3/uL (1.5-7.6); ABS Nucleated RBC 0.01 10^3/ul; Eosinophil % 0.7 %; Hematocrit 36.9 % (35-45); Hemoglobin 11.4 g/dL (11.5-14.3); Lymphocyte % 2.9 %; Mean Corpuscular Hemoglobin 29.2 pg (27-33); Mean Corpuscular Hgb Conc 30.9 g/dL (31-36); Mean Corpuscular Volume 94.4 fL (80-97); Mean Platelet Volume 9.3 fL (7.5-11.2); Platelet Count 297 10^3/uL (150-450); Red Blood Count 3.91 10^6/uL (3.63-4.92); Red Cell Distribution Width 17.1 % (12-17); White Blood Count 18.4 10^3/uL (3.8-11.8)
[2024-05-03 01:08] LABS: C Reactive Protein 128.07 mg/L (<8.01); Calcium 6.2 mg/dL (8.6-10.3); Creatinine, Serum 7.95 mg/dL (0.51-0.95); Potassium 5.7 mmol/L (3.5-5.0); eGFR CKD-EPI 5.3 (>60)
[2024-05-03] MEDS ORDERED: Senna TAB 8.6 mg TAB PO PRN (04:40)
[2024-05-03] MEDS ORDERED: Naloxone Nasal Spray 4 MG/0.1 ML NASAL.SPR INTRANASAL PRN (04:40)
[2024-05-03] MEDS ORDERED: Albuterol HFA INHALER 8 gm MDI INH PRN (04:40)
[2024-05-03] MEDS ORDERED: Mometasone/Formoter 200/5 MDI INH PRN (04:40)
[2024-05-03] MEDS ORDERED: Albuterol/Ipratropium NEB.SOL (2.5/0.5 MG) 3 ML NEB.SOLN INH PRN (04:40)
[2024-05-03] MEDS ORDERED: Dextrose 50% Syringe 50 ml 25 GM/50 ML SYRINGE IV PUSH PRN (04:45)
[2024-05-03] MEDS ORDERED: Calcium Carb (TUMS) 500 mg CHEW TAB PO PRN (04:56)
[2024-05-03] MEDS ORDERED: Vancomycin per Pharmacy 1 EA NOTE FOLLOW UP SCH (05:00)
[2024-05-03] MEDS ORDERED: Zosyn per Pharmacy NOTE FOLLOW UP SCH (05:00)
[2024-05-03] MEDS: Lidocaine 4% CREAM (LMX) 5 GM TUBE TOPICAL ONE (05:36)
[2024-05-03] MEDS: Piperacillin/Tazobac 3.375 BAG 3.375 GM/100 ML BAG IV ONE (05:36)
[2024-05-03 06:00] LABS: Hematocrit 31.3 % (35-45); Hemoglobin 9.9 g/dL (11.5-14.3); Mean Corpuscular Hemoglobin 29.6 pg (27-33); Mean Corpuscular Hgb Conc 31.6 g/dL (31-36); Mean Corpuscular Volume 93.7 fL (80-97); Mean Platelet Volume 9.3 fL (7.5-11.2); Platelet Count 249 10^3/uL (150-450); Red Blood Count 3.33 10^6/uL (3.63-4.92); White Blood Count 16.3 10^3/uL (3.8-11.8)
[2024-05-03 06:24] LABS: Anion Gap 17 mmol/L (2-16); Blood Urea Nitrogen 70 mg/dL (6-24); CO2 Carbon Dioxide 12 mmol/L (22-32); Calcium 4.4 mg/dL (8.6-10.3); Chloride 111 mmol/L (101-111); Creatinine, Serum 6.28 mg/dL (0.51-0.95); Glucose 97 mg/dL (70-100); Magnesium < 0.5 mg/dL (1.9-2.7); Sodium 140 mmol/L (135-145); eGFR CKD-EPI 7.1 (>60)
[2024-05-03] MEDS: Vancomycin 1,000 MG in NS 0.9% 250 ml 250 ML IVPB ONE (06:28)
[2024-05-03 06:43] LABS: ABS Lymphocytes 0.5 10^3/uL (1.0-4.8); ABS Monocytes 0.7 10^3/uL (0.0-0.9); Eosinophil % 0.3 %; Lymphocyte % 3.3 %; RBC Morphology Normal (Normal)
[2024-05-03] MEDS: Magnesium Sulfate 2 gm BAG 2 GM/50 ML BAG IVPB ONE ×2 (06:45→15:43)
[2024-05-03] MEDS ORDERED: NS 0.9% 1000 ml BAG 200 ML IV PRN (07:48)
[2024-05-03] MEDS: Magnesium Sulfate IV 1GM/100ML 1 GM/100 ML BAG IV ONE (07:53)
[2024-05-03] MEDS: Heparin 1,000 UNIT/ML 10 ml (10,000 UNITS) CATHLAB/DIALYSIS DIALYSIS PRN (10:08)
[2024-05-03] MEDS: SPIRIVA Respimat (tiotropium) 2.5 mcg/inh Inhaler INH SCH (10:30)
[2024-05-03] MEDS: Albumin Human 25% 25 GM/100 ML BTL IV PRN (10:59)
[2024-05-03 11:15] LABS: Hepatitis B Surface Antigen Nonreactive (Nonreactive)
[2024-05-03 11:32] LABS: Hepatitis B Surface Ab Not Immune (Immune)
[2024-05-03] MEDS: ZOSYN 3.375 GM x ONE DOSE over 30 miuntes IV (15:19)
[2024-05-03] MEDS: ZOSYN 3.375 GM Q12H per EXTENDED INFUSION IV SCH ×2 (15:44→22:28)
[2024-05-03] MEDS: Cholecalciferol (VIT D3) 1,000 unit TAB PO SCH (15:45)
[2024-05-03] MEDS: Heparin 5000 UNITS/ML 1 mL VIAL SUBCUT SCH (16:16)
[2024-05-03] MEDS: Vancomycin 1,250 MG in NS 0.9% 250 ml 250 ML IVPB ONE (16:16)
[2024-05-03] MEDS: Linezolid 600 MG IVPREMIX(*) 600 MG/300 ML BAG IVPB SCH (21:06)
[2024-05-03] MEDS: Insulin GLARGINE 100 un/ml 10 ml VIAL SUBCUT SCH (21:23)
[2024-05-04] MEDS ORDERED: Vancomycin Random Level NOTE FOLLOW UP ONE (06:00)
[2024-05-04 06:46] LABS: Hematocrit 28.2 % (35-45); Hemoglobin 9.2 g/dL (11.5-14.3); Mean Corpuscular Hemoglobin 30.3 pg (27-33); Mean Corpuscular Hgb Conc 32.6 g/dL (31-36); Mean Corpuscular Volume 92.9 fL (80-97); Mean Platelet Volume 9.6 fL (7.5-11.2); Platelet Count 231 10^3/uL (150-450); Red Blood Count 3.04 10^6/uL (3.63-4.92); Red Cell Distribution Width 16.8 % (12-17); White Blood Count 10.8 10^3/uL (3.8-11.8)
[2024-05-04 07:04] LABS: ALT 5 U/L (7-52); AST 10 U/L (13-39); Albumin 2.9 g/dL (3.2-5.2); Albumin/Globulin Ratio 1.1 (1-3); Alkaline Phosphatase 40 U/L (35-149); Anion Gap 14 mmol/L (2-16); Blood Urea Nitrogen 30 mg/dL (6-24); CO2 Carbon Dioxide 22 mmol/L (22-32); Calcium 7.6 mg/dL (8.6-10.3); Chloride 103 mmol/L (101-111); Creatinine, Serum 4.31 mg/dL (0.51-0.95); Globulin 2.7 g/dL (2-4); Glucose 95 mg/dL (70-100); Potassium 4.3 mmol/L (3.5-5.0); Sodium 139 mmol/L (135-145); Total Bilirubin 0.4 mg/dL (0.2-1.0); Total Protein 5.6 g/dL (6.4-8.9); Vancomycin Random < 2.0 mcg/mL; eGFR CKD-EPI 11.1 (>60)
[2024-05-04 07:12] LABS: Magnesium 1.8 mg/dL (1.9-2.7)
[2024-05-04] MEDS: Magnesium Sulfate 2 gm BAG 2 GM/50 ML BAG IVPB ONE (08:45)
[2024-05-04] MEDS ORDERED: Vancomycin per Pharmacy 1 EA NOTE FOLLOW UP PRN (14:16)
[2024-05-04] MEDS: Vancomycin 1,500 MG in NS 0.9% 250 ml 250 ML IVPB ONE (19:20)
[2024-05-05 06:57] LABS: Hematocrit 29.4 % (35-45); Hemoglobin 9.7 g/dL (11.5-14.3); Mean Corpuscular Hemoglobin 30.5 pg (27-33); Mean Corpuscular Hgb Conc 32.8 g/dL (31-36); Mean Corpuscular Volume 92.9 fL (80-97); Platelet Count 283 10^3/uL (150-450); Red Blood Count 3.17 10^6/uL (3.63-4.92); Red Cell Distribution Width 16.5 % (12-17); White Blood Count 10.8 10^3/uL (3.8-11.8)
[2024-05-05 07:29] LABS: Albumin 3.3 g/dL (3.2-5.2); Albumin/Globulin Ratio 1.2 (1-3); Calcium 8.4 mg/dL (8.6-10.3); Creatinine, Serum 3.4 mg/dL (0.51-0.95); Globulin 2.8 g/dL (2-4); Magnesium 1.5 mg/dL (1.9-2.7); Potassium 3.7 mmol/L (3.5-5.0); Total Bilirubin 0.5 mg/dL (0.2-1.0); Total Protein 6.1 g/dL (6.4-8.9); eGFR CKD-EPI 14.8 (>60)
[2024-05-05 07:45] LABS: ABS Basophils 0.1 10^3/uL (0.0-0.1); ABS Eosinophils 0.2 10^3/uL (0.0-0.5); ABS Lymphocytes 0.8 10^3/uL (1.0-4.8); ABS Monocytes 0.8 10^3/uL (0.0-0.9); ABS Neutrophils 8.9 10^3/uL (1.5-7.6); Eosinophil % 1.5 %; Lymphocyte % 7.1 %; RBC Morphology Normal (Normal)
[2024-05-05] MEDS: Vancomycin Random Level NOTE FOLLOW UP ONE (08:38)
[2024-05-05] MEDS: Morphine 2 MG/ML SYRINGE IV ONE (09:06)
[2024-05-05] MEDS: Ondansetron 4 mg VIAL 2 MG/ML 2 ml VIAL IV ONE (09:06)
[2024-05-05] MEDS: Magnesium Sulf 4 GM/100 ML IV 4,000 MG/100 ML BAG IVPB ONE (09:18)
[2024-05-05 22:22] LABS: Glucose Confirmatory 406 mg/dL (70-100)
[2024-05-06 07:26] LABS: Albumin 3.1 g/dL (3.2-5.2); Albumin/Globulin Ratio 1.1 (1-3); Calcium 8.5 mg/dL (8.6-10.3); Creatinine, Serum 4.75 mg/dL (0.51-0.95); Globulin 2.9 g/dL (2-4); Potassium 4.1 mmol/L (3.5-5.0); Total Bilirubin 0.3 mg/dL (0.2-1.0); eGFR CKD-EPI 9.9 (>60)
[2024-05-06 07:27] LABS: Hematocrit 29.4 % (35-45); Hemoglobin 9.3 g/dL (11.5-14.3); Mean Corpuscular Hemoglobin 29.8 pg (27-33); Mean Corpuscular Hgb Conc 31.7 g/dL (31-36); Mean Platelet Volume 9.2 fL (7.5-11.2); Platelet Count 345 10^3/uL (150-450); Red Blood Count 3.13 10^6/uL (3.63-4.92); Red Cell Distribution Width 16.8 % (12-17)
[2024-05-06 08:18] LABS: Magnesium 2.6 mg/dL (1.9-2.7)
[2024-05-06] MEDS: Vancomycin Random Level NOTE FOLLOW UP ONE (13:38)
[2024-05-06] MEDS: Morphine 2 MG/ML SYRINGE IV ONE (13:55)
[2024-05-06] MEDS: Ondansetron 4 mg VIAL 2 MG/ML 2 ml VIAL IV ONE (13:56)
[2024-05-06] MEDS: Morphine 2 MG/ML SYRINGE ONE (13:57)
[2024-05-06] MEDS: Ondansetron 4 mg VIAL 2 MG/ML 2 ml VIAL ONE (13:57)
[2024-05-06] MEDS ORDERED: Morphine 2 MG/ML SYRINGE IV PRN (15:16)
[2024-05-06] MEDS: Morphine 2 MG/ML SYRINGE IV PRN (18:16)
[2024-05-06] MEDS: Vancomycin 750 MG in NS 0.9% 250 ML IVPB ONE (18:17)
[2024-05-07 06:08] LABS: Hematocrit 28.7 % (35-45); Mean Corpuscular Hemoglobin 29.3 pg (27-33); Mean Corpuscular Hgb Conc 31.5 g/dL (31-36); Mean Corpuscular Volume 93.1 fL (80-97); Mean Platelet Volume 8.4 fL (7.5-11.2); Platelet Count 345 10^3/uL (150-450); Red Blood Count 3.08 10^6/uL (3.63-4.92); Red Cell Distribution Width 16.9 % (12-17)
[2024-05-07 06:45] LABS: Calcium 8.9 mg/dL (8.6-10.3); Creatinine, Serum 3.18 mg/dL (0.51-0.95); Potassium 4.1 mmol/L (3.5-5.0)
[2024-05-08 06:07] LABS: Hematocrit 32.4 % (35-45); Hemoglobin 10.2 g/dL (11.5-14.3); Mean Corpuscular Hemoglobin 29.6 pg (27-33); Mean Corpuscular Hgb Conc 31.4 g/dL (31-36); Mean Corpuscular Volume 94.2 fL (80-97); Mean Platelet Volume 8.3 fL (7.5-11.2); Platelet Count 392 10^3/uL (150-450); Red Blood Count 3.44 10^6/uL (3.63-4.92); Red Cell Distribution Width 16.5 % (12-17); White Blood Count 15.2 10^3/uL (3.8-11.8)
[2024-05-08 06:29] LABS: ABS Basophils 0.2 10^3/uL (0.0-0.1); ABS Eosinophils 0.3 10^3/uL (0.0-0.5); ABS Lymphocytes 1.2 10^3/uL (1.0-4.8); ABS Monocytes 0.8 10^3/uL (0.0-0.9); ABS Neutrophils 12.6 10^3/uL (1.5-7.6); ABS Nucleated RBC 0.01 10^3/ul; Eosinophil % 2.1 %; Nucleated Red Blood Cells % 0.1 %/100WBC (0.0-0.8); RBC Morphology Normal (Normal)
[2024-05-08 06:55] LABS: Calcium 9.2 mg/dL (8.6-10.3); Creatinine, Serum 4.47 mg/dL (0.51-0.95); Magnesium 1.4 mg/dL (1.9-2.7); Phosphorus 3.4 mg/dL (2.5-5.0); Potassium 4.4 mmol/L (3.5-5.0); eGFR CKD-EPI 10.6 (>60)
[2024-05-08] MEDS: Magnesium Sulf 4 GM/100 ML IV 4,000 MG/100 ML BAG IVPB ONE (12:11)
[2024-05-08] MEDS: Insulin GLARGINE 100 un/ml 10 ml VIAL SUBCUT SCH (21:44)
[2024-05-08] MEDS: Ondansetron ODT 4 mg TAB 4 MG TAB PO PRN (22:53)
[2024-05-09 06:39] LABS: Hemoglobin 9.5 g/dL (11.5-14.3); Mean Corpuscular Hemoglobin 29.8 pg (27-33); Mean Corpuscular Hgb Conc 31.7 g/dL (31-36); Mean Corpuscular Volume 93.9 fL (80-97); Mean Platelet Volume 8.3 fL (7.5-11.2); Platelet Count 400 10^3/uL (150-450); Red Blood Count 3.19 10^6/uL (3.63-4.92); Red Cell Distribution Width 16.2 % (12-17); White Blood Count 18.7 10^3/uL (3.8-11.8)
[2024-05-09 07:03] LABS: Calcium 9.4 mg/dL (8.6-10.3); Creatinine, Serum 5.51 mg/dL (0.51-0.95); Potassium 4.7 mmol/L (3.5-5.0); Vancomycin Random 18.9 mcg/mL; eGFR CKD-EPI 8.3 (>60)
[2024-05-09] MEDS: Vancomycin Random Level NOTE FOLLOW UP ONE (07:50)
[2024-05-09] MEDS: Ondansetron 4 mg VIAL 2 MG/ML 2 ml VIAL IV PRN (14:32)
[2024-05-09] MEDS: NS 0.9% 1000 ml BAG 100 ML IV PRN (14:51)
[2024-05-09] MEDS ORDERED: Vancomycin per Pharmacy 1 EA NOTE FOLLOW UP SCH (18:00)
[2024-05-09] MEDS: Vancomycin 750 MG in NS 0.9% 250 ML IVPB ONE (18:25)
[2024-05-10 05:51] LABS: Hematocrit 27.2 % (35-45); Hemoglobin 8.6 g/dL (11.5-14.3); Mean Corpuscular Hemoglobin 29.8 pg (27-33); Mean Corpuscular Hgb Conc 31.5 g/dL (31-36); Mean Corpuscular Volume 94.6 fL (80-97); Platelet Count 417 10^3/uL (150-450); Red Blood Count 2.88 10^6/uL (3.63-4.92); Red Cell Distribution Width 16.8 % (12-17); White Blood Count 18.4 10^3/uL (3.8-11.8)
[2024-05-10 06:24] LABS: Calcium 9.1 mg/dL (8.6-10.3); Creatinine, Serum 3.21 mg/dL (0.51-0.95); Potassium 3.7 mmol/L (3.5-5.0); eGFR CKD-EPI 15.8 (>60)
[2024-05-10] MEDS: Morphine 2 MG/ML SYRINGE IV ONE (14:10)
[2024-05-11] MEDS: Lidocaine 2% JELLY 6 ML Topical TOPICAL ONE (10:45)
[2024-05-11] MEDS: Vancomycin 750 MG in NS 0.9% 250 ML IVPB ONE (18:40)
[2024-05-11] MEDS: Vancomycin Random Level NOTE FOLLOW UP ONE (18:47)
[2024-05-12] MEDS: Iodixanol 320 (CONTRAST) 100 ML SDV IV ONE (08:31)
[2024-05-12] MEDS: Morphine 2 MG/ML SYRINGE IV ONE (12:09)
[2024-05-13 06:30] LABS: Hematocrit 29.9 % (35-45); Hemoglobin 9.5 g/dL (11.5-14.3); Mean Corpuscular Hemoglobin 30.7 pg (27-33); Mean Corpuscular Hgb Conc 31.8 g/dL (31-36); Mean Corpuscular Volume 96.8 fL (80-97); Mean Platelet Volume 8.1 fL (7.5-11.2); Platelet Count 429 10^3/uL (150-450); Red Blood Count 3.08 10^6/uL (3.63-4.92); White Blood Count 16.4 10^3/uL (3.8-11.8)
[2024-05-13 06:50] LABS: Calcium 8.9 mg/dL (8.6-10.3); Creatinine, Serum 4.59 mg/dL (0.51-0.95); Potassium 4.7 mmol/L (3.5-5.0); Vancomycin Random 22.2 mcg/mL; eGFR CKD-EPI 10.3 (>60)
[2024-05-13 06:51] LABS: Magnesium 0.9 mg/dL (1.9-2.7)
[2024-05-13] MEDS: Vancomycin Random Level NOTE FOLLOW UP ONE (08:25)
[2024-05-13] MEDS: Magnesium Sulf 4 GM/100 ML IV 4,000 MG/100 ML BAG IVPB ONE (12:49)
[2024-05-13] MEDS: Morphine 2 MG/ML SYRINGE IV ONE (14:03)
[2024-05-13 14:09] VITALS: BP 129/57
[2024-05-13] MEDS: Vancomycin 750 MG in NS 0.9% 250 ML IVPB ONE (15:52)
[2024-05-16] MEDS ORDERED: Vancomycin Random Level NOTE FOLLOW UP ONE (06:00)
== END 2024-05-13 17:45 | disposition home or self-care (01) | DRG 313 ==
LOC: EDHOLD 20:15 → ED 20:15 → SUATTDRO 05-03 03:38 → MEDTELE 05-03 08:06 → SSU 05-03 08:20 → SUATTDRO 05-03 09:12 → SSU 05-05 15:42
PROVIDERS: ADMIT Student in an Organized Health Care Education/Training Program; ATTEND Student in an Organized Health Care Education/Training Program

== ENCOUNTER 2024-05-17 21:19 | Inpatient (IN) ==
[2024-05-18 01:17] LABS: Hematocrit 27.8 % (35-45); Hemoglobin 8.9 g/dL (11.5-14.3); Mean Corpuscular Hemoglobin 30.4 pg (27-33); Mean Corpuscular Hgb Conc 31.9 g/dL (31-36); Mean Corpuscular Volume 95.3 fL (80-97); Mean Platelet Volume 8.2 fL (7.5-11.2); Platelet Count 257 10^3/uL (150-450); Red Blood Count 2.92 10^6/uL (3.63-4.92); Red Cell Distribution Width 19.4 % (12-17); White Blood Count 14.1 10^3/uL (3.8-11.8)
[2024-05-18 01:40] LABS: Albumin 3.5 g/dL (3.2-5.2); Albumin/Globulin Ratio 1.2 (1-3); C Reactive Protein 36.4 mg/L (<8.01); Calcium 8.7 mg/dL (8.6-10.3); Creatinine, Serum 3.9 mg/dL (0.51-0.95); Globulin 2.9 g/dL (2-4); Potassium 4.4 mmol/L (3.5-5.0); Total Bilirubin 0.4 mg/dL (0.2-1.0); Total Protein 6.4 g/dL (6.4-8.9); eGFR CKD-EPI 12.5 (>60)
[2024-05-18] MEDS: Vancomycin 1,000 MG in NS 0.9% 250 ml 250 ML IVPB ONE (01:59)
[2024-05-18 02:12] LABS: ABS Basophils 0.2 10^3/uL (0.0-0.1); ABS Eosinophils 0.1 10^3/uL (0.0-0.5); ABS Lymphocytes 0.9 10^3/uL (1.0-4.8); ABS Neutrophils 11.9 10^3/uL (1.5-7.6); Eosinophil % 0.9 %; Lymphocyte % 6.6 %
[2024-05-18] MEDS ORDERED: Calcium (OSCAL) 500 mg TAB PO PRN (03:21)
[2024-05-18] MEDS ORDERED: Mometasone/Formoter 200/5 MDI INH PRN (03:21)
[2024-05-18] MEDS ORDERED: Albuterol/Ipratropium NEB.SOL (2.5/0.5 MG) 3 ML NEB.SOLN INH PRN (03:21)
[2024-05-18] MEDS ORDERED: Dextrose 50% Syringe 50 ml 25 GM/50 ML SYRINGE IV PUSH PRN (03:24)
[2024-05-18] MEDS: Vancomycin 750 MG in NS 0.9% 250 ml 250 ML IVPB SCH (06:26)
[2024-05-18] MEDS: Heparin 5000 UNITS/ML 1 mL VIAL SUBCUT SCH (09:59)
[2024-05-18] MEDS: cefTRIAXone 1 gm/50 mL D5W 1 GM/50 ML BAG IV SCH ×2 (10:43→13:00)
[2024-05-18] MEDS ORDERED: Vancomycin per Pharmacy 1 EA NOTE FOLLOW UP PRN (15:43)
[2024-05-18 16:22] LABS: ABS Basophils 0.1 10^3/uL (0.0-0.1); ABS Eosinophils 0.1 10^3/uL (0.0-0.5); ABS Lymphocytes 0.8 10^3/uL (1.0-4.8); Eosinophil % 1.3 %; Hematocrit 26.8 % (35-45); Hemoglobin 8.7 g/dL (11.5-14.3); Lymphocyte % 8.5 %; Mean Corpuscular Hemoglobin 31.2 pg (27-33); Mean Corpuscular Hgb Conc 32.3 g/dL (31-36); Mean Corpuscular Volume 96.6 fL (80-97); Mean Platelet Volume 8.6 fL (7.5-11.2); Platelet Count 237 10^3/uL (150-450); Red Blood Count 2.78 10^6/uL (3.63-4.92); Red Cell Distribution Width 19.8 % (12-17)
[2024-05-18 16:58] LABS: Calcium 8.5 mg/dL (8.6-10.3); Creatinine, Serum 4.79 mg/dL (0.51-0.95); Potassium 4.4 mmol/L (3.5-5.0); eGFR CKD-EPI 9.8 (>60)
[2024-05-18] MEDS: Insulin GLARGINE 100 un/ml 10 ml VIAL SUBCUT SCH (22:17)
[2024-05-18] MEDS: Nystatin TOP POWDER 15 GM BTL TOPICAL SCH (23:47)
[2024-05-19] MEDS ORDERED: NS 0.9% 1000 ml BAG 200 ML IV PRN (07:49)
[2024-05-19] MEDS: Heparin 1,000 UNIT/ML 10 ml (10,000 UNITS) CATHLAB/DIALYSIS DIALYSIS PRN (09:22)
[2024-05-19 09:46] LABS: ABS Basophils 0.1 10^3/uL (0.0-0.1); ABS Eosinophils 0.2 10^3/uL (0.0-0.5); ABS Lymphocytes 0.9 10^3/uL (1.0-4.8); ABS Monocytes 0.8 10^3/uL (0.0-0.9); ABS Neutrophils 5.5 10^3/uL (1.5-7.6); Eosinophil % 2.5 %; Hematocrit 27.9 % (35-45); Hemoglobin 8.9 g/dL (11.5-14.3); Lymphocyte % 12.1 %; Mean Corpuscular Hemoglobin 30.6 pg (27-33); Mean Corpuscular Hgb Conc 31.8 g/dL (31-36); Mean Corpuscular Volume 96.2 fL (80-97); Mean Platelet Volume 8.7 fL (7.5-11.2); Platelet Count 257 10^3/uL (150-450); Red Cell Distribution Width 19.3 % (12-17); White Blood Count 7.5 10^3/uL (3.8-11.8)
[2024-05-19 10:14] LABS: C Reactive Protein 44.41 mg/L (<8.01); Calcium 8.4 mg/dL (8.6-10.3); Creatinine, Serum 5.25 mg/dL (0.51-0.95); Potassium 4.7 mmol/L (3.5-5.0); eGFR CKD-EPI 8.8 (>60)
[2024-05-19] MEDS: Albumin Human 25% 25 GM/100 ML BTL IV PRN (11:19)
[2024-05-19] MEDS: Vancomycin 500 MG in NS 0.9% 250 ML IVPB ONE (17:09)
[2024-05-20 06:32] LABS: ABS Basophils 0.1 10^3/uL (0.0-0.1); ABS Eosinophils 0.2 10^3/uL (0.0-0.5); ABS Lymphocytes 0.9 10^3/uL (1.0-4.8); ABS Monocytes 0.7 10^3/uL (0.0-0.9); ABS Neutrophils 6.2 10^3/uL (1.5-7.6); Eosinophil % 2.6 %; Hematocrit 29.3 % (35-45); Hemoglobin 9.3 g/dL (11.5-14.3); Lymphocyte % 10.7 %; Mean Corpuscular Hemoglobin 30.8 pg (27-33); Mean Corpuscular Hgb Conc 31.7 g/dL (31-36); Mean Corpuscular Volume 97.1 fL (80-97); Mean Platelet Volume 8.7 fL (7.5-11.2); Platelet Count 282 10^3/uL (150-450); Red Blood Count 3.01 10^6/uL (3.63-4.92); Red Cell Distribution Width 19.4 % (12-17); White Blood Count 8.2 10^3/uL (3.8-11.8)
[2024-05-20 06:50] LABS: Calcium 8.7 mg/dL (8.6-10.3); Creatinine, Serum 4.02 mg/dL (0.51-0.95); Magnesium 1.3 mg/dL (1.9-2.7); Phosphorus 4.5 mg/dL (2.5-5.0); Potassium 4.5 mmol/L (3.5-5.0); eGFR CKD-EPI 12.1 (>60)
[2024-05-20] MEDS: Vancomycin Random Level NOTE FOLLOW UP ONE (09:38)
[2024-05-21 09:38] LABS: ABS Basophils 0.1 10^3/uL (0.0-0.1); ABS Eosinophils 0.3 10^3/uL (0.0-0.5); ABS Lymphocytes 0.8 10^3/uL (1.0-4.8); ABS Monocytes 0.8 10^3/uL (0.0-0.9); ABS Neutrophils 7.8 10^3/uL (1.5-7.6); ABS Nucleated RBC 0.01 10^3/ul; Eosinophil % 2.8 %; Hematocrit 34.7 % (35-45); Hemoglobin 10.2 g/dL (11.5-14.3); Lymphocyte % 8.4 %; Mean Corpuscular Hemoglobin 28.6 pg (27-33); Mean Corpuscular Hgb Conc 29.5 g/dL (31-36); Mean Corpuscular Volume 96.9 fL (80-97); Mean Platelet Volume 8.9 fL (7.5-11.2); Nucleated Red Blood Cells % 0.1 %/100WBC (0.0-0.8); Platelet Count 393 10^3/uL (150-450); Red Blood Count 3.58 10^6/uL (3.63-4.92); Red Cell Distribution Width 19.5 % (12-17); White Blood Count 9.8 10^3/uL (3.8-11.8)
[2024-05-21 10:45] LABS: Creatinine, Serum 4.74 mg/dL (0.51-0.95); Magnesium 1.1 mg/dL (1.9-2.7); Phosphorus 4.1 mg/dL (2.5-5.0); eGFR CKD-EPI 9.9 (>60)
[2024-05-21] MEDS: Magnesium Sulfate 2 gm BAG 2 GM/50 ML BAG IVPB ONE (12:29)
[2024-05-21] MEDS: Magnesium Sulfate IV 1GM/100ML 1 GM/100 ML BAG IV ONE (14:03)
[2024-05-22 07:49] LABS: Calcium 9.1 mg/dL (8.6-10.3); Creatinine, Serum 5.33 mg/dL (0.51-0.95); Magnesium 1.9 mg/dL (1.9-2.7); Phosphorus 5.1 mg/dL (2.5-5.0); Potassium 5.5 mmol/L (3.5-5.0); eGFR CKD-EPI 8.6 (>60)
[2024-05-22] MEDS: SODIUM ZIRCONIUM CYCLOSILICATE 5 GM PACKET PO ONE (11:28)
[2024-05-22] MEDS: Albuterol HFA INHALER 8 gm MDI INH PRN (18:00)
[2024-05-23 05:43] LABS: ABS Basophils 0.1 10^3/uL (0.0-0.1); ABS Eosinophils 0.2 10^3/uL (0.0-0.5); ABS Lymphocytes 0.7 10^3/uL (1.0-4.8); ABS Monocytes 0.7 10^3/uL (0.0-0.9); ABS Neutrophils 7.3 10^3/uL (1.5-7.6); ABS Nucleated RBC 0.01 10^3/ul; Eosinophil % 2.5 %; Hematocrit 30.9 % (35-45); Lymphocyte % 7.5 %; Mean Corpuscular Hemoglobin 31.5 pg (27-33); Mean Corpuscular Hgb Conc 32.3 g/dL (31-36); Mean Corpuscular Volume 97.3 fL (80-97); Mean Platelet Volume 8.3 fL (7.5-11.2); Nucleated Red Blood Cells % 0.1 %/100WBC (0.0-0.8); Platelet Count 315 10^3/uL (150-450); Red Blood Count 3.18 10^6/uL (3.63-4.92); Red Cell Distribution Width 19.6 % (12-17)
[2024-05-23 06:14] LABS: Albumin 3.4 g/dL (3.2-5.2); Albumin/Globulin Ratio 1.1 (1-3); Calcium 9.1 mg/dL (8.6-10.3); Creatinine, Serum 5.81 mg/dL (0.51-0.95); Magnesium 1.7 mg/dL (1.9-2.7); Potassium 5.2 mmol/L (3.5-5.0); Total Bilirubin 0.3 mg/dL (0.2-1.0); Total Protein 6.4 g/dL (6.4-8.9); Vancomycin Random 16.7 mcg/mL; eGFR CKD-EPI 7.8 (>60)
[2024-05-23] MEDS: Vancomycin Random Level NOTE FOLLOW UP ONE (07:52)
[2024-05-23] MEDS: Magnesium Sulfate 2 gm BAG 2 GM/50 ML BAG IVPB ONE (08:17)
[2024-05-23 08:37] LABS: C Reactive Protein 19.09 mg/L (<8.01)
[2024-05-23] MEDS: NS 0.9% 1000 ml BAG 100 ML IV PRN (12:08)
[2024-05-23] MEDS: Vancomycin 500 MG in NS 0.9% 250 ML IVPB ONE (17:19)
[2024-05-23] MEDS: Insulin GLARGINE 100 un/ml 10 ml VIAL SUBCUT SCH (20:18)
[2024-05-24 06:41] LABS: ABS Basophils 0.1 10^3/uL (0.0-0.1); ABS Eosinophils 0.2 10^3/uL (0.0-0.5); ABS Lymphocytes 0.8 10^3/uL (1.0-4.8); ABS Monocytes 0.6 10^3/uL (0.0-0.9); ABS Neutrophils 7.2 10^3/uL (1.5-7.6); ABS Nucleated RBC 0.01 10^3/ul; Eosinophil % 2.7 %; Hematocrit 30.7 % (35-45); Hemoglobin 9.9 g/dL (11.5-14.3); Lymphocyte % 9.3 %; Mean Corpuscular Hemoglobin 30.9 pg (27-33); Mean Corpuscular Hgb Conc 32.2 g/dL (31-36); Mean Corpuscular Volume 96.2 fL (80-97); Nucleated Red Blood Cells % 0.1 %/100WBC (0.0-0.8); Platelet Count 351 10^3/uL (150-450); Red Blood Count 3.19 10^6/uL (3.63-4.92); Red Cell Distribution Width 19.3 % (12-17)
[2024-05-24 07:05] LABS: Calcium 8.9 mg/dL (8.6-10.3); Creatinine, Serum 3.66 mg/dL (0.51-0.95); Magnesium 1.8 mg/dL (1.9-2.7); Potassium 4.9 mmol/L (3.5-5.0); eGFR CKD-EPI 13.5 (>60)
[2024-05-24] MEDS: Magnesium Sulfate 2 gm BAG 2 GM/50 ML BAG IVPB ONE (08:48)
[2024-05-25 08:50] LABS: Hematocrit 33.2 % (35-45); Hemoglobin 10.5 g/dL (11.5-14.3); Mean Corpuscular Hemoglobin 30.9 pg (27-33); Mean Corpuscular Hgb Conc 31.7 g/dL (31-36); Mean Corpuscular Volume 97.3 fL (80-97); Platelet Count 356 10^3/uL (150-450); Red Blood Count 3.41 10^6/uL (3.63-4.92); Red Cell Distribution Width 19.6 % (12-17); White Blood Count 8.3 10^3/uL (3.8-11.8)
[2024-05-25 09:11] LABS: Calcium 9.7 mg/dL (8.6-10.3); Creatinine, Serum 4.41 mg/dL (0.51-0.95); Magnesium 2.1 mg/dL (1.9-2.7); Potassium 5.3 mmol/L (3.5-5.0); eGFR CKD-EPI 10.8 (>60)
[2024-05-25 22:43] LABS: ABS Basophils 0.1 10^3/uL (0.0-0.1); ABS Eosinophils 0.3 10^3/uL (0.0-0.5); ABS Lymphocytes 0.7 10^3/uL (1.0-4.8); ABS Monocytes 0.6 10^3/uL (0.0-0.9); ABS Neutrophils 8.6 10^3/uL (1.5-7.6); Eosinophil % 3.3 %; Hematocrit 31.5 % (35-45); Mean Corpuscular Hemoglobin 30.6 pg (27-33); Mean Corpuscular Hgb Conc 31.7 g/dL (31-36); Mean Corpuscular Volume 96.4 fL (80-97); Mean Platelet Volume 7.8 fL (7.5-11.2); Platelet Count 354 10^3/uL (150-450); Red Blood Count 3.27 10^6/uL (3.63-4.92); Red Cell Distribution Width 19.4 % (12-17); White Blood Count 10.4 10^3/uL (3.8-11.8)
[2024-05-26 06:18] LABS: ABS Basophils 0.1 10^3/uL (0.0-0.1); ABS Eosinophils 0.3 10^3/uL (0.0-0.5); ABS Lymphocytes 0.7 10^3/uL (1.0-4.8); ABS Monocytes 0.6 10^3/uL (0.0-0.9); ABS Nucleated RBC 0.01 10^3/ul; Eosinophil % 3.2 %; Hematocrit 30.7 % (35-45); Hemoglobin 9.6 g/dL (11.5-14.3); Mean Corpuscular Hemoglobin 30.3 pg (27-33); Mean Corpuscular Hgb Conc 31.3 g/dL (31-36); Mean Corpuscular Volume 96.9 fL (80-97); Mean Platelet Volume 7.7 fL (7.5-11.2); Nucleated Red Blood Cells % 0.1 %/100WBC (0.0-0.8); Platelet Count 339 10^3/uL (150-450); Red Blood Count 3.17 10^6/uL (3.63-4.92); Red Cell Distribution Width 19.1 % (12-17); White Blood Count 9.7 10^3/uL (3.8-11.8)
[2024-05-26 06:56] LABS: Calcium 9.4 mg/dL (8.6-10.3); Creatinine, Serum 4.91 mg/dL (0.51-0.95); Magnesium 1.8 mg/dL (1.9-2.7); Potassium 5.9 mmol/L (3.5-5.0); eGFR CKD-EPI 9.5 (>60)
[2024-05-26] MEDS: Vancomycin 500 MG in NS 0.9% 250 ML IVPB ONE (15:38)
[2024-05-26] MEDS: Insulin GLARGINE 100 un/ml 10 ml VIAL SUBCUT SCH (20:46)
[2024-05-27] MEDS ORDERED: Vancomycin Random Level NOTE FOLLOW UP ONE (06:00)
[2024-05-27 06:02] LABS: ABS Basophils 0.1 10^3/uL (0.0-0.1); ABS Eosinophils 0.2 10^3/uL (0.0-0.5); ABS Lymphocytes 0.6 10^3/uL (1.0-4.8); ABS Monocytes 0.6 10^3/uL (0.0-0.9); ABS Neutrophils 6.5 10^3/uL (1.5-7.6); ABS Nucleated RBC 0.01 10^3/ul; Eosinophil % 2.9 %; Hemoglobin 8.6 g/dL (11.5-14.3); Lymphocyte % 7.6 %; Mean Corpuscular Volume 97.1 fL (80-97); Mean Platelet Volume 7.8 fL (7.5-11.2); Nucleated Red Blood Cells % 0.2 %/100WBC (0.0-0.8); Platelet Count 306 10^3/uL (150-450); Red Blood Count 2.78 10^6/uL (3.63-4.92); Red Cell Distribution Width 19.2 % (12-17)
[2024-05-27 06:35] LABS: Potassium 4.9 mmol/L (3.5-5.0)
[2024-05-27 06:36] LABS: Calcium 9.3 mg/dL (8.6-10.3); Creatinine, Serum 3.17 mg/dL (0.51-0.95); Magnesium 1.5 mg/dL (1.9-2.7); eGFR CKD-EPI 16.1 (>60)
[2024-05-27] MEDS: Magnesium Sulfate 2 gm BAG 2 GM/50 ML BAG IVPB ONE (11:29)
[2024-05-27] MEDS: Magnesium Sulfate IV 1GM/100ML 1 GM/100 ML BAG IV ONE (12:36)
[2024-05-27] MEDS: Vancomycin 500 MG in NS 0.9% 250 ML IVPB ONE (15:31)
[2024-05-27] MEDS: TRANEXAMIC ACID 650 MG PO SCH (15:31)
[2024-05-27] MEDS ORDERED: Polyethylene Glycol 3350 17 GM PACKET PO PRN (21:02)
[2024-05-28 06:16] LABS: Hematocrit 28.2 % (35-45); Hemoglobin 9.2 g/dL (11.5-14.3); Mean Corpuscular Hemoglobin 31.6 pg (27-33); Mean Corpuscular Hgb Conc 32.4 g/dL (31-36); Mean Corpuscular Volume 97.4 fL (80-97); Mean Platelet Volume 7.9 fL (7.5-11.2); Platelet Count 296 10^3/uL (150-450); Red Cell Distribution Width 18.2 % (12-17); White Blood Count 9.3 10^3/uL (3.8-11.8)
[2024-05-28 07:14] LABS: Creatinine, Serum 2.97 mg/dL (0.51-0.95); Magnesium 2.4 mg/dL (1.9-2.7); Potassium 4.8 mmol/L (3.5-5.0); eGFR CKD-EPI 17.4 (>60)
[2024-05-29 08:39] LABS: Calcium 9.3 mg/dL (8.6-10.3); Creatinine, Serum 3.88 mg/dL (0.51-0.95); Magnesium 2.1 mg/dL (1.9-2.7); Phosphorus 5.3 mg/dL (2.5-5.0); Potassium 5.6 mmol/L (3.5-5.0); eGFR CKD-EPI 12.6 (>60)
[2024-05-29 11:30] LABS: ABS Basophils 0.1 10^3/uL (0.0-0.1); ABS Eosinophils 0.2 10^3/uL (0.0-0.5); ABS Lymphocytes 0.6 10^3/uL (1.0-4.8); ABS Monocytes 0.5 10^3/uL (0.0-0.9); ABS Neutrophils 8.6 10^3/uL (1.5-7.6); Hematocrit 29.1 % (35-45); Hemoglobin 9.1 g/dL (11.5-14.3); Mean Corpuscular Hemoglobin 30.5 pg (27-33); Mean Corpuscular Hgb Conc 31.2 g/dL (31-36); Mean Corpuscular Volume 97.8 fL (80-97); Mean Platelet Volume 8.3 fL (7.5-11.2); Platelet Count 321 10^3/uL (150-450); Red Blood Count 2.97 10^6/uL (3.63-4.92); Red Cell Distribution Width 18.3 % (12-17)
[2024-05-29] MEDS ORDERED: Senna TAB 8.6 mg TAB PO PRN (16:18)
[2024-05-29] MEDS: Heparin 5000 UNITS/ML 1 mL VIAL SUBCUT SCH (20:24)
[2024-05-30 06:49] LABS: ABS Basophils 0.1 10^3/uL (0.0-0.1); ABS Eosinophils 0.3 10^3/uL (0.0-0.5); ABS Lymphocytes 0.6 10^3/uL (1.0-4.8); ABS Monocytes 0.7 10^3/uL (0.0-0.9); ABS Neutrophils 9.6 10^3/uL (1.5-7.6); Eosinophil % 2.7 %; Hematocrit 27.1 % (35-45); Hemoglobin 8.7 g/dL (11.5-14.3); Lymphocyte % 5.2 %; Mean Corpuscular Hemoglobin 31.2 pg (27-33); Mean Corpuscular Volume 97.5 fL (80-97); Mean Platelet Volume 8.2 fL (7.5-11.2); Platelet Count 283 10^3/uL (150-450); Red Blood Count 2.78 10^6/uL (3.63-4.92); Red Cell Distribution Width 17.7 % (12-17); White Blood Count 11.3 10^3/uL (3.8-11.8)
[2024-05-30 07:01] LABS: Creatinine, Serum 4.36 mg/dL (0.51-0.95); Magnesium 2.1 mg/dL (1.9-2.7); Vancomycin Random 15.4 mcg/mL
[2024-05-30] MEDS: Vancomycin 500 MG in NS 0.9% 250 ML IVPB ONE (16:09)
[2024-05-30] MEDS: Vancomycin Random Level NOTE FOLLOW UP ONE (16:10)
[2024-05-30] MEDS: Mometasone/Formoter 200/5 MDI INH SCH (19:38)
[2024-05-30] MEDS: Insulin GLARGINE 100 un/ml 10 ml VIAL SUBCUT SCH (21:02)
[2024-05-31 06:24] LABS: Hematocrit 25.4 % (35-45); Hemoglobin 8.2 g/dL (11.5-14.3); Mean Corpuscular Hemoglobin 31.2 pg (27-33); Mean Corpuscular Hgb Conc 32.2 g/dL (31-36); Mean Platelet Volume 8.1 fL (7.5-11.2); Platelet Count 287 10^3/uL (150-450); Red Blood Count 2.61 10^6/uL (3.63-4.92); Red Cell Distribution Width 17.6 % (12-17); White Blood Count 7.8 10^3/uL (3.8-11.8)
[2024-05-31 06:38] LABS: Calcium 9.1 mg/dL (8.6-10.3); Creatinine, Serum 3.04 mg/dL (0.51-0.95); Phosphorus 4.2 mg/dL (2.5-5.0); Potassium 4.8 mmol/L (3.5-5.0); eGFR CKD-EPI 16.9 (>60)
[2024-05-31] MEDS: Insulin GLARGINE 100 un/ml 10 ml VIAL SUBCUT SCH (21:09)
[2024-06-01] MEDS: Vancomycin Random Level NOTE FOLLOW UP ONE (08:26)
[2024-06-01] MEDS: Insulin GLARGINE 100 un/ml 10 ml VIAL SUBCUT SCH (08:54)
[2024-06-01 14:13] LABS: Calcium 9.3 mg/dL (8.6-10.3); Creatinine, Serum 2.32 mg/dL (0.51-0.95); Potassium 3.9 mmol/L (3.5-5.0); eGFR CKD-EPI 23.3 (>60)
[2024-06-01] MEDS: Vancomycin 750 MG in NS 0.9% 250 ML IVPB ONE (16:46)
[2024-06-02 06:47] LABS: Calcium 9.3 mg/dL (8.6-10.3); Creatinine, Serum 3.39 mg/dL (0.51-0.95); Potassium 4.2 mmol/L (3.5-5.0); eGFR CKD-EPI 14.8 (>60)
[2024-06-02 08:27] LABS: Magnesium 1.8 mg/dL (1.9-2.7)
[2024-06-02 14:09] VITALS: BP 137/62
[2024-06-02 14:42] LABS: Rapid COVID-19 Molecular Undetected (Undetected)
[2024-06-03] MEDS ORDERED: Vancomycin Random Level NOTE FOLLOW UP ONE (06:00)
== END 2024-06-02 15:45 | DRG 720 ==
LOC: ED 21:19 → EDHOLD 21:19 → SUATTDRO 05-18 02:05 → SSU 05-18 10:08 → SUATTDRO 05-18 15:57
PROVIDERS: ADMIT Internal Medicine; ATTEND Internal Medicine